=== PATIENT | female | born 1955 | race Caucasian/White ===

== ENCOUNTER 2016-12-29 19:26 | Emergency (ER) | payer OTHER ==
--- NOTE | 2016-12-29 22:55 | ED ---
Zackary Vasquez Salem, scribed for Faye Chatman MD on 12/29/16 at 2143 . HPI Cardiac - HPI Summary HPI Summary: Patient is 61 y/o female who presents to the ED with a concerning INR draw since this afternoon. She reports her PCP instructed her to come in after the INR was drawn. She denies fever, chills, or CP. She reports no other symptoms. Pt has a FHx of CAD and HTN, and has a PMHx of PE, DM, HTN, HLD, but denies CT or CVA. Her PCP is Dr. Bryan. Pt lives alone and is a smoker. - History of Current Complaint Chief Complaint: EDGeneral Stated Complaint: ABNORMAL LABS Time Seen by Provider: 12/29/16 21:09 Hx Obtained From: Patient Onset/Duration: Started Hours Ago Initial Severity: Moderate Current Severity: Moderate Pain Intensity: 0 Pain Scale Used: 0-10 Numeric Aggravating Factor(s): Nothing Alleviating Factor(s): Nothing Associated Signs and Symptoms: Negative: Chest Pain, Fever, Chills - Additional Pertinent History Primary Care Physician: [id number] - Allergy/Home Medications Allergies/Adverse Reactions: Allergies Allergy/AdvReac Type Severity Reaction Status Date / Time Pineapple Allergy Severe Swelling Verified 05/17/16 17:16 Gabapentin Allergy Intermediate Hallucinati Verified 05/17/16 17:16 ons Penicillins Allergy Intermediate Hives Verified 05/17/16 17:16 Prednisone Allergy Intermediate Hallucinati Verified 05/17/16 17:16 ons Bupropion [From Wellbutrin] Allergy Unknown Unknown Verified 05/17/16 17:16 Reaction Details CI Pigment Blue 63 Allergy Unknown Verified 05/17/16 17:16 [From Cymbalta] Reaction Details Citalopram [From Celexa] Allergy Unknown Verified 05/17/16 17:16 Reaction Details Clonazepam [From Klonopin] Allergy Unknown Verified 05/17/16 17:16 Reaction Details Duloxetine [From Cymbalta] Allergy Unknown Verified 05/17/16 17:16 Reaction Details Eszopiclone [From Lunesta] Allergy Unknown Verified 05/17/16 17:16 Reaction Details Fluoxetine [From Prozac] Allergy Unknown Verified 05/17/16 17:16 Reaction Details Metaxalone [From Skelaxin] Allergy Unknown Verified 05/17/16 17:16 Reaction Details Naproxen Allergy Unknown Verified 05/17/16 17:16 Reaction Details Pregabalin [From Lyrica] Allergy Unknown Verified 05/17/16 17:16 Reaction Details Sertraline [From Zoloft] Allergy Unknown Verified 05/17/16 17:16 Reaction Details Valproic Acid [From Depakote] AdvReac Severe Headache Verified 05/17/16 17:16 dimatapp Allergy Severe Swelling Uncoded 05/17/16 17:16 adhesives Allergy Intermediate Hives Uncoded 01/24/16 16:31 PMH/Surg Hx/FS Hx/Imm Hx Endocrine/Hematology History: Reports: Hx Diabetes, Hx Thyroid Disease, Other Endocrine/Hematological Disorders - vit d resistent Denies: Hx Anticoagulant Therapy, Hx Blood Disorders, Hx Blood Transfusions, Hx Bone Marrow Disease, Hx Systemic Lupus Erythematosus, Hx Sickle Cell Disease , Hx Anemia, Hx Unexplained Bleeding Cardiovascular History: Reports: Hx Angina, Hx Embolism, Hx Hypercholesterolemia , Hx Hypertension, Hx Syncope, Other Cardiovascular Problems/Disorders Denies: Hx Aneurysm, Hx Angioplasty, Hx Auto Implanted Cardiovert Defib, Hx Cardiac Arrest, Hx Cardiomegaly, Hx Congenital Heart Disease, Hx Congestive Heart Failure, Hx Coronary Artery Disease, Hx Deep Vein Thrombosis, Hx Hypotension, Hx Myocardial Infarction, Hx Pacemaker/ICD, Hx Peripheral Vascular Disease, Hx Rheumatic Fever, Hx Valvular Heart Disease Respiratory History: Reports: Hx Asthma, Hx Chronic Bronchitis, Hx Chronic Obstructive Pulmonary Disease (COPD), Hx Pulmonary Embolism Denies: Hx Cystic Fibrosis, Hx Lung Cancer, Hx Pleural Effusion, Hx Pneumonia , Hx Pulmonary Edema, Hx Seasonal Allergies, Hx Sleep Apnea GI History: Reports: Hx Gall Bladder Disease, Hx Gastroesophageal Reflux Disease , Hx Irritable Bowel, Other GI Disorders History: Denies: Hx Acute Renal Failure, Hx Benign Prostatic Hyperplasia, Hx Chronic Renal Failure, Hx Dialysis, Hx Kidney Infection, Hx Kidney Stones, Hx Renal Disease, Other Problems/Disorders Musculoskeletal History: Reports: Hx Arthritis, Hx Back Problems, Hx Bursitis, Hx Fibromyalgia, Hx Scoliosis, Other Musculoskeletal History - 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 Denies: Hx Congenital Bone Abnormalities, Hx Gout, Hx Orthopedic Injury, Hx Osteoporosis, Hx Tendonitis Sensory History: Reports: Hx Contacts or Glasses Denies: Hx Eye Injury, Hx Eye Prosthesis, Hx Glaucoma, Hx Legally Blind, Hx Macular Degeneration, Hx Vision Problem, Hx Deafness, Hx Hearing Aid, Hx Hearing Problem, Other Sensory Impairments Opthamlomology History: Reports: Hx Contacts or Glasses Denies: Hx Eye Injury, Hx Eye Prosthesis, Hx Glaucoma, Hx Legally Blind, Hx Macular Degeneration, Hx Vision Problem, Other Sensory Impairments Neurological History: Reports: Hx Headaches, Hx Migraine, Hx Transient Ischemic Attacks (TIA), Other Neuro Impairments/Disorders Denies: Hx Dementia, Hx Developmental Delay, Hx Nerve Disease, Hx Seizures, Hx Spinal Cord Injury Psychiatric History: Reports: Hx Anxiety, Hx Depression, Hx Panic Disorder, Hx Bipolar Disorder, Hx Suicide Attempt - 1995, Other Psychiatric Issues/Disorders - claustrophobia Denies: Hx Substance Abuse - Surgical History Surgery Procedure, Year, and Place: Left knee replacement 04/2005, c section x2 81 & 89, HYSTERECTOMY, GALLBLADDER, TONSILS Hx Anesthesia Reactions: No - Immunization History Date of Tetanus Vaccine: Unknown Date of Influenza Vaccine: 09/2012 Infectious Disease History: No Infectious Disease History: Denies: Hx Hepatitis, Hx Human Immunodeficiency Virus (HIV), Hx of Known/ Suspected MRSA, Hx Shingles, Hx Tuberculosis, Traveled Outside the [place] in Last 30 Days Comment Only: History Other Infectious Disease - hx mrsa in knee postoperatively - Family History Known Family History: Positive: Cardiac Disease, Hypertension, Diabetes, Other - bipolar - Social History Lives: Alone Alcohol Use: None Hx Substance Use: No Substance Use Type: Reports: None Hx Tobacco Use: Yes Smoking Status (MU): Light Every Day Tobacco Smoker Type: Cigarettes Amount Used/How Often: reports smoking 1 pack/week Length of Time of Smoking/Using Tobacco: 30 years Have You Smoked in the Last Year: Yes Review of Systems Negative: Fever, Chills Negative: Chest Pain All Other Systems Reviewed And Are Negative: Yes Physical Exam Triage Information Reviewed: Yes Vital Signs On Initial Exam: Initial Vitals Temp Pulse Resp BP Pulse Ox 97.6 F 102 16 101/59 100 12/29/16 19:36 12/29/16 19:36 12/29/16 19:36 12/29/16 19:36 12/29/16 19:36 Vital Signs Reviewed: Yes Appearance: Positive: Well-Appearing, No Pain Distress Skin: Positive: Warm, Skin Color Reflects Adequate Perfusion, Dry Eyes: Positive: EOMI, TOÑO Neck: Positive: Supple, Nontender Respiratory/Lung Sounds: Positive: Clear to Auscultation, Breath Sounds Present. Negative: Rales, Rhonchi, Wheezes Cardiovascular: Positive: RRR. Negative: Murmur, Rub, Other - No gallop. Abdomen Description: Positive: Nontender, Soft, Other: - No rebound.. Negative : Distended, Guarding Bowel Sounds: Positive: Present Musculoskeletal: Positive: Strength/ROM Intact. Negative: Edema Left, Edema Right Neurological: Positive: Sensory/Motor Intact, Alert, Oriented to Person Place, Time, CN Intact II-III Psychiatric: Positive: Affect/Mood Appropriate Diagnostics - Vital Signs Vital Signs Temp Pulse Resp BP Pulse Ox 12/29/16 19:36 97.6 F 102 16 101/59 100 - Laboratory Lab Results: Lab Results 12/29/16 Range/Units 21:25 INR (Anticoag Therapy) 5.70 H* (0.89-1.11) Lab Statement: Any lab studies that have been ordered have been reviewed, and results considered in the medical decision making process. Disposition - Course Course Of Treatment: No signs of bleeding. well appearing female with inr less than 9 hold coumadin call pmd - Diagnoses Provider Diagnoses: Coagulopathy - Physician Notifications Discussed Care Of Patient With: Dr. Bryan (PCP). Agrees with plan. Discharge - Discharge Plan Condition: Stable Disposition: HOME Patient Education Materials: Bleeding Disorders (ED) Referrals: Germain Sears MD [Primary Care Provider] - Additional Instructions: Follow up with PCP. The documentation as recorded by the Zackary marr Salem accurately reflects the service I personally performed and the decisions made by , Faye Chatman MD.
[2016-12-29 22:58] VITALS: BP 128/69
== END 2016-12-29 22:56 | disposition home or self-care (01) ==
LOC: ED 19:26
DX: D68.9 Coagulation defect, unspecified (principal); F17.210 Nicotine dependence, cigarettes, uncomplicated
CPT/HCPCS: 36415; 85610; 99282

== ENCOUNTER → 2017-03-10 13:02 | Emergency (ER) | payer OTHER ==
[~2017-03-10 13:02] MED LIST: Albuterol/Ipratropium NEB.SOL* Albuterol 2.5 MG/Ipratropium 0.5 MG 3 ML INH ONE; diPHENhydraMINE PO* 25 MG ONE; diPHENhydraMINE PO* 25 MG PO ONE
[2017-03-10 15:57] LABS: Hematocrit 26 % (35-47); Hemoglobin 8.4 g/dl (12.0-16.0); Mean Corpuscular HGB Conc 32 g/dl (31-36); Mean Corpuscular Hemoglobin 30 pg (27-31); Mean Corpuscular Volume 94 fL (80-97); Mean Platelet Volume 8 um3 (7.4-10.4); Red Blood Count 2.79 10^6/ul (4.0-5.4); Red Cell Distribution Width 15 % (10.5-15); White Blood Count 9.1 10^3/ul (3.5-10.8)
[2017-03-10 16:10] LABS: Albumin 3.2 g/dL (3.2-5.2); BUN/Creatinine Ratio 20.5 (8-20); Calcium 8.6 mg/dL (8.6-10.3); EGFR Non-African American 29.6 (>60); Potassium 5.7 mmol/L (3.5-5.0); Total Bilirubin 0.3 mg/dL (0.2-1.0); Total Protein 6.2 g/dL (6.4-8.9); Troponin I 0.01 ng/mL (<0.04)
--- NOTE | 2017-03-10 16:25 | RAD ---
Indication: Shortness breath, cough, pneumonia. Cardiac disease and chronic obstructive pulmonary disease. Comparison: October 03, 2016 Technique: Sitting AP and lateral chest views. Report: Elevated lung volumes and both diffuse mild prominence of the interstitial markings and patchy rarefaction of the mid to upper lung zone interstitial markings. No alveolar consolidation, focal pulmonary lesion, pleural effusion, pneumothorax. The heart, pulmonary vasculature, and mediastinal contours are unremarkable. IMPRESSION: Stigmata of obstructive lung disease. No acute pulmonary or cardiac process evident.
--- NOTE | 2017-03-10 16:32 | RAD ---
Indication: Headache. On Coumadin. Assess for intracranial hemorrhage. Comparison: July 04, 2016 Technique: Noncontrast CT vertex of skull through foramen magnum. Report: The sulci, ventricles, and basal cisterns are normal for age. Boogie matter white matter differentiation is preserved without evidence for edema. No intra or extra axial hemorrhage, mass, or fluid collection detected. Unremarkable visualized orbital contents. Unremarkable calvarium and skull base. Unremarkable scalp. The visualized paranasal sinuses and mastoid air spaces are clear. IMPRESSION: No evidence for intracranial hemorrhage. Negative unenhanced head CT.
[2017-03-10] MEDS: NS 0.9% 1000 ML* 2,000 ML IV ONE (16:47)
[2017-03-10 20:20] VITALS: BP 84/64
--- NOTE | 2017-03-17 13:12 | ED ---
Forrest Vasquez Auryana, scribed for Mikhail Petty MD on 03/10/17 at 1542 . Complex/Multi-Sys Presentation - HPI Summary HPI Summary: 61 year old female presents with cough for 3 days and JOLLEY for 2 days. She reports that she fell 2 days ago and that the JOLLEY is diffuse. She also has wheezing, SOB, and vomiting, but denies CP, dizziness, and any rhinorrhea. She is on warfarin. PMHx is significant for HTN, COPD, HLD, and GERD. Shx is positive for tobacco. - History Of Current Complaint Chief Complaint: EDShortnessOfBreath Time Seen by Provider: 03/10/17 15:16 Hx Obtained From: Patient Onset/Duration: Gradual Onset, Lasting Days - 3 days cough; 2 days JOLLEY, Still Present Timing: Constant Severity Currently: Mild Severity Initially: Mild Location: Pain At: - head - diffuse Associated Signs And Symptoms: Positive: Headache, SOB, Cough, Wheezing, Vomiting. Negative: Dizziness, Chest Pain, Fever - Allergies/Home Medications Allergies/Adverse Reactions: Allergies Allergy/AdvReac Type Severity Reaction Status Date / Time Pineapple Allergy Severe Swelling Verified 05/17/16 17:16 Gabapentin Allergy Intermediate Hallucinati Verified 05/17/16 17:16 ons Penicillins Allergy Intermediate Hives Verified 05/17/16 17:16 Prednisone Allergy Intermediate Hallucinati Verified 05/17/16 17:16 ons Bupropion [From Wellbutrin] Allergy Unknown Unknown Verified 05/17/16 17:16 Reaction Details CI Pigment Blue 63 Allergy Unknown Verified 05/17/16 17:16 [From Cymbalta] Reaction Details Citalopram [From Celexa] Allergy Unknown Verified 05/17/16 17:16 Reaction Details Clonazepam [From Klonopin] Allergy Unknown Verified 05/17/16 17:16 Reaction Details Duloxetine [From Cymbalta] Allergy Unknown Verified 05/17/16 17:16 Reaction Details Eszopiclone [From Lunesta] Allergy Unknown Verified 05/17/16 17:16 Reaction Details Fluoxetine [From Prozac] Allergy Unknown Verified 05/17/16 17:16 Reaction Details Metaxalone [From Skelaxin] Allergy Unknown Verified 05/17/16 17:16 Reaction Details Naproxen Allergy Unknown Verified 05/17/16 17:16 Reaction Details Pregabalin [From Lyrica] Allergy Unknown Verified 05/17/16 17:16 Reaction Details Sertraline [From Zoloft] Allergy Unknown Verified 05/17/16 17:16 Reaction Details Valproic Acid [From Depakote] AdvReac Severe Headache Verified 05/17/16 17:16 dimatapp Allergy Severe Swelling Uncoded 05/17/16 17:16 adhesives Allergy Intermediate Hives Uncoded 01/24/16 16:31 Home Medications: Home Medications ARIPiprazole TAB* [Abilify TAB*] 10 mg PO BID 03/10/17 [History Confirmed 03/10] LORazepam TAB(*) [Ativan 1 MG TAB (*)] 2 mg PO TID PRN 03/10/17 [History Confirmed 03/10/17] Levothyroxine TAB* [Synthroid TAB*] 75 mcg PO DAILY 03/10/17 [History Confirmed 03/10/17] Magnesium Oxide TAB* [MagOx 400 TAB*] 400 mg PO BID 03/10/17 [History Confirmed 03/10/17] Montelukast Sodium TAB* [Singulair TAB*] 10 mg PO BEDTIME 03/10/17 [History Confirmed 03/10/17] Morphine TAB (NF) 15 mg PO QID PRN 03/10/17 [History Confirmed 03/10/17] SUMAtriptan TAB* [Imitrex TAB*] 50 mg PO DAILY PRN 03/10/17 [History Confirmed 03/10/17] Venlafaxine ER (NF) [Effexor ER (NF)] 150 mg PO DAILY 03/10/17 [History Confirmed 03/10/17] Venlafaxine EXT RELEASE CAP* [Effexor Xr CAP*] 75 mg PO DAILY 03/10/17 [History Confirmed 03/10/17] Warfarin TAB(*) [Coumadin TAB(*)] 5 mg PO EVERY OTHER DAY 03/10/17 [History Confirmed 03/10/17] Warfarin TAB(*) [Coumadin TAB(*)] 7.5 mg PO EVERY OTHER DAY 03/10/17 [History Confirmed 03/10/17] Wound Dressings [Sorbsan Topical Wound [place]] 1 pad TOPICAL [id number] 03/10/17 [ History Confirmed 03/10/17] hydrOXYzine HCL TAB* [Atarax 25 MG TAB*] 25 mg PO TID PRN 03/10/17 [History Confirmed 03/10/17] PMH/Surg Hx/FS Hx/Imm Hx Endocrine/Hematology History: Reports: Hx Diabetes, Hx Thyroid Disease, Other Endocrine/Hematological Disorders - vit d resistent Denies: Hx Anticoagulant Therapy, Hx Blood Disorders, Hx Blood Transfusions, Hx Bone Marrow Disease, Hx Systemic Lupus Erythematosus, Hx Sickle Cell Disease , Hx Anemia, Hx Unexplained Bleeding Cardiovascular History: Reports: Hx Angina, Hx Embolism, Hx Hypercholesterolemia , Hx Hypertension, Hx Syncope, Other Cardiovascular Problems/Disorders Denies: Hx Aneurysm, Hx Angioplasty, Hx Auto Implanted Cardiovert Defib, Hx Cardiac Arrest, Hx Cardiomegaly, Hx Congenital Heart Disease, Hx Congestive Heart Failure, Hx Coronary Artery Disease, Hx Deep Vein Thrombosis, Hx Hypotension, Hx Myocardial Infarction, Hx Pacemaker/ICD, Hx Peripheral Vascular Disease, Hx Rheumatic Fever, Hx Valvular Heart Disease Respiratory History: Reports: Hx Asthma, Hx Chronic Bronchitis, Hx Chronic Obstructive Pulmonary Disease (COPD), Hx Pulmonary Embolism Denies: Hx Cystic Fibrosis, Hx Lung Cancer, Hx Pleural Effusion, Hx Pneumonia , Hx Pulmonary Edema, Hx Seasonal Allergies, Hx Sleep Apnea GI History: Reports: Hx Gall Bladder Disease, Hx Gastroesophageal Reflux Disease , Hx Irritable Bowel, Other GI Disorders History: Denies: Hx Acute Renal Failure, Hx Benign Prostatic Hyperplasia, Hx Chronic Renal Failure, Hx Dialysis, Hx Kidney Infection, Hx Kidney Stones, Hx Renal Disease, Other Problems/Disorders Musculoskeletal History: Reports: Hx Arthritis, Hx Back Problems, Hx Bursitis, Hx Fibromyalgia, Hx Scoliosis, Other Musculoskeletal History - 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 Denies: Hx Congenital Bone Abnormalities, Hx Gout, Hx Orthopedic Injury, Hx Osteoporosis, Hx Tendonitis Sensory History: Reports: Hx Contacts or Glasses Denies: Hx Eye Injury, Hx Eye Prosthesis, Hx Glaucoma, Hx Legally Blind, Hx Macular Degeneration, Hx Vision Problem, Hx Deafness, Hx Hearing Aid, Hx Hearing Problem, Other Sensory Impairments Opthamlomology History: Reports: Hx Contacts or Glasses Denies: Hx Eye Injury, Hx Eye Prosthesis, Hx Glaucoma, Hx Legally Blind, Hx Macular Degeneration, Hx Vision Problem, Other Sensory Impairments Neurological History: Reports: Hx Headaches, Hx Migraine, Hx Transient Ischemic Attacks (TIA), Other Neuro Impairments/Disorders Denies: Hx Dementia, Hx Developmental Delay, Hx Nerve Disease, Hx Seizures, Hx Spinal Cord Injury Psychiatric History: Reports: Hx Anxiety, Hx Depression, Hx Panic Disorder, Hx Bipolar Disorder, Hx Suicide Attempt - 1995, Other Psychiatric Issues/Disorders - claustrophobia Denies: Hx Substance Abuse - Surgical History Surgery Procedure, Year, and Place: Left knee replacement 04/2005, c section x2 81 & 89, HYSTERECTOMY, GALLBLADDER, TONSILS Hx Anesthesia Reactions: No - Immunization History Date of Tetanus Vaccine: Unknown Date of Influenza Vaccine: 09/2012 Infectious Disease History: No Infectious Disease History: Denies: Hx Hepatitis, Hx Human Immunodeficiency Virus (HIV), Hx of Known/ Suspected MRSA, Hx Shingles, Hx Tuberculosis, Traveled Outside the [place] in Last 30 Days Comment Only: History Other Infectious Disease - hx mrsa in knee postoperatively - Family History Known Family History: Positive: Cardiac Disease, Hypertension, Diabetes, Other - bipolar - Social History Occupation: Disabled Lives: Alone Alcohol Use: None Hx Substance Use: No Substance Use Type: Reports: None Hx Tobacco Use: Yes Smoking Status (MU): Current Every Day Smoker Type: Cigarettes Amount Used/How Often: reports smoking 1 pack/week Length of Time of Smoking/Using Tobacco: 30 years Have You Smoked in the Last Year: Yes Review of Systems Constitutional: Negative Negative: Fever Eyes: Negative ENT: Negative Negative: Nasal Discharge Cardiovascular: Negative Negative: Chest Pain Positive: Shortness Of Breath, Cough, Other - wheezing Positive: Vomiting Genitourinary: Negative Musculoskeletal: Negative Skin: Negative Positive: Headache Psychological: Normal All Other Systems Reviewed And Are Negative: Yes Physical Exam - Summary Physical Exam Summary: The patient is well-nourished in no acute distress and in no acute pain. The skin is warm and dry and pale. Decreased skin turgor. HEENT: The head is normocephalic and atraumatic. The pupils are equal and reactive. The conjunctivae are clear and without drainage. Nares are patent and without drainage. Mouth reveals dry mucous membranes and the throat is without erythema and exudate. The external ears are intact. The ear canals are patent and without drainage. The tympanic membranes are intact. Neck is supple with full range of motion and non-tender. There are no carotid bruits. There is no neck vein distension. Respiratory: Chest is non-tender. Diminished breath sounds and wheezing. Cardiovascular: Heart is regular rate and rhythm. There is no murmur or rub auscultated. There is no peripheral edema and pulses are symmetrical and equal. Abdomen: The abdomen is soft and non-tender. There are normal bowel sounds heard in all four quadrants and there is no organomegaly palpated. Musculoskeletal: There is no back pain noted. Extremities are non-tender with full range of motion. There is good capillary refill. There is no peripheral edema or calf tenderness elicited. Neurological: Patient is alert and oriented to person, place and time. The patient has symmetrical motor strength in all four extremities. Cranial nerves are grossly intact. Deep tendon reflexes are symmetrical and equal in all four extremities. Psychiatric: The patient has an appropriate affect and does not exhibit any anxiety or depression. Triage Information Reviewed: Yes Vital Signs On Initial Exam: Initial Vitals Temp Pulse Resp BP Pulse Ox 98.5 F 84 18 98/43 100 03/10/17 13:10 03/10/17 13:10 03/10/17 13:10 03/10/17 13:10 03/10/17 13:10 Vital Signs Reviewed: Yes - Wing Coma Scale Coma Scale Total: 15 Diagnostics - Vital Signs Vital Signs Temp Pulse Resp BP Pulse Ox 03/10/17 13:10 98.5 F 84 18 98/43 100 - Laboratory Lab Results: Lab Results 03/10/17 03/10/17 03/10/17 Range/Units 14:55 14:55 14:55 WBC 9.1 (3.5-10.8) 10^3/ul RBC 2.79 L (4.0-5.4) 10^6/ul Hgb 8.4 L (12.0-16.0) g/dl Hct 26 L (35-47) % MCV 94 (80-97) fL MCH 30 (27-31) pg MCHC 32 (31-36) g/dl RDW 15 (10.5-15) % Plt Count 262 (150-450) 10^3/ul MPV 8 (7.4-10.4) um3 Neut % (Auto) 66.7 (38-83) % Lymph % (Auto) 20.1 L (25-47) % Kerr % (Auto) 10.5 H (1-9) % Eos % (Auto) 2.5 (0-6) % Baso % (Auto) 0.2 (0-2) % Absolute Neuts (auto) 6.1 (1.5-7.7) 10^3/ul Absolute Lymphs (auto) 1.8 (1.0-4.8) 10^3/ul Absolute Monos (auto) 1.0 H (0-0.8) 10^3/ul Absolute Eos (auto) 0.2 (0-0.6) 10^3/ul Absolute Basos (auto) 0 (0-0.2) 10^3/ul Absolute Nucleated RBC 0.01 10^3/ul Nucleated RBC % 0.1 INR (Anticoag Therapy) (0.89-1.11) Sodium 130 L (133-145) mmol/L Potassium 5.7 H (3.5-5.0) mmol/L Chloride 102 (101-111) mmol/L Carbon Dioxide 22 (22-32) mmol/L Anion Gap 6 (2-11) mmol/L BUN 36 H (6-24) mg/dL Creatinine 1.76 H (0.51-0.95) mg/dL Est GFR ( Amer) 38.0 (>60) Est GFR (Non-Af Amer) 29.6 (>60) BUN/Creatinine Ratio 20.5 H (8-20) Glucose 74 (70-100) mg/dL Lactic Acid 1.2 (0.5-2.0) mmol/L Calcium 8.6 (8.6-10.3) mg/dL Total Bilirubin 0.30 (0.2-1.0) mg/dL AST 18 (13-39) U/L ALT 11 (7-52) U/L Alkaline Phosphatase 85 (34-104) U/L Troponin I 0.01 (<0.04) ng/mL B-Natriuretic Peptide ( - 100) pg/mL Total Protein 6.2 L (6.4-8.9) g/dL Albumin 3.2 (3.2-5.2) g/dL Globulin 3.0 (2-4) g/dL Albumin/Globulin Ratio 1.1 (1-3) 03/10/17 03/10/17 Range/Units 14:55 14:55 WBC (3.5-10.8) 10^3/ul RBC (4.0-5.4) 10^6/ul Hgb (12.0-16.0) g/dl Hct (35-47) % MCV (80-97) fL MCH (27-31) pg MCHC (31-36) g/dl RDW (10.5-15) % Plt Count (150-450) 10^3/ul MPV (7.4-10.4) um3 Neut % (Auto) (38-83) % Lymph % (Auto) (25-47) % Kerr % (Auto) (1-9) % Eos % (Auto) (0-6) % Baso % (Auto) (0-2) % Absolute Neuts (auto) (1.5-7.7) 10^3/ul Absolute Lymphs (auto) (1.0-4.8) 10^3/ul Absolute Monos (auto) (0-0.8) 10^3/ul Absolute Eos (auto) (0-0.6) 10^3/ul Absolute Basos (auto) (0-0.2) 10^3/ul Absolute Nucleated RBC 10^3/ul Nucleated RBC % INR (Anticoag Therapy) 1.10 (0.89-1.11) Sodium (133-145) mmol/L Potassium (3.5-5.0) mmol/L Chloride (101-111) mmol/L Carbon Dioxide (22-32) mmol/L Anion Gap (2-11) mmol/L BUN (6-24) mg/dL Creatinine (0.51-0.95) mg/dL Est GFR ( Amer) (>60) Est GFR (Non-Af Amer) (>60) BUN/Creatinine Ratio (8-20) Glucose (70-100) mg/dL Lactic Acid (0.5-2.0) mmol/L Calcium (8.6-10.3) mg/dL Total Bilirubin (0.2-1.0) mg/dL AST (13-39) U/L ALT (7-52) U/L Alkaline Phosphatase (34-104) U/L Troponin I (<0.04) ng/mL B-Natriuretic Peptide 142 H ( - 100) pg/mL Total Protein (6.4-8.9) g/dL Albumin (3.2-5.2) g/dL Globulin (2-4) g/dL Albumin/Globulin Ratio (1-3) Result Diagrams: 03/10/17 14:55 03/10/17 14:55 Lab Statement: Any lab studies that have been ordered have been reviewed, and results considered in the medical decision making process. - Radiology CXR Xray Interpretation: No Acute Changes - IMPRESSION: Stigmata of obstructive lung disease. No acute pulmonary or cardiac process evident. Radiology Interpretation Completed By: Radiologist - CT BRAIN CT Interpretation: No Acute Changes CT Interpretation Completed By: Radiologist Re-Evaluation - Re-Evaluation First Eval Re-Evaluation Time: 18:34 - DISCUSSED LABS, IMAGING AND PLAN TO D/C Change: Improved Comment: JOLLEY still there but states breathing improved Complex Multi-Symp Course/Dx Assessment/Plan: 61 year old female presents with cough for 3 days and JOLLEY for 2 days. She reports that she fell 2 days ago and that the JOLLEY is diffuse. She also has wheezing, SOB, and vomiting, but denies CP, dizziness, and any rhinorrhea. She is on warfarin. PMHx is significant for HTN, COPD, HLD, and GERD. Shx is positive for tobacco. CT BRAIN: NEGATIVE. CXR: IMPRESSION: Stigmata of obstructive lung disease. No acute pulmonary or cardiac process evident. PATIENT'S COUGH IS IMPROVED, JOLLEY IS STILL PRESENT. WILL RECHECK AFTER FLUIDS AND WILL DISCHARGE HOME. signout to dr. awan at 19:00. DX: COPD, JOLLEY, AND DEHYDRATION. - Diagnoses Provider Diagnoses: COPD (chronic obstructive pulmonary disease), Dehydration, Headache Discharge - Discharge Plan Condition: Stable Disposition: HOME Discharge Disposition Comment: signout to dr. awan at 19:00 Patient Education Materials: COPD (Chronic Obstructive Pulmonary Disease) (ED) , Dehydration (ED), Acute Headache (ED) Referrals: Germain Sears MD [Primary Care Provider] - 3 Days The documentation as recorded by the Forrest marr Auryana accurately reflects the service I personally performed and the decisions made by me, Mikhail Petty MD.
== END | disposition home or self-care (01) ==
LOC: ED 13:02
DX: J44.9 Chronic obstructive pulmonary disease, unspecified (principal); E86.0 Dehydration; R51 Headache; R06.02 Shortness of breath; R11.10 Vomiting, unspecified; F17.210 Nicotine dependence, cigarettes, uncomplicated; R06.2 Wheezing
CPT/HCPCS: 36415; 70450; 71020; 80053; 83605; 83880; 84484; 85025; 85610; 87040; 94640; 94760; 99283; A9270-GY

== ENCOUNTER 2017-03-30 15:31 | Emergency (ER) | payer OTHER ==
[2017-03-30 17:19] LABS: Hematocrit 32 % (35-47); Mean Corpuscular HGB Conc 32 g/dl (31-36); Mean Corpuscular Hemoglobin 30 pg (27-31); Mean Corpuscular Volume 94 fL (80-97); Red Blood Count 3.36 10^6/ul (4.0-5.4); Red Cell Distribution Width 16 % (10.5-15); White Blood Count 9.3 10^3/ul (3.5-10.8)
[2017-03-30 17:23] LABS: Add Diff/Slide Review? Slide Review Added; Comments Flag Yes
--- NOTE | 2017-03-30 17:26 | RAD ---
INDICATION: Cough. Chest pain. COMPARISON: March 10, 2017 TECHNIQUE: An AP portable view obtained at 1706 hours is submitted. FINDINGS: Bones/Soft Tissues: There are no acute bony findings. Cardiomediastinal: The cardiomediastinal silhouette is normal. Lungs: There are no acute infiltrates. There is mild chronic left basilar abnormalities.. Pleura: No significant effusions. Mild chronic blunting left costophrenic angle. Other: None IMPRESSION: NO ACTIVE DISEASE.
[2017-03-30 17:56] LABS: Mean Platelet Volume 10 um3 (7.4-10.4)
[2017-03-30 18:14] LABS: Troponin I 0.01 ng/mL (<0.04)
[2017-03-30 18:49] VITALS: BP 129/78
[2017-03-30 18:56] LABS: Albumin 3.7 g/dL (3.2-5.2); BUN/Creatinine Ratio 17.4 (8-20); Calcium 8.9 mg/dL (8.6-10.3); EGFR African American 62.1 (>60); EGFR Non-African American 48.3 (>60); Globulin 2.8 g/dL (2-4); Potassium 4.3 mmol/L (3.5-5.0); Total Bilirubin 0.2 mg/dL (0.2-1.0); Total Protein 6.5 g/dL (6.4-8.9)
--- NOTE | 2017-03-30 18:58 | ED ---
Jacobo Vasquez Benjamin, scribed for Pedro Breaux MD on 03/30/17 at 1656 . HPI Chest Pain - HPI Summary HPI Summary: 61yo female c/o SOB, CP, and dizziness since this afternoon. Pt has also coughed up blood and experienced room spinning. Hx of PE, HTN, COPD, ASTHMA, DM , GERD, OBESITY, DEPRESSION, ANXIETY, HIGH CHOLESTEROL, MRSA , bipolar, PTSD, panic disorder - History of Current Complaint Chief Complaint: EDDizziness Time Seen by Provider: 03/30/17 16:04 Hx Obtained From: Patient Onset/Duration: Started Hours Ago, Still Present Timing: Constant Initial Severity: Moderate Current Severity: Moderate Pain Intensity: 6 Pain Scale Used: 0-10 Numeric Chest Pain Location: Diffuse Chest Pain Radiates: No Aggravating Factor(s): Nothing Alleviating Factor(s): Nothing Associated Signs and Symptoms: Positive: Dizziness, Shortness of Breath - v, Hemoptysis - Additional Pertinent History Primary Care Physician: [id number] - Allergy/Home Medications Allergies/Adverse Reactions: Allergies Allergy/AdvReac Type Severity Reaction Status Date / Time Pineapple Allergy Severe Swelling Verified 05/17/16 17:16 Gabapentin Allergy Intermediate Hallucinati Verified 05/17/16 17:16 ons Penicillins Allergy Intermediate Hives Verified 05/17/16 17:16 Prednisone Allergy Intermediate Hallucinati Verified 05/17/16 17:16 ons Bupropion [From Wellbutrin] Allergy Unknown Unknown Verified 05/17/16 17:16 Reaction Details CI Pigment Blue 63 Allergy Unknown Verified 05/17/16 17:16 [From Cymbalta] Reaction Details Citalopram [From Celexa] Allergy Unknown Verified 05/17/16 17:16 Reaction Details Clonazepam [From Klonopin] Allergy Unknown Verified 05/17/16 17:16 Reaction Details Duloxetine [From Cymbalta] Allergy Unknown Verified 05/17/16 17:16 Reaction Details Eszopiclone [From Lunesta] Allergy Unknown Verified 05/17/16 17:16 Reaction Details Fluoxetine [From Prozac] Allergy Unknown Verified 05/17/16 17:16 Reaction Details Metaxalone [From Skelaxin] Allergy Unknown Verified 05/17/16 17:16 Reaction Details Naproxen Allergy Unknown Verified 05/17/16 17:16 Reaction Details Pregabalin [From Lyrica] Allergy Unknown Verified 05/17/16 17:16 Reaction Details Sertraline [From Zoloft] Allergy Unknown Verified 05/17/16 17:16 Reaction Details Valproic Acid [From Depakote] AdvReac Severe Headache Verified 05/17/16 17:16 dimatapp Allergy Severe Swelling Uncoded 05/17/16 17:16 adhesives Allergy Intermediate Hives Uncoded 01/24/16 16:31 PMH/Surg Hx/FS Hx/Imm Hx Endocrine/Hematology History: Reports: Hx Diabetes, Hx Thyroid Disease, Other Endocrine/Hematological Disorders - vit d resistent Denies: Hx Anticoagulant Therapy, Hx Blood Disorders, Hx Blood Transfusions, Hx Bone Marrow Disease, Hx Systemic Lupus Erythematosus, Hx Sickle Cell Disease , Hx Anemia, Hx Unexplained Bleeding Cardiovascular History: Reports: Hx Angina, Hx Embolism, Hx Hypercholesterolemia , Hx Hypertension, Hx Syncope, Other Cardiovascular Problems/Disorders Denies: Hx Aneurysm, Hx Angioplasty, Hx Auto Implanted Cardiovert Defib, Hx Cardiac Arrest, Hx Cardiomegaly, Hx Congenital Heart Disease, Hx Congestive Heart Failure, Hx Coronary Artery Disease, Hx Deep Vein Thrombosis, Hx Hypotension, Hx Myocardial Infarction, Hx Pacemaker/ICD, Hx Peripheral Vascular Disease, Hx Rheumatic Fever, Hx Valvular Heart Disease Respiratory History: Reports: Hx Asthma, Hx Chronic Bronchitis, Hx Chronic Obstructive Pulmonary Disease (COPD), Hx Pulmonary Embolism Denies: Hx Cystic Fibrosis, Hx Lung Cancer, Hx Pleural Effusion, Hx Pneumonia , Hx Pulmonary Edema, Hx Seasonal Allergies, Hx Sleep Apnea GI History: Reports: Hx Gall Bladder Disease, Hx Gastroesophageal Reflux Disease , Hx Irritable Bowel, Other GI Disorders History: Denies: Hx Acute Renal Failure, Hx Benign Prostatic Hyperplasia, Hx Chronic Renal Failure, Hx Dialysis, Hx Kidney Infection, Hx Kidney Stones, Hx Renal Disease, Other Problems/Disorders Musculoskeletal History: Reports: Hx Arthritis, Hx Back Problems, Hx Bursitis, Hx Fibromyalgia, Hx Scoliosis, Other Musculoskeletal History - 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 Denies: Hx Congenital Bone Abnormalities, Hx Gout, Hx Orthopedic Injury, Hx Osteoporosis, Hx Tendonitis Sensory History: Reports: Hx Contacts or Glasses Denies: Hx Eye Injury, Hx Eye Prosthesis, Hx Glaucoma, Hx Legally Blind, Hx Macular Degeneration, Hx Vision Problem, Hx Deafness, Hx Hearing Aid, Hx Hearing Problem, Other Sensory Impairments Opthamlomology History: Reports: Hx Contacts or Glasses Denies: Hx Eye Injury, Hx Eye Prosthesis, Hx Glaucoma, Hx Legally Blind, Hx Macular Degeneration, Hx Vision Problem, Other Sensory Impairments Neurological History: Reports: Hx Headaches, Hx Migraine, Hx Transient Ischemic Attacks (TIA), Other Neuro Impairments/Disorders Denies: Hx Dementia, Hx Developmental Delay, Hx Nerve Disease, Hx Seizures, Hx Spinal Cord Injury Psychiatric History: Reports: Hx Anxiety, Hx Depression, Hx Panic Disorder, Hx Bipolar Disorder, Hx Suicide Attempt - 1995, Other Psychiatric Issues/Disorders - claustrophobia Denies: Hx Substance Abuse - Surgical History Surgery Procedure, Year, and Place: Left knee replacement 04/2005, c section x2 81 & 89, HYSTERECTOMY, GALLBLADDER, TONSILS Hx Anesthesia Reactions: No - Immunization History Date of Tetanus Vaccine: Unknown Date of Influenza Vaccine: 09/2012 Infectious Disease History: Yes Infectious Disease History: Denies: Hx Hepatitis, Hx Human Immunodeficiency Virus (HIV), Hx of Known/ Suspected MRSA, Hx Shingles, Hx Tuberculosis, Traveled Outside the [place] in Last 30 Days Comment Only: History Other Infectious Disease - hx mrsa in knee postoperatively - Family History Known Family History: Positive: Cardiac Disease, Hypertension, Diabetes, Other - bipolar - Social History Alcohol Use: None Hx Substance Use: No Substance Use Type: Reports: None Hx Tobacco Use: Yes Smoking Status (MU): Current Every Day Smoker Type: Cigarettes Amount Used/How Often: reports smoking 1 pack/week Length of Time of Smoking/Using Tobacco: 30 years Have You Smoked in the Last Year: Yes Review of Systems Constitutional: Negative Eyes: Negative ENT: Negative Positive: Chest Pain Positive: Shortness Of Breath, Cough Gastrointestinal: Negative Genitourinary: Negative Musculoskeletal: Negative Skin: Negative Neurological: Other - room spinning and dizziness Psychological: Normal All Other Systems Reviewed And Are Negative: Yes Physical Exam Triage Information Reviewed: Yes Vital Signs On Initial Exam: Initial Vitals Temp Pulse Resp BP Pulse Ox 97.4 F 89 13 147/91 100 03/30/17 15:45 03/30/17 15:45 03/30/17 15:45 03/30/17 15:45 03/30/17 15:45 Vital Signs Reviewed: Yes Appearance: Positive: Well-Appearing, No Pain Distress, Well-Nourished Skin: Positive: Warm, Skin Color Reflects Adequate Perfusion, Dry Head/Face: Positive: Normal Head/Face Inspection Eyes: Positive: Normal ENT: Positive: Hearing grossly normal, Pharynx normal, Other - bug in pt's right ear canal, otherwise normal TM Neck: Positive: Supple, Nontender Respiratory/Lung Sounds: Positive: Clear to Auscultation, Breath Sounds Present Cardiovascular: Positive: RRR Abdomen Description: Positive: Nontender, Soft Bowel Sounds: Positive: Present Musculoskeletal: Positive: Normal Neurological: Positive: Normal Psychiatric: Positive: Affect/Mood Appropriate - [place] Coma Scale Coma Scale Total: 15 Diagnostics - Vital Signs Vital Signs Temp Pulse Resp BP Pulse Ox 03/30/17 15:45 97.4 F 89 13 147/91 100 - Laboratory Lab Results: Lab Results 03/30/17 03/30/17 Range/Units 16:20 16:20 WBC 9.3 (3.5-10.8) 10^3/ul RBC 3.36 L (4.0-5.4) 10^6/ul Hgb 10.0 L (12.0-16.0) g/dl Hct 32 L (35-47) % MCV 94 (80-97) fL MCH 30 (27-31) pg MCHC 32 (31-36) g/dl RDW 16 H (10.5-15) % Plt Count 216 (150-450) 10^3/ul MPV 10 (7.4-10.4) um3 Neut % (Auto) 65.0 (38-83) % Lymph % (Auto) 25.3 (25-47) % [place] % (Auto) 5.6 (1-9) % Eos % (Auto) 3.4 (0-6) % Baso % (Auto) 0.7 (0-2) % Absolute Neuts (auto) 6.1 (1.5-7.7) 10^3/ul Absolute Lymphs (auto) 2.4 (1.0-4.8) 10^3/ul Absolute Monos (auto) 0.5 (0-0.8) 10^3/ul Absolute Eos (auto) 0.3 (0-0.6) 10^3/ul Absolute Basos (auto) 0.1 (0-0.2) 10^3/ul Absolute Nucleated RBC 0 10^3/ul Nucleated RBC % 0 Sodium Pending Potassium Pending Chloride Pending Carbon Dioxide Pending Anion Gap Pending BUN Pending Creatinine Pending Est GFR ( Amer) Pending Est GFR (Non-Af Amer) Pending BUN/Creatinine Ratio Pending Glucose Pending Calcium Pending Total Bilirubin Pending AST Pending ALT Pending Alkaline Phosphatase Pending Troponin I 0.01 (<0.04) ng/mL Total Protein Pending Albumin Pending Globulin Pending Albumin/Globulin Ratio Pending Result Diagrams: 03/30/17 16:20 03/30/17 16:20 Lab Statement: Any lab studies that have been ordered have been reviewed, and results considered in the medical decision making process. - Radiology CXR Xray Interpretation: No Acute Changes Radiology Interpretation Completed By: Radiologist - EKG 2842. Cardiac Rate: NL - 91bpm EKG Rhythm: Sinus Rhythm Ectopy: None Chest Pain Course/Dx - Course Course Of Treatment: Ms. Godoy came in C/O coughing up bloody sputum for a day or so and having intermittent episodes of dizziness (room spinning) and a fluttery feeling in her right ear. I irrigated a bedbug out of her right ear and am awaiting labs. Her CXR is unremarkable. I will D/C her with Biaxin if everything is OK. - Diagnoses Provider Diagnoses: Bronchitis, Foreign body of right ear - Provider Notifications Discussed Care Of Patient With: Dr. Hernandez at change of shift Discharge - Discharge Plan Condition: Stable Disposition: OTHER Discharge Disposition Comment: change of shift Prescriptions: Clarithromycin TAB* [Biaxin TAB*] 500 mg PO BID #20 tab Clarithromycin TAB* [Biaxin TAB*] 500 mg PO BID #20 tab Patient Education Materials: Acute Bronchitis (ED) Referrals: Germain Sears MD [Primary Care Provider] - The documentation as recorded by the Jacobo marr Benjamin accurately reflects the service I personally performed and the decisions made by me, Pedro Breaux MD.
--- NOTE | 2017-03-30 19:42 | PN ---
Progress Note - Progress Note Note: Pharmacy called with interaction between Clarithromycin and a statin. Suggested a change. Switched to Doxycycline to cover bronchitis in COPD patients.
== END 2017-03-30 20:27 ==
LOC: ED 15:31
DX: J40 Bronchitis, not specified as acute or chronic (principal); S00.451A Superficial foreign body of right ear, initial encounter; R06.02 Shortness of breath; R42 Dizziness and giddiness; R07.9 Chest pain, unspecified; R05 Cough; F17.210 Nicotine dependence, cigarettes, uncomplicated; X58.XXXA Exposure to other specified factors, initial encounter; Y93.9 Activity, unspecified; Y92.9 Unspecified place or not applicable
CPT/HCPCS: 36415; 71010; 80053; 84484; 85025; 93005; 99283

== ENCOUNTER 2018-01-24 15:29 | Observation (INO) | payer OTHER ==
[2018-01-24] MEDS ORDERED: Albuterol/Ipratropium NEB.SOL* Albuterol 2.5 MG/Ipratropium 0.5 MG 3 ML INH ONE (15:58)
[2018-01-24] MEDS ORDERED: methylPREDNISolone 125 MG* 2 ML VIAL IV ONE (15:58)
[2018-01-24 16:48] LABS: ABS Basophils 0 10^3/ul (0-0.2); ABS Eosinophils 0.2 10^3/ul (0-0.6); ABS Lymphocytes 1.6 10^3/ul (1.0-4.8); ABS Monocytes 0.5 10^3/ul (0-0.8); ABS Neutrophils 6.5 10^3/ul (1.5-7.7); ABS Nucleated RBC 0 10^3/ul; Eosinophil % 2.2 % (0-6); Hematocrit 36 % (35-47); Hemoglobin 11.7 g/dl (12.0-16.0); Lymphocyte % 17.5 % (25-47); Mean Corpuscular HGB Conc 33 g/dl (31-36); Mean Corpuscular Hemoglobin 29 pg (27-31); Mean Corpuscular Volume 88 fL (80-97); Mean Platelet Volume 8.5 um3 (7.4-10.4); Nucleated Red Blood Cells % 0; Platelet Count 220 10^3/ul (150-450); Red Blood Count 4.09 10^6/ul (4.0-5.4); Red Cell Distribution Width 21 % (10.5-15); White Blood Count 8.9 10^3/ul (3.5-10.8)
--- NOTE | 2018-01-24 16:54 | RAD ---
INDICATION: Difficulty breathing COMPARISON: Chest x-ray dated March 30, 2017 TECHNIQUE: Single AP portable view of the chest was obtained. FINDINGS: Image quality is compromised due to the relative inferiority of a portable chest x-ray. The heart and mediastinum exhibit normal size and contour. The lungs are grossly clear. There is no evidence of a large pleural effusion. Visualized bones are normal for the patient's age. IMPRESSION: No radiographic evidence for acute cardiopulmonary abnormality on this portable chest x-ray.
[2018-01-24 16:56] LABS: INR 3.34 (0.77-1.02)
[2018-01-24 17:38] LABS: EGFR Non-African American 35.7 (>60)
--- NOTE | 2018-01-24 17:51 | RAD ---
INDICATION: Right face numbness COMPARISON: Most recent CT of the brain is dated March 10, 2017 TECHNIQUE: Contiguous axial sections of the brain were obtained from the skull base to the vertex without contrast. FINDINGS: The ventricles, cisterns and sulci are within normal limits. The tejeda-white matter differentiation is adequately maintained and there is no sulcal effacement. No significant focal abnormality or mass effect is present. There is no evidence for intracranial hemorrhage. No significant focal osseous abnormality is present. There is a focus of inspissated secretion at the left sphenoid sinus. The visualized paranasal sinuses are otherwise well aerated. The mastoid air cells are well aerated bilaterally. IMPRESSION: Normal CT of the brain.
[2018-01-24 18:30] LABS: Urine Appearance Cloudy; Urine Blood Negative (Negative); Urine Color Yellow; Urine Ketones Negative (Negative); Urine Protein 1+(30 mg/dL) (Negative); Urine Specific Gravity 1.027 (1.010-1.030); Urine Urobilinogen Negative (Negative)
[2018-01-24] MEDS ORDERED: HYDROmorphone TAB* 2 MG PO PRN (18:35)
[2018-01-24] MEDS ORDERED: Methocarbamol TAB* 500 MG PO PRN (18:35)
[2018-01-24] MEDS ORDERED: Albuterol/Ipratropium NEB.SOL* Albuterol 2.5 MG/Ipratropium 0.5 MG 3 ML INH PRN (18:41)
--- NOTE | 2018-01-24 18:48 | ADMNOTE ---
Subjective Date of Service: 01/24/18 Interval History: ADMISSION HISTORY AND PHYSICAL EXAM: Allergies Allergy/AdvReac Type Severity Reaction Status Date / Time adhesive Allergy Hives Verified 01/24/18 15:44 bupropion [From Wellbutrin] Allergy Unknown Verified 01/24/18 15:46 Reaction Details citalopram [From Celexa] Allergy Unknown Verified 01/24/18 15:47 Reaction Details clonazepam [From Klonopin] Allergy Unknown Verified 01/24/18 15:47 Reaction Details dextromethorphan Allergy Swelling Verified 01/24/18 15:44 [From Dimetapp Of Cold-Congestion] Face,Lips,& Throat diphenhydramine Allergy Swelling Verified 01/24/18 15:44 [From Dimetapp Of Cold-Congestion] Face,Lips,& Throat divalproex sodium Allergy Headache Verified 01/24/18 15:46 [From Depakote] duloxetine [From Cymbalta] Allergy Unknown Verified 01/24/18 15:48 Reaction Details eszopiclone [From Lunesta] Allergy Unknown Verified 01/24/18 15:48 Reaction Details fluoxetine [From Prozac] Allergy Unknown Verified 01/24/18 15:48 Reaction Details gabapentin Allergy Hallucinati Verified 01/24/18 15:45 ons guaifenesin Allergy Swelling Verified 01/24/18 15:44 [From Dimetapp Of Cold-Congestion] Face,Lips,& Throat metaxalone [From Skelaxin] Allergy Unknown Verified 01/24/18 15:49 Reaction Details naproxen Allergy Unknown Verified 01/24/18 15:49 Reaction Details Penicillins Allergy Hives Verified 01/24/18 15:46 phenylephrine Allergy Swelling Verified 01/24/18 15:44 [From Dimetapp Of Cold-Congestion] Face,Lips,& Throat pineapple Allergy Swelling Verified 01/24/18 15:44 prednisone Allergy Hallucinati Verified 01/24/18 15:45 ons pseudoephedrine Allergy Swelling Verified 01/24/18 15:44 [From Dimetapp Of Cold-Congestion] Face,Lips,& Throat sertraline [From Zoloft] Allergy Unknown Verified 01/24/18 15:49 Reaction Details Home Medications Medication Instructions Recorded Confirmed Type Omeprazole CAP* [Prilosec CAP* 20 40 mg PO QAM 01/15/13 01/24/18 History MG] Ferrous Sulfate TAB* 650 mg PO QAM 02/10/15 01/24/18 History Losartan TAB* [Cozaar TAB*] 50 mg PO QAM 02/10/15 01/24/18 History Lovastatin (NF) [Mevacor (NF)] 40 mg PO QAM 02/10/15 01/24/18 History ValACYclovir (*) [Valtrex 500 mg 500 mg PO QAM 02/10/15 01/24/18 History (*)] metFORMIN* [Glucophage 500 MG TAB 1,000 mg PO BID 02/10/15 01/24/18 History *] LoraTADine TAB(NF) [Claritin 10 MG 10 mg PO DAILY PRN 06/22/15 01/24/18 History TAB(NF)] ARIPiprazole TAB* [Abilify TAB*] 10 mg PO BID 03/10/17 01/24/18 History Levothyroxine TAB* [Synthroid TAB*] 75 mcg PO DAILY 03/10/17 01/24/18 History Magnesium Oxide TAB* [MagOx 400 400 mg PO BID 03/10/17 01/24/18 History TAB*] Venlafaxine ER (NF) [Effexor ER 150 mg PO DAILY 03/10/17 01/24/18 History (NF)] Venlafaxine EXT RELEASE CAP* 75 mg PO DAILY 03/10/17 01/24/18 History [Effexor Xr CAP*] Warfarin TAB(*) [Coumadin TAB(*)] 5 mg PO EVERY OTHER DAY 03/10/17 01/24/18 History Warfarin TAB(*) [Coumadin TAB(*)] 7.5 mg PO EVERY OTHER DAY 03/10/17 01/24/18 History Baclofen TAB* [Lioresal TAB*] 10 - 20 mg PO BEDTIME PRN 01/24/18 01/24/18 History HYDROmorphone TAB* [Dilaudid TAB*] 2 mg PO QID PRN MDD 8 mg 01/24/18 01/24/18 History HYDROmorphone TAB* [Dilaudid TAB*] 4 mg PO QID PRN MDD 16 mg 01/24/18 01/24/18 History Methocarbamol TAB* [Robaxin 500 MG 750 mg PO Q6HR PRN 01/24/18 01/24/18 History TAB*] HPI: The patient states she has had urinary frequency for several days, also increased SOB. Little cough. No fever, chills or sweats. Family History: Findings - unremarkable Social History: Findings - Quit smoking 10/2017. Lives with her daughter who is her SDM. No alcohol abuse. Past Medical History: Findings - copd, DM, HL, HTN, hypothyroid, bipolar, hx PE. Review of Systems - Measurements Intake and Output: Intake and Output Last 24 Hours 01/22/18 01/23/18 01/24/18 01/25/18 06:59 06:59 06:59 06:59 Weight 260 lb - Review of Systems Constitutional Symptoms: Negative: Weight Gain, Weight Loss, Weakness, Fatigue, Fever, Night Sweats, Unexplained Falls, Other Dermatology: Positive: Normal HEENT: Positive: Normal Eyes: Positive: Normal Thyroid: Positive: Primary Hypothyroidism Pulmonary: Positive: Shortness of Breath, COPD Cardiology: Positive: Normal Gastroenterology: Negative: Normal Genital - Urinary: Positive: Polyuria, Other - urinary frequency Musculoskeletal: Negative: Joint Pain, Joint Stiffness, Arthritis, Osteoporosis, Low Back Pain , Sciatica, Joint Deformities, Kyphoscoliosis, Other Endocrinology: Positive: Thyroid Problems, Obesity, Diabetes Mellitus Hematologic/Lymphatic: Negative: Anemia, Easy Brusing, Hx Leukemia, Hx Lymphoma, Use of Anticoagulant, Use of Antiplatelet Drugs, Other Neurology: Positive: Normal Psychiatry: Positive: Normal Allergic/Immunologic: Negative: Hx Anaphylaxis, Hx Angioedema, Hx Environmental, Hx Seasonal, Athsma, Hx HIV, Immunocompromise, Swollen Glands LymphNodes, Other Objective Active Medications: Albuterol/Ipratropium (Duoneb (Albuterol 2.5 Mg/Ipratropium 0.5 Mg)) 1 neb INH Q4H PRN PRN Reason: SOB/WHEEZING Aripiprazole (Abilify Tab*) 10 mg PO BID [facility] Enoxaparin Sodium (Lovenox(*)) 40 mg SUBCUT Q24H [facility] Hydromorphone HCl (Dilaudid Tab*) 2 mg PO QID PRN PRN Reason: PAIN Ceftriaxone Sodium 1 gm/ (Sodium Chloride) 50 mls @ 200 mls/hr IVPB Q24H [facility] Levothyroxine Sodium (Synthroid Tab*) 75 mcg PO DAILY [facility] Losartan Potassium (Cozaar Tab*) 50 mg PO QAM [facility] Lovastatin (Mevacor (Nf)) 40 mg PO QAM [facility] PRN Reason: Protocol Magnesium Oxide (Magox 400 Tab*) 400 mg PO BID [facility] Methocarbamol (Robaxin Tab*) 750 mg PO Q6HR PRN PRN Reason: SPASMS Omeprazole (Prilosec Cap*) 40 mg PO QAM [facility] Valacyclovir HCl (Valtrex 500 Mg (*)) 500 mg PO QAM [facility] PRN Reason: Protocol Venlafaxine HCl (Effexor Er (Nf)) 150 mg PO DAILY [facility] Vital Signs - 8 hr 01/24/18 01/24/18 01/24/18 15:35 15:39 16:00 Temperature 98.7 F Pulse Rate 88 88 85 Respiratory 14 9 12 Rate Blood Pressure 112/74 (mmHg) O2 Sat by Pulse 96 97 97 Oximetry 01/24/18 01/24/18 01/24/18 16:19 16:50 17:00 Temperature Pulse Rate 82 Respiratory 15 13 Rate Blood Pressure 111/73 105/60 (mmHg) O2 Sat by Pulse 100 Oximetry 01/24/18 01/24/18 01/24/18 17:16 17:27 17:35 Temperature Pulse Rate 71 Respiratory 12 Rate Blood Pressure 106/65 (mmHg) O2 Sat by Pulse 96 98 Oximetry 01/24/18 01/24/18 18:00 18:30 Temperature Pulse Rate 87 72 Respiratory 18 14 Rate Blood Pressure 123/81 109/58 (mmHg) O2 Sat by Pulse 98 98 Oximetry Oxygen Devices in Use Now: None Appearance: Alert, supine on ED stretcher. In fair spirits. Looks comfortabl.e Eyes: No Scleral Icterus Respiratory: Symmetrical Chest Expansion and Respiratory Effort, Clear to Auscultation, - - diminished BS BL Abdominal: NL Sounds; No Tenderness; No Distention, No Hepatosplenomegaly - very obese, - Extremities: No Edema, No Clubbing, Cyanosis, - - poor capillary refill. R foot sl cooler than L. Skin: No Rash or Ulcers, No Nodules or Sclerosis, - Neurological: Alert and Oriented x 3, NL Sensation Result Diagrams: 01/24/18 16:32 01/24/18 16:32 Assess/Plan/Problems-Billing Assessment: - Patient Problems (1) UTI (urinary tract infection) Current Visit: Yes Status: Acute Comment: Clinical dx. U/A pending. Start ceftriaxone. (2) COPD (chronic obstructive pulmonary disease) Current Visit: No Status: Acute Code(s): J44.9 - CHRONIC OBSTRUCTIVE PULMONARY DISEASE, UNSPECIFIED SNOMED Code(s): 15085456 Comment: Pt states she needs O2 at night but doesn't have i t. Overnight oximetry on RA ordered. PRN Duoneb. Received Solumedrol in ED. (3) Diabetes Current Visit: No Status: Acute Code(s): E11.9 - TYPE 2 DIABETES MELLITUS WITHOUT COMPLICATIONS SNOMED Code(s): 67434235 Comment: Diet only. (4) HTN (hypertension) Current Visit: No Status: Acute Code(s): I10 - ESSENTIAL (PRIMARY) HYPERTENSION SNOMED Code(s): 35181711 Comment: Continue losartan. (5) Hypothyroid Current Visit: No Status: Acute Code(s): E03.9 - HYPOTHYROIDISM, UNSPECIFIED SNOMED Code(s): 74642237 Comment: TSH add on ordered. (6) Morbid obesity Current Visit: Yes Status: Acute Code(s): E66.01 - MORBID (SEVERE) OBESITY DUE TO EXCESS CALORIES SNOMED Code(s): 825377748 Comment: BMI 52.5. (7) Acidosis Current Visit: Yes Status: Acute Code(s): E87.2 - ACIDOSIS SNOMED Code(s) : 04434278 Comment: Nl anion gap. Chronic, sl worse today. Repeat BMP 01/25.
[2018-01-24] MEDS ORDERED: cefTRIAXone(*) 1 GM in NS 0.9% 50 ML* 50 ML IVPB SCH (19:00)
[2018-01-24] MEDS ORDERED: Enoxaparin(*) 40 MG/0.4 ML SYR SUBCUT SCH (19:00)
--- NOTE | 2018-01-24 20:20 | ED ---
Gerald Vasquez Julia, scribed for Hakan Hernandez on 01/24/18 at 1600 . Shortness of Breath - HPI Summary HPI Summary: This patient is a 62 year old F BIBA to [facility] with a chief complaint of SOB and CP for the past 3-4 days. Patient reports facial pain and trouble finding words. Patient denies fever cough, and abdominal pain. The patient rates the pain 7/10 in severity. She states her facial weakness is abnormal for her. She states she should be using at home oxygen at night but does not use it. - History of Current Complaint Chief Complaint: EDShortnessOfBreath Time Seen by Provider: 01/24/18 15:49 Hx Obtained From: Patient Onset/Duration: Gradual Onset, Lasting Days Timing: Constant Dyspnea At: Rest Associated Signs & Symptoms: Chest Pain Unrelated to Cough - Allergy/Home Medications Allergies/Adverse Reactions: Allergies Allergy/AdvReac Type Severity Reaction Status Date / Time adhesive Allergy Hives Verified 01/24/18 15:44 bupropion [From Wellbutrin] Allergy Unknown Verified 01/24/18 15:46 Reaction Details citalopram [From Celexa] Allergy Unknown Verified 01/24/18 15:47 Reaction Details clonazepam [From Klonopin] Allergy Unknown Verified 01/24/18 15:47 Reaction Details dextromethorphan Allergy Swelling Verified 01/24/18 15:44 [From Dimetapp Of Cold-Congestion] Face,Lips,& Throat diphenhydramine Allergy Swelling Verified 01/24/18 15:44 [From Dimetapp Of Cold-Congestion] Face,Lips,& Throat divalproex sodium Allergy Headache Verified 01/24/18 15:46 [From Depakote] duloxetine [From Cymbalta] Allergy Unknown Verified 01/24/18 15:48 Reaction Details eszopiclone [From Lunesta] Allergy Unknown Verified 01/24/18 15:48 Reaction Details fluoxetine [From Prozac] Allergy Unknown Verified 01/24/18 15:48 Reaction Details gabapentin Allergy Hallucinati Verified 01/24/18 15:45 ons guaifenesin Allergy Swelling Verified 01/24/18 15:44 [From Dimetapp Of Cold-Congestion] Face,Lips,& Throat metaxalone [From Skelaxin] Allergy Unknown Verified 01/24/18 15:49 Reaction Details naproxen Allergy Unknown Verified 01/24/18 15:49 Reaction Details Penicillins Allergy Hives Verified 01/24/18 15:46 phenylephrine Allergy Swelling Verified 01/24/18 15:44 [From Dimetapp Of Cold-Congestion] Face,Lips,& Throat pineapple Allergy Swelling Verified 01/24/18 15:44 prednisone Allergy Hallucinati Verified 01/24/18 15:45 ons pseudoephedrine Allergy Swelling Verified 01/24/18 15:44 [From Dimetapp Of Cold-Congestion] Face,Lips,& Throat sertraline [From Zoloft] Allergy Unknown Verified 01/24/18 15:49 Reaction Details Home Medications: Home Medications Baclofen TAB* [Lioresal TAB*] 10 - 20 mg PO BEDTIME PRN 01/24/18 [History Confirmed 01/24/18] HYDROmorphone TAB* [Dilaudid TAB*] 2 mg PO QID PRN MDD 8 mg 01/24/18 [History Confirmed 01/24/18] HYDROmorphone TAB* [Dilaudid TAB*] 4 mg PO QID PRN MDD 16 mg 01/24/18 [History Confirmed 01/24/18] Methocarbamol TAB* [Robaxin 500 MG TAB*] 750 mg PO Q6HR PRN 01/24/18 [History Confirmed 01/24/18] PMH/Surg Hx/FS Hx/Imm Hx Endocrine/Hematology History: Reports: Hx Diabetes, Hx Thyroid Disease, Other Endocrine/Hematological Disorders - vit d resistent Denies: Hx Anticoagulant Therapy, Hx Blood Disorders, Hx Blood Transfusions, Hx Bone Marrow Disease, Hx Systemic Lupus Erythematosus, Hx Sickle Cell Disease , Hx Anemia, Hx Unexplained Bleeding Cardiovascular History: Reports: Hx Angina, Hx Embolism, Hx Hypercholesterolemia , Hx Hypertension, Hx Syncope, Other Cardiovascular Problems/Disorders Denies: Hx Aneurysm, Hx Angioplasty, Hx Auto Implanted Cardiovert Defib, Hx Cardiac Arrest, Hx Cardiomegaly, Hx Congenital Heart Disease, Hx Congestive Heart Failure, Hx Coronary Artery Disease, Hx Deep Vein Thrombosis, Hx Hypotension, Hx Myocardial Infarction, Hx Pacemaker/ICD, Hx Peripheral Vascular Disease, Hx Rheumatic Fever, Hx Valvular Heart Disease Respiratory History: Reports: Hx Asthma, Hx Chronic Bronchitis, Hx Chronic Obstructive Pulmonary Disease (COPD), Hx Pulmonary Embolism Denies: Hx Cystic Fibrosis, Hx Lung Cancer, Hx Pleural Effusion, Hx Pneumonia , Hx Pulmonary Edema, Hx Seasonal Allergies, Hx Sleep Apnea GI History: Reports: Hx Gall Bladder Disease, Hx Gastroesophageal Reflux Disease , Hx Irritable Bowel, Other GI Disorders History: Denies: Hx Acute Renal Failure, Hx Benign Prostatic Hyperplasia, Hx Chronic Renal Failure, Hx Dialysis, Hx Kidney Infection, Hx Kidney Stones, Hx Renal Disease, Other Problems/Disorders Musculoskeletal History: Reports: Hx Arthritis, Hx Back Problems, Hx Bursitis, Hx Fibromyalgia, Hx Scoliosis, Other Musculoskeletal History - 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 Denies: Hx Congenital Bone Abnormalities, Hx Gout, Hx Orthopedic Injury, Hx Osteoporosis, Hx Tendonitis Sensory History: Reports: Hx Contacts or Glasses Denies: Hx Eye Injury, Hx Eye Prosthesis, Hx Glaucoma, Hx Legally Blind, Hx Macular Degeneration, Hx Vision Problem, Hx Deafness, Hx Hearing Aid, Hx Hearing Problem, Other Sensory Impairments Opthamlomology History: Reports: Hx Contacts or Glasses Denies: Hx Eye Injury, Hx Eye Prosthesis, Hx Glaucoma, Hx Legally Blind, Hx Macular Degeneration, Hx Vision Problem, Other Sensory Impairments Neurological History: Reports: Hx Headaches, Hx Migraine, Hx Transient Ischemic Attacks (TIA), Other Neuro Impairments/Disorders Denies: Hx Dementia, Hx Developmental Delay, Hx Nerve Disease, Hx Seizures, Hx Spinal Cord Injury Psychiatric History: Reports: Hx Anxiety, Hx Depression, Hx Panic Disorder, Hx Bipolar Disorder, Hx Suicide Attempt - 1995, Other Psychiatric Issues/Disorders - claustrophobia Denies: Hx Substance Abuse - Surgical History Surgery Procedure, Year, and Place: Left knee replacement 04/2005, c section x2 81 & 89, HYSTERECTOMY, GALLBLADDER, TONSILS Hx Anesthesia Reactions: No - Immunization History Date of Tetanus Vaccine: Unknown Date of Influenza Vaccine: 09/2012 Infectious Disease History: No Infectious Disease History: Denies: Hx Hepatitis, Hx Human Immunodeficiency Virus (HIV), Hx of Known/ Suspected MRSA, Hx Shingles, Hx Tuberculosis, Traveled Outside the [place] in Last 30 Days Comment Only: History Other Infectious Disease - hx mrsa in knee postoperatively - Family History Known Family History: Positive: Cardiac Disease, Hypertension, Diabetes, Other - bipolar - Social History Alcohol Use: None Hx Substance Use: No Substance Use Type: Reports: None Hx Tobacco Use: Yes Smoking Status (MU): Former Smoker Type: Cigarettes Amount Used/How Often: reports smoking 1 pack/week Length of Time of Smoking/Using Tobacco: 30 years Have You Smoked in the Last Year: Yes Review of Systems Negative: Fever Positive: Chest Pain Positive: Shortness Of Breath. Negative: Cough Negative: Abdominal Pain Neurological: Other - facial pain and weakness/ difficulty finding words All Other Systems Reviewed And Are Negative: Yes Physical Exam - Summary Physical Exam Summary: Appearance: Well appearing, no pain distress Skin: warm, dry, reflects adequate perfusion Head/face: normal Eyes: EOMI, TOÑO ENT: normal Neck: supple, non-tender Respiratory: bilateral wheezes, poor air entry Cardiovascular: RRR, pulses symmetrical Abdomen: non-tender, soft Bowel: present Musculoskeletal: normal, strength/ROM intact Neuro: normal, sensory motor intact, A&Ox3 Triage Information Reviewed: Yes Vital Signs On Initial Exam: Initial Vitals Temp Pulse Resp BP Pulse Ox 98.7 F 88 14 112/74 96 01/24/18 15:35 01/24/18 15:35 01/24/18 15:35 01/24/18 15:35 01/24/18 15:35 Vital Signs Reviewed: Yes Diagnostics - Vital Signs Vital Signs Temp Pulse Resp BP Pulse Ox 01/24/18 15:39 88 9 97 01/24/18 15:35 98.7 F 88 14 112/74 96 - Laboratory Lab Results: Lab Results 01/24/18 01/24/18 01/24/18 Range/Units 16:32 16:32 16:32 WBC 8.9 (3.5-10.8) 10^3/ul RBC 4.09 (4.0-5.4) 10^6/ul Hgb 11.7 L (12.0-16.0) g/dl Hct 36 (35-47) % MCV 88 (80-97) fL MCH 29 (27-31) pg MCHC 33 (31-36) g/dl RDW 21 H (10.5-15) % Plt Count 220 (150-450) 10^3/ul MPV 8.5 (7.4-10.4) um3 Neut % (Auto) 73.7 (38-83) % Lymph % (Auto) 17.5 L (25-47) % [place] % (Auto) 6.2 (0-7) % Eos % (Auto) 2.2 (0-6) % Baso % (Auto) 0.4 (0-2) % Absolute Neuts (auto) 6.5 (1.5-7.7) 10^3/ul Absolute Lymphs (auto) 1.6 (1.0-4.8) 10^3/ul Absolute Monos (auto) 0.5 (0-0.8) 10^3/ul Absolute Eos (auto) 0.2 (0-0.6) 10^3/ul Absolute Basos (auto) 0 (0-0.2) 10^3/ul Absolute Nucleated RBC 0 10^3/ul Nucleated RBC % 0 INR (Anticoag Therapy) 3.34 H (0.77-1.02) APTT 66.2 H (26.0-36.3) seconds ABG pH (7.35-7.45) ABG pCO2 (35-45) mmHg ABG pO2 (80-100) mmHg ABG HCO3 (19-31) mmol/L ABG O2 Saturation (95-98) % ABG Base Excess (-2.0-2.0) Sodium (139-145) mmol/L Potassium (3.5-5.0) mmol/L Chloride (101-111) mmol/L Carbon Dioxide (22-32) mmol/L Anion Gap (2-11) mmol/L BUN (6-24) mg/dL Creatinine (0.51-0.95) mg/dL Est GFR ( Amer) (>60) Est GFR (Non-Af Amer) (>60) BUN/Creatinine Ratio (8-20) Glucose (70-100) mg/dL Lactic Acid (0.5-2.0) mmol/L Calcium (8.6-10.3) mg/dL Total Bilirubin (0.2-1.0) mg/dL AST (13-39) U/L ALT (7-52) U/L Alkaline Phosphatase (34-104) U/L Troponin I (<0.04) ng/mL B-Natriuretic Peptide 116 H ( - 100) pg/mL Total Protein (6.4-8.9) g/dL Albumin (3.2-5.2) g/dL Globulin (2-4) g/dL Albumin/Globulin Ratio (1-3) TSH (0.34-5.60) mcIU/mL Urine Color Urine Appearance Urine pH (5-9) Ur Specific [place] (1.010-1.030) Urine Protein (Negative) Urine Ketones (Negative) Urine Blood (Negative) Urine Nitrate (Negative) Urine Bilirubin (Negative) Urine Urobilinogen (Negative) Ur Leukocyte Esterase (Negative) Urine WBC (Auto) (Absent) Urine RBC (Auto) (Absent) Ur Squamous Epith Cells (Absent) Urine Bacteria (Absent) Urine Glucose (Negative) 01/24/18 01/24/18 01/24/18 Range/Units 16:32 16:32 17:05 WBC (3.5-10.8) 10^3/ul RBC (4.0-5.4) 10^6/ul Hgb (12.0-16.0) g/dl Hct (35-47) % MCV (80-97) fL MCH (27-31) pg MCHC (31-36) g/dl RDW (10.5-15) % Plt Count (150-450) 10^3/ul MPV (7.4-10.4) um3 Neut % (Auto) (38-83) % Lymph % (Auto) (25-47) % [place] % (Auto) (0-7) % Eos % (Auto) (0-6) % Baso % (Auto) (0-2) % Absolute Neuts (auto) (1.5-7.7) 10^3/ul Absolute Lymphs (auto) (1.0-4.8) 10^3/ul Absolute Monos (auto) (0-0.8) 10^3/ul Absolute Eos (auto) (0-0.6) 10^3/ul Absolute Basos (auto) (0-0.2) 10^3/ul Absolute Nucleated RBC 10^3/ul Nucleated RBC % INR (Anticoag Therapy) (0.77-1.02) APTT (26.0-36.3) seconds ABG pH 7.20 L (7.35-7.45) ABG pCO2 45 (35-45) mmHg ABG pO2 77 L (80-100) mmHg ABG HCO3 17.0 L (19-31) mmol/L ABG O2 Saturation 96.5 (95-98) % ABG Base Excess -10.1 L (-2.0-2.0) Sodium 136 L (139-145) mmol/L Potassium 5.0 (3.5-5.0) mmol/L Chloride 110 (101-111) mmol/L Carbon Dioxide 17 L (22-32) mmol/L Anion Gap 9 (2-11) mmol/L BUN 33 H (6-24) mg/dL Creatinine 1.49 H (0.51-0.95) mg/dL Est GFR ( Amer) 45.9 (>60) Est GFR (Non-Af Amer) 35.7 (>60) BUN/Creatinine Ratio 22.1 H (8-20) Glucose 143 H (70-100) mg/dL Lactic Acid 1.9 (0.5-2.0) mmol/L Calcium 9.1 (8.6-10.3) mg/dL Total Bilirubin 0.30 (0.2-1.0) mg/dL AST 12 L (13-39) U/L ALT 11 (7-52) U/L Alkaline Phosphatase 137 H (34-104) U/L Troponin I 0.00 (<0.04) ng/mL B-Natriuretic Peptide ( - 100) pg/mL Total Protein 7.3 (6.4-8.9) g/dL Albumin 4.0 (3.2-5.2) g/dL Globulin 3.3 (2-4) g/dL Albumin/Globulin Ratio 1.2 (1-3) TSH 5.84 H (0.34-5.60) mcIU/mL Urine Color Urine Appearance Urine pH (5-9) Ur Specific [place] (1.010-1.030) Urine Protein (Negative) Urine Ketones (Negative) Urine Blood (Negative) Urine Nitrate (Negative) Urine Bilirubin (Negative) Urine Urobilinogen (Negative) Ur Leukocyte Esterase (Negative) Urine WBC (Auto) (Absent) Urine RBC (Auto) (Absent) Ur Squamous Epith Cells (Absent) Urine Bacteria (Absent) Urine Glucose (Negative) 01/24/18 01/24/18 Range/Units 17:58 18:50 WBC (3.5-10.8) 10^3/ul RBC (4.0-5.4) 10^6/ul Hgb (12.0-16.0) g/dl Hct (35-47) % MCV (80-97) fL MCH (27-31) pg MCHC (31-36) g/dl RDW (10.5-15) % Plt Count (150-450) 10^3/ul MPV (7.4-10.4) um3 Neut % (Auto) (38-83) % Lymph % (Auto) (25-47) % [place] % (Auto) (0-7) % Eos % (Auto) (0-6) % Baso % (Auto) (0-2) % Absolute Neuts (auto) (1.5-7.7) 10^3/ul Absolute Lymphs (auto) (1.0-4.8) 10^3/ul Absolute Monos (auto) (0-0.8) 10^3/ul Absolute Eos (auto) (0-0.6) 10^3/ul Absolute Basos (auto) (0-0.2) 10^3/ul Absolute Nucleated RBC 10^3/ul Nucleated RBC % INR (Anticoag Therapy) (0.77-1.02) APTT (26.0-36.3) seconds ABG pH (7.35-7.45) ABG pCO2 (35-45) mmHg ABG pO2 (80-100) mmHg ABG HCO3 (19-31) mmol/L ABG O2 Saturation (95-98) % ABG Base Excess (-2.0-2.0) Sodium (139-145) mmol/L Potassium (3.5-5.0) mmol/L Chloride (101-111) mmol/L Carbon Dioxide (22-32) mmol/L Anion Gap (2-11) mmol/L BUN (6-24) mg/dL Creatinine (0.51-0.95) mg/dL Est GFR ( Amer) (>60) Est GFR (Non-Af Amer) (>60) BUN/Creatinine Ratio (8-20) Glucose (70-100) mg/dL Lactic Acid (0.5-2.0) mmol/L Calcium (8.6-10.3) mg/dL Total Bilirubin (0.2-1.0) mg/dL AST (13-39) U/L ALT (7-52) U/L Alkaline Phosphatase (34-104) U/L Troponin I 0.00 (<0.04) ng/mL B-Natriuretic Peptide ( - 100) pg/mL Total Protein (6.4-8.9) g/dL Albumin (3.2-5.2) g/dL Globulin (2-4) g/dL Albumin/Globulin Ratio (1-3) TSH (0.34-5.60) mcIU/mL Urine Color Yellow Urine Appearance Cloudy Urine pH 5.0 (5-9) Ur Specific [place] 1.027 (1.010-1.030) Urine Protein 1+(30 mg/dl) A (Negative) Urine Ketones Negative (Negative) Urine Blood Negative (Negative) Urine Nitrate Negative (Negative) Urine Bilirubin 2+ A (Negative) Urine Urobilinogen Negative (Negative) Ur Leukocyte Esterase 3+ A (Negative) Urine WBC (Auto) 3+(>20/hpf) A (Absent) Urine RBC (Auto) 1+(3-5/hpf) A (Absent) Ur Squamous Epith Cells Present A (Absent) Urine Bacteria 1+ A (Absent) Urine Glucose Negative (Negative) Result Diagrams: 01/24/18 16:32 01/24/18 16:32 Lab Statement: Any lab studies that have been ordered have been reviewed, and results considered in the medical decision making process. - Radiology CXR Radiology Interpretation Completed By: Radiologist - No radiographic evidence for acute cardiopulmonary abnormality on this portable chest x-ray. ED Physician has reviewed this report. - CT Brain CT Interpretation Completed By: Radiologist - Normal CT of the brain. ED Physician has reviewed this report. - EKG 1608 Cardiac Rate: NL - at 81 BPM EKG Rhythm: Sinus Rhythm EKG Interpretation: no acute changes Course/Dx - Course Course Of Treatment: Pt presents with SOB and CP for the past 3-4 days. Patient reports facial pain and trouble finding words. Patient denies fever cough, and abdominal pain. The patient rates the pain 7/10 in severity. She states her facial weakness is abnormal for her. UA indicative of infection. Bloodwork and ABG are obtained. Brain CT, CXR, and EKG are unremarkable. Patient is given three nebulizer treatments. Pt given Solu-Medrol, Robaxin, Lovenox, and Ability. Dr. Olmedo agrees to admit this patient. - Diagnoses Differential Diagnosis/HQI/PQRI: Positive: Pneumonia, Other - CVA/UTI/RENAL FAILURE/ Provider Diagnoses: Altered mental status, Renal failure, CVA (cerebral vascular accident), COPD exacerbation, UTI (urinary tract infection) - Physician Notifications Discussed Care of Patient With: Anna Olmedo - hospitalist Time Discussed With Above Provider: 17:45 Instructed by Provider To: Admit As Inpatient - Critical Care Time Critical Care Time: 30-74 min Discharge - Sign-Out/Discharge Documenting (check all that apply): Discharge - admit - Discharge Plan Condition: Critical Disposition: ADMITTED TO [facility] Referrals: Germain Sears MD [Primary Care Provider] - - Billing Disposition and Condition Condition: CRITICAL Disposition: [facility] [place] The documentation as recorded by the Gerlad marr Julia accurately reflects the service I personally performed and the decisions made by Mary briscoe Emmanuel.
[2018-01-24] MEDS: Magnesium Oxide TAB* 400 MG PO SCH (22:59)
[2018-01-24] MEDS: ARIPiprazole TAB* 5 MG PO SCH (23:00)
[2018-01-24] MEDS ORDERED: cefTRIAXone 1000 MG SYRINGE IVPB Q24H (in NaCl) IVPB SCH ×2 (23:00)
[2018-01-25] MEDS ORDERED: Levothyroxine TAB* 75 MCG TAB PO SCH (06:00)
[2018-01-25 06:17] LABS: EGFR Non-African American 43.3 (>60)
[2018-01-25] MEDS ORDERED: Omeprazole CAP* 20 MG PO SCH (07:30)
[2018-01-25] MEDS: ARIPiprazole TAB* 5 MG PO SCH (08:26)
[2018-01-25] MEDS: Magnesium Oxide TAB* 400 MG PO SCH (08:26)
[2018-01-25] MEDS ORDERED: Losartan TAB* 25 MG PO SCH (09:00)
[2018-01-25] MEDS ORDERED: ValACYclovir (*) 500 MG TAB PO SCH (09:00)
[2018-01-25] MEDS ORDERED: Atorvastatin* 10 MG TAB PO SCH (09:00)
[2018-01-25] MEDS ORDERED: Venlafaxine EXT RELEASE CAP* 75 MG PO SCH (09:00)
--- NOTE | 2018-01-25 11:32 | RAD ---
HISTORY: Left facial weakness COMPARISONS: January 24, 2018 PET/CT TECHNIQUE: The following sequences were obtained of the head: Sagittal T1-weighted images, axial T2-weighted images, axial FLAIR images, axial susceptibility weighted images, axial T1-weighted images. Additionally, axial diffusion-weighted images were obtained with calculated apparent diffusion coefficients. FINDINGS: The study is limited by patient motion artifact. HEMORRHAGE/INFARCT: There is no hemorrhage or acute infarct. MASSES/SHIFT: There is no mass or shift. EXTRA-AXIAL SPACES/MENINGES: There are no extra-axial fluid collections. SULCI AND VENTRICLES: The sulci and ventricles are normal in size and position for the patient's stated age. CEREBRUM: There are no focal parenchymal abnormalities. BRAINSTEM: There are no focal parenchymal abnormalities. CEREBELLUM: There are no focal parenchymal abnormalities. The cerebellar tonsils are normal in size and position. SELLA: The sella is normal. PINEAL: The pineal region is clear. CP ANGLE/TEMPORAL BONES: The labyrinthine structures are grossly normal. VESSELS: Normal flow-voids are noted within the visualized vertebral vasculature. DIFFUSION ABNORMALITIES: There are no diffusion abnormalities. PARANASAL SINUSES/MASTOIDS: The paranasal sinuses are clear. ORBITS: The orbits are unremarkable. BONES AND SOFT TISSUE: No bone or soft tissue abnormalities are noted. OTHER: None IMPRESSION: UNREMARKABLE MRI OF THE BRAIN. NO RESTRICTED DIFFUSION TO SUGGEST ACUTE INFARCT.
[2018-01-25 15:26] VITALS: BP 107/47
[2018-01-26] MEDS ORDERED: Levothyroxine TAB* 88 MCG TAB PO SCH (06:00)
--- NOTE | 2018-01-26 08:41 | DS ---
CC: Dr. Sears * DISCHARGE SUMMARY: DATE OF ADMISSION: 01/24/18 DATE OF DISCHARGE: 01/25/18 HISTORY OF PRESENT ILLNESS: This 62-year-old woman came to the hospital mainly due to urinary frequency present for seven days. She also said she was somewhat more short of breath. She had no cough, chills, fevers, or sweats. I note that she states she quit smoking in October of this year. The patient's urinalysis showed 3+ white blood cells. Culture results are pending at the time of this dictation. She was started on ceftriaxone; she received 1 g in the emergency room. She will continue on cefuroxime 500 mg b.i.d. for a total of 10 days' doses at home. She had overnight oximetry, although reports that she was under 90% for 13% of the time. Examining the actual graph, I believe she was under 89% less than 1% of the time. It is a matter of clinical judgment whether or not she would benefit from nocturnal oxygen at home; I have not prescribed any at this time. Her TSH was noted to be slightly increased at 5.84. I have increased the levothyroxine to 88 mcg daily. FINAL DIAGNOSES: 1. Urinary tract infection. 2. Chronic obstructive pulmonary disease. 3. Diabetes, on diet only. 4. Hypertension. 5. Hypothyroidism. 6. Morbid obesity. 7. Non-anion gap acidosis. DISCHARGE MEDICATIONS: 1. Cefuroxime 500 mg b.i.d. for 10 doses. 2. Levothyroxine 88 mcg daily. 3. Omeprazole 40 mg daily. 4. Losartan 50 mg daily. 5. Valacyclovir 500 mg daily. 6. Lovastatin 50 mg daily. 7. Metformin 1000 mg b.i.d. 8. Ferrous sulfate 650 mg daily. 9. Loratadine 10 mg daily p.r.n. 10. Aripiprazole 10 mg b.i.d. 11. Magnesium oxide 400 mg b.i.d. 12. Venlafaxine ER 150 mg daily plus 75 mg. 13. Hydromorphone 4 mg q.i.d. p.r.n., and 2 mg q.i.d. p.r.n. 14. Baclofen 10 to 20 mg h.s. p.r.n. 15. Methocarbamol 750 mg p.r.n. 16. Warfarin 5 mg daily. I note her INR was 3.34. Warfarin was withheld the one day she was here. She was instructed to get an INR on 01/28/18. [id number]/[facility] #: [id number] MTDD
== END 2018-01-25 17:09 | disposition home or self-care (01) ==
LOC: ED 15:29 → MEDTELE 21:04
PROVIDERS: ADMIT Internal Medicine; ATTEND Internal Medicine
DX: N39.0 Urinary tract infection, site not specified (principal); J44.9 Chronic obstructive pulmonary disease, unspecified; E11.9 Type 2 diabetes mellitus without complications; I10 Essential (primary) hypertension; E03.9 Hypothyroidism, unspecified; E66.01 Morbid (severe) obesity due to excess calories; E87.2 Acidosis; Z79.899 Other long term (current) drug therapy; Z79.01 Long term (current) use of anticoagulants; Z88.8 Allergy status to other drugs, medicaments and biological substances; Z88.0 Allergy status to penicillin
CPT/HCPCS: 36415; 36600; 70450; 70551; 71045; 80048; 80053; 81003; 81015; 82803; 83605; 83880; 84443; 84484; 85025; 85610; 85730; 87077; 87086; 87186; 93005; 94640; 94762; 96365; 96372; 96375; 99291; 99292; A9270-GY; G0378; J0696; J1650; J2930

== ENCOUNTER 2018-05-27 07:56 | Emergency (ER) | payer OTHER ==
[2018-05-27] MEDS ORDERED: HYDROmorphone TAB* 2 MG PO ONE (08:13)
--- NOTE | 2018-05-27 08:31 | ED ---
Lower Extremity - HPI Summary HPI Summary: This is tejinder Ramirez documenting for attending Dr. Juan Manuel Hillman MD. This patient is a 63 year old F BIBA with a chief complaint of LE pain and edema since 7am this morning. Pt was walking around her house when her foot was caught and she fell. No LOC, did not hit her head. The patient rates the pain 2/ 10 in severity. Symptoms aggravated by ambulation. Patient reports L edema, chills, foot pain, ankle pain, and difficulty moving and walking. Pt continued to ambulate following the initial fall. Pt is currently taking an unspecified narcotic, but did not take them yet today. - History of Current Complaint Chief Complaint: EDExtremityLower Stated Complaint: FALL Time Seen by Provider: 05/27/18 07:58 Hx Obtained From: Patient Mechanism Of Injury: Fall From A Standing Position Onset of Pain: Immediate Onset/Duration: Hours - 2 Severity Initially: Moderate Severity Currently: Mild Pain Intensity: 2 Pain Scale Used: 0-10 Numeric Timing: Constant Location: Is Discrete @ - feet and ankles Character Of Pain: Sharp, Stiffness Associated Signs And Symptoms: Positive: Swelling. Negative: Fever, Abdominal Pain Aggravating Factor(s): Ambulation Alleviating Factor(s): Rest - Allergies/Home Medications Allergies/Adverse Reactions: Allergies Allergy/AdvReac Type Severity Reaction Status Date / Time adhesive Allergy Hives Verified 01/24/18 15:44 bupropion [From Wellbutrin] Allergy Unknown Verified 01/24/18 15:46 Reaction Details citalopram [From Celexa] Allergy Unknown Verified 01/24/18 15:47 Reaction Details clonazepam [From Klonopin] Allergy Unknown Verified 01/24/18 15:47 Reaction Details dextromethorphan Allergy Swelling Verified 01/24/18 15:44 [From Dimetapp Of Cold-Congestion] Face,Lips,& Throat diphenhydramine Allergy Swelling Verified 01/24/18 15:44 [From Dimetapp Of Cold-Congestion] Face,Lips,& Throat divalproex sodium Allergy Headache Verified 01/24/18 15:46 [From Depakote] duloxetine [From Cymbalta] Allergy Unknown Verified 01/24/18 15:48 Reaction Details eszopiclone [From Lunesta] Allergy Unknown Verified 01/24/18 15:48 Reaction Details fluoxetine [From Prozac] Allergy Unknown Verified 01/24/18 15:48 Reaction Details gabapentin Allergy Hallucinati Verified 01/24/18 15:45 ons guaifenesin Allergy Swelling Verified 01/24/18 15:44 [From Dimetapp Of Cold-Congestion] Face,Lips,& Throat metaxalone [From Skelaxin] Allergy Unknown Verified 01/24/18 15:49 Reaction Details naproxen Allergy Unknown Verified 01/24/18 15:49 Reaction Details Penicillins Allergy Hives Verified 01/24/18 15:46 phenylephrine Allergy Swelling Verified 01/24/18 15:44 [From Dimetapp Of Cold-Congestion] Face,Lips,& Throat pineapple Allergy Swelling Verified 01/24/18 15:44 prednisone Allergy Hallucinati Verified 01/24/18 15:45 ons pseudoephedrine Allergy Swelling Verified 01/24/18 15:44 [From Dimetapp Of Cold-Congestion] Face,Lips,& Throat sertraline [From Zoloft] Allergy Unknown Verified 01/24/18 15:49 Reaction Details PMH/Surg Hx/FS Hx/Imm Hx Endocrine/Hematology History: Reports: Hx Diabetes, Hx Thyroid Disease, Other Endocrine/Hematological Disorders - vit d resistent Denies: Hx Anticoagulant Therapy, Hx Blood Disorders, Hx Blood Transfusions, Hx Bone Marrow Disease, Hx Systemic Lupus Erythematosus, Hx Sickle Cell Disease , Hx Anemia, Hx Unexplained Bleeding Cardiovascular History: Reports: Hx Angina, Hx Embolism, Hx Hypercholesterolemia , Hx Hypertension, Hx Syncope, Other Cardiovascular Problems/Disorders Denies: Hx Aneurysm, Hx Angioplasty, Hx Auto Implanted Cardiovert Defib, Hx Cardiac Arrest, Hx Cardiomegaly, Hx Congenital Heart Disease, Hx Congestive Heart Failure, Hx Coronary Artery Disease, Hx Deep Vein Thrombosis, Hx Hypotension, Hx Myocardial Infarction, Hx Pacemaker/ICD, Hx Peripheral Vascular Disease, Hx Rheumatic Fever, Hx Valvular Heart Disease Respiratory History: Reports: Hx Asthma, Hx Chronic Bronchitis, Hx Chronic Obstructive Pulmonary Disease (COPD), Hx Pulmonary Embolism Denies: Hx Cystic Fibrosis, Hx Lung Cancer, Hx Pleural Effusion, Hx Pneumonia , Hx Pulmonary Edema, Hx Seasonal Allergies, Hx Sleep Apnea GI History: Reports: Hx Gall Bladder Disease, Hx Gastroesophageal Reflux Disease , Hx Irritable Bowel, Other GI Disorders History: Denies: Hx Acute Renal Failure, Hx Benign Prostatic Hyperplasia, Hx Chronic Renal Failure, Hx Dialysis, Hx Kidney Infection, Hx Kidney Stones, Hx Renal Disease, Other Problems/Disorders Musculoskeletal History: Reports: Hx Arthritis, Hx Back Problems, Hx Bursitis, Hx Fibromyalgia, Hx Scoliosis, Other Musculoskeletal History - 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 Denies: Hx Congenital Bone Abnormalities, Hx Gout, Hx Orthopedic Injury, Hx Osteoporosis, Hx Tendonitis Sensory History: Reports: Hx Contacts or Glasses Denies: Hx Eye Injury, Hx Eye Prosthesis, Hx Glaucoma, Hx Legally Blind, Hx Macular Degeneration, Hx Vision Problem, Hx Deafness, Hx Hearing Aid, Hx Hearing Problem, Other Sensory Impairments Opthamlomology History: Reports: Hx Contacts or Glasses Denies: Hx Eye Injury, Hx Eye Prosthesis, Hx Glaucoma, Hx Legally Blind, Hx Macular Degeneration, Hx Vision Problem, Other Sensory Impairments Neurological History: Reports: Hx Headaches, Hx Migraine, Hx Transient Ischemic Attacks (TIA), Other Neuro Impairments/Disorders Denies: Hx Dementia, Hx Developmental Delay, Hx Nerve Disease, Hx Seizures, Hx Spinal Cord Injury Psychiatric History: Reports: Hx Anxiety, Hx Depression, Hx Panic Disorder, Hx Bipolar Disorder, Hx Suicide Attempt - 1995, Other Psychiatric Issues/Disorders - claustrophobia Denies: Hx Substance Abuse - Surgical History Surgery Procedure, Year, and Place: Left knee replacement 04/2005, c section x2 81 & 89, HYSTERECTOMY, GALLBLADDER, TONSILS Hx Anesthesia Reactions: No - Immunization History Date of Tetanus Vaccine: Unknown Date of Influenza Vaccine: 09/2012 Infectious Disease History: No Infectious Disease History: Denies: Hx Hepatitis, Hx Human Immunodeficiency Virus (HIV), Hx of Known/ Suspected MRSA, Hx Shingles, Hx Tuberculosis, Traveled Outside the [place] in Last 30 Days Comment Only: History Other Infectious Disease - hx mrsa in knee postoperatively - Family History Known Family History: Positive: Cardiac Disease, Hypertension, Diabetes, Other - bipolar - Social History Alcohol Use: Occasionally Hx Substance Use: No Substance Use Type: Reports: None Hx Tobacco Use: Yes Smoking Status (MU): Former Smoker Type: Cigarettes Amount Used/How Often: reports smoking 1 pack/week Length of Time of Smoking/Using Tobacco: 30 years Have You Smoked in the Last Year: Yes Review of Systems Negative: Fever Positive: Edema - Feet and ankles, Other - difficulty walking Positive: Rash - right leg All Other Systems Reviewed And Are Negative: Yes Physical Exam - Summary Physical Exam Summary: Constitutional: Well-developed, Well-nourished, Alert. Skin: Warm, Dry. Raw area medial aspect of the right calf. HENT: Normocephalic; Atraumatic Eyes: Conjunctiva normal Neck: Musculoskeletal ROM normal neck. Cardio: Rhythm regular, rate normal, Heart sounds normal; Intact distal pulses; The pedal pulses are 2+ and symmetric. Radial pulses are 2+ and symmetric. Pulmonary/Chest wall: Effort normal. Abd: Soft. Musculoskeletal: Left ankle edema. Neuro: Alert, Oriented x3 Psych: Mood and affect Normal Triage Information Reviewed: Yes Vital Signs On Initial Exam: Initial Vitals Temp Pulse Resp BP Pulse Ox 97.7 F 81 16 145/79 99 05/27/18 07:57 05/27/18 07:57 05/27/18 07:57 05/27/18 07:57 05/27/18 07:57 Vital Signs Reviewed: Yes Diagnostics - Vital Signs Vital Signs Temp Pulse Resp BP Pulse Ox 05/27/18 08:26 16 05/27/18 07:57 97.7 F 81 16 145/79 99 - Laboratory Lab Statement: Any lab studies that have been ordered have been reviewed, and results considered in the medical decision making process. - Radiology Lumbar Spine X Ray Radiology Interpretation Completed By: Radiologist - IMPRESSION: LIMITED EXAMINATION WITHOUT SPECIFIC ACUTE FINDING.. SUGGEST REPEATING THE LATERAL RADIOGRAPH ER Physician reviewed this report Hip/Pelvis X Ray Radiology Interpretation Completed By: Radiologist - IMPRESSION: NO ACUTE BONY FINDINGS. ER Physician has reviewed this report Foot X Ray Radiology Interpretation Completed By: Radiologist - IMPRESSION: OSTEOARTHRITIC CHANGES. NO ACUTE FINDINGS. ER Physician has reviewed this report Ankle X Ray Radiology Interpretation Completed By: Radiologist - IMPRESSION: NO ACUTE BONY FINDINGS. SMALL OSTEOCHONDRAL DEFECT MEDIAL TALAR DOME. LATERAL SOFT TISSUE SWELLING ER Physician reviewed this report Ankle X Ray 2 Radiology Interpretation Completed By: Radiologist - IMPRESSION: OSTEOARTHRITIS OF THE TIBIOTALAR JOINT WITH OSTEOCHONDRAL DEFECT. SOFT TISSUE SWELLING. ER Physician reviewed this report Lower Extremity Course/Dx - Course Course Of Treatment: This is tejinder Ramirez documenting for attending Dr. Juan Manuel Hillman MD. This patient is a 63 year old F BIBA with a chief complaint of LE pain and edema since 7am this morning. Pt was walking around her house when her foot was caught and she fell. No LOC, did not hit her head. The patient rates the pain 2/10 in severity. Symptoms aggravated by ambulation. Patient reports L edema, chills, foot pain, ankle pain, and difficulty moving and walking. Pt continued to ambulate following the initial fall. Pt is currently taking an unspecified narcotic, but did not take them yet today. X Rays revealed the following: Lumbar Spine. IMPRESSION: LIMITED EXAMINATION WITHOUT SPECIFIC ACUTE FINDING.. SUGGEST REPEATING THE LATERAL RADIOGRAPH. Hip/ Pelvis. IMPRESSION: NO ACUTE BONY FINDINGS. Foot X Ray. IMPRESSION: OSTEOARTHRITIC CHANGES. NO ACUTE FINDINGS. Ankle X Ray. IMPRESSION: NO ACUTE BONY FINDINGS. SMALL OSTEOCHONDRAL DEFECT MEDIAL TALAR DOME. LATERAL SOFT TISSUE SWELLING. Ankle X Ray 2. IMPRESSION: OSTEOARTHRITIS OF THE TIBIOTALAR JOINT WITH OSTEOCHONDRAL DEFECT. SOFT TISSUE SWELLING. In the ED course the patient was given Hydromorphone HCl. No definite fractures. Given the swelling over the left ankle, we will apply a splint. She will use a walker. She should attempt to be non-weight bearing. We supplied her with a walker today. Repeat imaging in one week. - Diagnoses Provider Diagnoses: Left ankle pain, Left hip pain, Fall Discharge - Sign-Out/Discharge Documenting (check all that apply): Patient Departure - Discharge - Discharge Plan Condition: Stable Disposition: HOME Patient Education Materials: Hip Pain (ED) Referrals: Germain Sears MD [Primary Care Provider] - 2 Days Additional Instructions: RETURN TO THE EMERGENCY DEPARTMENT FOR CHANGING OR WORSENING SYMPTOMS Repeat imaging in one week
--- NOTE | 2018-05-27 09:36 | RAD ---
INDICATION: Right foot pain. Fall. COMPARISON: None TECHNIQUE: AP, lateral, and oblique views were obtained. FINDINGS: There is osteopenia. There is osteoarthritic change about the dorsal aspect of the talonavicular joint. There is osteoarthritis about the first second and third metatarsophalangeal joints. There are heel spurs. The soft tissues are intact. IMPRESSION: OSTEOARTHRITIC CHANGES. NO ACUTE FINDINGS.
--- NOTE | 2018-05-27 09:36 | RAD ---
INDICATION: Right ankle injury COMPARISON: None TECHNIQUE: AP, lateral, and oblique views were obtained. FINDINGS: There is osteopenia. There is a small osteochondral defect involving the medial talar dome. There are irregularities but the medial malleolus consistent with a remote injury. There is mild diffuse soft tissue swelling. IMPRESSION: NO ACUTE BONY FINDINGS. SMALL OSTEOCHONDRAL DEFECT MEDIAL TALAR DOME. LATERAL SOFT TISSUE SWELLING
--- NOTE | 2018-05-27 09:38 | RAD ---
INDICATION: Fall. Left hip pain COMPARISON: None TECHNIQUE: An AP view of the pelvis and AP views of the hip in neutral and abducted position were obtained the examination is mildly limited due to positioning FINDINGS: Bones: There are no acute plain radiographic findings. Joint spaces: There is mild osteoarthritic change about both hips left greater than right with mild axial migration of the left.. SI joints/symphysis: The SI joints and symphysis are intact. Other: None IMPRESSION: NO ACUTE BONY FINDINGS.
--- NOTE | 2018-05-27 09:41 | RAD ---
INDICATION: Fall. Back pain COMPARISON: Lumbar spine July 04, 2016 TECHNIQUE: Multiple views were obtained. This is a limited study. FINDINGS: This is a limited study due to body habitus and technique. The lateral views are nondiagnostic. The AP and oblique views show no acute bony findings. There is a minor scoliotic deformity. There is minor multilevel spurring. IMPRESSION: LIMITED EXAMINATION WITHOUT SPECIFIC ACUTE FINDING.. SUGGEST REPEATING THE LATERAL RADIOGRAPH
--- NOTE | 2018-05-27 10:18 | RAD ---
INDICATION: Left ankle pain COMPARISON: None TECHNIQUE: AP, lateral, and oblique views were obtained. FINDINGS: There is no acute bony change. There is osteoarthritic change but the tibiotalar joint with subchondral cyst rotation and a small osteochondral defect involving the medial talar dome. There are heel spurs. There is mild diffuse soft tissue swelling most prominent about the lateral aspect.. IMPRESSION: OSTEOARTHRITIS OF THE TIBIOTALAR JOINT WITH OSTEOCHONDRAL DEFECT. SOFT TISSUE SWELLING.
[2018-05-27 15:13] VITALS: BP 132/65
--- NOTE | 2018-05-28 07:09 | RAD ---
INDICATION: Trauma back pain. COMPARISON: Comparison is made with prior study of the same date from approximately 2 hours earlier TECHNIQUE: A single lateral view of the lumbar spine was obtained. The images limited due to positioning although improved from the prior study. FINDINGS: The vertebra are in normal alignment. No fracture is seen. There is mild diffuse degenerative disc disease. IMPRESSION: LIMITED STUDY, NO FRACTURE IS SEEN. IF THE PATIENT'S SYMPTOMS PERSIST RECOMMEND FOLLOW-UP IMAGING. R1
== END 2018-05-27 15:12 | disposition home or self-care (01) ==
LOC: ED 07:56
DX: M25.572 Pain in left ankle and joints of left foot (principal); M25.552 Pain in left hip; R60.9 Edema, unspecified; R21 Rash and other nonspecific skin eruption; Z87.891 Personal history of nicotine dependence; Z91.81 History of falling
CPT/HCPCS: 72100; 72110; 99283; A9270-GY

== ENCOUNTER 2018-06-12 15:09 | Inpatient (IN) | payer OTHER ==
[2018-06-12 16:24] LABS: EGFR Non-African American 31.6 (>60); Hematocrit 15 % (35-47); Mean Corpuscular HGB Conc 32 g/dl (31-36); Mean Corpuscular Hemoglobin 29 pg (27-31); Mean Corpuscular Volume 91 fL (80-97); Mean Platelet Volume 7.9 um3 (7.4-10.4); Platelet Count 267 10^3/ul (150-450); Red Blood Count 1.63 10^6/ul (4.00-5.40); Red Cell Distribution Width 16 % (10.5-15); White Blood Count 13.2 10^3/ul (3.5-10.8)
[2018-06-12 17:04] LABS: ABS Basophils 0.1 10^3/ul (0-0.2); ABS Eosinophils 0.1 10^3/ul (0-0.6); ABS Lymphocytes 0.6 10^3/ul (1.0-4.8); ABS Monocytes 0.8 10^3/ul (0-0.8); ABS Neutrophils 11.7 10^3/ul (1.5-7.7); ABS Nucleated RBC 0 10^3/ul; Eosinophil % 0.6 % (0-6); Lymphocyte % 4.7 % (25-47); Nucleated Red Blood Cells % 0.1
--- NOTE | 2018-06-12 17:45 | ED ---
Shortness of Breath - HPI Summary HPI Summary: This is scribe Ovidio Perez documenting for Pedro Breaux M.D. Patient is a 63 y/o F w/ c/o SOB and right lower leg pain at 1330 today. She also notes swollen BLE and ecchymosis at BUE. Patient reports noticing bruising yesterday morning. However, pain is denied on triage. It is noted that rest alleviates Sx. Patient has PMHx of COPD, HLD, HTN, DM 2, depression, bipolar. Home medications and allergies are reviewed. Patient regularly has INR checked. Last check was a couple of weeks ago, she states she was told it was "perfect". I, Dr. Breaux, personally performed the services described in this documentation as scribed in my presence and it is both accurate and complete. - History of Current Complaint Chief Complaint: EDShortnessOfBreath Time Seen by Provider: 06/12/18 15:41 Hx Obtained From: Patient Onset/Duration: Lasting Hours - SOB and right lower leg pain onset 1330 today, Lasting Days - ecchymosis at BUE was noticed yesterday morning, Still Present Current Severity: None - on triage, pain is denied Aggrevating Factors: Nothing Alleviating Factors: Other - rest Associated Signs & Symptoms: Edema - BLE - Allergy/Home Medications Allergies/Adverse Reactions: Allergies Allergy/AdvReac Type Severity Reaction Status Date / Time adhesive Allergy Hives Verified 01/24/18 15:44 bupropion [From Wellbutrin] Allergy Unknown Verified 01/24/18 15:46 Reaction Details citalopram [From Celexa] Allergy Unknown Verified 01/24/18 15:47 Reaction Details clonazepam [From Klonopin] Allergy Unknown Verified 01/24/18 15:47 Reaction Details dextromethorphan Allergy Swelling Verified 01/24/18 15:44 [From Dimetapp Of Cold-Congestion] Face,Lips,& Throat diphenhydramine Allergy Swelling Verified 01/24/18 15:44 [From Dimetapp Of Cold-Congestion] Face,Lips,& Throat divalproex sodium Allergy Headache Verified 01/24/18 15:46 [From Depakote] duloxetine [From Cymbalta] Allergy Unknown Verified 01/24/18 15:48 Reaction Details eszopiclone [From Lunesta] Allergy Unknown Verified 01/24/18 15:48 Reaction Details fluoxetine [From Prozac] Allergy Unknown Verified 01/24/18 15:48 Reaction Details gabapentin Allergy Hallucinati Verified 01/24/18 15:45 ons guaifenesin Allergy Swelling Verified 01/24/18 15:44 [From Dimetapp Of Cold-Congestion] Face,Lips,& Throat metaxalone [From Skelaxin] Allergy Unknown Verified 01/24/18 15:49 Reaction Details naproxen Allergy Unknown Verified 01/24/18 15:49 Reaction Details Penicillins Allergy Hives Verified 01/24/18 15:46 phenylephrine Allergy Swelling Verified 01/24/18 15:44 [From Dimetapp Of Cold-Congestion] Face,Lips,& Throat pineapple Allergy Swelling Verified 01/24/18 15:44 prednisone Allergy Hallucinati Verified 01/24/18 15:45 ons pseudoephedrine Allergy Swelling Verified 01/24/18 15:44 [From Dimetapp Of Cold-Congestion] Face,Lips,& Throat sertraline [From Zoloft] Allergy Unknown Verified 01/24/18 15:49 Reaction Details Home Medications: Home Medications Magnesium Oxide TAB* [MagOx 400 TAB*] 400 mg PO BID 06/12/18 [History Confirmed 06/12/18] Montelukast Sodium TAB* [Singulair TAB*] 10 mg PO BEDTIME PRN 06/12/18 [History Confirmed 06/12/18] Morphine Sulfate [Morphine Sulfate ER] 30 mg PO TID PRN MDD 90 mg 06/12/18 [ History Confirmed 06/12/18] Warfarin TAB(*) [Coumadin TAB(*)] 5 mg PO EVERY OTHER DAY 06/12/18 [History Confirmed 06/12/18] Warfarin TAB(*) [Coumadin TAB(*)] 7.5 mg PO EVERY OTHER DAY 06/12/18 [History Confirmed 06/12/18] PMH/Surg Hx/FS Hx/Imm Hx Endocrine/Hematology History: Reports: Hx Diabetes, Hx Thyroid Disease, Other Endocrine/Hematological Disorders - vit d resistent Denies: Hx Anticoagulant Therapy, Hx Blood Disorders, Hx Blood Transfusions, Hx Bone Marrow Disease, Hx Systemic Lupus Erythematosus, Hx Sickle Cell Disease , Hx Anemia, Hx Unexplained Bleeding Cardiovascular History: Reports: Hx Angina, Hx Embolism, Hx Hypercholesterolemia , Hx Hypertension, Hx Syncope, Other Cardiovascular Problems/Disorders Denies: Hx Aneurysm, Hx Angioplasty, Hx Auto Implanted Cardiovert Defib, Hx Cardiac Arrest, Hx Cardiomegaly, Hx Congenital Heart Disease, Hx Congestive Heart Failure, Hx Coronary Artery Disease, Hx Deep Vein Thrombosis, Hx Hypotension, Hx Myocardial Infarction, Hx Pacemaker/ICD, Hx Peripheral Vascular Disease, Hx Rheumatic Fever, Hx Valvular Heart Disease Respiratory History: Reports: Hx Asthma, Hx Chronic Bronchitis, Hx Chronic Obstructive Pulmonary Disease (COPD), Hx Pulmonary Embolism Denies: Hx Cystic Fibrosis, Hx Lung Cancer, Hx Pleural Effusion, Hx Pneumonia , Hx Pulmonary Edema, Hx Seasonal Allergies, Hx Sleep Apnea GI History: Reports: Hx Gall Bladder Disease, Hx Gastroesophageal Reflux Disease , Hx Irritable Bowel, Other GI Disorders History: Denies: Hx Acute Renal Failure, Hx Benign Prostatic Hyperplasia, Hx Chronic Renal Failure, Hx Dialysis, Hx Kidney Infection, Hx Kidney Stones, Hx Renal Disease, Other Problems/Disorders Musculoskeletal History: Reports: Hx Arthritis, Hx Back Problems, Hx Bursitis, Hx Fibromyalgia, Hx Scoliosis, Other Musculoskeletal History - 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 Denies: Hx Congenital Bone Abnormalities, Hx Gout, Hx Orthopedic Injury, Hx Osteoporosis, Hx Tendonitis Sensory History: Reports: Hx Contacts or Glasses Denies: Hx Eye Injury, Hx Eye Prosthesis, Hx Glaucoma, Hx Legally Blind, Hx Macular Degeneration, Hx Vision Problem, Hx Deafness, Hx Hearing Aid, Hx Hearing Problem, Other Sensory Impairments Opthamlomology History: Reports: Hx Contacts or Glasses Denies: Hx Eye Injury, Hx Eye Prosthesis, Hx Glaucoma, Hx Legally Blind, Hx Macular Degeneration, Hx Vision Problem, Other Sensory Impairments Neurological History: Reports: Hx Headaches, Hx Migraine, Hx Transient Ischemic Attacks (TIA), Other Neuro Impairments/Disorders Denies: Hx Dementia, Hx Developmental Delay, Hx Nerve Disease, Hx Seizures, Hx Spinal Cord Injury Psychiatric History: Reports: Hx Anxiety, Hx Depression, Hx Panic Disorder, Hx Bipolar Disorder, Hx Suicide Attempt - 1995, Other Psychiatric Issues/Disorders - claustrophobia Denies: Hx Substance Abuse - Surgical History Surgery Procedure, Year, and Place: Left knee replacement 04/2005, c section x2 81 & 89, HYSTERECTOMY, GALLBLADDER, TONSILS Hx Anesthesia Reactions: No - Immunization History Date of Tetanus Vaccine: Unknown Date of Influenza Vaccine: 09/2012 Infectious Disease History: No Infectious Disease History: Denies: Hx Hepatitis, Hx Human Immunodeficiency Virus (HIV), Hx of Known/ Suspected MRSA, Hx Shingles, Hx Tuberculosis, Traveled Outside the [place] in Last 30 Days Comment Only: History Other Infectious Disease - hx mrsa in knee postoperatively - Family History Known Family History: Positive: Cardiac Disease, Hypertension, Diabetes, Other - bipolar - Social History Alcohol Use: Occasionally Hx Substance Use: No Substance Use Type: Reports: None Hx Tobacco Use: Yes Smoking Status (MU): Former Smoker Type: Cigarettes Amount Used/How Often: reports smoking 1 pack/week Length of Time of Smoking/Using Tobacco: 30 years Have You Smoked in the Last Year: Yes Review of Systems Positive: Shortness Of Breath Positive: Edema - BLE, Other - right lower leg pain Positive: Bruising - BUE All Other Systems Reviewed And Are Negative: Yes Physical Exam - Summary Physical Exam Summary: Appearance: The patient is well-nourished in no acute distress and in no acute pain. Skin: The skin is warm and dry and skin color reflects adequate perfusion. Ecchymosis on forearms bilaterally, right forearm is worse than left. HEENT: The head is normocephalic and atraumatic. The pupils are equal and reactive. The conjunctivae are clear and without drainage. Nares are patent and without drainage. Mouth reveals moist mucous membranes and the throat is without erythema and exudate. The external ears are intact. The ear canals are patent and without drainage. The tympanic membranes are intact. Neck: The neck is supple with full range of motion and non-tender. There are no carotid bruits. There is no neck vein distension. Respiratory: Chest is non-tender. Lungs are clear to auscultation and breath sounds are symmetrical and equal. Cardiovascular: Heart is regular rate and rhythm. There is no murmur or rub auscultated. Bilateral pedal edema, left worse than right. Pulses are symmetrical and equal. Abdomen: The abdomen is soft and non-tender. There are normal bowel sounds heard in all four quadrants and there is no organomegaly palpated. Musculoskeletal: There is no back tenderness noted. Extremities are non-tender with full range of motion. There is good capillary refill. There is no calf tenderness elicited. Bilateral pedal edema, left worse than right Neurological: Patient is alert and oriented to person, place and time. The patient has symmetrical motor strength in all four extremities. Cranial nerves are grossly intact. Deep tendon reflexes are symmetrical and equal in all four extremities. Psychiatric: The patient has an appropriate affect and does not exhibit any anxiety or depression. Triage Information Reviewed: Yes Vital Signs On Initial Exam: Initial Vitals Temp Pulse Resp BP Pulse Ox 97.1 F 98 16 96/54 99 06/12/18 16:13 06/12/18 16:13 06/12/18 16:13 06/12/18 16:13 06/12/18 16:13 Vital Signs Reviewed: Yes Diagnostics - Vital Signs Vital Signs Temp Pulse Resp BP Pulse Ox 06/12/18 16:13 97.1 F 98 16 96/54 99 - Laboratory Lab Results: Lab Results 06/12/18 06/12/18 06/12/18 Range/Units 15:57 15:57 17:14 WBC 13.2 H (3.5-10.8) 10^3/ul RBC 1.63 L (4.00-5.40) 10^6/ul Hgb 4.8 L* (12.0-16.0) g/dl Hct 15 L (35-47) % MCV 91 (80-97) fL MCH 29 (27-31) pg MCHC 32 (31-36) g/dl RDW 16 H (10.5-15) % Plt Count 267 (150-450) 10^3/ul MPV 7.9 (7.4-10.4) um3 Neut % (Auto) 88.1 H (38-83) % Lymph % (Auto) 4.7 L (25-47) % Granite % (Auto) 6.1 (0-7) % Eos % (Auto) 0.6 (0-6) % Baso % (Auto) 0.5 (0-2) % Absolute Neuts (auto) 11.7 H (1.5-7.7) 10^3/ul Absolute Lymphs (auto) 0.6 L (1.0-4.8) 10^3/ul Absolute Monos (auto) 0.8 (0-0.8) 10^3/ul Absolute Eos (auto) 0.1 (0-0.6) 10^3/ul Absolute Basos (auto) 0.1 (0-0.2) 10^3/ul Absolute Nucleated RBC 0 10^3/ul Nucleated RBC % 0.1 Polychromasia 1+ Hypochromasia 1+ Elliptocytes 1+ Sodium 130 L (135-145) mmol/L Potassium 5.3 H (3.5-5.0) mmol/L Chloride 102 (101-111) mmol/L Carbon Dioxide 16 L (22-32) mmol/L Anion Gap 12 H (2-11) mmol/L BUN 33 H (6-24) mg/dL Creatinine 1.65 H (0.51-0.95) mg/dL Est GFR ( Amer) 38.3 (>60) Est GFR (Non-Af Amer) 31.6 (>60) BUN/Creatinine Ratio 20.0 (8-20) Glucose 138 H (70-100) mg/dL Calcium 8.1 L (8.6-10.3) mg/dL Total Bilirubin 0.90 (0.2-1.0) mg/dL AST 21 (13-39) U/L ALT 10 (7-52) U/L Alkaline Phosphatase 90 (34-104) U/L Total Protein 5.7 L (6.4-8.9) g/dL Albumin 3.0 L (3.2-5.2) g/dL Globulin 2.7 (2-4) g/dL Albumin/Globulin Ratio 1.1 (1-3) Blood Type O Negative Antibody Screen Pending Crossmatch See Detail Result Diagrams: 06/12/18 15:57 06/12/18 15:57 Lab Statement: Any lab studies that have been ordered have been reviewed, and results considered in the medical decision making process. Re-Evaluation - Re-Evaluation First Eval Re-Evaluation Time: 17:03 Comment: Discussed consult and results of labs and tests. Patient will be admitted to [facility]. Patient is agreeable with plan. Course/Dx - Course Course Of Treatment: Ms. Godoy presented complaining of easy bruising. At times she did complain of a little dizziness. She was found to be severely anemic and we have yet to record her INR. It is likely that is very elevated. Blood was ordered for her when she was found to be anemic and the hospitalists were contacted for admission. We're now ordering FFP for her. - Diagnoses Provider Diagnoses: Severe anemia - Physician Notifications Discussed Care of Patient With: Devin Beck Time Discussed With Above Provider: 16:58 Instructed by Provider To: Other - Dr. Beck was consulted on patient's case at 16:58. Dr. Beck agrees to admit patient to [facility]. - Critical Care Time Critical Care Time: 30-74 min Discharge - Sign-Out/Discharge Documenting (check all that apply): Patient Departure - admit - Discharge Plan Condition: Fair Disposition: ADMITTED TO [facility] - Billing Disposition and Condition Condition: FAIR Disposition: Admitted to [facility]
[2018-06-12] MEDS ORDERED: Montelukast Sodium TAB* 10 MG PO PRN (17:53)
[2018-06-12] MEDS ORDERED: Cetirizine* 10 MG TAB PO PRN (17:53)
[2018-06-12] MEDS ORDERED: Phytonadione Oral Solution* 5 MG/25 ML UDC PO ONE (18:34)
--- NOTE | 2018-06-12 18:44 | RAD ---
INDICATION: Left femoral pain. Evaluate for hematoma COMPARISON: Left hip May 27, 2018; left knee July 04, 2016 TECHNIQUE: Axial scans left femur were obtained with coronal and sagittal reconstructions FINDINGS: There are no acute bony findings. There is a chronic bowing deformity of the left femur There is a longstem left knee prosthesis. The prosthesis appears well seated. There is significant artifact produced by the orthopedic hardware, however. The muscular elements of the thigh are normal. There is very limited evaluation at the level of the joint line. At the level of the upper tibia/fibula there is moderate subcutaneous edema but no localized fluid collection IMPRESSION: LONGSTEM LEFT KNEE ARTHROPLASTY. NO GROSS ABNORMALITIES SEEN. SUBCUTANEOUS EDEMA. NO LOCALIZED FLUID COLLECTION TO SUGGEST HEMATOMA/SEROMA
--- NOTE | 2018-06-12 20:12 | RAD ---
EXAM: CT Head Without Intravenous Contrast CLINICAL HISTORY: 63 years old, female; Signs and symptoms; Dizziness; Additional info: Dizzy TECHNIQUE: Axial computed tomography images of the head/brain without intravenous contrast. COMPARISON: BRAIN WO CT BRAIN WO 2018-01-24 17:35 FINDINGS: Brain: Unremarkable. No hemorrhage. No significant white matter disease. No edema. Ventricles: Unremarkable. No ventriculomegaly. Bones/joints: Unremarkable. No acute fracture. Soft tissues: Unremarkable. Sinuses: Unremarkable as visualized. No acute sinusitis. Mastoid air cells: Unremarkable as visualized. No mastoid effusion. IMPRESSION: 1. No acute intracranial abnormality. 2. No change from the comparison study.
--- NOTE | 2018-06-12 20:28 | PN ---
Hospitalist Progress Note Date of Service: 06/12/18 Patient persistently hypotensive and lab unable to quantify INR. Will reverse coumadin with 5mg Vitamin K, 2 units FFP in addition to the 2 units PRBCs ordered. Upgrade to ICU for hemodynamic monitoring. CT leg negative for hematoma and brain negative for bleed.
--- NOTE | 2018-06-12 20:51 | HP ---
CC: Chuckie Beck MD; Germain Sears MD* ADMISSION HISTORY AND PHYSICAL: DATE OF ADMISSION: 06/12/18 PRIMARY CARE PROVIDER: Germain Sears MD ATTENDING FOR TODAY/ATTENDING FOR THIS ADMISSION: Chuckie Beck MD* ( dictated by Preet Judd NP). CHIEF COMPLAINT: Shortness of breath. HISTORY OF PRESENT ILLNESS: This is a 63-year-old female patient with a history of COPD, oxygen dependent; hyperlipidemia; hypertension; diabetes mellitus type 2; bipolar disorder; and remote history of either a PE or a DVT approximately greater than 5 years ago. The patient states when she was at home she was having some falls about 6 weeks ago and noticed she was having some increased bruising. She said she had her PT/INR checked last week and it was approximately 2.5; however, she wakes up this morning notably short of breath and then noticed her right upper extremity dependently on the posterior aspect of the lower half of her arm was severely ecchymotic. The patient reports that she has had no recent trauma. She did not have any injuries prior to going to bed. States that she woke up like this. She also has multiple places of bruising and ecchymosis to the lower extremities and to her back as well. Again, the patient reports no trauma, no physical abuse, and no falls in greater than 6 weeks. The patient states the shortness of breath started this morning. She is oxygen dependent at night for her COPD, which she has not been compliant with because she is having trouble with the company that supplies her oxygen; however, she said she is normally not short of breath during the day and that this is new for her. We were asked to evaluate the patient for admission when her laboratories were returned showing a very profound anemia with a hemoglobin of 4.8. The patient reports no bleeding from the rectum. She does state that her urine is pink tinged. She reports no epistaxis or no bleeding from other sources that she is aware of. She has had no emesis and no tarry stools as far as she has noted. She does complain of fatigue. She is cold. There are no fevers. She has acute shortness of breath. She has no chest pain. No abdominal pain. No nausea. No vomiting. No urinary complaints. No bowel complaints. She does have bilateral pain in the lower extremities. She is complaining of some edema in the left lower extremity greater than the right and some difficulty ambulating. Otherwise, no further constitutional complaints. PAST MEDICAL HISTORY: Significant for diabetes, hypertension, unknown blood clot or PE in the past, COPD with oxygen dependence, bipolar, hyperlipidemia, chronic kidney disease. PAST SURGICAL HISTORY: Significant for left total knee arthroplasty, cholecystectomy, x2, and tonsillectomy as a child. MEDICATIONS: At home include: 1. Coumadin 5 mg every other day alternating with 7.5 mg. 2. Morphine sulfate 30 mg 3 times a day. 3. Metformin 1000 mg 2 times a day. 4. Levothyroxine 88 mcg daily. 5. Abilify 10 mg 2 times a day. 6. Omeprazole 40 mg daily. 7. Lovastatin 40 mg daily. 8. Loratadine 10 mg daily as needed. 9. Ferrous sulfate 650 mg in the morning. 10. Magnesium oxide 400 mg 2 times a day. 11. Losartan 50 mg daily. 12. Valacyclovir 500 mg daily. 13. Singulair 10 mg at night. 14. Venlafaxine 225 mg total daily. ALLERGIES: She has allergy to ADHESIVE TAPE, WELLBUTRIN, CELEXA, KLONOPIN, DEXTROMETHORPHAN, DIPHENHYDRAMINE, DIVALPROEX SODIUM, DULOXETINE, LUNESTA, PROZAC, GABAPENTIN, GUAIFENESIN, METAXALONE, NAPROXEN, PENICILLINS, PHENYLEPHRINE, PINEAPPLES, PREDNISONE, PSEUDOEPHEDRINE, SERTRALINE. FAMILY HISTORY: Noncontributory. SOCIAL HISTORY: She is a former smoker, quit earlier this year, smoked for approximately 30 years. She denies any alcohol use. She denies any illicit drug use. REVIEW OF SYSTEMS: A 10-point review of systems is as above. PHYSICAL EXAMINATION GENERAL: The patient is alert, pale, and tired appearing. VITAL SIGNS: Currently, heart rate 98 to 110; respiratory rate 16; O2 saturation 99% on 3 L per minute; blood pressure is hypotensive, 78/64 to 96/54 ; temperature is 97.1. HEENT: The patient is atraumatic, normocephalic. PERRLA with nonicteric sclerae. NECK: Supple. Nontender. No JVD noted. No carotid bruit auscultated. LUNGS: Clear at the apices bilaterally. Diminished at the bases with no appreciable rhonchi or rales. CARDIOVASCULAR: S1, S2 present. No murmurs, gallops, or rubs noted. ABDOMEN: Soft, nontender, and nondistended. Moderately obese. Positive bowel sounds in all 4 quadrants. : Deferred. MUSCULOSKELETAL: She has full range of motion. She has +2distal pulses palpable. Her left calf circumference is much larger than the right. She has various areas of ecchymosis and tenderness on both the upper extremities bilaterally with the right upper extremity being worse than the left and also bilaterally at the lower extremities with the left being worse than the right. Also, posteriorly on her upper back, she does have some other areas of ecchymosis that are localized. NEUROLOGIC: She is dizzy, but otherwise grossly intact. PSYCHIATRIC: She is cooperative and appropriate. LABORATORY DATA: WBC is 13.2, RBC is 1.63, hemoglobin 4.8, hematocrit 15, MCV 91, MCH 29, MCHC 32, RDW 16, and platelets 267,000. Sodium 130, potassium 5.3, chloride 102, CO2 of 16, BUN 33, creatinine 1.65, glucose 138, calcium 8.1, bilirubin 0.90, AST 21, ALT 10, alk phos 90, protein 5.7, albumin 3.0. INR has been checked twice, both times the test failed. Labs dates, unable to calculate. INR to PT greater than 212. IMAGING: The patient had chest x-ray several weeks ago, which showed no acute cardiopulmonary disease. I did do a CT of her lower extremity. She has some subcutaneous edema with no localized fluid collections to suggest a hematoma or seroma. IMPRESSION: This is a 63-year-old female patient who was on anticoagulation for many years for a deep venous thrombosis and/or pulmonary embolism in the past, who is presenting with what is likely a supratherapeutic INR, active bleeding, and symptomatic anemia. PLAN: The patient will be admitted to medical service. DIAGNOSES: 1. Profound symptomatic anemia likely secondary to supratherapeutic INR and Coumadin. I suspect that some of her Coumadin retention and her high numbers may have to do with high doses of venlafaxine which can be affecting her Coumadin she may be retaining and not metabolizing out properly. We will hold her Coumadin for now. She will be given 2 units of FFP, 2 units of packed red blood cells, also 1 dose of vitamin K 5 mg now. She is on oxygen for support that will be continued. We will recheck her H and H 2 hours after her last transfusion and recheck INRs daily. 2. For her history of hypertension, we will hold her blood pressure medications as she is severely hypotensive now likely secondary to volume depletion and anemia. Continue to monitor her blood pressure closely. 3. For her bipolar disorder, we will continue her on her aripiprazole and venlafaxine. 4. For her chronic kidney disease, it appears that her kidney function is at its baseline right now. I do not believe that her bump up in her creatinine is due to GI bleeding; however, with such a high INR, she may have some component of GI bleed as well. I have put in for a urinalysis to look for blood as well as an occult stool. She will stay on a PPI in the meantime. 5. For her electrolyte abnormalities, I think again a lot of this is being confounded by her profound anemia. We will give her transfusions, platelets etc., and continue to monitor her labs on a daily basis. 6. The patient also of note, was complaining of dizziness with her symptomatic anemia. Given the high elevated INR, I suspect that she may have some component in her brain as well concerned for bleeding in the brain. She states that she was dizzy and forgetful at home. She did have a CAT scan in December of this year, which showed no acute findings; however, the forgetfulness and dizziness she reports is only in the last week, so we will CAT scan her head to rule out any bleeding or infarct. 7. For DVT prophylaxis, obviously the patient is very high risk for bleeding. We can do an SCD on her right lower extremity as the left lower extremity is quite swollen. We will withhold any anticoagulation given her current bleeding. 8. She is a full code. Her healthcare proxy is her daughter, who is not currently at the bedside. 9. For diet, she can have a consistent carbohydrate diet. 10. Her diabetes seems very controlled. We will do a daily fingerstick. I do not feel that she needs sliding scale at this point. The rest of the patient's course will be determined by further diagnostics, laboratories and any other input from other providers as warranted during this admission. His plan of care has been discussed with Dr. Beck, my attending for today, and he is in agreement with the plan. PREET JUDD, TRACK OILER [id number]/[facility] #: [id number] ELIDIA
[2018-06-12] MEDS: Magnesium Oxide TAB* 400 MG PO SCH (21:03)
[2018-06-12] MEDS: ARIPiprazole TAB* 5 MG PO SCH (21:03)
[2018-06-12] MEDS: Morphine ORAL.SOLN 10 mg* 2 MG/ML UDC 5 ml PO PRN (21:13)
[2018-06-12 21:22] LABS: Hemoglobin 4.8 g/dl (12.0-16.0)
[2018-06-13] MEDS: Nystatin TOP POWDER* 15 GM BTL TOPICAL SCH ×4 (02:45→21:34)
[2018-06-13 03:10] LABS: Hematocrit 18 % (35-47); Hemoglobin 5.9 g/dl (12.0-16.0)
[2018-06-13 03:18] LABS: Urine Appearance Cloudy; Urine Blood 1+ (Negative); Urine Color Yellow; Urine Ketones Negative (Negative); Urine Protein 1+(30 mg/dL) (Negative); Urine Red Blood Cell Trace(0-2/hpf) (Absent); Urine Specific Gravity 1.013 (1.010-1.030); Urine Urobilinogen Negative (Negative); Urine White Blood Cell 3+(>20/hpf) (Absent)
[2018-06-13] MEDS: Morphine ORAL.SOLN 10 mg* 2 MG/ML UDC 5 ml PO PRN ×3 (03:36→23:46)
[2018-06-13 03:47] LABS: Hematocrit for Retic CNT 15 % (35-47); RBC Retic Count 1.63 10^6/ul (4.6-6.2)
--- NOTE | 2018-06-13 03:49 | PN ---
Progress Note - Progress Note Date of Service: 06/13/18 Note: Repeat H/H returned - ordered 1 more unit of PRBCs, 2 bags of FFP. Also ordered abd/pelvis CT to R/O intraabdominal hematoma.
[2018-06-13 03:52] LABS: Corrected Retic Count 1.7 % (0.5-1.5); Immature Retic Fraction 0.67
--- NOTE | 2018-06-13 05:42 | RAD ---
EXAM: CT Abdomen and Pelvis Without Intravenous Contrast CLINICAL HISTORY: 63 years old, female; Signs and symptoms; Other: ? Hematoma 3 falls in 3 weeks; Prior surgery; Surgery date: 6+ months; Surgery type: Hysterectomy, mikey; Patient HX: Admitted for sympotomatic anemia /no recent surgery/bruising to rt arm/mid abd/buttock/and swollen legs; Additional info: R/O hematoma TECHNIQUE: Axial computed tomography images of the abdomen and pelvis without intravenous contrast. Coronal and sagittal reformatted images were created and reviewed. COMPARISON: OT - HIP LT HIP LEFT 2 VIEWS AND PELVIS 2018-05-27 08:53 FINDINGS: Lung bases: Small consolidation in the left lung base likely atelectasis. ABDOMEN: Liver: Unremarkable. Gallbladder and bile ducts: Status post cholecystectomy. No ductal dilation. Pancreas: Atrophy of the pancreas. No ductal dilation. Spleen: Unremarkable. No splenomegaly. Adrenals: Unremarkable. No mass. Kidneys and ureters: Unremarkable. No obstructing stones. No hydronephrosis. Stomach and bowel: Unremarkable. No obstruction. No mucosal thickening. PELVIS: Appendix: No findings to suggest acute appendicitis. Bladder: Unremarkable. No stones. Reproductive: Status post hysterectomy. ABDOMEN and PELVIS: Intraperitoneal space: Unremarkable. No free air. No significant fluid collection. Bones/joints: No acute fracture. No dislocation. Soft tissues: Mild soft tissue swelling in the left gluteal region without large hematoma formation. Vasculature: Mild atherosclerosis. No abdominal aortic aneurysm. Lymph nodes: Unremarkable. No enlarged lymph nodes. IMPRESSION: Mild soft tissue swelling in the left gluteal region without large hematoma formation.
[2018-06-13 05:45] LABS: ABS Basophils 0 10^3/ul (0-0.2); ABS Eosinophils 0.3 10^3/ul (0-0.6); ABS Lymphocytes 1.2 10^3/ul (1.0-4.8); ABS Monocytes 0.6 10^3/ul (0-0.8); ABS Neutrophils 5.2 10^3/ul (1.5-7.7); ABS Nucleated RBC 0 10^3/ul; Eosinophil % 3.9 % (0-6); Hematocrit 17 % (35-47); Hemoglobin 5.9 g/dl (12.0-16.0); Lymphocyte % 16.7 % (25-47); Mean Corpuscular HGB Conc 34 g/dl (31-36); Mean Corpuscular Hemoglobin 30 pg (27-31); Mean Corpuscular Volume 88 fL (80-97); Mean Platelet Volume 7.6 um3 (7.4-10.4); Nucleated Red Blood Cells % 0.1; Platelet Count 194 10^3/ul (150-450); Red Blood Count 1.97 10^6/ul (4.00-5.40); Red Cell Distribution Width 16 % (10.5-15); White Blood Count 7.4 10^3/ul (3.5-10.8)
[2018-06-13] MEDS: Omeprazole CAP* 20 MG PO SCH (05:49)
[2018-06-13 06:00] LABS: EGFR Non-African American 36.4 (>60)
[2018-06-13] MEDS: Levothyroxine TAB* 88 MCG TAB PO SCH (06:17)
[2018-06-13] MEDS ORDERED: NS 0.9% 1000 ML* 1,000 ML IV SCH (08:30)
[2018-06-13] MEDS: Magnesium Oxide TAB* 400 MG PO SCH ×2 (09:35→21:34)
[2018-06-13] MEDS: Ferrous Sulfate TAB* 325 MG PO SCH (09:35)
[2018-06-13] MEDS: ValACYclovir (*) 500 MG TAB PO SCH (09:36)
[2018-06-13] MEDS: ARIPiprazole TAB* 5 MG PO SCH ×2 (09:37→21:33)
[2018-06-13] MEDS: Venlafaxine EXT RELEASE CAP* 75 MG PO SCH ×2 (09:38)
[2018-06-13 09:57] LABS: Hematocrit 21 % (35-47); Hemoglobin 7.1 g/dl (12.0-16.0)
[2018-06-13 10:19] LABS: INR 2.13 (0.77-1.02)
[2018-06-13 15:23] LABS: Hematocrit 23 % (35-47); Hemoglobin 7.7 g/dl (12.0-16.0)
[2018-06-13 15:31] LABS: INR 1.87 (0.77-1.02)
--- NOTE | 2018-06-13 15:52 | PN ---
Subjective Date of Service: 06/13/18 Interval History: HOSPITALIST PROGRESS NOTE Patient seen and examined at bedside. Care reviewed and d/w Nisreen Becker RN. Initially seen earlier today - she was lethargic, unable to provide any information. Re-evaluated this afternoon - AAOx3, able to provide history. States she's been on Warfarin "for many years", just checked at Dr. Sears's office last week and "INR was 2.9". States she's taking all her meds, does not have a box, checks the bottle before taking them. No new meds. Denies ever having a drug overdose. Family History: Unchanged from Admission Social History: Unchanged from Admission Past Medical History: Unchanged from Admission Objective Active Medications: Aripiprazole (Abilify Tab*) 10 mg PO BID [facility] Last Admin: 06/13/18 09:37 Dose: 10 mg Cetirizine HCl (Zyrtec*) 10 mg PO DAILY PRN PRN Reason: Allergy Symptoms Ferrous Sulfate (Ferrous Sulfate Tab*) [facility] [place] Last Admin: 06/13/18 09:35 Dose: 650 mg Sodium Chloride (Ns 0.9% 1000 Ml*) 1,000 mls @ 100 mls/hr IV PER RATE [facility] Levothyroxine Sodium (Synthroid Tab*) 88 mcg PO DAILY@0600 [facility] Last Admin: 06/13/18 06:17 Dose: 88 mcg Magnesium Oxide (Magox 400 Tab*) 400 mg PO BID [facility] Last Admin: 06/13/18 09:35 Dose: 400 mg Montelukast Sodium (Singulair Tab*) 10 mg PO BEDTIME PRN PRN Reason: Allergy Symptoms Morphine Sulfate (Morphine Oral.Soln 10 Mg*) 30 mg PO TID PRN PRN Reason: PAIN Last Admin: 06/13/18 13:24 Dose: 30 mg Nystatin (Nystatin Top Powder*) 1 applic TOPICAL TID [facility] Last Admin: 06/13/18 14:55 Dose: Not Given Omeprazole (Prilosec Cap*) 40 mg PO DAILY@0730 [facility] Last Admin: 06/13/18 05:49 Dose: 40 mg Valacyclovir HCl (Valtrex 500 Mg (*)) 500 mg PO QAM [facility]; Protocol Last Admin: 06/13/18 09:36 Dose: 500 mg Venlafaxine HCl (Effexor Xr Cap*) 150 mg PO DAILY [facility] Last Admin: 06/13/18 09:38 Dose: 150 mg Venlafaxine HCl (Effexor Xr Cap*) 75 mg PO DAILY [facility] Last Admin: 06/13/18 09:38 Dose: 75 mg Vital Signs - 8 hr 06/13/18 06/13/18 06/13/18 07:55 07:57 08:00 Temperature 98.4 F Pulse Rate 62 62 Respiratory 13 15 Rate Blood Pressure 92/43 (mmHg) O2 Sat by Pulse 95 96 Oximetry 06/13/18 06/13/18 06/13/18 08:01 08:16 08:17 Temperature Pulse Rate 62 60 60 Respiratory 14 19 15 Rate Blood Pressure 78/48 78/43 78/49 (mmHg) O2 Sat by Pulse 95 96 94 Oximetry 06/13/18 06/13/18 06/13/18 08:31 08:44 08:45 Temperature Pulse Rate 67 69 70 Respiratory 15 16 20 Rate Blood Pressure 82/64 98/61 94/63 (mmHg) O2 Sat by Pulse 96 98 98 Oximetry 06/13/18 06/13/18 06/13/18 09:00 09:01 09:11 Temperature Pulse Rate 70 72 63 Respiratory 12 15 18 Rate Blood Pressure 100/70 91/55 (mmHg) O2 Sat by Pulse 96 98 97 Oximetry 06/13/18 06/13/18 06/13/18 09:16 09:31 09:46 Temperature Pulse Rate 66 67 68 Respiratory 14 17 17 Rate Blood Pressure 90/54 75/52 93/55 (mmHg) O2 Sat by Pulse 97 95 96 Oximetry 06/13/18 06/13/18 06/13/18 10:00 10:01 10:16 Temperature Pulse Rate 63 63 64 Respiratory 19 15 17 Rate Blood Pressure 91/53 88/48 (mmHg) O2 Sat by Pulse 97 97 96 Oximetry 06/13/18 06/13/18 06/13/18 10:31 10:46 11:00 Temperature Pulse Rate 62 70 72 Respiratory 17 14 13 Rate Blood Pressure 79/42 88/63 109/66 (mmHg) O2 Sat by Pulse 94 97 96 Oximetry 06/13/18 06/13/18 06/13/18 11:03 11:16 11:27 Temperature Pulse Rate 69 70 71 Respiratory 18 17 13 Rate Blood Pressure 100/59 94/62 95/52 (mmHg) O2 Sat by Pulse 97 96 97 Oximetry 06/13/18 06/13/18 06/13/18 11:31 11:45 11:51 Temperature Pulse Rate 70 77 82 Respiratory 20 15 19 Rate Blood Pressure 98/47 103/61 104/69 (mmHg) O2 Sat by Pulse 95 99 98 Oximetry 06/13/18 06/13/18 06/13/18 12:00 12:01 12:16 Temperature 98.4 F 98.4 F 98.6 F Pulse Rate 73 72 73 Respiratory 13 23 14 Rate Blood Pressure 90/46 93/54 (mmHg) O2 Sat by Pulse 95 96 94 Oximetry 06/13/18 06/13/18 06/13/18 12:31 12:46 13:00 Temperature 98.4 F 98.2 F 98.2 F Pulse Rate 72 72 75 Respiratory 15 16 14 Rate Blood Pressure 92/46 86/46 (mmHg) O2 Sat by Pulse 93 93 96 Oximetry 06/13/18 06/13/18 06/13/18 13:01 13:16 13:28 Temperature 98.2 F 98.2 F 98.2 F Pulse Rate 74 70 71 Respiratory 13 15 15 Rate Blood Pressure 96/46 96/54 93/58 (mmHg) O2 Sat by Pulse 92 94 96 Oximetry 06/13/18 06/13/18 06/13/18 13:31 13:41 13:46 Temperature 98.2 F 98.4 F Pulse Rate 70 75 Respiratory 20 18 16 Rate Blood Pressure 85/59 83/45 (mmHg) O2 Sat by Pulse 96 92 Oximetry 06/13/18 06/13/18 06/13/18 14:00 14:01 14:17 Temperature 98.6 F 98.4 F 98.4 F Pulse Rate 73 74 82 Respiratory 18 16 19 Rate Blood Pressure 90/57 95/51 (mmHg) O2 Sat by Pulse 92 94 93 Oximetry 06/13/18 06/13/18 06/13/18 14:41 14:46 15:00 Temperature 98.6 F 98.6 F 98.4 F Pulse Rate 69 71 70 Respiratory 17 18 21 Rate Blood Pressure 96/58 100/53 (mmHg) O2 Sat by Pulse 96 96 93 Oximetry 06/13/18 06/13/18 15:01 15:16 Temperature 98.4 F 98.4 F Pulse Rate 69 67 Respiratory 15 18 Rate Blood Pressure 94/57 104/54 (mmHg) O2 Sat by Pulse 93 94 Oximetry Oxygen Devices in Use Now: None Appearance: Pleasant lady lying in bed in NAD. Eyes: No Scleral Icterus Ears/Nose/Mouth/Throat: Mucous Membranes Moist, - - edentulous Neck: Trachea Midline Respiratory: Symmetrical Chest Expansion and Respiratory Effort, Clear to Auscultation Cardiovascular: RRR - Normal S1 and S2 Abdominal: NL Sounds; No Tenderness; No Distention Skin: - - Multiple ecchymosis and hematomas in different stages of healing, largest one on her right forearm Neurological: Alert and Oriented x 3, NL Muscle Strength and Tone Result Diagrams: 06/13/18 15:10 06/13/18 05:35 Assess/Plan/Problems-Billing Assessment: Mrs Godoy is a 63yo F with PMH of type 2 DM, hypothyroidism, chronic pain, COPD , HTN, PE 04/12, GERD, morbid obesity with BMI 46.8, who presented to ED with c/ o dyspnea, found to have severe anemia. - Patient Problems (1) Severe anemia Comment: - Initial Hb was 4.8 - suspect blood loss associated with supratherapeutic INR. - Received 3 PRBCs so far. - Blood pressure is on the lower side, but MAP is >65. - LE and abdome CT were negative for hematoma. (2) Supratherapeutic INR Comment: - Unmeasurable on admission, now down to 1.87 after 3 FFP. - Only documented history is PE in 2013 - will contact PCP to see if there's any other reason to continue anticoagulation. - Etiology is unclear. (3) Diabetes Comment: - Diet controlled. - Monitor FS. (4) DVT prophylaxis Comment: - SCDs. (5) Full code status Status and Disposition: Inpatient.
[2018-06-13] MEDS: NS 0.9% 1000 ML* 1,000 ML IV SCH ×2 (16:28→21:16)
[2018-06-14 05:50] LABS: ABS Basophils 0.1 10^3/ul (0-0.2); ABS Eosinophils 0.5 10^3/ul (0-0.6); ABS Lymphocytes 1.3 10^3/ul (1.0-4.8); ABS Monocytes 0.5 10^3/ul (0-0.8); ABS Neutrophils 4.4 10^3/ul (1.5-7.7); ABS Nucleated RBC 0 10^3/ul; Eosinophil % 7.1 % (0-6); Hematocrit 27 % (35-47); Hemoglobin 8.8 g/dl (12.0-16.0); Lymphocyte % 19.6 % (25-47); Mean Corpuscular HGB Conc 33 g/dl (31-36); Mean Corpuscular Hemoglobin 30 pg (27-31); Mean Corpuscular Volume 90 fL (80-97); Mean Platelet Volume 7.5 um3 (7.4-10.4); Nucleated Red Blood Cells % 0.3; Platelet Count 197 10^3/ul (150-450); Red Blood Count 2.94 10^6/ul (4.00-5.40); Red Cell Distribution Width 16 % (10.5-15); White Blood Count 6.7 10^3/ul (3.5-10.8)
[2018-06-14 06:02] LABS: INR 1.72 (0.77-1.02)
[2018-06-14 06:19] LABS: EGFR Non-African American 46.1 (>60)
[2018-06-14] MEDS: Levothyroxine TAB* 88 MCG TAB PO SCH (06:32)
[2018-06-14] MEDS: ValACYclovir (*) 500 MG TAB PO SCH (08:19)
[2018-06-14] MEDS: Venlafaxine EXT RELEASE CAP* 75 MG PO SCH ×2 (08:19→08:20)
[2018-06-14] MEDS: ARIPiprazole TAB* 5 MG PO SCH ×2 (08:19→22:09)
[2018-06-14] MEDS: Morphine ORAL.SOLN 10 mg* 2 MG/ML UDC 5 ml PO PRN ×3 (08:20→17:19)
[2018-06-14] MEDS: Ferrous Sulfate TAB* 325 MG PO SCH (08:20)
[2018-06-14] MEDS: Magnesium Oxide TAB* 400 MG PO SCH ×2 (08:20→22:10)
[2018-06-14] MEDS: Omeprazole CAP* 20 MG PO SCH (08:20)
[2018-06-14] MEDS: Nystatin TOP POWDER* 15 GM BTL TOPICAL SCH ×3 (08:25→21:59)
--- NOTE | 2018-06-14 12:53 | PN ---
Subjective Date of Service: 06/14/18 Interval History: HOSPITALIST PROGRESS NOTE Patient seen and examined at bedside. Care reviewed and d/w Kirit Winters RN. She feels weak today. Was able to rest last night, but still feels tired. No new pains, tolerating diet well. No signs of active bleeding. Family History: Unchanged from Admission Social History: Unchanged from Admission Past Medical History: Unchanged from Admission Objective Active Medications: Aripiprazole (Abilify Tab*) 10 mg PO BID [facility] Last Admin: 06/14/18 08:19 Dose: 10 mg Cetirizine HCl (Zyrtec*) 10 mg PO DAILY PRN PRN Reason: Allergy Symptoms Last Admin: 06/14/18 08:20 Dose: 10 mg Ferrous Sulfate (Ferrous Sulfate Tab*) 650 mg PO [facility] Last Admin: 06/14/18 08:20 Dose: 650 mg Levothyroxine Sodium (Synthroid Tab*) 88 mcg PO DAILY@0600 [facility] Last Admin: 06/14/18 06:32 Dose: 88 mcg Magnesium Oxide (Magox 400 Tab*) 400 mg PO BID [facility] Last Admin: 06/14/18 08:20 Dose: 400 mg Montelukast Sodium (Singulair Tab*) 10 mg PO BEDTIME PRN PRN Reason: Allergy Symptoms Morphine Sulfate (Morphine Oral.Soln 10 Mg*) 10 mg PO TID PRN PRN Reason: PAIN Last Admin: 06/14/18 08:20 Dose: 10 mg Nystatin (Nystatin Top Powder*) 1 applic TOPICAL TID [facility] Last Admin: 06/14/18 08:25 Dose: Not Given Omeprazole (Prilosec Cap*) 40 mg PO DAILY@0730 [facility] Last Admin: 06/14/18 08:20 Dose: 40 mg Valacyclovir HCl (Valtrex 500 Mg (*)) [facility] [place] [facility] Last Admin: 06/14/18 08:19 Dose: 500 mg Venlafaxine HCl (Effexor Xr Cap*) 150 mg PO DAILY [facility] Last Admin: 06/14/18 08:20 Dose: 150 mg Venlafaxine HCl (Effexor Xr Cap*) 75 mg PO DAILY [facility] Last Admin: 06/14/18 08:19 Dose: 75 mg Vital Signs - 8 hr 06/14/18 06/14/18 06/14/18 05:00 05:01 05:16 Temperature 97.9 F 97.7 F 97.9 F Pulse Rate 61 61 56 Respiratory 14 13 18 Rate Blood Pressure 124/59 120/62 (mmHg) O2 Sat by Pulse 99 100 98 Oximetry 06/14/18 06/14/18 06/14/18 05:31 05:46 06:00 Temperature 97.9 F 98.1 F 98.1 F Pulse Rate 57 61 61 Respiratory 18 17 16 Rate Blood Pressure 114/71 122/74 (mmHg) O2 Sat by Pulse 97 97 99 Oximetry 06/14/18 06/14/18 06/14/18 06:16 06:31 06:46 Temperature 98.2 F 98.2 F 98.2 F Pulse Rate 59 61 60 Respiratory 13 13 19 Rate Blood Pressure 121/64 109/80 93/70 (mmHg) O2 Sat by Pulse 100 99 98 Oximetry 06/14/18 06/14/18 06/14/18 07:00 07:01 07:16 Temperature 98.1 F 98.2 F 98.1 F Pulse Rate 59 59 59 Respiratory 15 16 17 Rate Blood Pressure 123/74 104/67 (mmHg) O2 Sat by Pulse 98 98 99 Oximetry 06/14/18 06/14/18 06/14/18 07:31 07:46 08:00 Temperature 98.1 F 98.1 F 98.2 F Pulse Rate 58 57 55 Respiratory 20 14 19 Rate Blood Pressure 115/63 107/64 (mmHg) O2 Sat by Pulse 96 98 97 Oximetry 06/14/18 06/14/18 08:01 11:06 Temperature 98.1 F 97.5 F Pulse Rate 55 67 Respiratory 22 Rate Blood Pressure 110/62 108/50 (mmHg) O2 Sat by Pulse 96 100 Oximetry Oxygen Devices in Use Now: Nasal Cannula - 2 liters Appearance: Pleasant lady lying in bed in NAD. Eyes: No Scleral Icterus Ears/Nose/Mouth/Throat: Mucous Membranes Moist Neck: Trachea Midline Respiratory: Symmetrical Chest Expansion and Respiratory Effort, Clear to Auscultation Cardiovascular: RRR - Normal S1 and S2 Abdominal: NL Sounds; No Tenderness; No Distention - obese Skin: - - Multiple hematomas and ecchymosis in different stages of healing. Largest one on right forearm - sensation is intact, has good pulses, full ROM Neurological: Alert and Oriented x 3, NL Muscle Strength and Tone Result Diagrams: 06/14/18 05:30 06/14/18 05:30 Assess/Plan/Problems-Billing Assessment: Mrs Godoy is a 63yo F with PMH of type 2 DM, hypothyroidism, chronic pain, COPD , HTN, PE 04/12, GERD, morbid obesity with BMI 46.8, who presented to ED with c/ o dyspnea, found to have severe anemia. - Patient Problems (1) Severe anemia Comment: - Initial Hb was 4.8 - suspect blood loss associated with supratherapeutic INR - bruises are likely one source, but she denies GI bleed, had only pink tinged urine. - Received 5 PRBCs with H/H up to . - Blood pressure back to normal levels. - LE and abdome CT were negative for hematoma, stool for occult blood was negative. (2) Supratherapeutic INR Comment: - Unmeasurable on admission, now down to 1.7 after 3 FFP. - Only documented history is PE in 2013 - awaiting PCP call back to see if there 's any other reason to continue anticoagulation. - Etiology is unclear at this time. Patient vehemently denies taking more Warfarin, no SI, no new medications. As per Dr. Sears's RN pt's last INR was 2.4. (3) Diabetes Comment: - Diet controlled. - Monitor FS. (4) DVT prophylaxis Comment: - SCDs. (5) Full code status (6) Physical deconditioning Comment: - Contributing to her falls at home. - PT/OT consults. Status and Disposition: Inpatient.
[2018-06-14] MEDS ORDERED: Acetaminophen TAB* 325 MG ONE (17:16)
[2018-06-14] MEDS: Acetaminophen TAB* 325 MG PO PRN (17:20)
[2018-06-14] MEDS: Morphine TAB Extended Release (*) 30 MG TAB.ER PO SCH (22:46)
[2018-06-15] MEDS: Acetaminophen TAB* 325 MG PO PRN (02:53)
[2018-06-15] MEDS: Levothyroxine TAB* 88 MCG TAB PO SCH (06:09)
[2018-06-15 06:25] LABS: ABS Basophils 0 10^3/ul (0-0.2); ABS Eosinophils 0.4 10^3/ul (0-0.6); ABS Lymphocytes 1.4 10^3/ul (1.0-4.8); ABS Monocytes 0.5 10^3/ul (0-0.8); ABS Neutrophils 4.5 10^3/ul (1.5-7.7); ABS Nucleated RBC 0 10^3/ul; Eosinophil % 6.5 % (0-6); Hematocrit 29 % (35-47); Hemoglobin 9.6 g/dl (12.0-16.0); Lymphocyte % 19.9 % (25-47); Mean Corpuscular HGB Conc 33 g/dl (31-36); Mean Corpuscular Hemoglobin 30 pg (27-31); Mean Corpuscular Volume 91 fL (80-97); Mean Platelet Volume 7.7 um3 (7.4-10.4); Nucleated Red Blood Cells % 0.2; Platelet Count 229 10^3/ul (150-450); Red Blood Count 3.17 10^6/ul (4.00-5.40); Red Cell Distribution Width 16 % (10.5-15); White Blood Count 6.9 10^3/ul (3.5-10.8)
[2018-06-15 06:40] LABS: EGFR Non-African American 44.8 (>60)
[2018-06-15] MEDS: Omeprazole CAP* 20 MG PO SCH (07:57)
[2018-06-15] MEDS: Morphine TAB Extended Release (*) 30 MG TAB.ER PO SCH ×3 (07:57→20:45)
[2018-06-15] MEDS: ARIPiprazole TAB* 5 MG PO SCH ×2 (07:57→20:45)
[2018-06-15] MEDS: Magnesium Oxide TAB* 400 MG PO SCH ×2 (07:57→20:45)
[2018-06-15] MEDS: Venlafaxine EXT RELEASE CAP* 75 MG PO SCH ×2 (07:57→07:58)
[2018-06-15] MEDS: Ferrous Sulfate TAB* 325 MG PO SCH (07:57)
[2018-06-15] MEDS: ValACYclovir (*) 500 MG TAB PO SCH (07:58)
[2018-06-15] MEDS: Nystatin TOP POWDER* 15 GM BTL TOPICAL SCH ×3 (07:58→22:18)
[2018-06-15] MEDS ORDERED: cefTRIAXone(*) 1 GM in NS 0.9% 50 ML* 50 ML IVPB ONE (08:54)
--- NOTE | 2018-06-15 15:46 | PN ---
Subjective Date of Service: 06/15/18 Family History: Unchanged from Admission Social History: Unchanged from Admission Past Medical History: Unchanged from Admission Objective Active Medications: Acetaminophen (Tylenol Tab*) 650 mg PO Q6H PRN PRN Reason: pain/fever Last Admin: 06/15/18 02:53 Dose: 650 mg Aripiprazole (Abilify Tab*) 10 mg PO BID [facility] Last Admin: 06/15/18 07:57 Dose: 10 mg Cetirizine HCl (Zyrtec*) 10 mg PO DAILY PRN PRN Reason: Allergy Symptoms Last Admin: 06/14/18 08:20 Dose: 10 mg Ferrous Sulfate (Ferrous Sulfate Tab*) [facility] [place] Last Admin: 06/15/18 07:57 Dose: 650 mg Ceftriaxone Sodium 1 gm/ (Sodium Chloride) 50 mls @ 200 mls/hr IVPB Q24H [facility] Levothyroxine Sodium (Synthroid Tab*) 88 mcg PO DAILY@0600 [facility] Last Admin: 06/15/18 06:09 Dose: 88 mcg Magnesium Oxide (Magox 400 Tab*) 400 mg PO BID [facility] Last Admin: 06/15/18 07:57 Dose: 400 mg Montelukast Sodium (Singulair Tab*) 10 mg PO BEDTIME PRN PRN Reason: Allergy Symptoms Morphine Sulfate (Ms Contin(*)) 30 mg PO TID [facility] Last Admin: 06/15/18 14:06 Dose: 30 mg Nystatin (Nystatin Top Powder*) 1 applic TOPICAL TID [facility] Last Admin: 06/15/18 14:08 Dose: Not Given Omeprazole (Prilosec Cap*) 40 mg PO DAILY@0730 [facility] Last Admin: 06/15/18 07:57 Dose: 40 mg Valacyclovir HCl (Valtrex 500 Mg (*)) [facility] [place]; Protocol Last Admin: 06/15/18 07:58 Dose: 500 mg Venlafaxine HCl (Effexor Xr Cap*) 150 mg PO DAILY [facility] Last Admin: 06/15/18 07:57 Dose: 150 mg Venlafaxine HCl (Effexor Xr Cap*) 75 mg PO DAILY [facility] Last Admin: 06/15/18 07:58 Dose: 75 mg Vital Signs - 8 hr 06/15/18 06/15/18 06/15/18 07:47 07:57 08:00 Temperature 97.3 F Pulse Rate 57 Respiratory 16 16 16 Rate Blood Pressure 101/58 (mmHg) O2 Sat by Pulse 100 Oximetry 06/15/18 06/15/18 10:43 14:06 Temperature Pulse Rate Respiratory 14 16 Rate Blood Pressure (mmHg) O2 Sat by Pulse Oximetry Oxygen Devices in Use Now: Nasal Cannula Result Diagrams: 06/15/18 06:08 06/15/18 06:08 Additional Lab and Data: Lab Results 06/12/18 06/12/18 06/12/18 Range/Units 15:57 15:57 17:14 WBC 13.2 H (3.5-10.8) 10^3/ul RBC 1.63 L (4.00-5.40) 10^6/ul Hgb 4.8 L* (12.0-16.0) g/dl Hct 15 L (35-47) % MCV 91 (80-97) fL MCH 29 (27-31) pg MCHC 32 (31-36) g/dl RDW 16 H (10.5-15) % Plt Count 267 (150-450) 10^3/ul MPV 7.9 (7.4-10.4) um3 Neut % (Auto) 88.1 H (38-83) % Lymph % (Auto) 4.7 L (25-47) % [place] % (Auto) 6.1 (0-7) % Eos % (Auto) 0.6 (0-6) % Baso % (Auto) 0.5 (0-2) % Absolute Neuts (auto) 11.7 H (1.5-7.7) 10^3/ul Absolute Lymphs (auto) 0.6 L (1.0-4.8) 10^3/ul Absolute Monos (auto) 0.8 (0-0.8) 10^3/ul Absolute Eos (auto) 0.1 (0-0.6) 10^3/ul Absolute Basos (auto) 0.1 (0-0.2) 10^3/ul Absolute Nucleated RBC 0 10^3/ul Nucleated RBC % 0.1 Polychromasia 1+ Hypochromasia 1+ Elliptocytes 1+ Sodium 130 L (135-145) mmol/L Potassium 5.3 H (3.5-5.0) mmol/L Chloride 102 (101-111) mmol/L Carbon Dioxide 16 L (22-32) mmol/L Anion Gap 12 H (2-11) mmol/L BUN 33 H (6-24) mg/dL Creatinine 1.65 H (0.51-0.95) mg/dL Est GFR ( Amer) 38.3 (>60) Est GFR (Non-Af Amer) 31.6 (>60) BUN/Creatinine Ratio 20.0 (8-20) Glucose 138 H (70-100) mg/dL Calcium 8.1 L (8.6-10.3) mg/dL Total Bilirubin 0.90 (0.2-1.0) mg/dL AST 21 (13-39) U/L ALT 10 (7-52) U/L Alkaline Phosphatase 90 (34-104) U/L Total Protein 5.7 L (6.4-8.9) g/dL Albumin 3.0 L (3.2-5.2) g/dL Globulin 2.7 (2-4) g/dL Albumin/Globulin Ratio 1.1 (1-3) Blood Type O Negative Antibody Screen Pending Crossmatch See Detail Microbiology and Other Data: Microbiology 06/12/18 20:50 Nasal Screen MRSA (PCR) - Final Nasal Mrsa Not Detected 06/12/18 19:00 Stool Occult Blood ([place]) - Final Stool Assess/Plan/Problems-Billing Assessment: Mrs Godoy is a 63yo F with PMH of type 2 DM, hypothyroidism, chronic pain, COPD , HTN, PE 04/12, GERD, morbid obesity with BMI 46.8, who presented to ED with c/ o dyspnea, found to have severe anemia, and UTI - Patient Problems (1) Severe anemia Current Visit: Yes Status: Acute Comment: - Initial Hb was 4.8 - suspect blood loss associated with supratherapeutic INR - bruises are likely one source , but she denies GI bleed, had only pink tinged urine. - Received 5 PRBCs with H/H up to 9.6. - Blood pressure back to normal levels. - LE and abdome CT were negative for hematoma, stool for occult blood was negative. - Continues to be hemodynamically stable (2) Supratherapeutic INR Current Visit: Yes Status: Acute Comment: - Unmeasurable on admission, now down to 1.7 after 3 FFP. - Only documented history is PE in 2014 - awaiting PCP call back to see if there 's any other reason to continue anticoagulation. - Etiology is unclear at this time. Patient denies taking more Warfarin, no SI, no new medications. As per Dr. Sears's RN pt's last INR was 2.4. (3) UTI (urinary tract infection) Current Visit: No Status: Acute Comment: - Urine cultures with Klebsiela noted, sensitive to cephalosporines, started on Ceftrixone today (4) Morbid obesity Current Visit: No Status: Acute Comment: - Supportive care - Antifungal powder to affected moist areas - PT (5) Physical deconditioning Current Visit: Yes Status: Acute Comment: - Contributing to her falls at home. - PT/OT consults - nutritional services director consult for STR placement, discussed with patient, understands risks of fall at home, would like to consider [facility] (6) Diabetes Current Visit: Yes Status: Acute Comment: - Diet controlled. - Monitor FS. (7) DVT prophylaxis Current Visit: Yes Status: Acute Comment: - SCDs. (8) Full code status Current Visit: Yes Status: Chronic Status and Disposition: Inpatient. Anticipate discharge to [facility] once medically stable.
[2018-06-15] MEDS ORDERED: Cyclobenzaprine TAB* 10 MG PO ONE (18:42)
[2018-06-16 06:10] LABS: ABS Basophils 0.1 10^3/ul (0-0.2); ABS Eosinophils 0.5 10^3/ul (0-0.6); ABS Lymphocytes 1.3 10^3/ul (1.0-4.8); ABS Monocytes 0.5 10^3/ul (0-0.8); ABS Neutrophils 4.4 10^3/ul (1.5-7.7); ABS Nucleated RBC 0 10^3/ul; Eosinophil % 7.5 % (0-6); Hematocrit 32 % (35-47); Hemoglobin 10.4 g/dl (12.0-16.0); Lymphocyte % 19.5 % (25-47); Mean Corpuscular HGB Conc 33 g/dl (31-36); Mean Corpuscular Hemoglobin 30 pg (27-31); Mean Corpuscular Volume 91 fL (80-97); Mean Platelet Volume 7.4 um3 (7.4-10.4); Nucleated Red Blood Cells % 0.3; Platelet Count 279 10^3/ul (150-450); Red Blood Count 3.46 10^6/ul (4.00-5.40); Red Cell Distribution Width 16 % (10.5-15); White Blood Count 6.8 10^3/ul (3.5-10.8)
[2018-06-16 06:27] LABS: EGFR Non-African American 49.5 (>60)
[2018-06-16 06:28] LABS: INR 1.4 (0.77-1.02)
[2018-06-16] MEDS: Levothyroxine TAB* 88 MCG TAB PO SCH (06:35)
[2018-06-16] MEDS: Magnesium Oxide TAB* 400 MG PO SCH ×2 (07:28→20:33)
[2018-06-16] MEDS: Ferrous Sulfate TAB* 325 MG PO SCH (07:28)
[2018-06-16] MEDS: ARIPiprazole TAB* 5 MG PO SCH ×2 (07:28→20:33)
[2018-06-16] MEDS: cefTRIAXone(*) 1 GM in NS 0.9% 50 ML* 50 ML IVPB SCH (07:28)
[2018-06-16] MEDS: Omeprazole CAP* 20 MG PO SCH (07:28)
[2018-06-16] MEDS: Morphine TAB Extended Release (*) 30 MG TAB.ER PO SCH ×3 (07:29→20:33)
[2018-06-16] MEDS: ValACYclovir (*) 500 MG TAB PO SCH (07:30)
[2018-06-16] MEDS: Nystatin TOP POWDER* 15 GM BTL TOPICAL SCH ×3 (07:30→23:46)
[2018-06-16] MEDS: Venlafaxine EXT RELEASE CAP* 75 MG PO SCH ×2 (07:31→07:32)
--- NOTE | 2018-06-16 10:19 | PN ---
Subjective Date of Service: 06/16/18 Interval History: Patient was seen and examined at bedside. Reports feeling about the same. C/o occasional numbness to right 5th finger, no pain or weakness. Denies chest pain or SOB. Has been OOB to chair this AM, still difficult to ambulate due to morbid obesity and deconditioning. Appetite is better, moving her bowels. Denies dysuria, fever or chills. Family History: Unchanged from Admission Social History: Unchanged from Admission Past Medical History: Unchanged from Admission Objective Active Medications: Acetaminophen (Tylenol Tab*) 650 mg PO Q6H PRN PRN Reason: pain/fever Last Admin: 06/15/18 02:53 Dose: 650 mg Aripiprazole (Abilify Tab*) 10 mg PO BID [facility] Last Admin: 06/16/18 07:28 Dose: 10 mg Cetirizine HCl (Zyrtec*) 10 mg PO DAILY PRN PRN Reason: Allergy Symptoms Last Admin: 06/14/18 08:20 Dose: 10 mg Ferrous Sulfate (Ferrous Sulfate Tab*) 650 mg PO QAM [facility] Last Admin: 06/16/18 07:28 Dose: 650 mg Heparin Sodium (Porcine) (Heparin Vial(*)) 5,000 units SUBCUT Q8HR [facility] Ceftriaxone Sodium 1 gm/ (Sodium Chloride) 50 mls @ 200 mls/hr IVPB Q24H [facility] Last Admin: 06/16/18 07:28 Dose: 200 mls/hr Levothyroxine Sodium (Synthroid Tab*) 88 mcg PO DAILY@0600 [facility] Last Admin: 06/16/18 06:35 Dose: 88 mcg Magnesium Oxide (Magox 400 Tab*) 400 mg PO BID [facility] Last Admin: 06/16/18 07:28 Dose: 400 mg Montelukast Sodium (Singulair Tab*) 10 mg PO BEDTIME PRN PRN Reason: Allergy Symptoms Morphine Sulfate (Ms Contin(*)) 30 mg PO TID [facility] Last Admin: 06/16/18 07:29 Dose: 30 mg Nystatin (Nystatin Top Powder*) 1 applic TOPICAL TID [facility] Last Admin: 06/16/18 07:30 Dose: 1 applic Omeprazole (Prilosec Cap*) 40 mg PO DAILY@0730 [facility] Last Admin: 06/16/18 07:28 Dose: 40 mg Valacyclovir HCl (Valtrex 500 Mg (*)) 500 mg PO QAM [facility]; Protocol Last Admin: 06/16/18 07:30 Dose: 500 mg Venlafaxine HCl (Effexor Xr Cap*) 150 mg PO DAILY [facility] Last Admin: 06/16/18 07:31 Dose: 150 mg Venlafaxine HCl (Effexor Xr Cap*) 75 mg PO DAILY [facility] Last Admin: 06/16/18 07:32 Dose: 75 mg Vital Signs - 8 hr 06/16/18 06/16/18 06/16/18 03:38 07:14 07:29 Temperature 97.3 F 97.7 F Pulse Rate 74 75 Respiratory 16 17 12 Rate Blood Pressure 135/76 137/82 (mmHg) O2 Sat by Pulse 99 98 Oximetry 06/16/18 06/16/18 08:00 10:00 Temperature Pulse Rate Respiratory 12 14 Rate Blood Pressure (mmHg) O2 Sat by Pulse Oximetry Oxygen Devices in Use Now: Nasal Cannula Appearance: Appears comfortable in bed, breathing unlabored, in NAD Eyes: No Scleral Icterus, PERRLA Ears/Nose/Mouth/Throat: Clear Oropharnyx, Mucous Membranes Moist Neck: NL Appearance and Movements; NL JVP, Trachea Midline Respiratory: Symmetrical Chest Expansion and Respiratory Effort, Clear to Auscultation Cardiovascular: NL Sounds; No Murmurs; No JVD, RRR Extremities: - - RUE with improved ecchymotic patches to dorsal forearm and arm. No arm swelling or tenderness. N/V intact distally. Skin: No Rash or Ulcers Neurological: Alert and Oriented x 3 Nutrition: Taking PO's Result Diagrams: 06/16/18 05:50 06/16/18 05:50 Additional Lab and Data: Microbiology and Other Data: Microbiology 06/12/18 20:50 Nasal Screen MRSA (PCR) - Final Nasal Mrsa Not Detected 06/12/18 19:00 Stool Occult Blood ([place]) - Final Stool Diagnostic Imaging: ' EKG Data: . Assess/Plan/Problems-Billing Assessment: Mrs Godoy is a 63yo F with PMH of type 2 DM, hypothyroidism, chronic pain, COPD , HTN, PE 04/12, GERD, morbid obesity with BMI 46.8, who presented to ED with c/ o dyspnea, found to have severe anemia, and UTI - Patient Problems (1) Severe anemia Current Visit: Yes Status: Acute Comment: - Initial Hb was 4.8 - suspect blood loss associated with supratherapeutic INR - bruises are likely one source , but she denies GI bleed, had only pink tinged urine. - H/H continues to improve - Blood pressure back to normal levels. - LE and abdome CT were negative for hematoma, stool for occult blood was negative. - Continues to be hemodynamically stable - No evidence of bleeding source, will intiate subQ heparin due to lashon risk for DVT (2) Supratherapeutic INR Current Visit: Yes Status: Acute Comment: - Unmeasurable on admission, now down to 1.4 - Only documented history is PE in 2014 - awaiting PCP call back to see if there 's any other reason to continue anticoagulation. - Etiology is unclear at this time. Patient denies taking more Warfarin, no SI, no new medications. As per Dr. Sears's RN pt's last INR was 2.4. - Will continue to hold Warfarin at this time (3) UTI (urinary tract infection) Current Visit: No Status: Acute Comment: - Urine cultures with Klebsiela noted, sensitive to cephalosporines, started on Ceftrixone today (4) Morbid obesity Current Visit: No Status: Acute Comment: - Supportive care - Antifungal powder to affected moist areas - PT (5) Physical deconditioning Current Visit: Yes Status: Acute Comment: - Contributing to her falls at home. - PT/OT consults - insurance and financial services agent consult for STR placement, discussed with patient, understands risks of fall at home, would like to consider [facility] (6) Diabetes Current Visit: Yes Status: Acute Comment: - Diet controlled. - Monitor FS. (7) DVT prophylaxis Current Visit: Yes Status: Acute Comment: - SCDs and Heparin subQ added today giving stable H/H and no bleeding source identified. (8) Full code status Current Visit: Yes Status: Chronic Status and Disposition: Inpatient. Anticipate discharge to [facility] once medically stable.
[2018-06-16] MEDS: Heparin VIAL(*) 5000 UNITS/ML VIAL (FIVE THOUSAND) SUBCUT SCH ×2 (14:16→21:14)
[2018-06-16] MEDS: Acetaminophen TAB* 325 MG PO PRN (17:48)
[2018-06-16] MEDS ORDERED: Cyclobenzaprine TAB* 10 MG PO ONE (22:59)
[2018-06-16] MEDS: Magnesium Hydroxide LIQ* 30 ML UDC PO SCH (23:46)
[2018-06-17] MEDS: Magnesium Hydroxide LIQ* 30 ML UDC PO SCH (06:26)
[2018-06-17] MEDS: Levothyroxine TAB* 88 MCG TAB PO SCH (06:29)
[2018-06-17] MEDS: Heparin VIAL(*) 5000 UNITS/ML VIAL (FIVE THOUSAND) SUBCUT SCH ×3 (06:29→20:57)
[2018-06-17] MEDS: Omeprazole CAP* 20 MG PO SCH (07:53)
[2018-06-17] MEDS: ValACYclovir (*) 500 MG TAB PO SCH (07:54)
[2018-06-17] MEDS: Morphine TAB Extended Release (*) 30 MG TAB.ER PO SCH ×3 (07:54→20:56)
[2018-06-17] MEDS: Ferrous Sulfate TAB* 325 MG PO SCH (07:55)
[2018-06-17] MEDS: Magnesium Oxide TAB* 400 MG PO SCH ×2 (07:55→20:57)
[2018-06-17] MEDS: Venlafaxine EXT RELEASE CAP* 75 MG PO SCH ×2 (07:56)
[2018-06-17] MEDS: cefTRIAXone(*) 1 GM in NS 0.9% 50 ML* 50 ML IVPB SCH (07:57)
[2018-06-17] MEDS: Nystatin TOP POWDER* 15 GM BTL TOPICAL SCH ×3 (07:57→21:05)
[2018-06-17] MEDS: ARIPiprazole TAB* 5 MG PO SCH ×2 (09:03→20:57)
--- NOTE | 2018-06-17 11:36 | PN ---
Subjective Date of Service: 06/17/18 Interval History: Patient was seen and examined at bedside. Reports right foot pain upon standing up, but no calf pain or recent injury. Generally feels weak upon standing, but not any worse that it has been. Not sure if she had PT today yet. Denies chest pain, palpitations or SOB. Tolerating diet, no nausea or vomiting. Family History: Unchanged from Admission Social History: Unchanged from Admission Past Medical History: Unchanged from Admission Objective Active Medications: Acetaminophen (Tylenol Tab*) 650 mg PO Q6H PRN PRN Reason: pain/fever Last Admin: 06/16/18 17:48 Dose: 650 mg Aripiprazole (Abilify Tab*) 10 mg PO BID [facility] Last Admin: 06/17/18 09:03 Dose: 10 mg Cetirizine HCl (Zyrtec*) 10 mg PO DAILY PRN PRN Reason: Allergy Symptoms Last Admin: 06/14/18 08:20 Dose: 10 mg Ferrous Sulfate (Ferrous Sulfate Tab*) 650 mg PO QAM [facility] Last Admin: 06/17/18 07:55 Dose: 650 mg Heparin Sodium (Porcine) (Heparin Vial(*)) 5,000 units SUBCUT Q8HR [facility] Last Admin: 06/17/18 06:29 Dose: 5,000 units Ceftriaxone Sodium 1 gm/ (Sodium Chloride) 50 mls @ 200 mls/hr IVPB Q24H [facility] Last Admin: 06/17/18 07:57 Dose: 200 mls/hr Levothyroxine Sodium (Synthroid Tab*) 88 mcg PO DAILY@0600 [facility] Last Admin: 06/17/18 06:29 Dose: 88 mcg Magnesium Oxide (Magox 400 Tab*) 400 mg PO BID [facility] Last Admin: 06/17/18 07:55 Dose: 400 mg Montelukast Sodium (Singulair Tab*) 10 mg PO BEDTIME PRN PRN Reason: Allergy Symptoms Morphine Sulfate (Ms Contin(*)) 30 mg PO TID [facility] Last Admin: 06/17/18 07:54 Dose: 30 mg Nystatin (Nystatin Top Powder*) 1 applic TOPICAL TID [facility] Last Admin: 06/17/18 07:57 Dose: 1 applic Omeprazole (Prilosec Cap*) 40 mg PO DAILY@0730 [facility] Last Admin: 06/17/18 07:53 Dose: 40 mg Valacyclovir HCl (Valtrex 500 Mg (*)) 500 mg PO QAM [facility]; Protocol Last Admin: 06/17/18 07:54 Dose: 500 mg Venlafaxine HCl (Effexor Xr Cap*) 150 mg PO DAILY [facility] Last Admin: 06/17/18 07:56 Dose: 150 mg Venlafaxine HCl (Effexor Xr Cap*) 75 mg PO DAILY [facility] Last Admin: 06/17/18 07:56 Dose: 75 mg Vital Signs - 8 hr 06/17/18 06/17/18 06/17/18 03:54 07:42 07:54 Temperature 97.5 F 97.5 F Pulse Rate 58 67 Respiratory 17 16 18 Rate Blood Pressure 121/57 140/74 (mmHg) O2 Sat by Pulse 98 98 Oximetry 06/17/18 06/17/18 09:45 10:00 Temperature Pulse Rate Respiratory 16 16 Rate Blood Pressure (mmHg) O2 Sat by Pulse Oximetry Oxygen Devices in Use Now: None Appearance: Morbidly obese femal, sitting up on her bed, appears comfortable and in NAD Eyes: No Scleral Icterus, PERRLA Ears/Nose/Mouth/Throat: Clear Oropharnyx, Mucous Membranes Moist Neck: NL Appearance and Movements; NL JVP, Trachea Midline Respiratory: Symmetrical Chest Expansion and Respiratory Effort, Clear to Auscultation Cardiovascular: NL Sounds; No Murmurs; No JVD, RRR Abdominal: NL Sounds; No Tenderness; No Distention Extremities: - - Right foot with no bony tenderness on exam. No edema noted. No ecchymosis, erythema or swelling. N/V intact. Neurological: Alert and Oriented x 3 Nutrition: Taking PO's Result Diagrams: 06/16/18 05:50 06/16/18 05:50 Additional Lab and Data: Microbiology and Other Data: Microbiology 06/12/18 20:50 Nasal Screen MRSA (PCR) - Final Nasal Mrsa Not Detected 06/12/18 19:00 Stool Occult Blood ([place]) - Final Stool Diagnostic Imaging: ' EKG Data: . Assess/Plan/Problems-Billing Assessment: Mrs Godoy is a 63yo F with PMH of type 2 DM, hypothyroidism, chronic pain, COPD , HTN, PE 04/12, GERD, morbid obesity with BMI 46.8, who presented to ED with c/ o dyspnea, found to have severe anemia, and UTI - Patient Problems (1) Severe anemia Current Visit: Yes Status: Acute Comment: - Initial Hb was 4.8 - suspect blood loss associated with supratherapeutic INR - bruises are likely one source , but she denies GI bleed, had only pink tinged urine. - H/H continues to improve - Blood pressure back to normal levels. - LE and abdome CT were negative for hematoma, stool for occult blood was negative. - Continues to be hemodynamically stable - No evidence of bleeding source, will intiate subQ heparin due to lashon risk for DVT (2) Supratherapeutic INR Current Visit: Yes Status: Acute Comment: - Unmeasurable on admission, now down to 1.4 - Only documented history is PE in 2014 - awaiting PCP call back to see if there 's any other reason to continue anticoagulation. - Etiology is unclear at this time. Patient denies taking more Warfarin, no SI, no new medications. As per Dr. Sears's RN pt's last INR was 2.4. - Will continue to hold Warfarin at this time - Will attempt to contact Dr. Sears again to verify if resuming Coumadin would be benificial. (3) UTI (urinary tract infection) Current Visit: No Status: Acute Comment: - Urine cultures with Klebsiela noted, sensitive to cephalosporines, started on Ceftrixone (4) Morbid obesity Current Visit: No Status: Acute Comment: - Supportive care - Antifungal powder to affected moist areas - PT (5) Physical deconditioning Current Visit: Yes Status: Acute Comment: - Contributing to her falls at home. - PT/OT consults - conference services coordinator consult for STR placement, discussed with patient, understands risks of fall at home, would like to consider [facility] (6) Diabetes Current Visit: Yes Status: Acute Comment: - Diet controlled. - Monitor FS. (7) DVT prophylaxis Current Visit: Yes Status: Acute Comment: - SCDs and Heparin subQ added, giving stable H/H and no bleeding source identified. (8) Full code status Current Visit: Yes Status: Chronic Status and Disposition: Inpatient. Anticipate discharge to [facility] once bed available.
[2018-06-17] MEDS: Docusate CAP* 100 MG PO SCH (23:05)
[2018-06-18] MEDS: Heparin VIAL(*) 5000 UNITS/ML VIAL (FIVE THOUSAND) SUBCUT SCH ×2 (06:36→13:05)
[2018-06-18] MEDS: Levothyroxine TAB* 88 MCG TAB PO SCH (06:36)
[2018-06-18] MEDS: Omeprazole CAP* 20 MG PO SCH (07:59)
[2018-06-18] MEDS: ARIPiprazole TAB* 5 MG PO SCH (09:26)
[2018-06-18] MEDS: Docusate CAP* 100 MG PO SCH (09:26)
[2018-06-18] MEDS: Ferrous Sulfate TAB* 325 MG PO SCH (09:27)
[2018-06-18] MEDS: Morphine TAB Extended Release (*) 30 MG TAB.ER PO SCH ×2 (09:28→13:05)
[2018-06-18] MEDS: Magnesium Oxide TAB* 400 MG PO SCH (09:33)
[2018-06-18] MEDS: Venlafaxine EXT RELEASE CAP* 75 MG PO SCH ×2 (09:34→09:35)
[2018-06-18] MEDS: ValACYclovir (*) 500 MG TAB PO SCH (09:36)
[2018-06-18] MEDS: Nystatin TOP POWDER* 15 GM BTL TOPICAL SCH ×2 (09:39→13:05)
[2018-06-18] MEDS: cefTRIAXone(*) 1 GM in NS 0.9% 50 ML* 50 ML IVPB SCH (09:46)
[2018-06-18 11:18] VITALS: BP 120/56
--- NOTE | 2018-06-18 12:22 | PN ---
Subjective Date of Service: 06/18/18 Interval History: Patient seen and examined at bedside. Denies fever, shortness of breath, chest discomfort, N/V/D. Pt states that she has chills, but this is normal for her. She denies urinary frequency or burning, She reports urinary urgency, but states this usually occurs after she has had a catheter. Meka is insistent that she has never had more than 1 PE and no history of DVTs. She states that Dr. Sears never told her how long she would need to be on warfarin after her PE. Family History: Unchanged from Admission Social History: Unchanged from Admission Past Medical History: Unchanged from Admission Objective Active Medications: Acetaminophen (Tylenol Tab*) 650 mg PO Q6H PRN Reason: pain/fever Aripiprazole (Abilify Tab*) 10 mg PO BID [facility] Cetirizine HCl (Zyrtec*) 10 mg PO DAILY PRN Reason: Allergy Symptoms Docusate Sodium (Colace Cap*) 200 mg PO BID [facility] Ferrous Sulfate (Ferrous Sulfate Tab*) 650 mg PO QAM [facility] Heparin Sodium (Porcine) (Heparin Vial(*)) 5,000 units SUBCUT Q8HR [facility] Ceftriaxone Sodium 1 gm/ (Sodium Chloride) 50 mls @ 200 mls/hr IVPB Q24H [facility] Levothyroxine Sodium (Synthroid Tab*) 88 mcg PO DAILY@0600 [facility] Magnesium Oxide (Magox 400 Tab*) 400 mg PO BID [facility] Montelukast Sodium (Singulair Tab*) 10 mg PO BEDTIME PRN Reason: Allergy Symptoms Morphine Sulfate (Ms Contin(*)) 30 mg PO TID [facility] Nystatin (Nystatin Top Powder*) 1 applic TOPICAL TID [facility] Omeprazole (Prilosec Cap*) 40 mg PO DAILY@0730 [facility] Valacyclovir HCl (Valtrex 500 Mg (*)) 500 mg PO QAM [facility]; Protocol Venlafaxine HCl (Effexor Xr Cap*) 150 mg PO DAILY [facility] Venlafaxine HCl (Effexor Xr Cap*) 75 mg PO DAILY [facility] Vital Signs - 8 hr 06/18/18 06/18/18 06/18/18 07:11 08:00 09:28 Temperature 97.4 F Pulse Rate 66 Respiratory 16 16 12 Rate Blood Pressure 126/59 (mmHg) O2 Sat by Pulse 99 Oximetry 06/18/18 10:58 Temperature 98.1 F Pulse Rate 69 Respiratory 18 Rate Blood Pressure 120/56 (mmHg) O2 Sat by Pulse 98 Oximetry Oxygen Devices in Use Now: None Appearance: NAD, laying in bed Ears/Nose/Mouth/Throat: Mucous Membranes Moist Respiratory: Symmetrical Chest Expansion and Respiratory Effort, Clear to Auscultation Cardiovascular: NL Sounds; No Murmurs; No JVD, RRR Abdominal: NL Sounds; No Tenderness; No Distention Skin: - - Ecchymosis Neurological: Alert and Oriented x 3, NL Muscle Strength and Tone Lines/Tubes/Other Access: Clean, Dry and Intact Peripheral IV - site benign Nutrition: Taking PO's Result Diagrams: 06/16/18 05:50 06/16/18 05:50 Additional Lab and Data: Microbiology and Other Data: Microbiology 06/12/18 20:50 Nasal Screen MRSA (PCR) - Final Nasal Mrsa Not Detected 06/12/18 19:00 Stool Occult Blood ([place]) - Final Stool Diagnostic Imaging: ' EKG Data: . Assess/Plan/Problems-Billing Assessment: Mrs Godoy is a 63yo F with PMH of type 2 DM, hypothyroidism, chronic pain, COPD , HTN, PE 04/12, GERD, morbid obesity with BMI 46.8, who presented to ED with c/ o dyspnea, found to have severe anemia, and a UTI - Patient Problems (1) Supratherapeutic INR Code(s): R79.1 - ABNORMAL COAGULATION PROFILE SNOMED Code(s): 925292656 Comment: - Unmeasurable on admission, now down to 1.4 - Only documented history is PE in 2013 - Etiology is unclear at this time. Patient denies taking more Warfarin, no SI, no new medications. As per Dr. Sears's RN pt's last INR was 2.4 - Will continue to hold Warfarin at this time - Called Dr. Sears's office again today, awaiting PCP call back to see if there 's any other reason to continue anticoagulation to verify if resuming Coumadin would be benificial (2) UTI (urinary tract infection) Comment: - Afebrile and no leukocytosis - Urine cultures with Klebsiela > 100K, sensitive to cephalosporines - Continue Ceftrixone, day 3/3 (3) Severe anemia Code(s): D64.9 - ANEMIA, UNSPECIFIED SNOMED Code(s): 181076196 Comment: - H/H continues to improve, stable - Initial Hb was 4.8 - suspect blood loss associated with supratherapeutic INR - bruises are likely one source, she denies GI bleed, had pink tinged urine - LE and abdome CT were negative for hematoma, stool for occult blood was negative - Received 5 units PRBCs and 4 units FFP - Continue iron supplement (4) Physical deconditioning Code(s): R53.81 - OTHER MALAISE SNOMED Code(s): 62324640297513 Comment: - Contributing to her falls at home - PT/OT, plan for [facility] at discharge (5) Diabetes Code(s): E11.9 - TYPE 2 DIABETES MELLITUS WITHOUT COMPLICATIONS SNOMED Code(s) : 77453384 Comment: - Glucose 80-90's - Resume metformin at discharge (6) COPD (chronic obstructive pulmonary disease) Code(s): J44.9 - CHRONIC OBSTRUCTIVE PULMONARY DISEASE, UNSPECIFIED SNOMED Code(s): 24712769 Comment: - No signs of COPD exacerbation at this time - Doesn't appear to be on maintanace medications at home (7) HTN (hypertension) Code(s): I10 - ESSENTIAL (PRIMARY) HYPERTENSION SNOMED Code(s): 54276725 Comment: - Normotensive, SBP 110-120's - Continue to hold losartan (8) Hypothyroid Code(s): E03.9 - HYPOTHYROIDISM, UNSPECIFIED SNOMED Code(s): 41589280 Comment: - Continue levothyroxine (9) Morbid obesity Code(s): E66.01 - MORBID (SEVERE) OBESITY DUE TO EXCESS CALORIES SNOMED Code(s ): 097362855 Comment: - BMI ~ 48 (10) TIA (transient ischemic attack) Comment: - Personal history - Continue statin (11) Bipolar depression Code(s): F31.30 - BIPOLAR DISORD, CRNT EPSD DEPRESS, MILD OR MOD SEVERT, UNSP SNOMED Code(s): 47207240 Comment: - Continue abilify and Effexor (12) Chronic pain Code(s): G89.29 - OTHER CHRONIC PAIN SNOMED Code(s): 42454885 (13) Hx of gastroesophageal reflux (GERD) Code(s): Z87.19 - PERSONAL HISTORY OF OTHER DISEASES OF THE DIGESTIVE SYSTEM SNOMED Code(s): 75059222983732 Comment: - Continue omeprazole (14) Hx of hyperlipidemia Code(s): Z86.39 - PERSONAL HISTORY OF ENDO, NUTRITIONAL AND METABOLIC DISEASE SNOMED Code(s): 569315825 Comment: - Resume Lovastatin at discharge (15) Hx pulmonary embolism Code(s): Z86.711 - PERSONAL HISTORY OF PULMONARY EMBOLISM SNOMED Code(s): 057255978 Comment: - PE/DVT in 2013 - INR supratherapeutic on admissoin - Continue to hold Coumadin, see above (16) DVT prophylaxis Code(s): ILD7343 - SNOMED Code(s): 000869481 Comment: - SCDs and Heparin subQ (17) Full code status Code(s): Z78.9 - OTHER SPECIFIED HEALTH STATUS SNOMED Code(s): 729726449 Status and Disposition: Inpatient. Stable for discharge to [facility].
--- NOTE | 2018-06-18 14:32 | DS ---
CC: Dr. Germain Sears; [facility] * DATE OF ADMISSION: 06/12/2018. DATE OF DISCHARGE: 06/18/2018. ATTENDING PHYSICIAN: Dr. Devin Beck * (dictated by Keturah Phillip NP). PRIMARY CARE PHYSICIAN: Dr. Germain Sears. PRIMARY DIAGNOSES: 1. Symptomatic anemia. 2. Supratherapeutic INR. 3. Klebsiella urinary tract infection. 4. Physical deconditioning. SECONDARY DIAGNOSES: 1. Diabetes mellitus. 2. COPD. 3. Hypertension. 4. Hypothyroidism. 5. Morbid obesity. 6. TIA. 7. Bipolar depression. 8. Chronic pain. 9. GERD. 10. Hyperlipidemia. 11. History of pulmonary embolus in 2013. STUDIES WHILE IN THE HOSPITAL: 1. Left lower extremity CT on 06/12/2018: Radiologist's impression: Long stem left knee arthroplasty. No gross abnormalities seen. Subcutaneous edema. No localized fluid collection to suggest hematoma/seroma. 2. Brain CT on 06/12/2018: Radiologist's impression: No acute intracranial abnormality. No change from the comparison study. 3. Abdomen/pelvis CT on 06/13/2018: Radiologist's impression: Mild soft tissue swelling in the left gluteal region without large hematoma formation. DISCHARGE MEDICATIONS: New medications: 1. Acetaminophen 650 mg oral every 6 hours as needed for fever or pain. 2. Nystatin topical powder apply 3 times daily to rash. 3. Colace 200 mg oral daily as needed for constipation. 4. Warfarin 1 mg oral daily. 5. Lovenox 100 mg subcu q.12 hours until INR is therapeutic for 24 hours. Continued home medications: 1. Omeprazole 40 mg oral daily. 2. Valacyclovir 500 mg oral every morning. 3. Lovastatin 40 mg oral every morning. 4. Metformin 1,000 mg oral twice daily. 5. Ferrous Sulfate 650 mg oral every morning. 6. Claritin 10 mg oral daily as needed for allergy symptoms. 7. Abilify 10 mg oral twice daily. 8. Effexor ER 225 mg oral daily. 9. Levothyroxine 88 mcg oral daily. 10. Magnesium oxide 400 mg oral twice daily. 11. Singulair 10 mg oral daily. 12. Morphine Sulfate 30 mg oral three times daily. Discontinued home medications: 1. Losartan. 2. Warfarin. HISTORY OF PRESENT ILLNESS/HOSPITAL COURSE: Ms. Godoy is a 63-year-old female with a past medical history significant for COPD, oxygen dependent, hyperlipidemia, hypertension, diabetes mellitus type 2, bipolar disorder, and a remote history of PE who has been falling at home when she noticed increased bruising. She reported having her PT/INR checked approximately one week prior, was at approximately 2.5. She woke up on the morning of her presentation notably short of breath and noticed her right upper extremity was severely ecchymotic. She reported no recent trauma or injury. She just noted that she had woke up with that. She also noted multiple areas of bruising and ecchymosis to her lower extremities and back. Again with no trauma and falls no sooner than six weeks prior. She wears oxygen at night for her COPD. She has not been compliant with, as she has been having troubling with the company that supplies her oxygen. She is not generally short of breath during the day. Due to this, she presented to the emergency room for further evaluation. While in the emergency room, she was found to be profoundly anemic with a hemoglobin of 4.8. She denied any signs of GI bleeding. She denied any changes in the color of her urine. No epistaxis or other signs of bleeding, such as tarry stools or blood in vomit. She had a lower extremity CT showing subcutaneous edema with no loculated collections to suggest a hematoma or seroma and the Hospitalists were asked to evaluate her for admission. While in the hospital, she received a total of five units of packed red blood cells in addition to four units of fresh frozen plasma and a dose of vitamin K. Her hemoglobin and hematocrit have improved nicely with the last being 10.4 and 32 respectively. Her INR has come down to 1.4 two days ago. Her creatinine has improved during her stay to 1.12. She had a urinalysis showing a possible UTI, and the urine culture grew klebsiella pneumoniae with greater than 100,000 colony count. She received three days of Ceftriaxone. Other than urinary urgency which she typically has after a urinary catheter, she is asymptomatic. During her stay, she was felt to have physical deconditioning and would benefit from rehab. Her blood pressures initially upon presentation were hypotensive. Her Losartan was held. She has been normotensive off of that. I did discuss with Dr. Sears's nurse if the patient was supposed to be on lifetime Warfarin and per Dr. 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 According to the patient and her medical records at [facility], I only see where she was diagnosed with a PE in 2013 and no history of DVTs. She states that she would not have received care at another facility for blood clots. She has had no signs of a COPD exacerbation at this time. Her glucoses have been well-controlled. Ms. Godoy is stable for discharge to [facility] today. Vital signs are as follows: Temperature 98.1, heart rate 69, respiratory 18, O2 sat 98 percent on room air, blood pressure 120/56. DISCHARGE PLAN: Ms. Godoy will be discharged to [facility]. Activity is as tolerated. She should be on a heart healthy consistent carbohydrate diet. In regards to her symptomatic anemia and supratherapeutic INR, her hemoglobin and hematocrit have recovered. Continue to monitor for any signs of bleeding. The patient can be continued on supplemental iron. The patient's urinary tract infection, she has completed a three day course of Ceftriaxone in the hospital. The patient should have physical therapy and occupational therapy evaluations and continue treatment plan while at subacute rehab. In regards to her diabetes, she should be continued on Metformin and a consistent carbohydrate diet. For her COPD, she is not on any maintenance medication. She should be continued on her allergy medications and use her supplemental oxygen at night as previously prescribed. For her hypertension, she has been normotensive with systolic blood pressures in the 110 to 120s. I have continued to hold her Losartan, this could be resumed accordingly if needed. For her hypothyroidism, continue her Levothyroxine. For her morbid obesity, she should have diet and weight management education. For her history of TIA, she should be continued on a statin. She will be continued on her Abilify and Effexor for bipolar. For her chronic pain, she will be continued on Morphine Sulfate. For her gastroesophageal reflux, she will be continued on Omeprazole. For her hyperlipidemia, she will be continued on Lovastatin. Again , for her history of pulmonary embolus, I recommend cautiously reinitiating Warfarin starting out with 1 mg daily with frequent INR's. Additionally, will bridge her with Lovenox. When the patient is discharged from [facility], she should continue to follow with Dr. Sears as an outpatient. It may be beneficial to discuss with Dr. Sears her history of PE/DVTs and her need for life long anticoagulation. She should return to the emergency room for any return of shortness of breath or chest pain. This is a summarized report of a complex medical history and hospital stay. For further details, please see the entire medical record. Time for this discharge was approximately 50 minutes, greater than half of that was spent with the patient discussing discharge plans and instructions. CONDITION ON DISCHARGE: Stable. This discharge summary will also serve as the admitting History and Physical for [facility]. Reviewed by ABDULKADIR PARKER 06/20/18 1343 [id number]/[facility] #: [id number] ELIDIA
== END 2018-06-18 15:00 | DRG 663 ==
LOC: ED 15:09 → MEDTELE 18:09 → ICU 19:47 → MED 06-14 11:05
PROVIDERS: ADMIT Internal Medicine; ATTEND Internal Medicine
PROC: 30233N1 Transfusion of Nonautologous Red Blood Cells into Peripheral Vein, Percutaneous Approach (ICD-10-PCS; principal; 2018-06-12)
PROC: 30233K1 Transfusion of Nonautologous Frozen Plasma into Peripheral Vein, Percutaneous Approach (ICD-10-PCS; 2018-06-12)
PROC: 30233K1 Transfusion of Nonautologous Frozen Plasma into Peripheral Vein, Percutaneous Approach (ICD-10-PCS; 2018-06-13)
PROC: 30233N1 Transfusion of Nonautologous Red Blood Cells into Peripheral Vein, Percutaneous Approach (ICD-10-PCS; 2018-06-13)
DX: D64.9 Anemia, unspecified (principal); N39.0 Urinary tract infection, site not specified; F31.30 Bipolar disorder, current episode depressed, mild or moderate severity, unspecified; Z68.42 Body mass index [BMI] 45.0-49.9, adult; E11.22 Type 2 diabetes mellitus with diabetic chronic kidney disease; I95.9 Hypotension, unspecified; E66.01 Morbid (severe) obesity due to excess calories; R79.1 Abnormal coagulation profile; I12.9 Hypertensive chronic kidney disease with stage 1 through stage 4 chronic kidney disease, or unspecified chronic kidney disease; N18.9 Chronic kidney disease, unspecified; B96.1 Klebsiella pneumoniae [K. pneumoniae] as the cause of diseases classified elsewhere; J44.9 Chronic obstructive pulmonary disease, unspecified; I10 Essential (primary) hypertension; E03.9 Hypothyroidism, unspecified; G89.29 Other chronic pain; K21.9 Gastro-esophageal reflux disease without esophagitis; E78.5 Hyperlipidemia, unspecified; Z96.652 Presence of left artificial knee joint; Z86.711 Personal history of pulmonary embolism; Z86.73 Personal history of transient ischemic attack (TIA), and cerebral infarction without residual deficits; Z99.81 Dependence on supplemental oxygen; Z79.01 Long term (current) use of anticoagulants; Z79.84 Long term (current) use of oral hypoglycemic drugs; Z79.891 Long term (current) use of opiate analgesic; Z79.899 Other long term (current) drug therapy; Z88.0 Allergy status to penicillin; Z88.8 Allergy status to other drugs, medicaments and biological substances; Z91.018 Allergy to other foods; Z87.891 Personal history of nicotine dependence
CPT/HCPCS: 36415; 70450; 74176; 80048; 80053; 81003; 81015; 82270; 85014; 85018; 85025; 85045; 85610; 86850; 86900; 86901; 86922; 86927; 87077; 87086; 87186; 87641; 99284; A9270-GY; G8978-GP-CK; G8979-GP-CI; J0696; J1644; P9017; P9040

== ENCOUNTER 2019-01-15 18:39 | Emergency (ER) | payer OTHER ==
--- NOTE | 2019-01-15 19:38 | ED ---
Back Pain - HPI Summary HPI Summary: A 63 y/o F presents to ED with c/o back pain onset this AM. She says she woke up with the back pain and has been unable to ambulate since this AM. Associated sx: bilateral hip pain onset 3 days ago, fever, chills, tremulous, pedal edema. She denies fall. She has not had similar back pain before. Denies SOB, CP, abd pain, n/v, urinary sx. - History of Current Complaint Chief Complaint: EDExtremityLower Stated Complaint: BACK PAIN PER EMS Time Seen by Provider: 01/15/19 19:21 Hx Obtained From: Patient Onset/Duration: Sudden Onset, Lasting Hours, Still Present Onset/Duration: Atraumatic, Still Present Timing: Constant Back Pain Location: Is Discrete @ - back pain Severity Currently: Severe Pain Intensity: 10 Pain Scale Used: 0-10 Numeric Associated Signs And Symptoms: Positive: Fever, Pain with Weight Bearing, Other - pos: chills, tremulous, pedal edema. neg: Denies SOB, CP, abd pain, n/v, urinary sx.. Negative: Abdominal Pain - Allergies/Home Medications Allergies/Adverse Reactions: Allergies Allergy/AdvReac Type Severity Reaction Status Date / Time adhesive Allergy Hives Verified 07/06/18 18:12 bupropion [From Wellbutrin] Allergy Unknown Verified 07/06/18 18:12 Reaction Details citalopram [From Celexa] Allergy Unknown Verified 07/06/18 18:12 Reaction Details clonazepam [From Klonopin] Allergy Unknown Verified 07/06/18 18:12 Reaction Details dextromethorphan Allergy Swelling Verified 07/06/18 18:12 [From Dimetapp Of Cold-Congestion] Face,Lips,& Throat diphenhydramine Allergy Swelling Verified 07/06/18 18:12 [From Dimetapp Of Cold-Congestion] Face,Lips,& Throat divalproex sodium Allergy Headache Verified 07/06/18 18:12 [From Depakote] duloxetine [From Cymbalta] Allergy Unknown Verified 07/06/18 18:12 Reaction Details eszopiclone [From Lunesta] Allergy Unknown Verified 07/06/18 18:12 Reaction Details fluoxetine [From Prozac] Allergy Unknown Verified 07/06/18 18:12 Reaction Details gabapentin Allergy Hallucinati Verified 07/06/18 18:12 ons guaifenesin Allergy Swelling Verified 07/06/18 18:12 [From Dimetapp Of Cold-Congestion] Face,Lips,& Throat metaxalone [From Skelaxin] Allergy Unknown Verified 07/06/18 18:12 Reaction Details naproxen Allergy Unknown Verified 07/06/18 18:12 Reaction Details Penicillins Allergy Hives Verified 07/06/18 18:12 phenylephrine Allergy Swelling Verified 07/06/18 18:12 [From Dimetapp Of Cold-Congestion] Face,Lips,& Throat pineapple Allergy Swelling Verified 07/06/18 18:12 prednisone Allergy Hallucinati Verified 07/06/18 18:12 ons pseudoephedrine Allergy Swelling Verified 07/06/18 18:12 [From Dimetapp Of Cold-Congestion] Face,Lips,& Throat sertraline [From Zoloft] Allergy Unknown Verified 07/06/18 18:12 Reaction Details PMH/Surg Hx/FS Hx/Imm Hx Previously Healthy: No Endocrine/Hematology History: Reports: Hx Diabetes, Hx Thyroid Disease, Other Endocrine/Hematological Disorders - vit d resistent Denies: Hx Anticoagulant Therapy, Hx Blood Disorders, Hx Blood Transfusions, Hx Bone Marrow Disease, Hx Systemic Lupus Erythematosus, Hx Sickle Cell Disease , Hx Anemia, Hx Unexplained Bleeding Cardiovascular History: Reports: Hx Angina, Hx Embolism, Hx Hypercholesterolemia , Hx Hypertension, Hx Syncope, Other Cardiovascular Problems/Disorders Denies: Hx Aneurysm, Hx Angioplasty, Hx Auto Implanted Cardiovert Defib, Hx Cardiac Arrest, Hx Cardiomegaly, Hx Congenital Heart Disease, Hx Congestive Heart Failure, Hx Coronary Artery Disease, Hx Deep Vein Thrombosis, Hx Hypotension, Hx Myocardial Infarction, Hx Pacemaker/ICD, Hx Peripheral Vascular Disease, Hx Rheumatic Fever, Hx Valvular Heart Disease Respiratory History: Reports: Hx Asthma, Hx Chronic Bronchitis, Hx Chronic Obstructive Pulmonary Disease (COPD), Hx Pulmonary Embolism Denies: Hx Cystic Fibrosis, Hx Lung Cancer, Hx Pleural Effusion, Hx Pneumonia , Hx Pulmonary Edema, Hx Seasonal Allergies, Hx Sleep Apnea GI History: Reports: Hx Gall Bladder Disease, Hx Gastroesophageal Reflux Disease , Hx Irritable Bowel, Other GI Disorders Denies: Hx Cirrhosis, Hx Crohn's Disease, Hx Diverticulosis, Hx Gastrointestinal Bleed, Hx Hiatal Hernia, Hx Jaundice, Hx Obstructive Bowel, Hx Ileostomy, Hx Ulcer History: Denies: Hx Acute Renal Failure, Hx Benign Prostatic Hyperplasia, Hx Chronic Renal Failure, Hx Dialysis, Hx Kidney Infection, Hx Kidney Stones, Hx Renal Disease, Other Problems/Disorders Musculoskeletal History: Reports: Hx Arthritis, Hx Back Problems, Hx Bursitis, Hx Fibromyalgia, Hx Scoliosis, Other Musculoskeletal History - 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 Denies: Hx Congenital Bone Abnormalities, Hx Gout, Hx Orthopedic Injury, Hx Osteoporosis, Hx Tendonitis Sensory History: Reports: Hx Contacts or Glasses - glasses left at home, Hx Glaucoma, Hx Vision Problem Denies: Hx Cataracts, Hx Eye Injury, Hx Eye Prosthesis, Hx Legally Blind, Hx Macular Degeneration, Hx Deafness, Hx Hearing Aid, Hx Hearing Problem, Other Sensory Impairments Opthamlomology History: Reports: Hx Contacts or Glasses - glasses left at home, Hx Glaucoma, Hx Vision Problem Denies: Hx Cataracts, Hx Eye Injury, Hx Eye Prosthesis, Hx Legally Blind, Hx Macular Degeneration, Other Sensory Impairments Neurological History: Reports: Hx Headaches, Hx Migraine, Hx Transient Ischemic Attacks (TIA), Other Neuro Impairments/Disorders Denies: Hx Dementia, Hx Developmental Delay, Hx Nerve Disease, Hx Seizures, Hx Spinal Cord Injury Psychiatric History: Reports: Hx Anxiety, Hx Attention Deficit Hyperactivity Disorder, Hx Depression, Hx Panic Disorder, Hx Post Traumatic Stress Disorder, Hx Schizophrenia, Hx Bipolar Disorder, Hx Suicide Attempt - 1996, Other Psychiatric Issues/Disorders - claustrophobia Denies: Hx Eating Disorder, Hx of Violent Episodes Against Others, Hx Substance Abuse - Surgical History Surgery Procedure, Year, and Place: Left knee replacement 04/2005, c section x2 81 & 89, HYSTERECTOMY, OOPHERECTOMY, GALLBLADDER, TONSILS Hx Anesthesia Reactions: No - Immunization History Date of Tetanus Vaccine: Unknown Date of Influenza Vaccine: 09/2012 Infectious Disease History: Yes Infectious Disease History: Denies: Hx Hepatitis, Hx Human Immunodeficiency Virus (HIV), Hx of Known/ Suspected MRSA, Hx Shingles, Hx Tuberculosis, Traveled Outside the [place] in Last 30 Days Comment Only: History Other Infectious Disease - hx mrsa in knee postoperatively - Family History Known Family History: Positive: Cardiac Disease, Hypertension, Diabetes, Other - bipolar - Social History Occupation: Disabled Lives: With Family Alcohol Use: None Hx Substance Use: No Substance Use Type: Reports: None Hx Tobacco Use: Yes Smoking Status (MU): Former Smoker Type: Cigarettes Amount Used/How Often: reports smoking 1 pack/week Length of Time of Smoking/Using Tobacco: 30 years Have You Smoked in the Last Year: Yes Review of Systems Positive: Fever, Chills, Other - pos: tremulous Negative: Chest Pain Negative: Shortness Of Breath Negative: Abdominal Pain, Vomiting, Nausea Negative: dysuria, hematuria Musculoskeletal: Other - pos: back pain, hip pain Positive: Edema All Other Systems Reviewed And Are Negative: Yes Physical Exam - Summary Physical Exam Summary: Constitutional: Well-developed, Well-nourished, Alert. (-) Distressed Skin: Warm, Dry HENT: Normocephalic; Atraumatic Eyes: Conjunctiva normal Neck: Musculoskeletal ROM normal neck. (-) JVD, (-) Stridor, (-) Tracheal deviation Cardio: Rhythm regular, rate normal, Heart sounds normal; Intact distal pulses; The pedal pulses are 2+ and symmetric. Radial pulses are 2+ and symmetric. (-) Murmur Pulmonary/Chest wall: Effort normal. (-) Respiratory distress, (-) Wheezes, (-) Rales Abd: Soft, (-) tenderness, (-) Distension, (-) Guarding, (-) Rebound Musculoskeletal: (-) Edema Lymph: (-) Cervical adenopathy Neuro: Alert, Oriented x3 Psych: Mood and affect Normal Triage Information Reviewed: Yes Vital Signs On Initial Exam: Initial Vitals Temp Pulse Resp BP Pulse Ox 98.0 F 93 18 85/61 100 01/15/19 19:12 01/15/19 19:12 01/15/19 19:12 01/15/19 19:12 01/15/19 19:12 Vital Signs Reviewed: Yes Diagnostics - Vital Signs Vital Signs Temp Pulse Resp BP Pulse Ox 01/15/19 19:12 98.0 F 93 18 85/61 100 - Laboratory Lab Statement: Any lab studies that have been ordered have been reviewed, and results considered in the medical decision making process. - Radiology PELVIS Radiology Interpretation Completed By: ED Physician Summary of Radiographic Findings: Worsening hip degeneration, no acute process. L SPINE Radiology Interpretation Completed By: ED Physician Summary of Radiographic Findings: Scoliosis and DDD. Back Pain Course/Dx - Course Course Of Treatment: Pt is a 63 y/o F presenting with c/o back pain onset this AM when she woke up. Associated sx: bilateral hip pain onset 3 days ago, fever, chills, tremulous, pedal edema. She denies fall. Pelvis XR shows "worsening hip degeneration, no acute process." L-spine XR shows scoliosis and DDD. PT WILL BE SIGNED OUT TO DR. CARRENO AT SHIFT CHANGE PENDING C/A/P CTA. Discharge - Sign-Out/Discharge Documenting (check all that apply): Sign-Out Patient Signing out patient TO: Camila Carreno - PENDING C/A/P CTA Patient Received Moderate/Deep Sedation with Procedure: No - Discharge Plan Referrals: Germain Sears MD [Primary Care Provider] - - Attestation Statements Document Initiated by Scribe: Yes Documenting Scribe: Yolanda Vazquez Provider For Whom Scribe is Documenting (Include Credential): Dr. Saira Sorensen MD Scribe Attestation: I, Yolanda Vazquez, scribed for Dr. Saira Sorensen MD on at 2151.
[2019-01-15] MEDS ORDERED: traMADol TAB* 50 MG PO ONE (20:03)
--- NOTE | 2019-01-15 22:36 | ED ---
Progress - Progress Note Progress Note: Patient was signed out from Dr. Sorensen to Dr. Carreno during a shift change, pending a C/P/A CTA. Physical Exam - Summary Physical Exam Summary: VITAL SIGNS: Reviewed. GENERAL: Patient is a morbidly obese FEMALE who is lying comfortable in the stretcher. Patient is not in any acute respiratory distress. HEAD AND FACE: No signs of trauma. No ecchymosis, hematomas or skull depressions. No sinus tenderness. EYES: PERRLA, EOMI x 2, No injected conjunctiva, no nystagmus. EARS: Hearing grossly intact. Ear canals and tympanic membranes are within normal limits. MOUTH: Oropharynx within normal limits. NECK: Supple, trachea is midline, no adenopathy, no JVD, no carotid bruit, no c- spine tenderness, neck with full ROM. CHEST: Symmetric, no tenderness at palpation LUNGS: Clear to auscultation bilaterally. No wheezing or crackles. CVS: Regular rate and rhythm, S1 and S2 present, no murmurs or gallops appreciated. ABDOMEN: Soft, non-tender. No signs of distention. No rebound no guarding, and no masses palpated. Bowel sounds are normal. EXTREMITIES: FROM in all major joints. Redness over left thigh. Pt does not have RLE pain. She said shew as able to walk using her walker. RLE is paler and colder than the LLE. No palpable femoral pulses. By using Doppler, there was no femoral pulse detected. NEURO: Alert and oriented x 3. No acute neurological deficits. Speech is normal and follows commands. SKIN: Dry and warm Triage Information Reviewed: Yes Vital Signs On Initial Exam: Initial Vitals Temp Pulse Resp BP Pulse Ox 98.0 F 93 18 85/61 100 01/15/19 19:12 01/15/19 19:12 01/15/19 19:12 01/15/19 19:12 01/15/19 19:12 Vital Signs Reviewed: Yes Re-Evaluation - Re-Evaluation 1 Re-Evaluation Time: 00:30 Comment: This patient is a 63 year old F presenting to [facility] with a chief complaint of back pain since this morning. She says that her back hurts when she goes to stand up. Patient reports hip pain and dysuria. Patient denies abdominal pain and difficulty breathing. Patient lives with her daughter and ambulates with a walker. Course/Dx - Course Course Of Treatment: Pt is a 63 y/o F presenting with c/o back pain onset this AM when she woke up. Associated sx: bilateral hip pain onset 3 days ago, fever, chills, tremulous, pedal edema. She denies fall. Pelvis XR shows "worsening hip degeneration, no acute process." L-spine XR shows scoliosis and DDD. PT WILL BE SIGNED OUT TO DR. CARRENO AT SHIFT CHANGE PENDING C/A/P CTA. 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 Patient will be transferred to [facility]. - Diagnoses Provider Diagnoses: Vascular disease Discharge - Sign-Out/Discharge Documenting (check all that apply): Patient Departure - Transfer, Receiving Sign -Out Receiving patient FROM: Saira Sorensen - Pending CTA Patient Received Moderate/Deep Sedation with Procedure: No - Discharge Plan Condition: Stable Disposition: TRANS HIGHER LVL OF CARE FAC Referrals: Germain Sears MD [Primary Care Provider] - - Billing Disposition and Condition Condition: STABLE Disposition: Trans Higher Lvl of Care Fac - Attestation Statements Document Initiated by Scribe: Yes Documenting Scribe: Pillo Strange Provider For Whom Scribe is Documenting (Include Credential): Camila Carreno MD Scribe Attestation: Pillo Vasquez, scribed for Camila Carreno MD on 01/16/19 at 0416. Scribe Documentation Reviewed: Yes Provider Attestation: The documentation as recorded by the Pillo marr accurately reflects the service I personally performed and the decisions made by Mercedez briscoe MD Status of Scribe Document: Viewed Diagnostics - Vital Signs Vital Signs Temp Pulse Resp BP Pulse Ox 01/15/19 22:45 93 18 160/97 100 01/15/19 20:44 84 18 149/90 98 01/15/19 19:12 98.0 F 93 18 85/61 100 - Laboratory Lab Results: Lab Results 01/15/19 01/15/19 01/15/19 Range/Units 22:40 22:40 22:40 WBC 7.3 (3.5-10.8) 10^3/uL RBC 3.63 L (3.70-4.87) 10^6 /uL Hgb 10.0 L (12.0-16.0) g/dL Hct 32 L (33-41) % MCV 88 (80-97) fL MCH 28 (27-31) pg MCHC 32 (31-36) g/dL RDW 16 H (10.5-15) % Plt Count 290 (150-450) 10^3/uL MPV 8.1 (7.4-10.4) fL Neut % (Auto) 64.2 % Lymph % (Auto) 18.7 % Bosque % (Auto) 13.2 % Eos % (Auto) 3.3 % Baso % (Auto) 0.6 % Absolute Neuts (auto) 4.7 (1.5-7.7) 10^3/ul Absolute Lymphs (auto) 1.4 (1.0-4.8) 10^3/ul Absolute Monos (auto) 1.0 H (0-0.8) 10^3/ul Absolute Eos (auto) 0.2 (0-0.6) 10^3/ul Absolute Basos (auto) 0 (0-0.2) 10^3/ul Absolute Nucleated RBC 0 10^3/ul Nucleated RBC % 0 INR (Anticoag Therapy) 4.01 H (0.77-1.02) Sodium 137 (135-145) mmol/L Potassium 4.9 (3.5-5.0) mmol/L Chloride 109 (101-111) mmol/L Carbon Dioxide 22 (22-32) mmol/L Anion Gap 6 (2-11) mmol/L BUN 40 H (6-24) mg/dL Creatinine 1.16 H (0.51-0.95) mg/dL Est GFR ( Amer) 57.5 (>60) Est GFR (Non-Af Amer) 47.5 (>60) BUN/Creatinine Ratio 34.5 H (8-20) Glucose 86 (70-100) mg/dL Calcium 9.3 (8.6-10.3) mg/dL Total Bilirubin 0.30 (0.2-1.0) mg/dL AST 15 (13-39) U/L ALT 12 (7-52) U/L Alkaline Phosphatase 103 (34-104) U/L Total Protein 6.7 (6.4-8.9) g/dL Albumin 3.8 (3.2-5.2) g/dL Globulin 2.9 (2-4) g/dL Albumin/Globulin Ratio 1.3 (1-3) Result Diagrams: 01/15/19 22:40 01/15/19 22:40 Lab Statement: Any lab studies that have been ordered have been reviewed, and results considered in the medical decision making process. - Radiology PELVIS Radiology Interpretation Completed By: ED Physician Summary of Radiographic Findings: Worsening hip degeneration, no acute process. L SPINE Radiology Interpretation Completed By: ED Physician Summary of Radiographic Findings: Scoliosis and DDD. - CT Chest/Abdomen/Pelvis CTA CT Interpretation Completed By: Radiologist Summary of CT Findings: 00:41. 1. No aortic dissection, aneurysm, or rupture. 2. No pulmonary emboli. 3. Mild emphysema multiple pulmonary nodules all of which are unchanged from. prior study showing 2 year stability therefore per current Sharan criteria. no followup is indicated. 4. Mild increased left lower lobe round atelectasis. ED Physician has reviewed this imaging report. - EKG 00:08 Cardiac Rate: NL - 86 BPM EKG Rhythm: Sinus Rhythm ST Segment: Normal Ectopy: None Consult Consult: 03:45 - Discussed patient with Dr. Yamile Mcneill, vascular surgeon, who will evaluate the patient at [facility]. 03:50 - Discussed patient with Dr. Emma King, ED physician at [facility], who will accept the patient.
[2019-01-15 22:56] LABS: ABS Basophils 0 10^3/ul (0-0.2); ABS Eosinophils 0.2 10^3/ul (0-0.6); ABS Lymphocytes 1.4 10^3/ul (1.0-4.8); ABS Neutrophils 4.7 10^3/ul (1.5-7.7); ABS Nucleated RBC 0 10^3/ul; Eosinophil % 3.3 %; Hematocrit 32 % (33-41); Lymphocyte % 18.7 %; Mean Corpuscular HGB Conc 32 g/dL (31-36); Mean Corpuscular Hemoglobin 28 pg (27-31); Mean Corpuscular Volume 88 fL (80-97); Mean Platelet Volume 8.1 fL (7.4-10.4); Nucleated Red Blood Cells % 0; Platelet Count 290 10^3/uL (150-450); Red Blood Count 3.63 10^6 /uL (3.70-4.87); Red Cell Distribution Width 16 % (10.5-15); White Blood Count 7.3 10^3/uL (3.5-10.8)
[2019-01-15 23:01] LABS: INR 4.01 (0.77-1.02)
[2019-01-15 23:12] LABS: Albumin 3.8 g/dL (3.2-5.2); Albumin/Globulin Ratio 1.3 (1-3); BUN/Creatinine Ratio 34.5 (8-20); Calcium 9.3 mg/dL (8.6-10.3); EGFR African American 57.5 (>60); EGFR Non-African American 47.5 (>60); Globulin 2.9 g/dL (2-4); Potassium 4.9 mmol/L (3.5-5.0); Total Bilirubin 0.3 mg/dL (0.2-1.0); Total Protein 6.7 g/dL (6.4-8.9)
[2019-01-16] MEDS: NS 0.9% 1000 ML** 2,000 ML IV ONE (00:11)
[2019-01-16 00:35] LABS: Urine Appearance Cloudy; Urine Bacteria 1+ (Absent); Urine Bilirubin Negative (Negative); Urine Blood 1+ (Negative); Urine Color Yellow; Urine Glucose Negative (Negative); Urine Ketones Trace (Negative); Urine Nitrite Positive (Negative); Urine Protein Negative (Negative); Urine Red Blood Cell Trace(0-2/hpf) (Absent); Urine Specific Gravity 1.014 (1.010-1.030); Urine Squamous Epithelial Cell Present (Absent); Urine Urobilinogen Negative (Negative); Urine White Blood Cell 1+(6-10/hpf) (Absent)
[2019-01-16] MEDS ORDERED: Iodixanol* (CONTRAST) 320 MG/ML 100 ML SDV IV ONE (00:58)
[2019-01-16 05:15] VITALS: BP 115/68
== END 2019-01-16 04:45 | disposition short-term general hospital (02) ==
LOC: ED 18:39
DX: I73.9 Peripheral vascular disease, unspecified (principal); M54.9 Dorsalgia, unspecified; E66.01 Morbid (severe) obesity due to excess calories; R50.9 Fever, unspecified; Z88.0 Allergy status to penicillin; E11.9 Type 2 diabetes mellitus without complications; I10 Essential (primary) hypertension; J44.9 Chronic obstructive pulmonary disease, unspecified; Z87.891 Personal history of nicotine dependence
CPT/HCPCS: 36415; 71275; 72100; 72170; 74174; 80053; 81003; 81015; 82803; 85025; 85610; 87077; 87086; 87186; 93005; 96360; 99285; A9270-GY; Q9967

== ENCOUNTER 2019-08-05 12:26 | Inpatient (IN) | payer OTHER ==
--- NOTE | 2019-08-05 13:07 | ED ---
Complex/Multi-Sys Presentation - HPI Summary HPI Summary: The patient is a 64 y/o F arriving by ambulance with a chief complaint of confusion and weakness today. EMS reports that they found her in her home which was full of bed bugs, flies, larvae, urine smell, mold on the morrow, and a large number of animals. She states she lives with her daughter but doesnt get out of bed much. She notes buzzing in her ears. EMS will call [facility] and [facility]. PMHx : DM, thyroid disease, angina, embolism, HLD, HTN, syncope, asthma, COPD, PE, GERD, IBS, fibromyalgia, scoliosis, glaucoma, TIA, anxiety, depression, ADHD, depression, panic disorder, PTSD, schizophrenia, bipolar disorder, suicide attempt, left knee replacement, cholecystectomy. Former smoker, no EtOH, no substance use. Medications reviewed. Allergies noted. - History Of Current Complaint Time Seen by Provider: 08/05/19 12:37 Hx Obtained From: Patient, EMS Onset/Duration: Lasting Days, Still Present, Other Severity Currently: Moderate Severity Initially: Moderate Aggravating Factor(s): nothing Alleviating Factor(s): nothing Associated Signs And Symptoms: Positive: Weakness, Headache, SOB, Diarrhea, Other - chills, neck pain. Negative: sore throat. Negative: Chest Pain, Abdominal Pain, Fever - Allergies/Home Medications Allergies/Adverse Reactions: Allergies Allergy/AdvReac Type Severity Reaction Status Date / Time adhesive Allergy Hives Verified 04/15/19 10:33 bupropion [From Wellbutrin] Allergy Unknown Verified 04/15/19 10:33 Reaction Details citalopram [From Celexa] Allergy Unknown Verified 04/15/19 10:33 Reaction Details clonazepam [From Klonopin] Allergy Unknown Verified 04/15/19 10:33 Reaction Details dextromethorphan Allergy Swelling Verified 04/15/19 10:33 [From Dimetapp Of Cold-Congestion] Face,Lips,& Throat diphenhydramine Allergy Swelling Verified 04/15/19 10:33 [From Dimetapp Of Cold-Congestion] Face,Lips,& Throat divalproex sodium Allergy Headache Verified 04/15/19 10:33 [From Depakote] duloxetine [From Cymbalta] Allergy Unknown Verified 04/15/19 10:33 Reaction Details eszopiclone [From Lunesta] Allergy Unknown Verified 04/15/19 10:33 Reaction Details fluoxetine [From Prozac] Allergy Unknown Verified 04/15/19 10:33 Reaction Details gabapentin Allergy Hallucinati Verified 04/15/19 10:33 ons guaifenesin Allergy Swelling Verified 04/15/19 10:33 [From Dimetapp Of Cold-Congestion] Face,Lips,& Throat metaxalone [From Skelaxin] Allergy Unknown Verified 04/15/19 10:33 Reaction Details naproxen Allergy Unknown Verified 04/15/19 10:33 Reaction Details Penicillins Allergy Hives Verified 04/15/19 10:33 phenylephrine Allergy Swelling Verified 04/15/19 10:33 [From Dimetapp Of Cold-Congestion] Face,Lips,& Throat pineapple Allergy Swelling Verified 04/15/19 10:33 prednisone Allergy Hallucinati Verified 04/15/19 10:33 ons pseudoephedrine Allergy Swelling Verified 04/15/19 10:33 [From Dimetapp Of Cold-Congestion] Face,Lips,& Throat sertraline [From Zoloft] Allergy Unknown Verified 04/15/19 10:33 Reaction Details Home Medications: Home Medications Apixaban* [Eliquis*] 5 mg PO BID 08/05/19 [History Confirmed 08/05/19] Cilostazol TAB* [Pletal TAB*] 100 mg PO DAILY 08/05/19 [History Confirmed ] Clindamycin Cap(NF) [Clindamycin Cap 300 mg Cap(NF)] 300 mg PO TID 08/05/19 [ History Confirmed 08/05/19] Levofloxacin TAB* [Levaquin TAB*] 500 mg PO DAILY 08/05/19 [History Confirmed ] Morphine Sulfate [Morphine Sulfate ER] 30 mg PO TID PRN MDD 90 mg 08/05/19 [ History Confirmed 08/05/19] tiZANidine TAB* [Zanaflex TAB*] 4 mg PO TID PRN 08/05/19 [History Confirmed 05/17] traZODone TAB* [Desyrel TAB*] 300 mg PO BEDTIME 08/05/19 [History Confirmed 05/17] PMH/Surg Hx/FS Hx/Imm Hx Endocrine/Hematology History: Reports: Hx Diabetes, Hx Thyroid Disease, Other Endocrine/Hematological Disorders - vit d resistent Denies: Hx Anticoagulant Therapy, Hx Blood Disorders, Hx Blood Transfusions, Hx Bone Marrow Disease, Hx Systemic Lupus Erythematosus, Hx Sickle Cell Disease , Hx Anemia, Hx Unexplained Bleeding Cardiovascular History: Reports: Hx Angina, Hx Embolism, Hx Hypercholesterolemia , Hx Hypertension, Hx Syncope, Other Cardiovascular Problems/Disorders Denies: Hx Aneurysm, Hx Angioplasty, Hx Auto Implanted Cardiovert Defib, Hx Cardiac Arrest, Hx Cardiomegaly, Hx Congenital Heart Disease, Hx Congestive Heart Failure, Hx Coronary Artery Disease, Hx Deep Vein Thrombosis, Hx Hypotension, Hx Myocardial Infarction, Hx Pacemaker/ICD, Hx Peripheral Vascular Disease, Hx Rheumatic Fever, Hx Valvular Heart Disease Respiratory History: Reports: Hx Asthma, Hx Chronic Bronchitis, Hx Chronic Obstructive Pulmonary Disease (COPD), Hx Pulmonary Embolism Denies: Hx Cystic Fibrosis, Hx Lung Cancer, Hx Pleural Effusion, Hx Pneumonia , Hx Pulmonary Edema, Hx Seasonal Allergies, Hx Sleep Apnea GI History: Reports: Hx Gall Bladder Disease, Hx Gastroesophageal Reflux Disease , Hx Irritable Bowel, Other GI Disorders Denies: Hx Cirrhosis, Hx Crohn's Disease, Hx Diverticulosis, Hx Gastrointestinal Bleed, Hx Hiatal Hernia, Hx Jaundice, Hx Obstructive Bowel, Hx Ileostomy, Hx Ulcer History: Denies: Hx Acute Renal Failure, Hx Benign Prostatic Hyperplasia, Hx Chronic Renal Failure, Hx Dialysis, Hx Kidney Infection, Hx Kidney Stones, Hx Renal Disease, Other Problems/Disorders Musculoskeletal History: Reports: Hx Arthritis, Hx Back Problems, Hx Bursitis, Hx Fibromyalgia, Hx Scoliosis, Other Musculoskeletal History - 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 Denies: Hx Congenital Bone Abnormalities, Hx Gout, Hx Orthopedic Injury, Hx Osteoporosis, Hx Tendonitis Sensory History: Reports: Hx Contacts or Glasses - glasses left at home, Hx Glaucoma, Hx Vision Problem Denies: Hx Cataracts, Hx Eye Injury, Hx Eye Prosthesis, Hx Legally Blind, Hx Macular Degeneration, Hx Deafness, Hx Hearing Aid, Hx Hearing Problem, Other Sensory Impairments Opthamlomology History: Reports: Hx Contacts or Glasses - glasses left at home, Hx Glaucoma, Hx Vision Problem Denies: Hx Cataracts, Hx Eye Injury, Hx Eye Prosthesis, Hx Legally Blind, Hx Macular Degeneration, Other Sensory Impairments Neurological History: Reports: Hx Headaches, Hx Migraine, Hx Transient Ischemic Attacks (TIA), Other Neuro Impairments/Disorders Denies: Hx Dementia, Hx Developmental Delay, Hx Nerve Disease, Hx Seizures, Hx Spinal Cord Injury Psychiatric History: Reports: Hx Anxiety, Hx Attention Deficit Hyperactivity Disorder, Hx Depression, Hx Panic Disorder, Hx Post Traumatic Stress Disorder, Hx Schizophrenia, Hx Bipolar Disorder, Hx Suicide Attempt - 1995, Other Psychiatric Issues/Disorders - claustrophobia Denies: Hx Eating Disorder, Hx of Violent Episodes Against Others, Hx Substance Abuse - Surgical History Surgical History: Yes Surgery Procedure, Year, and Place: Left knee replacement 04/2005, c section x2 81 & 89, HYSTERECTOMY, OOPHERECTOMY, GALLBLADDER, TONSILS Hx Anesthesia Reactions: No - Immunization History Date of Tetanus Vaccine: Unknown Date of Influenza Vaccine: 09/2012 Infectious Disease History: Denies: Hx Hepatitis, Hx Human Immunodeficiency Virus (HIV), Hx of Known/ Suspected MRSA, Hx Shingles, Hx Tuberculosis, Traveled Outside the [place] in Last 30 Days Comment Only: History Other Infectious Disease - hx mrsa in knee postoperatively - Family History Known Family History: Positive: Cardiac Disease, Hypertension, Diabetes, Other - bipolar - Social History Alcohol Use: None Hx Substance Use: No Substance Use Type: Reports: None Hx Tobacco Use: Yes Smoking Status (MU): Former Smoker Type: Cigarettes Amount Used/How Often: reports smoking 1 pack/week Length of Time of Smoking/Using Tobacco: 30 years Have You Smoked in the Last Year: Yes Review of Systems Positive: Chills. Negative: Fever Positive: Other - buzzing in ears. Negative: Sore Throat Negative: Chest Pain Positive: Shortness Of Breath Positive: Diarrhea. Negative: Abdominal Pain Positive: Other - neck pain Neurological: Other - confusion Positive: Headache, Weakness All Other Systems Reviewed And Are Negative: Yes Physical Exam - Summary Physical Exam Summary: VITAL SIGNS: Reviewed. GENERAL: Patient is an obese female who is lying comfortable in the stretcher. Patient is not in any acute respiratory distress. There are multiple bed bugs. HEAD AND FACE: Head lice. No signs of trauma. No ecchymosis, hematomas or skull depressions. No sinus tenderness. EYES: PERRLA, EOMI x 2, No injected conjunctiva, no nystagmus. EARS: Hearing grossly intact. Ear canals and tympanic membranes are within normal limits. MOUTH: Oropharynx within normal limits. NECK: Supple, trachea is midline, no adenopathy, no JVD, no carotid bruit, no c- spine tenderness, neck with full ROM. CHEST: Symmetric, no tenderness at palpation. LUNGS: Clear to auscultation bilaterally. No wheezing or crackles. CVS: Regular rate and rhythm, S1 and S2 present, no murmurs or gallops appreciated. ABDOMEN: Fungal infection in the inguinal area. Soft, non-tender. No signs of distention. No rebound, no guarding, and no masses palpated. Bowel sounds are normal. EXTREMITIES: FROM in all major joints, no edema, no cyanosis or clubbing. NEURO: Alert and oriented x 3. No acute neurological deficits. Speech is normal and follows commands. SKIN: Dry and warm. RECTAL: Normal sphincter tone. Some hemorrhoids. No gross blood or melena. Triage Information Reviewed: Yes Vital Signs Reviewed: Yes Procedures - Sedation Patient Received Moderate/Deep Sedation with Procedure: No Diagnostics - Laboratory Result Diagrams: 08/06/19 14:24 08/06/19 05:26 Lab Statement: Any lab studies that have been ordered have been reviewed, and results considered in the medical decision making process. - Radiology Chest X-Ray Radiology Interpretation Completed By: Radiologist Summary of Radiographic Findings: Impression: Left lower lobe airspace opacification could be account executive sales representative of atelectasis or infiltrate. ED physician has reviewed this report. - EKG 1352 Cardiac Rate: Tachycardia - 106 bpm EKG Rhythm: Sinus Tachycardia Summary of EKG Findings: EKG at 1352 reveals sinus tachycardia at [address] elevations. Normal axis. ED physician has reviewed and interpreted this EKG. Re-Evaluation - Re-Evaluation First Eval Re-Evaluation Time: 14:00 Change: Unchanged Comment: Patient agreeable with blood transfusion. Complex Multi-Symp Course/Dx Assessment/Plan: Patient is a 64 y/o F with chief complaint of confusion and weakness today, although she was found in her home by EMS who reported a living situation with insect infestation and an unkempt environment. Blood work without any significant abnormality except for WBCs of 12, RBCs of 2.63, hemoglobin of 6.7, hematocrit of 22, platelets of 361, sodium of 134, carbon dioxide of 21, BUN of 59, creatinine of 2.26, glucose of 133, CPK of 6493, troponin of 0.04, CRP of 105, and BNP of 472. Urinalysis negative for UTI. Initially the patient was placed on IV fluids in order to treat the rhabdomyolysis. Two units of packed red blood cells were ordered for treatment for symptomatic anemia. The patient was given Rocephin since the chest x-ray may show pneumonia. At this point, I discussed my physical exam findings with Dr. Kramer who accepted the patient for admission. The patient is hemodynamically stable alert oriented 3. slurry worker was consulted for this patient. - Diagnoses Provider Diagnoses: Rhabdomyolysis, GI bleed, Symptomatic anemia, Renal failure, Pneumonia, Elevated troponin - Physician Notifications Discussed Care Of Patient With: Christy Kramer - hospitalist Time Discussed With Above Provider: 15:50 Instructed by Provider To: Admit As Observation - I discussed the patients case with Dr. Kramer, and she accepts the patient for admission. Discharge ED - Sign-Out/Discharge Documenting (check all that apply): Patient Departure - Patient accepted for admission by Dr. Kramer. - Discharge Plan Condition: Stable Disposition: ADMITTED TO [facility] - Billing Disposition and Condition Condition: STABLE Disposition: Admitted to [facility] - Attestation Statements Document Initiated by Yasmany: Yes Documenting Scribe: Vida Ocampo Provider For Whom Yasmany is Documenting (Include Credential): Dr. Aakash Hickey MD Scribe Attestation: I, Vida Ocampo, scribed for Dr. Aakash Hickey MD on 08/06/19 at 1845. Scribe Documentation Reviewed: Yes Provider Attestation: The documentation as recorded by the Vida marr accurately reflects the service I personally performed and the decisions made by me, Dr. Aakash Hickey MD Status of Scribe Document: Viewed
[2019-08-05 13:55] LABS: Urine Appearance Clear; Urine Bacteria Absent (Absent); Urine Bilirubin Negative (Negative); Urine Blood 2+ (Negative); Urine Color Yellow; Urine Glucose Negative (Negative); Urine Ketones Trace (Negative); Urine Nitrite Negative (Negative); Urine Protein Negative (Negative); Urine Red Blood Cell Trace(0-2/hpf) (Absent); Urine Specific Gravity 1.016 (1.010-1.030); Urine Squamous Epithelial Cell Present (Absent); Urine Urobilinogen Negative (Negative); Urine White Blood Cell Trace(0-5/hpf) (Absent)
[2019-08-05 14:15] LABS: ABS Lymphocytes 0.5 10^3/ul (1.0-4.8); ABS Monocytes 1.1 10^3/ul (0-0.8); ABS Neutrophils 10.3 10^3/ul (1.5-7.7); Eosinophil % 0.2 %; Hematocrit 22 % (35-47); Hemoglobin 6.7 g/dL (12.0-16.0); Lymphocyte % 4.3 %; Mean Corpuscular HGB Conc 31 g/dL (31-36); Mean Corpuscular Hemoglobin 25 pg (27-31); Mean Corpuscular Volume 82 fL (80-97); Mean Platelet Volume 7.5 fL (7.4-10.4); Nucleated Red Blood Cells % 0.2; Platelet Count 361 10^3/uL (150-450); Red Blood Count 2.63 10^6 /uL (3.70-4.87); Red Cell Distribution Width 20 % (10-15)
[2019-08-05 14:32] LABS: ALT 47 U/L (7-52); AST 130 U/L (13-39); Albumin 3.5 g/dL (3.2-5.2); Albumin/Globulin Ratio 1.3 (1-3); Alkaline Phosphatase 99 U/L (34-104); Anion Gap 10 mmol/L (2-11); BUN/Creatinine Ratio 26.1 (8-20); Blood Urea Nitrogen 59 mg/dL (6-24); C Reactive Protein 105.02 mg/L (<8.01); CO2 Carbon Dioxide 21 mmol/L (22-32); Calcium 8.6 mg/dL (8.6-10.3); Chloride 103 mmol/L (101-111); EGFR African American 26.5 (>60); EGFR Non-African American 21.9 (>60); Globulin 2.7 g/dL (2-4); Glucose 133 mg/dL (70-100); Sodium 134 mmol/L (135-145); Total Protein 6.2 g/dL (6.4-8.9)
[2019-08-05 14:38] LABS: INR 1.25 (0.82-1.09)
[2019-08-05 14:53] LABS: Troponin I 0.04 ng/mL (<0.04)
[2019-08-05 15:20] LABS: Creatine Kinase 6493 U/L (10-223)
[2019-08-05] MEDS ORDERED: NS 0.9% 1000 ML** 1,000 ML IV ONE ×2 (15:22→17:43)
[2019-08-05 18:10] LABS: Total Iron Binding Capacity 399 mcg/dL (250-450); Transferrin 285 mg/dL (203-362)
[2019-08-05 18:12] LABS: % Iron Saturation 5 % (15-55); Iron < 20 ug/dL (50-212)
[2019-08-05 18:33] LABS: Folate 6.07 ng/mL (>3.99)
[2019-08-05 18:58] LABS: Ferritin 36.7 ng/mL (11-307)
[2019-08-05 19:00] LABS: Troponin I 0.04 ng/mL (<0.04)
[2019-08-05] MEDS ORDERED: Montelukast Sodium TAB* 10 MG PO PRN (19:17)
[2019-08-05] MEDS ORDERED: Permethrin 1% LOTION* 59 ML BTL TOPICAL ONE (19:21)
[2019-08-05] MEDS ORDERED: Ondansetron INJ* 2 MG/ML VIAL IV PRN (19:22)
[2019-08-05] MEDS ORDERED: Docusate CAP* 100 MG PO PRN (19:38)
[2019-08-05] MEDS ORDERED: Dextrose 50% VIAL 50 ml IV PUSH PRN (19:43)
--- NOTE | 2019-08-05 20:21 | HP ---
DICTATION ENDS ABRUPTLY - FULLY REDICTATED ADMISSION HISTORY AND PHYSICAL: DATE OF ADMISSION: 08/05/19 PROVIDER: Pamela Barnett NP ATTENDING: Dr. Christopher. DICTATION ENDS HERE [id number]/[facility] #: [id number] MTDD
[2019-08-05] MEDS ORDERED: Heparin VIAL(*) 5000 UNITS/ML VIAL (FIVE THOUSAND) SUBCUT SCH (22:00)
--- NOTE | 2019-08-05 22:51 | HP ---
ADMISSION HISTORY AND PHYSICAL: DATE OF ADMISSION: 08/05/19 PCP: Dr. Germain Sears. PROVIDER: Pamela Barnett NP. ATTENDING PHYSICIAN: Dr. Parra.* (DICTATED BY PAMELA BARNETT NP) CHIEF COMPLAINT: Poor home living condition. HISTORY OF PRESENT ILLNESS: This is a 64-year-old female with past medical history significant for COPD, diabetes type 2, bipolar, and chronic kidney disease, who arrived in the emergency room today via EMS who was called by the daughter. The living conditions were very poor with urine and feces all over the house, mold growing in the morrow. The patient was found to have been covered in bed bugs with a live nest found in her shirt, also with pediculosis capitis. The patient herself was disoriented, unable to speak about her home situation. Her review of systems was limited due to her cognition. The patient stated that she had been mostly in bed for the past several weeks only getting out of bed to feed her grandchildren whom she lives with and to go to the bathroom occasionally, though reported to be incontinent of bowel and bladder. The patient lives with her daughter and her daughter's boyfriend who reportedly is not supposed to be in the house due to a restraining order from the patient's daughter and speaking about this makes the patient upset. Social Work involved and APS notified. Hospitalists were asked to evaluate the patient for admission. PAST MEDICAL HISTORY: 1. COPD. 2. Hyperlipidemia. 3. Hypertension. 4. Diabetes type 2. 5. Bipolar. 6. Remote history of PE/DVT, unsure as to which. 7. Chronic kidney disease. 8. Hypothyroidism. 9. TIA. 10. Morbid obesity. 11. Depression. PAST SURGICAL HISTORY: 1. Left total knee replacement. 2. Cholecystectomy. 3. x2. 4. Tonsillectomy. MEDICATIONS: 1. Venlafaxine extended release 75 mg p.o. daily. 2. Cilostazol 100 mg p.o. daily. 3. Trazodone 300 mg p.o. at bedtime. 4. Venlafaxine ER 150 mg p.o. daily. 5. Valacyclovir 500 mg p.o. q.a.m. 6. Tizanidine 4 mg p.o. t.i.d. p.r.n. 7. Omeprazole 40 mg p.o. q.a.m. 8. Morphine sulfate 30 mg p.o. t.i.d. p.r.n. 9. Montelukast sodium 10 mg p.o. at bedtime p.r.n. 10. Metformin 1000 mg p.o. b.i.d. 11. Magnesium oxide 400 mg p.o. b.i.d. 12. Lovastatin 40 mg p.o. q.a.m. 13. Loratadine 10 mg p.o. daily p.r.n. 14. Levothyroxine 88 mcg p.o. daily. 15. Ferrous sulfate 650 mg p.o. q.a.m. 16. Apixaban 5 mg p.o. b.i.d. 17. Aripiprazole 10 mg p.o. b.i.d. ALLERGIES: ADHESIVE TAPE, BUPROPION, CITALOPRAM, CLONAZEPAM, DEXTROMETHORPHAN, DIPHENHYDRAMINE, DIVALPROEX SODIUM, DULOXETINE, ESZOPICLONE, FLUOXETINE, GABAPENTIN, GUAIFENESIN, METAXALONE, NAPROXEN, PENICILLIN, PHENYLEPHRINE, PINEAPPLE, PREDNISONE, PSEUDOEPHEDRINE, and SERTRALINE. FAMILY HISTORY: Noncontributory. SOCIAL HISTORY: Former smoker of 30 years. Denies EtOH or substance abuse. Again lives with daughter and her kids and her daughter's boyfriend. REVIEW OF SYSTEMS: Limited due to cognition, though the patient was able to deny chest pain, shortness of breath. Positive for headaches, dizziness, lightheadedness, generalized weakness, incontinence of both bowel and bladder. No visual complaints. PHYSICAL EXAMINATION CONSTITUTIONAL: This is a poorly groomed, pale lady seen lying in bed. No acute distress noted. VITAL SIGNS: 97.5 Fahrenheit, 110 pulse, 18 respirations, 96% oxygen on room air, 101/49 blood pressure. HEENT: Eyes: Conjunctivae are pink and moist. Pupils are equal, round, and reactive. EOMs intact. ENT: Oropharynx clear. Mucous membranes dry. LYMPHATICS: No cervical lymphadenopathy noted. RESPIRATORY: Lung sounds diminished throughout particularly in bases bilaterally on room air. No accessory muscle use noted. CARDIAC: S1, S2. Heart rate regular. No murmurs, gallops, or rubs appreciated. ABDOMEN: Soft, nontender, nondistended, positive bowel sounds x4. MUSCULOSKELETAL: No clubbing or cyanosis, able to move all extremities. Notes about 4/5 strength to bilateral lower extremities. NEURO: No focal deficits appreciated. Smile is symmetrical. Tongue midline. PSYCH: Disoriented to time, though knows who she is and where she is. No anxiety or depression noted. The patient was having visual hallucination of another person in the room. SKIN: Excoriation noted to kasey area and abdominal fold. Multiple areas of scabbing to posterior upper back, to bilateral arms, and bilateral lower extremities. Noted multiple egg sacs particularly to the right hair line with live and nits found. DIAGNOSTIC STUDIES/LAB DATA: Pertinent lab data: White blood cell count 12.0 , RBC 2.63, hemoglobin 6.7, hematocrit 22, MCH 25, RDW 20, absolute neutrophils 10.3, absolute lymphocytes 0.5, absolute monocytes 1.1. INR is 1.25. Sodium 134, carbon dioxide 21, BUN 59, creatinine 2.26. GFR 26.5, BUN creatinine ratio 26.1, glucose 33, lactic acid 1.1. Iron less than 20, percent saturation 5. AST 130, total creatine kinase 6493, troponin 0.04 for 2 consecutive blood draws. C-reactive protein 105.02. B-natriuretic peptide 472, total protein 6.2. Urine showed trace ketones and +2 blood, negative for RBCs. For diagnostic studies, chest x-ray showed left lower lobe air space opacification, though when compared against previous chest x-ray, appear to be improved. Echocardiogram showed sinus tachycardia ASSESSMENT AND PLAN: My impression is that this is a 64-year-old female with past medical history significant for diabetes, chronic kidney disease, and chronic obstructive pulmonary disease, who was [place] [facility] [place] for inability to care for self at home. The patient arrived in poor condition. At this time, does not deem to be safe to return to her home. 1. Gastrointestinal bleed as evidenced by positive stool occult. Hold Pletal and apixaban. Continue home omeprazole. GI consulted. Spoke with Dr. Kendell Lyons. Make the patient n.p.o. after midnight for possible scoping in the a.m. Dr. Sheikh will see her in the a.m. 2. Tfrhl-ma-okiaomz iron deficiency anemia. H and H is 7 and 22. Transfused 2 units of packed red blood cells. Continue ferrous sulfate 325 mg p.o. b.i.d. , along with Colace and Senna. Recheck CBC in the a.m. The folate and B12 are normal. 3. Rhabdomyolysis with acute kidney injury as evidenced by myoglobinuria and CK over 6000. The patient will be transfused 2 units of packed red blood cells , 2 L normal saline boluses and normal saline at 125 mL an hour to follow. Recheck BMP in the a.m. 4. Pediculosis capitis. Permethrin treatment x1. Comb hair with fine tooth comb afterwards to remove nits and eggs. 5. Diabetes. Hold metformin, a.c. and h.s. fingersticks with sliding scale lispro. Check hemoglobin A1c. 6. Hypothyroidism. Continue levothyroxine. 7. Hyperlipidemia. Continue lovastatin. 8. Chronic obstructive pulmonary disease. Not O2 dependent as previously documented, 96% to 97% on room air. DuoNeb p.r.n. 9. Gastroesophageal reflux disease. Continue Prilosec and mag oxide. 10. Depression. Continue trazodone and venlafaxine. 11. Code status: Full code. 12. DVT prophylaxis: SCDs. We will hold all blood thinners and antiplatelets due to current gastrointestinal bleed. TIME SPENT: Time spent on the patient is about 90 minutes with more than half of that spent face to face. Plan has been reviewed with my attending and they agree. PAMELA BARNETT, [employer]ACQU[employer]ER [id number]/[facility] #: [id number] [place]
[2019-08-05] MEDS: Insulin LISPRO* 1 UNITS UNIT SUBCUT SCH (23:05)
[2019-08-06] MEDS: traZODone TAB* 100 MG PO SCH ×2 (00:12→22:18)
[2019-08-06] MEDS: ARIPiprazole TAB* 5 MG PO SCH ×3 (00:13→21:16)
[2019-08-06] MEDS: Ferrous Sulfate TAB* 325 MG PO SCH ×3 (00:14→22:18)
[2019-08-06] MEDS: Magnesium Oxide TAB* 400 MG PO SCH ×3 (00:14→22:18)
[2019-08-06] MEDS: Senna TAB 8.6 mg* TAB PO SCH ×2 (00:14→22:18)
[2019-08-06] MEDS: Acetaminophen TAB* 325 MG PO PRN ×2 (00:21→21:13)
[2019-08-06] MEDS: NS 0.9% 1000 ML** 1,000 ML IV SCH ×2 (02:57→13:02)
[2019-08-06 06:12] LABS: ABS Eosinophils 0.2 10^3/ul (0-0.6); ABS Lymphocytes 1.1 10^3/ul (1.0-4.8); ABS Monocytes 0.8 10^3/ul (0-0.8); ABS Neutrophils 5.2 10^3/ul (1.5-7.7); Corrected Retic Count 1.1 % (0.5-1.5); Eosinophil % 2.2 %; Hematocrit 24 % (35-47); Hematocrit for Retic CNT 24 % (35-47); Hemoglobin 7.7 g/dL (12.0-16.0); Immature Retic Fraction 0.53; Lymphocyte % 14.9 %; Mean Corpuscular HGB Conc 32 g/dL (31-36); Mean Corpuscular Hemoglobin 27 pg (27-31); Mean Corpuscular Volume 83 fL (80-97); Mean Platelet Volume 7.4 fL (7.4-10.4); Nucleated Red Blood Cells % 0.4; Platelet Count 290 10^3/uL (150-450); RBC Retic Count 2.86 10^6/uL (3.70-4.87); Red Blood Count 2.86 10^6 /uL (3.70-4.87); Red Cell Distribution Width 18 % (10-15); White Blood Count 7.3 10^3/uL (3.5-10.8)
[2019-08-06] MEDS: Levothyroxine TAB* 88 MCG TAB PO SCH (06:13)
[2019-08-06 06:27] LABS: Calcium 8.1 mg/dL (8.6-10.3); Potassium 4.1 mmol/L (3.5-5.0)
[2019-08-06 06:33] LABS: EGFR African American 42.6 (>60); EGFR Non-African American 35.2 (>60)
--- NOTE | 2019-08-06 07:51 | PN ---
Subjective Date of Service: 08/06/19 Interval History: Patient is tearful at times during exam. Tells me she misses her grandkids. Admits that her mood has been more depressed lately which is contributing to her not wanting to get out of bed, in addition to chronic pain and "not having anywhere good to sit." She additionally endorses poor appetite. Denies suicidal ideation. Denies fever/chills, chest pain, difficulty breathing. Endorses black stools but is unsure if she had BRBPR. Objective Active Medications: Acetaminophen (Tylenol Tab*) 650 mg PO Q4H PRN PRN Reason: MILD PAIN or TEMP > 100.4 Last Admin: 08/06/19 00:21 Dose: 650 mg Albuterol/Ipratropium (Duoneb (Albuterol 2.5 Mg/Ipratropium 0.5 Mg)) 1 neb INH Q6H PRN PRN Reason: SOB/WHEEZING Aripiprazole (Abilify Tab*) 10 mg PO BID [facility] Last Admin: 08/06/19 00:13 Dose: 10 mg Atorvastatin Calcium (Lipitor*) 10 mg PO QAM [facility]; Protocol Dextrose (Dextrose 50% Vial 50 Ml*) 25 ml IV PUSH .FOR FS < 60 - SS PRN PRN Reason: FS < 60 Docusate Sodium (Colace Cap*) 100 mg PO BID PRN PRN Reason: CONSTIPATION Ferrous Sulfate (Ferrous Sulfate Tab*) 325 mg PO BID [facility] Last Admin: 08/06/19 00:14 Dose: 325 mg Sodium Chloride (Ns 0.9% 1000 Ml) 1,000 mls @ 125 mls/hr IV PER RATE [facility] Last Admin: 08/06/19 02:57 Dose: 125 mls/hr Insulin Human Lispro (Humalog*) 0 units SUBCUT ACHS [facility]; Protocol Last Admin: 08/05/19 23:05 Dose: Not Given Levothyroxine Sodium (Synthroid Tab*) 88 mcg PO DAILY@0600 [facility] Last Admin: 08/06/19 06:13 Dose: 88 mcg Magnesium Oxide (Magox 400 Tab*) 400 mg PO BID [facility] Last Admin: 08/06/19 00:14 Dose: 400 mg Montelukast Sodium (Singulair Tab*) 10 mg PO BEDTIME PRN PRN Reason: Allergy Symptoms Ondansetron HCl (Zofran Inj*) 4 mg IV Q4H PRN PRN Reason: NAUSEA/VOMITING Pantoprazole Sodium (Protonix Tab*) 40 mg PO QAM [facility] Senna (Senokot 8.6 Mg Tab*) 1 tab PO BEDTIME [facility] Last Admin: 08/06/19 00:14 Dose: 1 tab Trazodone HCl (Desyrel Tab*) 300 mg PO BEDTIME [facility] Last Admin: 08/06/19 00:12 Dose: 300 mg Venlafaxine HCl (Effexor Xr Cap*) 150 mg PO DAILY [facility] Venlafaxine HCl (Effexor Xr Cap*) 75 mg PO DAILY [facility] Vital Signs - 8 hr 08/06/19 08/06/19 02:54 06:35 Temperature 97.4 F 97.7 F Pulse Rate 88 51 Respiratory 19 14 Rate Blood Pressure 102/57 93/57 (mmHg) O2 Sat by Pulse 97 94 Oximetry Oxygen Devices in Use Now: None Appearance: Obese, elderly white female who appears older than stated age, laying in hospital bed, appearing in NAD Eyes: No Scleral Icterus, PERRLA Ears/Nose/Mouth/Throat: Mucous Membranes Moist, - - Head: no nits or lice present in hair Neck: NL Appearance and Movements; NL JVP Respiratory: Symmetrical Chest Expansion and Respiratory Effort, - - faint crackles in lung bases Cardiovascular: NL Sounds; No Murmurs; No JVD, RRR Abdominal: - - abd soft, nontender, nondistended Lymphatic: No Axillary Adenopathy Extremities: No Clubbing, Cyanosis Skin: - - diffuse, small excoriations especially throughout chest; skin otherwise warm and dry Neurological: Alert and Oriented x 3, NL Muscle Strength and Tone, - - Psych: tearful at times, restricted affect Result Diagrams: 08/06/19 14:24 08/06/19 05:26 Microbiology and Other Data: Microbiology 08/05/19 14:58 Stool Occult Blood ([place]) - Final Stool Assess/Plan/Problems-Billing Assessment: 64 yo white female with PMHx COPD, DMT2, bipolar disorder, CKD, HTN, hypothyroidism, hx TIA presents with altered mental status, infrequently leaving her bed in unfortunate living conditions, found to have rhabdo and severe anemia. - Patient Problems (1) Anemia Current Visit: Yes Status: Acute Code(s): D64.9 - ANEMIA, UNSPECIFIED SNOMED Code(s): 851406633 Comment: -severe anemia with initial Hgb 6.7 -> today 8.1 and monitoring H&H q8h -received 2 PRBCs -positive hemoccult, EGD vs colonoscopy pending, appreciate GI consult. NPO after midnight -if scoping is not revealing, it is quite possible that the patient's severe anemia was caused by the bed bug infestation which was evident in her home and could possibly have had a false positive hemoccult (2) Elevated troponin Current Visit: Yes Status: Acute Code(s): R79.89 - OTHER SPECIFIED ABNORMAL FINDINGS OF BLOOD CHEMISTRY SNOMED Code(s): 440678237 Comment: -minimally elevated to 0.04 -likely demand ischemia in the setting of severe anemia -initial EKG without ST changes or T wave inversions but will repeat today (3) Rhabdomyolysis Current Visit: Yes Status: Acute Code(s): M62.82 - RHABDOMYOLYSIS SNOMED Code(s): 416094027 Comment: -patient reports she has mostly been sedentary for several weeks -CPK 6493 on admission, now downtrended -improving with IVF, will d/c given great improvement (4) Acute renal failure Current Visit: No Status: Acute Comment: -TAMEKA on CKD -2/2 rhabdomyolysis -improving -d/c IVF because patient has faint crackles in lungs. Ordering incentive spirometry (5) Altered mental status Current Visit: Yes Status: Acute Code(s): R41.82 - ALTERED MENTAL STATUS, UNSPECIFIED SNOMED Code(s): 463580922 Comment: -resolved -patient initially with altered mental status in the emergency room -patient is oriented today and appears at baseline -unclear etiology, possibly related to acute renal failure which is now improving (6) Bipolar disorder Current Visit: Yes Status: Acute Code(s): F31.9 - BIPOLAR DISORDER, UNSPECIFIED SNOMED Code(s): 94295624 Comment: -the patient has had a decreased mood, poor appetite, decreased interest, and has been overall sedentary for several weeks. It is quite possible she is in a state of depression -she takes effexor and abilify -consulting psychiatry to determine if the patient should have an adjustment of her abilify or perhaps a different mood stabilizer, appreciate consult (7) Lice Current Visit: Yes Status: Acute Code(s): B85.2 - PEDICULOSIS, UNSPECIFIED SNOMED Code(s): 168782050 Comment: -permetherin applied to scalp 08/05. Will only need additional applicatioin in one week if nits are persistent, none at this time -patient also had bed bug nest in her shirt reportedly -social work is involved in patient's poor living conditions (8) COPD (chronic obstructive pulmonary disease) Current Visit: No Status: Acute Code(s): J44.9 - CHRONIC OBSTRUCTIVE PULMONARY DISEASE, UNSPECIFIED SNOMED Code(s): 27853039 Comment: - No signs of COPD exacerbation at this time - Doesn't appear to be on maintanace medications at home (9) Diabetes Current Visit: No Status: Chronic Code(s): E11.9 - TYPE 2 DIABETES MELLITUS WITHOUT COMPLICATIONS SNOMED Code(s): 62630734 Comment: -holding home metformin -A1c is 5.9 indicating very good control -lispro SS (10) HTN (hypertension) Current Visit: No Status: Chronic Code(s): I10 - ESSENTIAL (PRIMARY) HYPERTENSION SNOMED Code(s): 99480870 Comment: -normotensive today (11) History of venous thromboembolism Current Visit: Yes Status: Acute Code(s): Z86.718 - PERSONAL HISTORY OF OTHER VENOUS THROMBOSIS AND EMBOLISM SNOMED Code(s): 839858196 Comment: -holding home eliquis in setting of anemia (12) Full code status Current Visit: No Status: Chronic Priority: Medium Code(s): Z78.9 - OTHER SPECIFIED HEALTH STATUS SNOMED Code(s): 797775501 (13) DVT prophylaxis Current Visit: No Status: Acute Priority: Medium Onset Date: 03/04/15 Code(s): VTN7060 - SNOMED Code(s): 581423373 Comment: - SCDs and holding chemoprophylaxis in setting of severe anemia
[2019-08-06] MEDS ORDERED: Cilostazol TAB* 100 MG PO SCH (09:00)
[2019-08-06] MEDS: Insulin LISPRO* 1 UNITS UNIT SUBCUT SCH ×4 (10:10→22:17)
[2019-08-06] MEDS: Pantoprazole TAB * 40 MG TAB PO SCH (10:28)
[2019-08-06] MEDS: Venlafaxine EXT RELEASE CAP* 75 MG PO SCH ×2 (10:29)
[2019-08-06] MEDS: Atorvastatin* 10 MG TAB PO SCH (10:30)
[2019-08-06 14:32] LABS: Hematocrit 25 % (35-47); Hemoglobin 8.1 g/dL (12.0-16.0)
--- NOTE | 2019-08-06 20:15 | CONS ---
CC: Germain Sears MD * CONSULTATION REPORT: DATE OF CONSULTATION: 08/06/19 PRIMARY CARE PHYSICIAN: Germain Sears MD REQUESTING PHYSICIAN: Pamela Barnett NP REASON FOR CONSULTATION: Anemia. HISTORY OF PRESENT ILLNESS: This is a 64-year-old female with a past medical history significant for COPD, diabetes, bipolar, and CKD, who was found in poor living conditions in the home by the daughter, who reported urine and feces over the house, mold growing on the morrow, and covered in bedbugs. She had been in bed most of the last few weeks only getting out to feed her grandchildren and occasionally goes to the bathroom but has been incontinent of bowel and bladder. She denies any black or blood in the stool. Denies any abdominal pain. Denies any dysphagia, odynophagia. No nausea or vomiting. Denies any diarrhea or constipation and no melena or hematochezia. She is unsure if her weight has been up and down. Remainder of the 14-point review of systems is grossly negative. PAST MEDICAL HISTORY: 1. COPD. 2. Hyperlipidemia. 3. Hypertension. 4. Diabetes. 5. Bipolar. 6. CKD. 7. Hypothyroidism. 8. TIA. 9. Morbid obesity. 10. Depression. 11. DVT. PAST SURGICAL HISTORY: 1. Left knee replacement. 2. Cholecystectomy. 3. . 4. Tonsillectomy. 5. EGD done on 06/17/14, which revealed [id number] hiatal hernia, possible Soliz's esophagus, possible small Opal-Starkey. HOME MEDICATIONS: Include: 1. Venlafaxine. 2. Cilostazol. 3. Trazodone. 4. Valacyclovir. 5. Tizanidine. 6. Omeprazole. 7. Morphine. 8. Montelukast. 9. Metformin. 10. Magnesium oxide. 11. Lovastatin. 12. Loratadine. 13. Levothyroxine. 14. Ferrous sulfate. 15. Apixaban. 16. Aripiprazole. ALLERGIES: Include ADHESIVE TAPE, BUPROPION, CITALOPRAM, CLONAZEPAM, DEXTROMETHORPHAN, DIPHENHYDRAMINE, DIVALPROEX SODIUM, DULOXETINE, FLUOXETINE, GABAPENTIN, METAXALONE, NAPROXEN, PENICILLIN, PHENYLEPHRINE, PINEAPPLE, PREDNISONE, PSEUDOEPHEDRINE, SERTRALINE. FAMILY HISTORY: Denies any family history of GI cancer or IBD. SOCIAL HISTORY: Former smoker, 30-pack year. Denies alcohol abuse. REVIEW OF SYSTEMS: Remainder of the 14-point review of systems grossly negative. PHYSICAL EXAM: Vital Signs: Blood pressure is 110/64, pulse is 86, respiratory rate is 16, 96% on room air, temperature is 98.8. In general, alert , slightly lethargic. HEENT: Atraumatic, normocephalic. Pupils equal, round, reactive to light. Extraocular movements are intact. Conjunctivae are pink. Sclerae anicteric. Neck is supple. Trachea midline. Cardiac: Regular rate and rhythm. S1, S2. Respiratory: Diminished at the bases. Abdomen: Soft, nontender, nondistended. Bowel sounds positive. No guarding or rebound tenderness appreciated. LABORATORY DATA: Hemoglobin on admission 6.7, back in December had been 10 to 9.7 , this appears to be close to the baseline, today is 8.1. Platelet count 290. INR 1.25. Sodium 138, potassium 4.1, chloride 110. BUN 45, creatinine 1.5, calcium 8.1, iron less than 20, TIBC 399, percent sat 5. CK initially was 6493 , now 2903. Troponin-I 0.04. ASSESSMENT AND PLAN: 1. Iron-deficiency anemia. No overt signs of GI loss at this time. She was occult positive on stool samples. We would monitor H and H. Protonix daily. If signs of overt bleeding develop, we would recommend a drip. The patient has unfortunately ate today and had solid food. We will plan an upper endoscopy on 08/07/19. A component of her anemia may be secondary to rhabdomyolysis and living conditions at home. She did have a previous endoscopy in 2013 with potentially Soliz's esophagus. Sample will again be taken. 2. Rhabdomyolysis per primary team. 3. History of Soliz's esophagus. We will evaluate. 4. History of anticoagulation and Pletal use, currently being held. [id number]/[facility] #: [id number] [facility]
[2019-08-06 21:21] LABS: Hematocrit 26 % (35-47); Hemoglobin 8.3 g/dL (12.0-16.0)
[2019-08-07] MEDS: Levothyroxine TAB* 88 MCG TAB PO SCH (04:30)
[2019-08-07 07:08] LABS: BUN/Creatinine Ratio 25.2 (8-20); Calcium 8.5 mg/dL (8.6-10.3); EGFR African American 62.9 (>60); Potassium 4.5 mmol/L (3.5-5.0)
[2019-08-07 07:13] LABS: ABS Eosinophils 0.1 10^3/ul (0-0.6); ABS Lymphocytes 0.9 10^3/ul (1.0-4.8); ABS Monocytes 0.9 10^3/ul (0-0.8); ABS Neutrophils 8.5 10^3/ul (1.5-7.7); Hematocrit 29 % (35-47); Hemoglobin 9.2 g/dL (12.0-16.0); Lymphocyte % 8.2 %; Mean Corpuscular HGB Conc 32 g/dL (31-36); Mean Corpuscular Hemoglobin 27 pg (27-31); Mean Corpuscular Volume 85 fL (80-97); Nucleated Red Blood Cells % 0.2; Red Blood Count 3.38 10^6 /uL (3.70-4.87); Red Cell Distribution Width 19 % (10-15); White Blood Count 10.4 10^3/uL (3.5-10.8)
[2019-08-07 07:36] LABS: Mean Platelet Volume 8.5 fL (7.4-10.4); Platelet Count 271 10^3/uL (150-450)
[2019-08-07] MEDS ORDERED: Lactated Ringers 1000 ML Bag* 1,000 ML IV ONE (07:48)
[2019-08-07] MEDS ORDERED: PROCHLORPERAZINE INJ 5 MG/ML 2 ML VIAL IV PRN (08:41)
[2019-08-07] MEDS: Morphine INJ* 2 MG/ML 1 ML SYRINGE (TWO MG - NEW SYRINGE VERSION) IV PRN ×3 (08:58→20:39)
[2019-08-07] MEDS: Insulin LISPRO* 1 UNITS UNIT SUBCUT SCH ×4 (09:33→23:24)
[2019-08-07] MEDS: Atorvastatin* 10 MG TAB PO SCH (09:38)
[2019-08-07] MEDS: Ferrous Sulfate TAB* 325 MG PO SCH ×2 (09:38→20:38)
[2019-08-07] MEDS: ARIPiprazole TAB* 5 MG PO SCH ×2 (09:38→20:37)
[2019-08-07] MEDS: Venlafaxine EXT RELEASE CAP* 75 MG PO SCH ×2 (09:39)
[2019-08-07] MEDS: Magnesium Oxide TAB* 400 MG PO SCH ×2 (09:39→20:39)
[2019-08-07] MEDS: Pantoprazole TAB * 40 MG TAB PO SCH (09:39)
--- NOTE | 2019-08-07 13:25 | CONS ---
PSYCHIATRIC CONSULTATION REPORT: DATE OF ADMISSION: 08/05/19 DATE OF CONSULT: 08/07/19 ATTENDING PHYSICIAN: KAROLINE Hill CONSULTING PHYSICIAN: Dr. Jozef Overton. REASON FOR CONSULT: Possible depressed mood. SUBJECTIVE HISTORY: The patient is a 64-year-old single white female with a significant past medical history of COPD, diabetes type 2, chronic kidney disease, and bipolar disorder, who was brought to [facility] emergency room via EMS due to concerns from her daughter that she was failing to thrive in home se tting. I understand that their living conditions are poor with urine and feces all over the house, m old growing on the morrow. The patient allegedly was covered with bedbugs with a live nest found in h er shirt, also with pediculosis capitis. At that time, the patient was disoriented, unable to speak about her home situation and her examination revealed deficits in cognition. The primary team is con cerned about the possibility of bipolar depression perhaps leading to her failure of self-care and ey are seeking evaluation to further explore this possibility. On examination, Ms. Godoy is a quite pleasant, aging, overweight female who is lying in bed. She immediately strikes me as somewhat leth argic, although she makes reasonable eye contact and is fairly easy to gather a history from. The karoline shipman is somewhat surprised to hear that her providers believe that she is depressed. She denies thi s and states that her mood has been well controlled with a combination of venlafaxine and aripiprazol e for several years. She indicates that her primary care provider Dr. Sears helps her with this pro blem and she is not interested in any changes with her current medications. I asked about neuroveget ative symptoms of depression and although she certainly endorses fatigue, lethargy, and poor concentr ation, she denies guilt, anhedonia, dysthymic mood, or suicidal thoughts. The patient lives with her daughter and occasionally with her daughter's boyfriend with whom she does not get along. She does c omplain a bit about feeling like she has been given too many responsibilities for her 2 grandchildren who also reside in the home. I spoke with nursing staff on the fourth floor who indicates that the patient is accepting care and has been fairly easy to work with. I further understand that she is go ing to the GI suite for endoscopy later today to evaluate possible causes of anemia. PAST PSYCHIATRIC HISTORY: The patient states that she was diagnosed with bipolar disorder after henrry ral manic episodes in her late teens and twenties. She notes that she has been admitted several time s to the behavioral science unit at [facility]; however, all of her admissions predate the year 1999 which i s when our medical electronic record begins. She used to work with psychiatrist, joan Gary ut transitioned her care several years ago to her primary care provider. Most recently, she has been on a combination of venlafaxine 225 mg daily and aripoprazole 10 mg b.i.d. She does endorse a histo ry of overdose suicide attempts but none within the last 15 years. She denies being a victim of abus e or trauma. Substance abuse history is significant for a history of remote alcohol dependence; [facility], she has not abused alcohol in several decades. She quit smoking tobacco 2 years ago. She was ne tyler interested in illicit drugs. PAST MEDICAL HISTORY: Significant for COPD, hyperlipidemia, hypertension, diabetes type 2, history o f DVT and pulmonary embolus, chronic kidney disease, hypothyroidism, TIA, morbid obesity, history of left total knee replacement, cholecystectomy, x2, and tonsillectomy. CURRENT OUTPATIENT MEDICATIONS: Include: 1. Venlafaxine. 2. Trazodone. 3. Abilify. 4. Pletal. 5. Valtrex. 6. Zanaflex. 7. Prilosec. 8. Morphine. 9. Singulair. 10. Metformin. 11. Magnesium oxide. 12. Lovastatin. 13. Claritin. 14. Synthroid. 15. Levaquin. 16. Eliquis. 17. Iron sulfate. 18. Clindamycin. ALLERGIES: She is allergic to ADHESIVE TAPE, WELLBUTRIN, CITALOPRAM, CLONAZEPAM, DEXTROMETHORPHAN, D IPHENHYDRAMINE, DEPAKOTE, DULOXETINE, LUNESTA, PROZAC, GABAPENTIN, GUAIFENESIN, METAXALONE, NAPROXEN, PENICILLINS, PHENYLEPHRINE, PINEAPPLE, PREDNISONE, PSEUDOEPHEDRINE, and SERTRALINE. FAMILY HISTORY: The patient states that her father was a manic depressive who was frequently hospita lized in the [place] system. He also suffered from alcoholism. She is unaware of any suicides within the family. SOCIAL HISTORY: The patient was born and raised in [place]. Since her father was often absent, she was raised primarily by her mother. She has 1 sister. The patient has a 39-year-old son and a 37-ye ar-old daughter. Currently, she lives in [place] with her daughter and 2 granddaughters as w ell as her daughter's boyfriend. She is currently on disability. She denies any history of legal pr oblems. MENTAL STATUS EXAM: The patient is an aging, morbidly obese white female who is dressed in a patient gown, lying propped up in bed, watching TV. She has reasonable eye contact and is easy to establish a rapport with. Her speech is slow with low tones and she appears to be somewhat lethargic. Mood i s euthymic according to the patient, although she does appear to have a somewhat constricted affect. Thought process is linear, goal directed. Thought content is significant for being hungry because s he is n.p.o. in anticipation of her GI tests. She is denying suicidal or homicidal ideations. She d enies auditory or visual hallucinations. Insight and judgement are fair given her willingness to con tinue taking her medications and following up with Dr. Sears. Cognitively, she is awake and well or iented, although somewhat somnolent. DIAGNOSES: Pierson I: Bipolar disorder, currently in remission, remote history of alcohol use disorder, also in remission. Pierson II: Deferred. IMPRESSION: The patient is a 64-year-old single white female with several medical problems who was b rought to the hospital by EMS after her daughter noted that she was not caring for herself adequately . The patient was covered in feces, urine, and bedbugs and the primary team was concerned that perha ps she was depressed. The patient adamantly denies this and states that her mood has been significan tly well maintained on her current psychotropic regimen which is prescribed by her primary care shawni natasha. At this time, she is not interested in changes in bipolar management. RECOMMENDATIONS TO PRIMARY TEAM: Psychiatry sees no rationale to change the patient's medications ag ainst her will, although she is certainly lethargic with poor self-care. It seems to me that there a re reasonable medical explanations for these. Psychiatry signing off at this time; however, we can b e reconsulted in the event with any significant changes in the patient's presentation. Thank you for the consult. [id number]/[facility] #: [id number]
--- NOTE | 2019-08-07 14:02 | PN ---
Subjective Date of Service: 08/07/19 Interval History: Ms. Godoy is feeling fine today. She is very tired. Having back pain, but this is chronic and at baseline. She offers no further complaints. Denies CP, SOB, N/ V, dizziness. No concerns from nursing. Family History: Unchanged from Admission Social History: Unchanged from Admission Past Medical History: Unchanged from Admission Objective Active Medications: Acetaminophen (Tylenol Tab*) 650 mg PO Q4H PRN MILD PAIN or TEMP > 100.4 Albuterol/Ipratropium (Duoneb (Albuterol 2.5 Mg/Ipratropium 0.5 Mg)) 1 neb INH Q6H PRN SOB/WHEEZING Aripiprazole (Abilify Tab*) 10 mg PO BID [facility] Atorvastatin Calcium (Lipitor*) 10 mg PO QAM [facility]; Protocol Dextrose (Dextrose 50% Vial 50 Ml*) 25 ml IV PUSH .FOR FS < 60 - SS PRN FS < 60 Docusate Sodium (Colace Cap*) 100 mg PO BID PRN CONSTIPATION Ferrous Sulfate (Ferrous Sulfate Tab*) 325 mg PO BID [facility] Lactated Ringer's (Lactated Ringers 1000 Ml Bag*) 1,000 mls @ 75 mls/hr IV ONCE ONE Insulin Human Lispro (Humalog*) 0 units SUBCUT ACHS [facility]; Protocol Levothyroxine Sodium (Synthroid Tab*) 88 mcg PO DAILY@0600 [facility] Magnesium Oxide (Magox 400 Tab*) 400 mg PO BID [facility] Montelukast Sodium (Singulair Tab*) 10 mg PO BEDTIME PRN Allergy Symptoms Morphine Sulfate (Morphine Inj (Syringe))*) 2 mg IV Q4H PRN PAIN - SEVERE Ondansetron HCl (Zofran Inj*) 4 mg IV Q4H PRN NAUSEA/VOMITING Pantoprazole Sodium (Protonix Tab*) 40 mg PO QAM [facility] Prochlorperazine Edisylate (Compazine Inj*) 5 mg IV Q6H PRN NAUSEA/VOMITING Senna (Senokot 8.6 Mg Tab*) 1 tab PO BEDTIME [facility] Trazodone HCl (Desyrel Tab*) 300 mg PO BEDTIME [facility] Venlafaxine HCl (Effexor Xr Cap*) 150 mg PO DAILY [facility] Venlafaxine HCl (Effexor Xr Cap*) 75 mg PO DAILY [facility] Vital Signs - 8 hr 08/07/19 08/07/19 08/07/19 07:40 08:16 08:42 Temperature 97.8 F Pulse Rate 97 Respiratory 16 16 Rate Blood Pressure 135/79 (mmHg) O2 Sat by Pulse 96 96 Oximetry 08/07/19 08/07/19 08/07/19 08:58 10:18 11:15 Temperature 98.1 F Pulse Rate 96 Respiratory 16 16 20 Rate Blood Pressure 142/88 (mmHg) O2 Sat by Pulse 96 Oximetry Oxygen Devices in Use Now: None Appearance: Middle-aged female laying in bed in NAD Neck: NL Appearance and Movements; NL JVP, Trachea Midline Respiratory: Symmetrical Chest Expansion and Respiratory Effort, Clear to Auscultation Cardiovascular: NL Sounds; No Murmurs; No JVD Abdominal: NL Sounds; No Tenderness; No Distention Extremities: No Edema Neurological: - - Drowsy, awakens to voice Lines/Tubes/Other Access: Clean, Dry and Intact Peripheral IV Result Diagrams: 08/07/19 06:28 08/07/19 06:28 Assess/Plan/Problems-Billing Assessment: Ms. Godoy is a 64 yo F with PMH of COPD, DM2, bipolar disorder, CKD, HTN, hypothyroidism, and history of TIA; who presented with altered mental status, infrequently leaving her bed in unfortunate living conditions, found to have rhabdo and severe anemia. - Patient Problems (1) Anemia Code(s): D64.9 - ANEMIA, UNSPECIFIED Comment: - Severe anemia with initial Hgb 6.7, up to 9.2 today - Received 2 PRBCs 08/05/19 - Positive hemoccult - Appreciate GI consult; EGD today - If scoping is not revealing, it is quite possible that the patient's severe anemia was caused by the bed bug infestation which was evident in her home and could possibly have caused a false positive hemoccult (2) Rhabdomyolysis Code(s): M62.82 - RHABDOMYOLYSIS Comment: - Patient reports she has mostly been sedentary for several weeks - CPK 6493 on admission, now downtrending after IVF (3) Elevated troponin Code(s): R79.89 - OTHER SPECIFIED ABNORMAL FINDINGS OF BLOOD CHEMISTRY Comment : - Minimally elevated at 0.04 - Likely demand ischemia in the setting of severe anemia - No ST changes on initial or repeat EKG (4) Acute renal failure Comment: - Resolved with IVF - Baseline CKD stage 3 - Secondary to rhabdomyolysis (5) Lice Code(s): B85.2 - PEDICULOSIS, UNSPECIFIED Comment: - Permetherin applied to scalp 08/05; will only need additional applicatioin in one week if nits are persistent, none at this time - Also had bed bug nest in her shirt reportedly - Social work is involved d/t poor living conditions (6) Altered mental status Code(s): R41.82 - ALTERED MENTAL STATUS, UNSPECIFIED Comment: - Present on admission, now resolved - Unclear etiology, possibly related to acute renal failure (7) Diabetes Code(s): E11.9 - TYPE 2 DIABETES MELLITUS WITHOUT COMPLICATIONS Comment: - A1c is 5.9% indicating very good control - Hold metformin - Continue Lispro SS (8) Bipolar disorder Code(s): F31.9 - BIPOLAR DISORDER, UNSPECIFIED Comment: - Decreased mood, poor appetite, decreased interest, and has been overall sedentary for several weeks - Appreciate Psych consult; does not recommend any med changes at this time - Continue Abilify, venlafaxine (9) History of venous thromboembolism Code(s): Z86.718 - PERSONAL HISTORY OF OTHER VENOUS THROMBOSIS AND EMBOLISM Comment: - Holding Eliquis in setting of anemia (10) COPD (chronic obstructive pulmonary disease) Code(s): J44.9 - CHRONIC OBSTRUCTIVE PULMONARY DISEASE, UNSPECIFIED Comment: - Not in exacerbation - Not on home medication (11) Hypothyroid Code(s): E03.9 - HYPOTHYROIDISM, UNSPECIFIED Comment: - Continue levothyroxine (12) DVT prophylaxis Comment: - SCDs; no chemoprophylaxis in the setting of severe anemia (13) Full code status Code(s): Z78.9 - OTHER SPECIFIED HEALTH STATUS Comment: Status and Disposition: Inpatient. Anticipate need for ZAHIRA. Attending: Ne Chamberlain
[2019-08-07] MEDS ORDERED: fentaNYL* 50 MCG/ML 2 ML VIAL (100 MCG VIAL) ONE (14:37)
[2019-08-07] MEDS ORDERED: Midazolam* 1 MG/ML 10 ML VIAL (10 MG) ONE (14:38)
[2019-08-07] MEDS: Albuterol/Ipratropium NEB.SOL* Albuterol 2.5 MG/Ipratropium 0.5 MG 3 ML INH PRN (20:37)
[2019-08-07] MEDS: traZODone TAB* 100 MG PO SCH (20:38)
[2019-08-07] MEDS: Senna TAB 8.6 mg* TAB PO SCH (20:38)
--- NOTE | 2019-08-07 23:31 | PRO ---
CC: Priscila Padgett NP; Dr. Germain Sears * DATE OF PROCEDURE: 08/07/19 - ROOM #421 PROCEDURE: EGD. INPATIENT PROVIDER: Priscila Padgett NP PRIMARY CARE PHYSICIAN: Dr. Germain Sears. INDICATIONS: The patient was admitted on 08/05/19. She was brought in from poor home living condition. She was found to have rhabdomyolysis with acute kidney injury as well as acute on chronic iron deficiency anemia. Stool occult was positive. No overt GI bleeding noted. The patient's hemoglobin was 6.7. She has received 2 units of blood. Current hemoglobin is 9.2. Scheduled for an EGD. MEDICATIONS GIVEN: Midazolam 8 mg IV, Fentanyl 100 mcg IV. DESCRIPTION OF PROCEDURE: Full disclosure of risks was reviewed with the patient as detailed on the consent form. The patient was placed in the left lateral decubitus position and monitored with continuous pulse oximetry, capnography, interval blood pressure monitoring, and direct observation. A bite -block was placed between the patient's teeth. An adult gastroscope was then inserted into the patient's mouth and advanced down the esophagus, into the stomach, and into the distal duodenum. Findings and interventions are described below. FINDINGS: Esophagus was a tubular structure without rings or strictures. Distal esophagus was notable for an irregular Z-line with an extension 2 cm proximal to the GE junction. No nodules within the Z-line segment. Scope was advanced into the stomach. Stomach was examined in the forward and retroflexed views. There was no fresh or old blood. No obvious erosions or ulcers noted. The scope was advanced into the duodenum to at least the third portion. There was baltazar bilious fluid seen in the duodenum. No erosions or ulcers. No AVMs. The patient was difficult to sedate during the procedure with wheezing noted throughout the case. As a result of the sub-optimal sedation and pulmonary status, the decision was made to discontinue the procedure without obtaining biopsies. Scope was withdrawn from the patient. The patient was recovered in the GI recovery area. IMPRESSION: 1. Complete upper endoscopy to the distal duodenum. 2. Irregular Z-line. Endoscopically concerning for Soliz's esophagus. Not biopsied due to issues with sedation and respiratory status. 3. No evidence of fresh or old blood. No source of iron deficiency anemia identified. FOLLOWUP: 1. Continue to monitor CBC. 2. The patient would benefit from colonoscopy as well as a repeat EGD with biopsies of the irregular Z-line and the duodenum at some point. She is currently stable without any evidence of active GI bleeding. Favor optimization from a cardiopulmonary standpoint with plan for outpatient endoscopic evaluation. 3. Check celiac serology to rule-out celiac disease. GI will continue to follow along peripherally. We will arrange outpatient follow-up. Thank you very much for this referral. [id number]/[facility] #: [id number] ELIDIA
[2019-08-08] MEDS: Morphine INJ* 2 MG/ML 1 ML SYRINGE (TWO MG - NEW SYRINGE VERSION) IV PRN ×3 (02:41→18:11)
[2019-08-08] MEDS: Levothyroxine TAB* 88 MCG TAB PO SCH (06:38)
[2019-08-08] MEDS: Acetaminophen TAB* 325 MG PO PRN (08:26)
[2019-08-08] MEDS: Albuterol/Ipratropium NEB.SOL* Albuterol 2.5 MG/Ipratropium 0.5 MG 3 ML INH PRN (08:55)
[2019-08-08] MEDS ORDERED: Influenza VAC *QUAD* 2019-20* 0.5 ML SYRINGE IM ONE (09:00)
[2019-08-08 09:21] LABS: ABS Basophils 0.1 10^3/ul (0-0.2); ABS Eosinophils 0.2 10^3/ul (0-0.6); ABS Lymphocytes 0.6 10^3/ul (1.0-4.8); ABS Monocytes 1.1 10^3/ul (0-0.8); Eosinophil % 1.5 %; Hematocrit 29 % (35-47); Hemoglobin 9.2 g/dL (12.0-16.0); Mean Corpuscular HGB Conc 32 g/dL (31-36); Mean Corpuscular Hemoglobin 26 pg (27-31); Mean Corpuscular Volume 83 fL (80-97); Mean Platelet Volume 7.5 fL (7.4-10.4); Platelet Count 308 10^3/uL (150-450); Red Cell Distribution Width 19 % (10-15)
[2019-08-08] MEDS: Atorvastatin* 10 MG TAB PO SCH (09:22)
[2019-08-08] MEDS: Pantoprazole TAB * 40 MG TAB PO SCH (09:22)
[2019-08-08] MEDS: Venlafaxine EXT RELEASE CAP* 75 MG PO SCH ×2 (09:22)
[2019-08-08] MEDS: ARIPiprazole TAB* 5 MG PO SCH ×2 (09:22→22:00)
[2019-08-08] MEDS: Ferrous Sulfate TAB* 325 MG PO SCH ×2 (09:23→22:01)
[2019-08-08] MEDS: Magnesium Oxide TAB* 400 MG PO SCH ×2 (09:23→22:01)
[2019-08-08] MEDS: Insulin LISPRO* 1 UNITS UNIT SUBCUT SCH ×4 (09:23→21:59)
[2019-08-08 09:52] LABS: Anion Gap 8 mmol/L (2-11); BUN/Creatinine Ratio 18.3 (8-20); Blood Urea Nitrogen 17 mg/dL (6-24); CO2 Carbon Dioxide 23 mmol/L (22-32); Calcium 8.5 mg/dL (8.6-10.3); Chloride 101 mmol/L (101-111); EGFR African American 73.9 (>60); EGFR Non-African American 61.1 (>60); Glucose 143 mg/dL (70-100); Potassium 4.3 mmol/L (3.5-5.0); Sodium 132 mmol/L (135-145)
[2019-08-08 12:08] LABS: Creatine Kinase 348 U/L (10-223)
--- NOTE | 2019-08-08 15:36 | PN ---
Subjective Date of Service: 08/08/19 Interval History: Ms. Godoy is not feeling well today. She reports back pain, but states this is chronic and at her baseline. She ate breakfast this morning without difficulty. Denies CP, SOB, N/V. No concerns from nursing. Family History: Unchanged from Admission Social History: Unchanged from Admission Past Medical History: Unchanged from Admission Objective Active Medications: Acetaminophen (Tylenol Tab*) 650 mg PO Q4H PRN MILD PAIN or TEMP > 100.4 Albuterol/Ipratropium (Duoneb (Albuterol 2.5 Mg/Ipratropium 0.5 Mg)) 1 neb INH Q6H PRN SOB/WHEEZING Aripiprazole (Abilify Tab*) 10 mg PO BID [facility] Atorvastatin Calcium (Lipitor*) 10 mg PO QAM [facility]; Protocol Dextrose (Dextrose 50% Vial 50 Ml*) 25 ml IV PUSH .FOR FS < 60 - SS PRN FS < 60 Docusate Sodium (Colace Cap*) 100 mg PO BID PRN CONSTIPATION Ferrous Sulfate (Ferrous Sulfate Tab*) 325 mg PO BID [facility] Insulin Human Lispro (Humalog*) 0 units SUBCUT ACHS [facility]; Protocol Levothyroxine Sodium (Synthroid Tab*) 88 mcg PO DAILY@0600 [facility] Magnesium Oxide (Magox 400 Tab*) 400 mg PO BID [facility] Montelukast Sodium (Singulair Tab*) 10 mg PO BEDTIME PRN Allergy Symptoms Morphine Sulfate (Morphine Inj (Syringe))*) 2 mg IV Q4H PRN PAIN - SEVERE Ondansetron HCl (Zofran Inj*) 4 mg IV Q4H PRN NAUSEA/VOMITING Pantoprazole Sodium (Protonix Tab*) 40 mg PO QAM [facility] Prochlorperazine Edisylate (Compazine Inj*) 5 mg IV Q6H PRN NAUSEA/VOMITING Senna (Senokot 8.6 Mg Tab*) 1 tab PO BEDTIME [facility] Trazodone HCl (Desyrel Tab*) 300 mg PO BEDTIME [facility] Venlafaxine HCl (Effexor Xr Cap*) 150 mg PO DAILY [facility] Venlafaxine HCl (Effexor Xr Cap*) 75 mg PO DAILY [facility] Vital Signs - 8 hr 08/08/19 08/08/19 08/08/19 08:22 08:57 11:15 Temperature 98.7 F Pulse Rate 104 96 Respiratory 32 24 18 Rate Blood Pressure 116/70 (mmHg) O2 Sat by Pulse 94 100 Oximetry 08/08/19 15:15 Temperature 97.8 F Pulse Rate 92 Respiratory 18 Rate Blood Pressure 112/52 (mmHg) O2 Sat by Pulse 98 Oximetry Oxygen Devices in Use Now: None Appearance: Elderly female lying in bed in NAD Ears/Nose/Mouth/Throat: Mucous Membranes Moist Neck: NL Appearance and Movements; NL JVP, Trachea Midline Respiratory: Symmetrical Chest Expansion and Respiratory Effort, Clear to Auscultation Cardiovascular: NL Sounds; No Murmurs; No JVD Abdominal: NL Sounds; No Tenderness; No Distention Neurological: Alert and Oriented x 3 - Disoriented to situation Lines/Tubes/Other Access: Clean, Dry and Intact Peripheral IV Nutrition: Taking PO's Result Diagrams: 08/08/19 08:42 08/08/19 08:42 Assess/Plan/Problems-Billing Assessment: Ms. Godoy is a 64 yo F with PMH of COPD, DM2, bipolar disorder, CKD, HTN, hypothyroidism, and history of TIA; who presented with altered mental status, infrequently leaving her bed in unfortunate living conditions, found to have rhabdo and severe anemia. - Patient Problems (1) Anemia Code(s): D64.9 - ANEMIA, UNSPECIFIED Comment: - Severe anemia with initial Hgb 6.7, now stable at 9.2 - Received 2 PRBCs 08/05/19 - Positive hemoccult - Appreciate GI consult; EGD yesterday was unremarkable for any obvious source of bleeding, though study was limited as the patient was not able to be fully sedated d/t respiratory status - Differentials include bed bug infestation and iron deficiency; possible false positive hemoccult (2) Rhabdomyolysis Code(s): M62.82 - RHABDOMYOLYSIS Comment: - Patient reports she has mostly been sedentary for several weeks - CPK 6493 on admission, now downtrending after IVF (3) Elevated troponin Code(s): R79.89 - OTHER SPECIFIED ABNORMAL FINDINGS OF BLOOD CHEMISTRY Comment : - Minimally elevated at 0.04 - Likely demand ischemia in the setting of severe anemia - No ST changes on initial or repeat EKG (4) Acute renal failure Comment: - Resolved with IVF - Baseline CKD stage 3 - Secondary to rhabdomyolysis (5) Lice Code(s): B85.2 - PEDICULOSIS, UNSPECIFIED Comment: - Permetherin applied to scalp 08/05; will only need additional applicatioin in one week if nits are persistent, none at this time - Also had bed bug nest in her shirt reportedly - Social work is involved d/t poor living conditions (6) Altered mental status Code(s): R41.82 - ALTERED MENTAL STATUS, UNSPECIFIED Comment: - Present on admission, now resolved - Unclear etiology, possibly related to acute renal failure (7) Diabetes Code(s): E11.9 - TYPE 2 DIABETES MELLITUS WITHOUT COMPLICATIONS Comment: - A1c is 5.9% indicating very good control - Hold metformin - Continue Lispro SS (8) Bipolar disorder Code(s): F31.9 - BIPOLAR DISORDER, UNSPECIFIED Comment: - Decreased mood, poor appetite, decreased interest, and has been overall sedentary for several weeks - Appreciate Psych consult; does not recommend any med changes at this time - Continue Abilify, venlafaxine (9) History of venous thromboembolism Code(s): Z86.718 - PERSONAL HISTORY OF OTHER VENOUS THROMBOSIS AND EMBOLISM Comment: - Holding Eliquis in setting of anemia (10) COPD (chronic obstructive pulmonary disease) Code(s): J44.9 - CHRONIC OBSTRUCTIVE PULMONARY DISEASE, UNSPECIFIED Comment: - Not in exacerbation - Not on home medication (11) Hypothyroid Code(s): E03.9 - HYPOTHYROIDISM, UNSPECIFIED Comment: - Continue levothyroxine (12) DVT prophylaxis Comment: - SCDs; no chemoprophylaxis in the setting of severe anemia (13) Full code status Code(s): Z78.9 - OTHER SPECIFIED HEALTH STATUS Comment: Status and Disposition: Inpatient. Anticipate need for ZAHIRA. Attending: Ne Chamberlain
[2019-08-08 16:04] LABS: Troponin I 0.05 ng/mL (<0.04)
[2019-08-08] MEDS: traZODone TAB* 100 MG PO SCH (22:00)
[2019-08-08] MEDS: Senna TAB 8.6 mg* TAB PO SCH (22:01)
[2019-08-09] MEDS: Morphine INJ* 2 MG/ML 1 ML SYRINGE (TWO MG - NEW SYRINGE VERSION) IV PRN ×3 (00:37→10:35)
[2019-08-09] MEDS: Levothyroxine TAB* 88 MCG TAB PO SCH (06:06)
[2019-08-09 08:13] LABS: Troponin I 0.04 ng/mL (<0.04)
[2019-08-09] MEDS ORDERED: Venlafaxine EXT RELEASE CAP* 75 MG PO SCH (09:00)
[2019-08-09] MEDS: Insulin LISPRO* 1 UNITS UNIT SUBCUT SCH ×2 (09:20→12:38)
[2019-08-09] MEDS: Pantoprazole TAB * 40 MG TAB PO SCH (10:31)
[2019-08-09] MEDS: Ferrous Sulfate TAB* 325 MG PO SCH (10:31)
[2019-08-09] MEDS: Magnesium Oxide TAB* 400 MG PO SCH (10:31)
[2019-08-09] MEDS: ARIPiprazole TAB* 5 MG PO SCH (10:31)
[2019-08-09] MEDS: Atorvastatin* 10 MG TAB PO SCH (10:31)
--- NOTE | 2019-08-09 10:51 | PN ---
Subjective Date of Service: 08/09/19 Interval History: Ms. Godoy is feeling poor this morning. She did not sleep well overnight because the hospital is "not home." She otherwise offers no complaints. Denies CP, SOB, N/V. Good appetite. No concerns from nursing. Family History: Unchanged from Admission Social History: Unchanged from Admission Past Medical History: Unchanged from Admission Objective Active Medications: Acetaminophen (Tylenol Tab*) 650 mg PO Q4H PRN MILD PAIN or TEMP > 100.4 Albuterol/Ipratropium (Duoneb (Albuterol 2.5 Mg/Ipratropium 0.5 Mg)) 1 neb INH Q6H PRN SOB/WHEEZING Aripiprazole (Abilify Tab*) 10 mg PO BID [facility] Atorvastatin Calcium (Lipitor*) 10 mg PO QAM [facility]; Protocol Dextrose (Dextrose 50% Vial 50 Ml*) 25 ml IV PUSH .FOR FS < 60 - SS PRN FS < 60 Docusate Sodium (Colace Cap*) 100 mg PO BID PRN CONSTIPATION Ferrous Sulfate (Ferrous Sulfate Tab*) 325 mg PO BID [facility] Insulin Human Lispro (Humalog*) 0 units SUBCUT ACHS [facility]; Protocol Levothyroxine Sodium (Synthroid Tab*) 88 mcg PO DAILY@0600 [facility] Magnesium Oxide (Magox 400 Tab*) 400 mg PO BID [facility] Montelukast Sodium (Singulair Tab*) 10 mg PO BEDTIME PRN Allergy Symptoms Morphine Sulfate (Morphine Inj (Syringe))*) 2 mg IV Q4H PRN PAIN - SEVERE Ondansetron HCl (Zofran Inj*) 4 mg IV Q4H PRN NAUSEA/VOMITING Pantoprazole Sodium (Protonix Tab*) 40 mg PO QAM [facility] Prochlorperazine Edisylate (Compazine Inj*) 5 mg IV Q6H PRN NAUSEA/VOMITING Senna (Senokot 8.6 Mg Tab*) 1 tab PO BEDTIME [facility] Trazodone HCl (Desyrel Tab*) 300 mg PO BEDTIME [facility] Venlafaxine HCl (Effexor Xr Cap*) 225 mg PO DAILY [facility] Vital Signs - 8 hr 08/09/19 08/09/19 08/09/19 03:42 06:06 10:35 Temperature 97.6 F Pulse Rate 85 Respiratory 16 20 17 Rate Blood Pressure 120/67 (mmHg) O2 Sat by Pulse 97 Oximetry Oxygen Devices in Use Now: None Appearance: Middle-aged female lying in bed in NAD Ears/Nose/Mouth/Throat: Mucous Membranes Moist Neck: NL Appearance and Movements; NL JVP, Trachea Midline Respiratory: Symmetrical Chest Expansion and Respiratory Effort, Clear to Auscultation Cardiovascular: NL Sounds; No Murmurs; No JVD, RRR Abdominal: NL Sounds; No Tenderness; No Distention Neurological: Alert and Oriented x 3 Lines/Tubes/Other Access: Clean, Dry and Intact Peripheral IV Nutrition: Taking PO's Result Diagrams: 08/08/19 08:42 08/08/19 08:42 Assess/Plan/Problems-Billing Assessment: Ms. Godoy is a 64 yo F with PMH of COPD, DM2, bipolar disorder, CKD, HTN, hypothyroidism, and history of TIA; who presented with altered mental status, infrequently leaving her bed in unfortunate living conditions, found to have rhabdo and severe anemia. - Patient Problems (1) Anemia Code(s): D64.9 - ANEMIA, UNSPECIFIED Comment: - Severe anemia with initial Hgb 6.7, now stable at 9.2 - Received 2 PRBCs 08/05/19 - Positive hemoccult - Appreciate GI consult; EGD yesterday was unremarkable for any obvious source of bleeding, though study was limited as the patient was not able to be fully sedated d/t respiratory status - Differentials include bed bug infestation and iron deficiency; possible false positive hemoccult (2) Rhabdomyolysis Code(s): M62.82 - RHABDOMYOLYSIS Comment: - Patient reports she has mostly been sedentary for several weeks - CPK 6493 on admission, resolved with IVF (3) Elevated troponin Code(s): R79.89 - OTHER SPECIFIED ABNORMAL FINDINGS OF BLOOD CHEMISTRY Comment : - Minimally elevated at 0.05, downtrended to 0.04 - Likely demand ischemia in the setting of severe anemia - No ST changes on initial or repeat EKG (4) Acute renal failure Comment: - Resolved with IVF - Baseline CKD stage 3 - Secondary to rhabdomyolysis (5) Lice Code(s): B85.2 - PEDICULOSIS, UNSPECIFIED Comment: - Permetherin applied to scalp 08/05; will only need additional applicatioin in one week if nits are persistent, none at this time - Also had bed bug nest in her shirt reportedly - Social work is involved d/t poor living conditions (6) Altered mental status Code(s): R41.82 - ALTERED MENTAL STATUS, UNSPECIFIED Comment: - Present on admission, now resolved - Unclear etiology, possibly related to acute renal failure (7) Diabetes Code(s): E11.9 - TYPE 2 DIABETES MELLITUS WITHOUT COMPLICATIONS Comment: - A1c is 5.9% indicating very good control - Hold metformin - Continue Lispro SS (8) Bipolar disorder Code(s): F31.9 - BIPOLAR DISORDER, UNSPECIFIED Comment: - Decreased mood, poor appetite, decreased interest, and has been overall sedentary for several weeks - Appreciate Psych consult; does not recommend any med changes at this time - Continue Abilify, venlafaxine (9) History of venous thromboembolism Code(s): Z86.718 - PERSONAL HISTORY OF OTHER VENOUS THROMBOSIS AND EMBOLISM Comment: - Holding Eliquis in setting of anemia (10) COPD (chronic obstructive pulmonary disease) Code(s): J44.9 - CHRONIC OBSTRUCTIVE PULMONARY DISEASE, UNSPECIFIED Comment: - Not in exacerbation - Not on home medication (11) Hypothyroid Code(s): E03.9 - HYPOTHYROIDISM, UNSPECIFIED Comment: - Continue levothyroxine (12) DVT prophylaxis Comment: - SCDs; no chemoprophylaxis in the setting of severe anemia (13) Full code status Code(s): Z78.9 - OTHER SPECIFIED HEALTH STATUS Comment: Status and Disposition: Inpatient. Awaiting rehab bed. Attending: Ne Chamberlain
[2019-08-09] MEDS: Venlafaxine EXT RELEASE CAP* 75 MG PO SCH ×2 (11:53)
--- NOTE | 2019-08-09 16:06 | DS ---
CC: Dr. Germain Sears* DATE OF ADMISSION: 08/05/2019. DATE OF DISCHARGE: 08/09/2019. PRIMARY CARE PHYSICIAN: Dr. Germain Sears. ATTENDING PHYSICIAN: Dr. Ne Chamberlain * (dictated by Priscila Padgett NP). PRIMARY DIAGNOSES: 1. Anemia, iron deficiency and suspected slow GI bleed. 2. Rhabdomyolysis. 3. Acute kidney injury. 4. Pediculosis. 5. Toxic metabolic encephalopathy. SECONDARY DIAGNOSES: 1. Diabetes mellitus type 2. 2. Bipolar disorder. 3. History of PE. 4. Chronic obstructive pulmonary disease. 5. Hypothyroidism. STUDIES WHILE IN THE HOSPITAL: 1. Chest x-ray on 08/05/2019 reads as: Left lower lobe airspace opacification could be banking representative of atelectasis or infiltrate. 2. EKG on 08/05/2019 shows sinus tachycardia with a rate of 106. QTC 507, no ST changes. 3. EKG on 08/06/2019 shows normal sinus rhythm with a rate of 83, QTC 462, small Q- waves on lateral leads. PROCEDURE WHILE IN THE HOSPITAL: 1. Esophagogastroduodenoscopy on 08/07/[address] Dunn. HISTORY OF PRESENT ILLNESS/HOSPITAL COURSE: Ms. Godoy is a 64-year-old female with a past medical history of COPD, hypertension, diabetes, bipolar, pulmonary embolism, hypothyroidism, TIA, and hyperlipidemia who presented to the emergency room on 08/05/2019 after she was found in poor living conditions. Please see the history and physical by Pamela Barnett NP for a complete summary of the events leading up to this hospitalization. In short, the patient was brought into the emergency room by EMS. It is not clear who called EMS, though reportedly the patient was found to be living in very poor conditions with urine , feces, and mold throughout the house. There was also noted to be bed bugs. In the emergency room, the patient was noted to have an elevated CK consistent with mild rhabdomyolysis, acute kidney injury with a creatinine of 2.26, and leukocytosis with a white blood cell count of 12.0, as well a severe anemia with an H and H of 6.7 and 22. Because of these findings, she was admitted by the Hospitalist Service. The patient was given two units of packed red blood cells on 08/05/2019. An H and H trended upwards after that. As of today, H and H is 9.2 and 29. Gastroenterology was consulted due to the concern for a GI bleed. They felt as though this warranted an EGD. The patient did undergo an EGD on 08/07/2019. The study was somewhat limited as they were not able to sedate the patient fully due to respiratory status, but there was no evidence of a source of bleeding. She was noted to have a positive stool occult. Colonoscopy was not performed during this hospitalization. At this point, I think it is likely that her anemia is secondary to iron deficiency as she was noted to have a low serum iron and a low ferritin, though I do also think that there is likely a slow lower GI bleed. The patient has been off Eliquis and Pletal while here in the hospital. CK trended down with IV fluids as did creatinine. As of yesterday, creatinine was noted to be 0.93. She did have mildly elevated troponins which peaked at 0.05, though this is likely secondary to the rhabdomyolysis and not an acute coronary process. A1c was noted to be 5.8 percent. The patient was noted to have pediculosis and was treated with one application of Permethrin to the scalp on 08/05/2019. She was slightly altered on arrival and this resolved quite quickly. It is not entirely clear what was causing her altered mental status, though her acute renal failure may have been a contributing factor. The patient was evaluated by Physical Therapy who felt as though the patient would benefit from rehab. The patient was hesitant to go to rehab, though after a long discussion with her, she is agreeable at this point as long as she has a bed in which she can raise the head due to her back pain. PHYSICAL EXAMINATION: On exam, she is alert and oriented times four. She has no focal neurological deficits. Her heart is irregular rate and rhythm without murmurs, rubs, or gallops. Lungs are clear to auscultation without rhonchi, wheezes, or rubs. There is no edema. The abdomen is soft, nontender. Physical exam is otherwise benign. Ms. Godoy is stable for discharge today. Most recent vital signs are as follows: Temperature 98.0, heart rate 83, respiratory rate 17, oxygen saturation 99 percent on room air, blood pressure 100/63. DISCHARGE MEDICATIONS: New medications: 1. Albuterol MDI two puffs q.4 hours prn shortness of breath or wheezing. 2. Acetaminophen 650 mg p.o. q.4 hours prn fever or pain. 3. Docusate 100 mg p.o. b.i.d. Changed medications: 1. Ferrous Sulfate 325 mg p.o. b.i.d. (previously was 325 mg daily). Continued medications: 1. Abilify 10 mg p.o. b.i.d. 2. Levothyroxine 88 mcg p.o. daily. 3. Lovastatin 40 mg p.o. daily. 4. Magnesium Oxide 400 mg p.o. b.i.d. 5. Montelukast 10 mg p.o. at bedtime prn allergy symptoms. 6. Omeprazole 40 mg p.o. daily. 7. Trazodone 300 mg p.o. at bedtime. 8. Pletal 100 mg p.o. daily. 9. Loratadine 10 mg p.o. daily prn allergy symptoms. 10. Metformin 1,000 mg p.o. b.i.d. 11. Tizanidine 4 mg p.o. t.i.d. prn muscle spasms. 12. Valacyclovir 500 mg p.o. daily. 13. Venlafaxine XR 225 mg p.o. daily. Discontinued medications: 1. Morphine. 2. Eliquis. DISCHARGE PLAN: Ms. Godoy will be discharged to [facility] for rehab. Medications are noted above. The patient does have a history of COPD, though as far as I can tell did not have an Albuterol inhaler at home, so I have prescribed that going forward. Ferrous Sulfate has been increased to b.i.d. due to the severe iron deficiency. At this point, I think it is safe for the patient to resume her Pletal, though I recommend holding Eliquis at this point. Looking back at old records, the patient did have one hospitalization for pulmonary emboli in 2013. It is not clear if this was provoked or unprovoked, though the patient has not had any VTE since then. At this point, I think that the risk of bleeding is greater than the risk of DVT or PE. The patient will need to undergo an outpatient colonoscopy in order to find a source of bleeding. If a source of bleeding is not identified, then she certainly could be safe to restart the Eliquis, though I do highly suspect that there is a source of lower GI bleeding. This can be reassessed by her primary care provider. She may also need to undergo another EGD as an outpatient when her respiratory status is stable and she is able to be fully sedated. She will need to follow-up with a provider at [facility] and thereafter should follow-up with her primary care provider. ACTIVITY: As tolerated. DIET: Regular as tolerated. She should return to the emergency room or nearest hospital for any worsening of symptoms, shortness of breath, lightheadedness, dizziness, chest discomfort, high fevers, chills, night sweats, loss of consciousness or any other worrisome signs or symptoms. CONDITION ON DISCHARGE: Stable. DISPOSITION: custodial facility, [facility]. This is a summarized report of a complex medical history and hospital stay. For further details, please see the entire medical record. TIME SPENT: Approximately 60 minutes were spent on this discharge. PRISCILA PADGETT NP [id number]/[facility] #: [id number] [place]
[2019-08-09] MEDS: Acetaminophen TAB* 325 MG PO PRN (16:34)
[2019-08-09 16:44] VITALS: BP 134/64
== END 2019-08-09 16:30 | DRG 469 ==
LOC: ED 12:26 → MED 19:22 → OBSVTOIN 08-06 11:00
PROVIDERS: ADMIT Internal Medicine; ATTEND Internal Medicine
PROC: 30233N1 Transfusion of Nonautologous Red Blood Cells into Peripheral Vein, Percutaneous Approach (ICD-10-PCS; principal; 2019-08-06)
PROC: 0DJ08ZZ Inspection of Upper Intestinal Tract, Via Natural or Artificial Opening Endoscopic (ICD-10-PCS; 2019-08-07)
DX: N17.9 Acute kidney failure, unspecified (principal); G92 Toxic encephalopathy; M62.82 Rhabdomyolysis; K92.2 Gastrointestinal hemorrhage, unspecified; Z68.41 Body mass index [BMI] 40.0-44.9, adult; D50.9 Iron deficiency anemia, unspecified; Z96.652 Presence of left artificial knee joint; F31.9 Bipolar disorder, unspecified; F20.9 Schizophrenia, unspecified; F41.0 Panic disorder [episodic paroxysmal anxiety]; F43.10 Post-traumatic stress disorder, unspecified; F90.9 Attention-deficit hyperactivity disorder, unspecified type; E11.39 Type 2 diabetes mellitus with other diabetic ophthalmic complication; H42 Glaucoma in diseases classified elsewhere; M41.9 Scoliosis, unspecified; M79.7 Fibromyalgia; K58.9 Irritable bowel syndrome, unspecified; K21.9 Gastro-esophageal reflux disease without esophagitis; J44.9 Chronic obstructive pulmonary disease, unspecified; I10 Essential (primary) hypertension; E78.5 Hyperlipidemia, unspecified; E78.00 Pure hypercholesterolemia, unspecified; M19.90 Unspecified osteoarthritis, unspecified site; G43.909 Migraine, unspecified, not intractable, without status migrainosus; E11.22 Type 2 diabetes mellitus with diabetic chronic kidney disease; E03.9 Hypothyroidism, unspecified; E66.01 Morbid (severe) obesity due to excess calories; B85.0 Pediculosis due to Pediculus humanus capitis; R79.89 Other specified abnormal findings of blood chemistry; R41.82 Altered mental status, unspecified; G89.29 Other chronic pain; M54.9 Dorsalgia, unspecified; N18.3 Chronic kidney disease, stage 3 (moderate); K22.70 Barrett's esophagus without dysplasia; Z87.891 Personal history of nicotine dependence; Z90.49 Acquired absence of other specified parts of digestive tract; Z91.5 Personal history of self-harm; Z88.8 Allergy status to other drugs, medicaments and biological substances; Z88.0 Allergy status to penicillin; Z91.018 Allergy to other foods; Z91.048 Other nonmedicinal substance allergy status; Z90.722 Acquired absence of ovaries, bilateral; Z86.718 Personal history of other venous thrombosis and embolism; Z86.73 Personal history of transient ischemic attack (TIA), and cerebral infarction without residual deficits; Z23 Encounter for immunization; Z86.711 Personal history of pulmonary embolism
CPT/HCPCS: 36415; 36430; 71045; 80048; 80053; 81003; 81015; 82270; 82550; 82607; 82728; 82746; 83036; 83540; 83550; 83605; 83880; 84484; 85014; 85018; 85025; 85045; 85610; 85730; 86140; 86850; 86900; 86901; 86922; 87040; 87086; 90686; 93005; 94640; 99156; 99157; 99285; A9270-GY; G0378; G8978-GP-CK; G8979-GP-CJ; J2250; J2270; J2405; J3010; P9040

== ENCOUNTER 2019-11-03 00:43 | Inpatient (IN) | payer OTHER ==
[2019-11-03] MEDS ORDERED: NS 0.9% 1000 ML** 1,000 ML IV ONE ×2 (02:43→05:00)
--- NOTE | 2019-11-03 03:01 | ED ---
Altered Mental Status - HPI Summary HPI Summary: Patient is a 64 y/o F presenting to [facility] via EMS for altered mental status and urinary incontinence. She is a level 5 caveat secondary to altered mental status. EMS reported that the family had stated that the patient was of altered mental status for the past 1.5 days. Family decided to call EMS tonight when it was noted that the patient was incontinent of urine. No fevers, vomiting or diarrhea reported by EMS. No recent changes in medications are reported. Home medications and allergies are reviewed. - History Of Current Complaint Chief Complaint: EDAltMentalStatus Stated Complaint: AMS PER EMS Time Seen by Provider: 11/03/19 02:48 Hx Obtained From: EMS Hx From Patient Unobtainable Due To: Altered Mental Status Onset/Duration: Still Present Timing: Constant Character: Confusion Aggravating Factor(s): Unknown Alleviating Factor(s): Unknown Associated Signs And Symptoms: Positive: Negative - Allergies/Home Medications Allergies/Adverse Reactions: Allergies Allergy/AdvReac Type Severity Reaction Status Date / Time adhesive Allergy Hives Verified 04/15/19 10:33 bupropion [From Wellbutrin] Allergy Unknown Verified 04/15/19 10:33 Reaction Details citalopram [From Celexa] Allergy Unknown Verified 04/15/19 10:33 Reaction Details clonazepam [From Klonopin] Allergy Unknown Verified 04/15/19 10:33 Reaction Details dextromethorphan Allergy Swelling Verified 04/15/19 10:33 [From Dimetapp Of Cold-Congestion] Face,Lips,& Throat diphenhydramine Allergy Swelling Verified 04/15/19 10:33 [From Dimetapp Of Cold-Congestion] Face,Lips,& Throat divalproex sodium Allergy Headache Verified 04/15/19 10:33 [From Depakote] duloxetine [From Cymbalta] Allergy Unknown Verified 04/15/19 10:33 Reaction Details eszopiclone [From Lunesta] Allergy Unknown Verified 04/15/19 10:33 Reaction Details fluoxetine [From Prozac] Allergy Unknown Verified 04/15/19 10:33 Reaction Details gabapentin Allergy Hallucinati Verified 04/15/19 10:33 ons guaifenesin Allergy Swelling Verified 04/15/19 10:33 [From Dimetapp Of Cold-Congestion] Face,Lips,& Throat metaxalone [From Skelaxin] Allergy Unknown Verified 04/15/19 10:33 Reaction Details naproxen Allergy Unknown Verified 04/15/19 10:33 Reaction Details Penicillins Allergy Hives Verified 04/15/19 10:33 phenylephrine Allergy Swelling Verified 04/15/19 10:33 [From Dimetapp Of Cold-Congestion] Face,Lips,& Throat pineapple Allergy Swelling Verified 04/15/19 10:33 prednisone Allergy Hallucinati Verified 04/15/19 10:33 ons pseudoephedrine Allergy Swelling Verified 04/15/19 10:33 [From Dimetapp Of Cold-Congestion] Face,Lips,& Throat sertraline [From Zoloft] Allergy Unknown Verified 04/15/19 10:33 Reaction Details PMH/Surg Hx/FS Hx/Imm Hx Endocrine/Hematology History: Reports: Hx Diabetes, Hx Thyroid Disease, Other Endocrine/Hematological Disorders - vit d resistent Denies: Hx Anticoagulant Therapy, Hx Blood Disorders, Hx Blood Transfusions, Hx Bone Marrow Disease, Hx Systemic Lupus Erythematosus, Hx Sickle Cell Disease , Hx Anemia, Hx Unexplained Bleeding Cardiovascular History: Reports: Hx Angina, Hx Embolism, Hx Hypercholesterolemia , Hx Hypertension, Hx Syncope, Other Cardiovascular Problems/Disorders Denies: Hx Aneurysm, Hx Angioplasty, Hx Auto Implanted Cardiovert Defib, Hx Cardiac Arrest, Hx Cardiomegaly, Hx Congenital Heart Disease, Hx Congestive Heart Failure, Hx Coronary Artery Disease, Hx Deep Vein Thrombosis, Hx Hypotension, Hx Myocardial Infarction, Hx Pacemaker/ICD, Hx Peripheral Vascular Disease, Hx Rheumatic Fever, Hx Valvular Heart Disease Respiratory History: Reports: Hx Asthma, Hx Chronic Bronchitis, Hx Chronic Obstructive Pulmonary Disease (COPD), Hx Pulmonary Embolism Denies: Hx Cystic Fibrosis, Hx Lung Cancer, Hx Pleural Effusion, Hx Pneumonia , Hx Pulmonary Edema, Hx Seasonal Allergies, Hx Sleep Apnea GI History: Reports: Hx Gall Bladder Disease, Hx Gastroesophageal Reflux Disease , Hx Irritable Bowel, Other GI Disorders Denies: Hx Cirrhosis, Hx Crohn's Disease, Hx Diverticulosis, Hx Gastrointestinal Bleed, Hx Hiatal Hernia, Hx Jaundice, Hx Obstructive Bowel, Hx Ileostomy, Hx Ulcer History: Denies: Hx Acute Renal Failure, Hx Benign Prostatic Hyperplasia, Hx Chronic Renal Failure, Hx Dialysis, Hx Kidney Infection, Hx Kidney Stones, Hx Renal Disease, Other Problems/Disorders Musculoskeletal History: Reports: Hx Arthritis, Hx Back Problems, Hx Bursitis, Hx Fibromyalgia, Hx Scoliosis, Other Musculoskeletal History - 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 Denies: Hx Congenital Bone Abnormalities, Hx Gout, Hx Orthopedic Injury, Hx Osteoporosis, Hx Tendonitis Sensory History: Reports: Hx Contacts or Glasses - glasses left at home, Hx Glaucoma, Hx Vision Problem Denies: Hx Cataracts, Hx Eye Injury, Hx Eye Prosthesis, Hx Legally Blind, Hx Macular Degeneration, Hx Deafness, Hx Hearing Aid, Hx Hearing Problem, Other Sensory Impairments Opthamlomology History: Reports: Hx Contacts or Glasses - glasses left at home, Hx Glaucoma, Hx Vision Problem Denies: Hx Cataracts, Hx Eye Injury, Hx Eye Prosthesis, Hx Legally Blind, Hx Macular Degeneration, Other Sensory Impairments Neurological History: Reports: Hx Headaches, Hx Migraine, Hx Transient Ischemic Attacks (TIA), Other Neuro Impairments/Disorders Denies: Hx Dementia, Hx Developmental Delay, Hx Nerve Disease, Hx Seizures, Hx Spinal Cord Injury Psychiatric History: Reports: Hx Anxiety, Hx Attention Deficit Hyperactivity Disorder, Hx Depression, Hx Panic Disorder, Hx Post Traumatic Stress Disorder, Hx Schizophrenia, Hx Bipolar Disorder, Hx Suicide Attempt - 1995, Other Psychiatric Issues/Disorders - claustrophobia Denies: Hx Eating Disorder, Hx of Violent Episodes Against Others, Hx Substance Abuse - Surgical History Surgery Procedure, Year, and Place: Left knee replacement 04/2005, c section x2 81 & 89, HYSTERECTOMY, OOPHERECTOMY, GALLBLADDER, TONSILS Hx Anesthesia Reactions: No - Immunization History Date of Tetanus Vaccine: Unknown Date of Influenza Vaccine: 09/2012 Infectious Disease History: Unable to Obtain/Confirm Infectious Disease History: Denies: Hx Hepatitis, Hx Human Immunodeficiency Virus (HIV), Hx of Known/ Suspected MRSA, Hx Shingles, Hx Tuberculosis, Traveled Outside the [place] in Last 30 Days Comment Only: History Other Infectious Disease - hx mrsa in knee postoperatively - Family History Known Family History: Positive: Cardiac Disease, Hypertension, Diabetes, Other - bipolar - Social History Alcohol Use: None Hx Substance Use: No Substance Use Type: Reports: None Hx Tobacco Use: Yes Smoking Status (MU): Former Smoker Type: Cigarettes Amount Used/How Often: reports smoking 1 pack/week Length of Time of Smoking/Using Tobacco: 30 years Have You Smoked in the Last Year: Yes Review of Systems - ROS Summary Review of Systems Summary: Home Medications Medication Instructions Recorded Confirmed Type Omeprazole CAP (NF) [Prilosec CAP* 40 mg PO QAM 01/15/13 08/05/19 History 20 MG] Lovastatin (NF) [Mevacor (NF)] 40 mg PO QAM 02/10/15 08/05/19 History ValACYclovir (*) [Valtrex 500 mg 500 mg PO QAM 02/10/15 08/05/19 History (*)] metFORMIN* [Glucophage 500 MG TAB 1,000 mg PO BID 02/10/15 08/05/19 History *] LoraTADine TAB(NF) [Claritin 10 MG 10 mg PO DAILY PRN 06/22/15 08/05/19 History TAB(NF)] ARIPiprazole TAB* [Abilify TAB*] 10 mg PO BID 03/10/17 08/05/19 History Levothyroxine TAB* [Synthroid 88 88 mcg PO DAILY@0600 #30 tab 01/25/18 08/05/19 Rx MCG TAB*] Magnesium Oxide TAB* [MagOx 400 400 mg PO BID 06/12/18 08/05/19 History TAB*] Montelukast Sodium TAB* [Singulair 10 mg PO BEDTIME PRN 06/12/18 08/05/19 History 10 MG TAB*] Cilostazol TAB* [Pletal TAB*] 100 mg PO DAILY 08/05/19 08/05/19 History tiZANidine TAB* [Zanaflex TAB*] 4 mg PO TID PRN 08/05/19 08/05/19 History traZODone TAB* [Desyrel TAB*] 300 mg PO BEDTIME 08/05/19 08/05/19 History Acetaminophen TAB* [Tylenol TAB*] 650 mg PO Q4H PRN tab 08/09/19 Rx Albuterol HFA INHALER* [Ventolin 2 puff INH Q4H PRN #1 mdi 08/09/19 Rx HFA Inhaler*] Docusate CAP* [Colace Cap*] 100 mg PO BID cap 08/09/19 Rx Ferrous Sulfate TAB* 325 mg PO BID #0 08/09/19 08/05/19 Rx Morphine Sulfate 15 mg PO TID PRN #1 tablet MDD 45mg 08/09/19 Rx Venlafaxine EXT RELEASE CAP(NF 225 mg PO DAILY 08/09/19 08/09/19 History [Effexor Xr CAP 225 MG (NF)] level 5 caveat secondary to altered mental status Negative: Fever Negative: Vomiting, Diarrhea Positive: incontinence - urinary Neurological: Other - positive - AMS All Other Systems Reviewed And Are Negative: No - Comments Additional Review of Systems Comments: level 5 caveat secondary to altered mental status Physical Exam - Summary Physical Exam Summary: General: Well-developed, Obese female who appears older than stated age. No acute distress. HEENT: Normocephalic, Atraumatic. Eyes: Conjuctiva normal, PERRL. Oropharynx: Clear, mucous membranes moist, (-) exudates. Neck: Soft, FROM, (-) lymphadenopathy, (-) thyromegaly, (-) JVD. Cardiovascular: Normal sinus rhythm, (-) murmur. Lungs: Clear to auscultation bilaterally (-) wheezes, (-) rales, (-) rhonchi. Abdomen: Soft, non-tender, non-distended, (-) organomegaly, normal bowel sounds. Back: (-) CVA tenderness Extremities: No edema. Skin: Warm, dry, (-) rash. Neuro: Alert and oriented x1. Follows some commands. Level 5 caveat secondary to AMS. Psychiatric: Flat affect. Triage Information Reviewed: Yes Vital Signs On Initial Exam: Initial Vitals Temp Pulse Resp BP Pulse Ox 97.1 F 111 16 113/64 96 11/03/19 00:54 11/03/19 00:54 11/03/19 00:54 11/03/19 00:54 11/03/19 00:54 Vital Signs Reviewed: Yes - [place] Coma Scale Best Eye Response: 4 - Spontaneous Best Motor Response: 6 - Obeys Commands Best Verbal Response: 4 - Confused Coma Scale Total: 14 Procedures - Sedation Patient Received Moderate/Deep Sedation with Procedure: No Diagnostics - Vital Signs Vital Signs Temp Pulse Resp BP Pulse Ox 11/03/19 02:26 103 18 121/91 96 11/03/19 02:00 105 17 96 11/03/19 01:56 107 26 121/76 95 11/03/19 01:26 112 15 135/78 94 11/03/19 01:09 112 21 95 11/03/19 00:57 114 13 113/64 95 11/03/19 00:54 97.1 F 111 16 113/64 96 - Laboratory Result Diagrams: 11/03/19 03:11 11/03/19 03:11 Lab Statement: Any lab studies that have been ordered have been reviewed, and results considered in the medical decision making process. - CT BRAIN CT CT Interpretation Completed By: Radiologist Summary of CT Findings: IMPRESSION: No acute intracranial abnormality. THIS REPORT WAS REVIEWED BY ED PHYSICIAN. - EKG 0316 Cardiac Rate: Tachycardia - rate of 102 BPM EKG Rhythm: Sinus Tachycardia Summary of EKG Findings: EKG showed sinus tachycardia with rate of 102 BPM, no STEMI. ED physician has reviewed and interpreted this EKG. Altered Mental Statu Course/Dx - Course Course Of Treatment: 64 year old female sent from home by family for mental status change. over last 1-2 days. family not present. patient has seemed confused. tonight had incontinence of urine. patient unable to give history. no significant findings on physical exam. workup shows electrolyte abnormalities. elevated troponin. uti. patient given iv fluids, rocephin. referred to hospitalist for admission. During ED course, patient received fluids and ceftriaxone sodium 2 gm, 100 mls @ 200 mls/hr IVPB. - Diagnoses Provider Diagnoses: UTI (urinary tract infection), Altered mental status, Elevated troponin - Provider Notifications Discussed Care Of Patient With: Tim Carpenter Time Discussed With Above Provider: 05:17 Instructed by Provider To: Other - Patient's case was discussed with Dr. Carpenter , Dr. Carpenter accepts for admission. Discharge ED - Sign-Out/Discharge Documenting (check all that apply): Patient Departure - admit - Discharge Plan Condition: Fair Disposition: ADMITTED TO [facility] Referrals: Germain Sears MD [Primary Care Provider] - - Billing Disposition and Condition Condition: FAIR Disposition: Admitted to [facility] - Attestation Statements Document Initiated by Scribe: Yes Documenting Scribe: NICOLETTE ATKINS Provider For Whom Juanibtim is Documenting (Include Credential): EMBER BERNABE MD Scribe Attestation: NICOLETTE Vasquez, scribed for EMBER BERNABE MD on 11/03/19 at 0626. Scribe Documentation Reviewed: Yes Provider Attestation: The documentation as recorded by the NICOLETTE marr accurately reflects the service I personally performed and the decisions made by me, EMBER BERNABE MD Status of Scribe Document: Viewed
[2019-11-03 03:16] LABS: ABS Lymphocytes 0.9 10^3/ul (1.0-4.8); ABS Monocytes 0.5 10^3/ul (0-0.8); ABS Neutrophils 8.2 10^3/ul (1.5-7.7); Eosinophil % 0.2 %; Hematocrit 35 % (35-47); Hemoglobin 11.6 g/dL (12.0-16.0); Lymphocyte % 9.2 %; Mean Corpuscular HGB Conc 33 g/dL (31-36); Mean Corpuscular Hemoglobin 28 pg (27-31); Mean Corpuscular Volume 85 fL (80-97); Mean Platelet Volume 9.2 fL (7.4-10.4); Platelet Count 173 10^3/uL (150-450); Red Blood Count 4.16 10^6 /uL (3.70-4.87); Red Cell Distribution Width 18 % (10-15); White Blood Count 9.7 10^3/uL (3.5-10.8)
[2019-11-03 03:22] LABS: INR 1.5 (0.82-1.09)
[2019-11-03 03:33] LABS: ALT 8 U/L (7-52); AST 11 U/L (13-39); Albumin 3.7 g/dL (3.2-5.2); Albumin/Globulin Ratio 1.2 (1-3); Alkaline Phosphatase 125 U/L (34-104); BUN/Creatinine Ratio 35.5 (8-20); Blood Urea Nitrogen 100 mg/dL (6-24); CO2 Carbon Dioxide 23 mmol/L (22-32); Calcium 9.5 mg/dL (8.6-10.3); Chloride 104 mmol/L (101-111); EGFR African American 20.5 (>60); Glucose 180 mg/dL (70-100); Sodium 135 mmol/L (135-145); Total Protein 6.7 g/dL (6.4-8.9)
[2019-11-03 03:40] LABS: Urine Appearance Cloudy; Urine Bilirubin Negative (Negative); Urine Blood 1+ (Negative); Urine Color Yellow; Urine Glucose Negative (Negative); Urine Ketones Negative (Negative); Urine Nitrite Negative (Negative); Urine Protein Negative (Negative); Urine Specific Gravity 1.017 (1.010-1.030); Urine Urobilinogen Negative (Negative)
[2019-11-03 03:43] LABS: Urine Bacteria 1+ (Absent); Urine Red Blood Cell 1+(3-5/hpf) (Absent); Urine Squamous Epithelial Cell Present (Absent); Urine White Blood Cell 3+(>20/hpf) (Absent)
[2019-11-03 03:44] LABS: Troponin I 0.07 ng/mL (<0.03)
[2019-11-03 03:54] LABS: Anion Gap 8 mmol/L (2-11); Potassium 5.6 mmol/L (3.5-5.0)
[2019-11-03 03:55] LABS: Alcohol < 10 mg/dL (<10)
[2019-11-03 04:01] LABS: Urine Benzodiazepine Screen None Detected (None Detect); Urine Opiates Screen Presumptive Positive (None Detect)
[2019-11-03] MEDS ORDERED: cefTRIAXone(*) 2 GM in NS 0.9% 100 ML* 100 ML IVPB ONE (05:00)
[2019-11-03] MEDS ORDERED: NS 0.9% 1000 ML** 1,000 ML IV SCH (05:45)
[2019-11-03] MEDS ORDERED: Patiromer POWDER* 8.4 GM PAK PO ONE (05:46)
[2019-11-03] MEDS ORDERED: CMC:LoraTADine TAB(NF) 10 MG TAB (AUTOSUB to CETIRIZINE) PO PRN (05:47)
[2019-11-03] MEDS ORDERED: tiZANidine TAB* 2 MG PO PRN (05:47)
[2019-11-03] MEDS ORDERED: Albuterol/Ipratropium NEB.SOL* Albuterol 2.5 MG/Ipratropium 0.5 MG 3 ML INH PRN (05:52)
[2019-11-03] MEDS ORDERED: Ondansetron INJ* 2 MG/ML VIAL IV PRN (05:52)
[2019-11-03] MEDS ORDERED: Morphine TAB Extended Release (*) 30 MG TAB.ER PO PRN (06:00)
[2019-11-03] MEDS ORDERED: Morphine TAB Extended Release (*) 30 MG TAB.ER PO SCH (06:00)
[2019-11-03 06:25] LABS: TSH (Thyroid Stimulating Horm) 3.26 mcIU/mL (0.34-5.60)
[2019-11-03 06:25] LABS: Troponin I 0.06 ng/mL (<0.03)
[2019-11-03] MEDS ORDERED: Dextrose 50% VIAL 50 ml IV PUSH PRN (07:34)
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
[2019-11-03] MEDS ORDERED: Docusate CAP* 100 MG PO SCH (09:00)
[2019-11-03] MEDS ORDERED: metFORMIN* 500 MG TAB PO SCH (09:00)
[2019-11-03] MEDS ORDERED: Ferrous Sulfate TAB* 325 MG PO SCH (09:00)
[2019-11-03] MEDS: Venlafaxine EXT RELEASE CAP* 75 MG PO SCH (09:47)
[2019-11-03] MEDS: Pantoprazole TAB * 40 MG TAB PO SCH (09:48)
[2019-11-03] MEDS: Magnesium Oxide TAB* 400 MG PO SCH ×2 (09:48→20:53)
[2019-11-03] MEDS: Cilostazol TAB* 100 MG PO SCH (09:48)
[2019-11-03] MEDS: Ferrous Sulfate TAB* 325 MG PO SCH (09:48)
[2019-11-03] MEDS: Levothyroxine TAB* 88 MCG TAB PO SCH (09:49)
[2019-11-03] MEDS: ARIPiprazole TAB* 5 MG PO SCH ×2 (09:49→20:53)
[2019-11-03] MEDS: Apixaban* 5 MG TAB PO SCH ×2 (09:49→20:53)
[2019-11-03] MEDS: Acetaminophen TAB* 325 MG PO PRN (09:52)
--- NOTE | 2019-11-03 11:28 | HP ---
CC: Dr. Sears * ADMISSION HISTORY AND PHYSICAL: DATE OF ADMISSION: 11/03/2019 PRIMARY CARE PROVIDER: Dr. Sears HEALTHCARE PROXY: The patient does not identify healthcare proxy. CODE STATUS: Full. SOURCE OF INFORMATION: History obtained from discussion with the ER provider, review of EMS records, review of [facility] records, and discussion with the patient. RELIABILITY: Records is excellent, from the patient is poor. CHIEF COMPLAINT: Confusion. HISTORY OF PRESENT ILLNESS: This is a 64-year-old female, last hospital stay at [facility] in July of 2019 with anemia, acute kidney injury, found at her home and as well as bedbugs. Home was thought to be in disarray at that time, whose family reported she had been "out of it" for 1 to 2 days prior to presentation, found her today sitting in the chair, increasingly confused, not acting like herself. Ultimately today, she had an episode of incontinence, was not answering questions, and EMS was activated. EMS arrived, they found the patient sitting at the kitchen chair. Discussed with family that she was last seen while a nrg-cyp-p-half ago. Family notes that the patient normally is able to hold clear and fully oriented conversations, but now is not answering questions with her episodes of staring off like her eyes are "bugging out of her head." The patient was able to walk with the EMS stretcher and answered a few questions, but at times would not speak at all to EMS. The patient in emergency room was unable to relay within a similar capacity, partially oriented , but unable to relay significant portion of her history to this author. She had no complaints at this time. PAST MEDICAL HISTORY: Includes COPD; hypertension; hyperlipidemia; type 2 diabetes; bipolar disorder; history of venous thromboembolism, on Eliquis, unknown provoked or unprovoked; history of CKD; history of TIA; hypothyroidism; depression; history of chronic pain, on high-dose narcotics; bedbugs, last treated in July; anemia; history of left total knee replacement; cholecystectomy; x2, and tonsillectomy. MEDICATIONS: Not fully reviewed. The patient does have multiple bags of medications with many duplicates. She indicates there is a reason for this, but then never is able to tell this author. Medications include: 1. Trazodone 300 mg at bedtime. 2. Tizanidine 4 mg 3 times a day as needed. 3. Metformin in the computer is listed as 1000 mg twice daily, but I believe it is 500 twice daily on her medications. 4. Venlafaxine 225 mg daily. 5. Omeprazole 40 mg daily. 6. Morphine sulfate 15 mg 3 times a day as needed. This medication dose was confirmed from [facility] and has been recently prescribed from Dr. Sears. 7. Magnesium oxide 400 mg twice daily. 8. Loratadine 10 mg daily as needed. 9. Levothyroxine 88 mcg daily. 10. Ferrous sulfate 325 mg twice daily. 11. Pletal 100 mg daily. 12. Abilify 10 mg twice daily. Other medications: Either no longer on med list or not present. ALLERGIES: Include ADHESIVE TAPE, WELLBUTRIN, CELEXA, KLONOPIN, DEXTROMETHORPHAN, DIPHENHYDRAMINE, DEPAKOTE, DULOXETINE, LUNESTA, PROZAC, GABAPENTIN, GUAIFENESIN, METAXALONE, NAPROXEN, PENICILLIN, PHENYLEPHRINE, PINEAPPLE, PREDNISONE, PSEUDOEPHEDRINE, and ZOLOFT. FAMILY HISTORY: Unable to obtain from the patient. SOCIAL HISTORY: She is a 30-year smoker. She has quit. Cannot indicate whether she is drinking alcohol currently. REVIEW OF SYSTEMS: Largely unable to obtain. PHYSICAL EXAMINATION GENERAL: Older than stated age, sitting up in bed, staring. VITAL SIGNS: In the emergency room, 121/91, heart rate between 102 and 114, respiratory rate is 18, she is 96% on room air, T-max 97.1. HEENT: Her oropharynx is clear. She has dry mucous membranes. Her sclerae are anicteric. Her eyes do have a bulging quality. LUNGS: Her lungs have faint rales in bilateral bases. HEART: She is tachycardic with a regular rhythm. No murmurs. ABDOMEN: Her abdomen has slight tenderness throughout, mostly in the suprapubic region. EXTREMITIES: Warm and well perfused. She has no clubbing, cyanosis, or edema. SKIN: Her skin does indicate some area of skin breakdown, linear fashion, of her right shoulder and her lower back, which may be excoriation or represent bedbugs infestation. NEUROLOGIC: She is oriented x2 to herself, hospital, and [facility] , but does not respond when asked what year it is with multiple attempts. She is unable to tell me why she has multiple medications. She is able to follow simple commands. She tells me she lives with her family. She can move all of her extremities. Her cranial nerves II through XII are intact. Her pupils are equal, round, and reactive to light as indicated above. Frequent episodes of staring, but also interactive with other parts of a conversation. No anxiety, agitation, or depression. Her language is also fluent when she talks without hesitation or slurring. DIAGNOSTIC STUDIES/LABORATORY DATA: Labs reviewed notable for white blood cell count 9.7, hemoglobin 11.6, platelets 173. INR is 1.5. Potassium is 5.6, BUN is 100, creatinine is 2.8, glucose is 180, troponin I is 0.07. I have added on a TSH, which is still pending at this point. Urine is positive for opioids, negative for alcohol and all other substances. Her urine is positive for blood, leuk esterase, white blood cells, squamous epithelial cells, and bacteria. Specific gravity is 1.017. EKG: Sinus tachycardia, left axis, normal intervals, normal R wave progression , no ST or T-wave changes except for maybe T inversion in aVL. No Qs. Brain CT: No acute intracranial abnormalities. ASSESSMENT AND PLAN: This is a 64-year-old female with past medical history of recent hospital for anemia as well as bedbugs presenting with altered mental status. Metabolic encephalopathy suspected in the setting of urinary tract infection, especially in the setting of acute kidney injury also identified during this hospital stay. I think less likely acute coronary syndrome despite elevated troponin nor acute stroke in the setting of otherwise nonfocal exam and the presence of other findings such as suprapubic tenderness consistent with urinary tract infection as well urinalysis and kidney failure. We will treat suspected urinary tract infection, receiving ceftriaxone now, continue tomorrow , await cultures. Potential toxic encephalopathy concomitant with metabolic in the setting of large opioid doses, although unclear that is changed. May be difficult for her to manage her own medication. She has large doses of morphine. I have not changed her morphine dose at this time likely etiology and the patient is not lethargic at all. She is awake and interactive just otherwise intermittently oriented. Doubt seizures, again as the patient does not have staring spells just occasionally does not answer questions, although that should be maintained on the differential, low suspicion to check EEG. Hyperkalemia, patiromer , suspect in the setting of new kidney injury. Acute kidney injury with elevated BUN, unclear how long this has been going on. Suspect urinary tract infection, also likely prerenal component given how dry this patient is. She has received a liter of normal saline. We will start another liter at 100 cc/hour. She does have rales in her base, we will check chest x-ray now. Previous echocardiogram indicated diastolic heart dysfunction , but no decreased left ventricular ejection fraction. Bladder scan now had 12 cc. Renal, bladder ultrasound pending. Chronic pain, continue home medications as indicated above. History of thromboembolism, recommendation was to discontinue Eliquis after her last discharge, however, the patient does currently have this medication in her possession and reports that she is taking it at home. We will continue Eliquis 5 mg b.i.d. Type 2 diabetes, continue metformin. Elevated troponin. Elevated at her last hospital stay, although this is higher. Last hospital stay peaked at 0.50, suspect may have underlying coronary artery disease if she repeatedly bumps her troponin in the setting of stress. Acute kidney injury as noted in the setting of this elevated troponin. Repeat troponin pending now. No EKG changes nor chest pain to suggest non-ST- elevation myocardial infarction. Pending studies at the time of this dictation include a TSH and troponin. [id number][place] [place]: [id number] [facility] [facility]
[2019-11-03] MEDS: Insulin LISPRO* 1 UNITS UNIT SUBCUT SCH ×2 (13:02→16:50)
[2019-11-03] MEDS: Nystatin TOP POWDER* 15 GM BTL TOPICAL SCH ×2 (16:48→20:53)
[2019-11-03] MEDS ORDERED: traZODone TAB* 100 MG PO SCH (21:00)
[2019-11-04] MEDS: Levothyroxine TAB* 88 MCG TAB PO SCH (04:45)
[2019-11-04] MEDS: cefTRIAXone(*) 1 GM in NS 0.9% 50 ML* 50 ML IVPB SCH (04:45)
[2019-11-04 05:31] LABS: BUN/Creatinine Ratio 43.2 (8-20); Calcium 8.6 mg/dL (8.6-10.3); EGFR Non-African American 33.9 (>60); Magnesium 1.7 mg/dL (1.9-2.7)
[2019-11-04] MEDS: Insulin LISPRO* 1 UNITS UNIT SUBCUT SCH ×3 (07:54→18:53)
[2019-11-04] MEDS: Apixaban* 5 MG TAB PO SCH ×2 (08:42→21:27)
[2019-11-04] MEDS: Nystatin TOP POWDER* 15 GM BTL TOPICAL SCH ×3 (08:42→21:28)
[2019-11-04] MEDS: Pantoprazole TAB * 40 MG TAB PO SCH (08:43)
[2019-11-04] MEDS: Magnesium Oxide TAB* 400 MG PO SCH ×2 (08:43→21:28)
[2019-11-04] MEDS: Venlafaxine EXT RELEASE CAP* 75 MG PO SCH (08:43)
[2019-11-04] MEDS: Ferrous Sulfate TAB* 325 MG PO SCH (08:43)
[2019-11-04] MEDS: Cilostazol TAB* 100 MG PO SCH (08:43)
[2019-11-04] MEDS: ARIPiprazole TAB* 5 MG PO SCH ×2 (08:44→21:27)
--- NOTE | 2019-11-04 10:21 | PN ---
Subjective Date of Service: 11/04/19 Interval History: Pt is feeling ok this AM. She denies any pain or SOB. No issues with bowels. She states she was up walking in her room this AM. Objective Active Medications: Acetaminophen (Tylenol Tab*) 650 mg PO Q4H PRN PRN Reason: PAIN - MILD Last Admin: 11/03/19 09:52 Dose: 650 mg Albuterol/Ipratropium (Duoneb (Albuterol 2.5 Mg/Ipratropium 0.5 Mg)) 1 neb INH RT.[id number] AWAKE PRN PRN Reason: sob/wheexing Apixaban (Eliquis*) 5 mg PO BID [facility] Last Admin: 11/04/19 08:42 Dose: 5 mg Aripiprazole (Abilify Tab*) 10 mg PO BID [facility] Last Admin: 11/04/19 08:44 Dose: 10 mg Cilostazol (Pletal Tab*) 100 mg PO DAILY [facility] Last Admin: 11/04/19 08:43 Dose: 100 mg Dextrose (Dextrose 50% Vial 50 Ml*) 25 ml IV PUSH .FOR FS < 60 - SS PRN PRN Reason: FS < 60 Ferrous Sulfate (Ferrous Sulfate Tab*) 325 mg PO DAILY [facility] Last Admin: 11/04/19 08:43 Dose: 325 mg Ceftriaxone Sodium 1 gm/ (Sodium Chloride) 50 mls @ 100 mls/hr IVPB Q24H [facility] Last Admin: 11/04/19 04:45 Dose: 100 mls/hr Insulin Human Lispro (Humalog*) 0 units SUBCUT AC [facility]; Protocol Last Admin: 11/04/19 07:54 Dose: Not Given Levothyroxine Sodium (Synthroid Tab*) 88 mcg PO DAILY@0600 [facility] Last Admin: 11/04/19 04:45 Dose: 88 mcg Magnesium Oxide (Magox 400 Tab*) 400 mg PO BID [facility] Last Admin: 11/04/19 08:43 Dose: 400 mg Nystatin (Nystatin Top Powder*) 1 applic TOPICAL TID [facility] Last Admin: 11/03/19 20:53 Dose: 1 dose Pantoprazole Sodium (Protonix Tab*) 40 mg PO QAM [facility] Last Admin: 11/04/19 08:43 Dose: 40 mg Venlafaxine HCl (Effexor Xr Cap*) 225 mg PO DAILY [facility] Last Admin: 11/04/19 08:43 Dose: 225 mg Vital Signs - 8 hr 11/04/19 11/04/19 11/04/19 03:32 08:00 08:36 Temperature 97.3 F 98.2 F Pulse Rate 94 85 Respiratory 16 16 12 Rate Blood Pressure 122/64 112/49 (mmHg) O2 Sat by Pulse 98 100 Oximetry Oxygen Devices in Use Now: None Appearance: Middle aged female sitting up in a chair, NAD Eyes: No Scleral Icterus Ears/Nose/Mouth/Throat: Mucous Membranes Moist Respiratory: Symmetrical Chest Expansion and Respiratory Effort, Clear to Auscultation Cardiovascular: NL Sounds; No Murmurs; No JVD, RRR, No Edema Abdominal: NL Sounds; No Tenderness; No Distention Extremities: No Clubbing, Cyanosis Skin: No Nodules or Sclerosis Neurological: Alert and Oriented x 3, - - falt affect Result Diagrams: 11/03/19 03:11 11/04/19 04:43 Assess/Plan/Problems-Billing Ms Godoy is a 64 obese woman with HTN, CKD, COPD, DM2, DVT on Eliquis, hypothyroid, MDD, chronic pain, unsafe living conditions, presents with altered mental status. Seems her PCP started her on high-dose opioids after she was off opioids for 7 months (and discharged from here, to rehab, 3 months ago without opioids). Also with abnormal UA but without dysuria or other signs of infection. - Patient Problems (1) Altered mental status Current Visit: Yes Status: Acute Code(s): R41.82 - ALTERED MENTAL STATUS, UNSPECIFIED SNOMED Code(s): 510678618 Comment: Likely from morphine use, given recent restart of high morphine dose by outpatient provider after 7 month hiatus. Improved without intervention. Possibly also with UTI, given concerning UA. Will continue ceftriaxone for now and await the culture. Pt should not be restarted on morphine, tizanidine or trazodone. (2) Acute renal failure Current Visit: Yes Status: Acute Comment: Likley secondary to poor oral intake prior to admission. Renal function improved today but still not quite at baseline. Will get follow up labs tomorrow. (3) Chronic pain Current Visit: Yes Status: Chronic Code(s): G89.29 - OTHER CHRONIC PAIN SNOMED Code(s): 08824134 Comment: Pt now off long acting morphine. I do not feel that she needs this medication at this time. Monitor off the morphine for worsened pain and offer non-narcotic therapies to treat her pain. (4) Living accommodation issues Current Visit: Yes Status: Acute Code(s): Z59.8 - OTHER PROBLEMS RELATED TO HOUSING AND ECONOMIC CIRCUMSTANCES SNOMED Code(s): 209583362 Comment: Will ask social work to follow up about her home living situations. She reportedly had bed bugs when she arrived to the hospital. It is unclear if it is safe for her to return home. (5) Anemia Current Visit: Yes Status: Acute Code(s): D64.9 - ANEMIA, UNSPECIFIED SNOMED Code(s): 484953590 Comment: H/H stable. Continue to monitor. (6) Diabetes Current Visit: Yes Status: Chronic Code(s): E11.9 - TYPE 2 DIABETES MELLITUS WITHOUT COMPLICATIONS SNOMED Code(s): 56546722 Comment: Pt should remain off metformin given her stage III CKD. Sugars are under excellent control currently. Last A1c was 5.8% in July. (7) History of venous thromboembolism Current Visit: Yes Status: Acute Code(s): Z86.718 - PERSONAL HISTORY OF OTHER VENOUS THROMBOSIS AND EMBOLISM SNOMED Code(s): 171942350 Comment: Continue eliquis. (8) Bipolar depression Current Visit: Yes Status: Chronic Code(s): F31.30 - BIPOLAR DISORD, CRNT EPSD DEPRESS, MILD OR MOD SEVERT, UNSP SNOMED Code(s): 770085440 Comment: Continue abilify and effexor. (9) Hypothyroid Current Visit: Yes Status: Chronic Code(s): E03.9 - HYPOTHYROIDISM, UNSPECIFIED SNOMED Code(s): 58984197 Comment: Continue current dose of synthroid. (10) COPD (chronic obstructive pulmonary disease) Current Visit: Yes Status: Acute Code(s): J44.9 - CHRONIC OBSTRUCTIVE PULMONARY DISEASE, UNSPECIFIED SNOMED Code(s): 49650182 Comment: No signs of exacerbation. Not on any inhalers. (11) DVT prophylaxis Current Visit: Yes Status: Acute Onset Date: 03/04/15 Code(s): QFY1171 - SNOMED Code(s): 662736203 Comment: [place] (12) Full code status Current Visit: Yes Status: Chronic Code(s): Z78.9 - OTHER SPECIFIED HEALTH STATUS SNOMED Code(s): 894195289 Comment:
[2019-11-05] MEDS: Levothyroxine TAB* 88 MCG TAB PO SCH (05:53)
[2019-11-05] MEDS: cefTRIAXone(*) 1 GM in NS 0.9% 50 ML* 50 ML IVPB SCH (05:53)
[2019-11-05] MEDS: Insulin LISPRO* 1 UNITS UNIT SUBCUT SCH (09:01)
[2019-11-05 09:32] VITALS: BP 101/61
[2019-11-05] MEDS: Acetaminophen TAB* 325 MG PO PRN (09:41)
[2019-11-05] MEDS: Pantoprazole TAB * 40 MG TAB PO SCH (09:41)
[2019-11-05] MEDS: Ferrous Sulfate TAB* 325 MG PO SCH (09:41)
[2019-11-05] MEDS: Magnesium Oxide TAB* 400 MG PO SCH (09:41)
[2019-11-05] MEDS: Venlafaxine EXT RELEASE CAP* 75 MG PO SCH (09:41)
[2019-11-05] MEDS: ARIPiprazole TAB* 5 MG PO SCH (09:41)
[2019-11-05] MEDS: Cilostazol TAB* 100 MG PO SCH (09:41)
[2019-11-05] MEDS: Apixaban* 5 MG TAB PO SCH (09:41)
[2019-11-05] MEDS: Nystatin TOP POWDER* 15 GM BTL TOPICAL SCH (09:43)
--- NOTE | 2019-11-05 20:49 | DS ---
CC: Dr. Germain Seras * DISCHARGE SUMMARY: DATE OF ADMISSION: 11/03/19 DATE OF DISCHARGE: 11/05/19 PRIMARY CARE PROVIDER: Dr. Germain Sears. ATTENDING PHYSICIAN: Dr. Dylan Hedrick.* (DICTATED BY JENIFER BAEZA NP) PRIMARY DIAGNOSES: 1. Toxic encephalopathy secondary to narcotics. 2. Oxyil-uf-yqicekg kidney injury. 3. Urinary tract infection. SECONDARY DIAGNOSES: 1. Diabetes mellitus type 2. 2. History of venous thromboembolism. 3. Anemia. 4. Bipolar. 5. Hypothyroidism. 6. Chronic obstructive pulmonary disease. STUDIES WHILE IN THE HOSPITAL: 1. Brain CT on 11/03/19 reads as no acute intracranial abnormality. 2. EKG on 11/03/19 shows sinus tachycardia with a rate of 102, QTc 459. No significant change when compared with prior. 3. Chest x-ray on 11/03/19 reads as no active disease is noted. No significant changes noted since previous exam on 01/24/18. 4. Renal ultrasound on 11/03/19 reads as no hydronephrosis was noted. Limited evaluation, left kidney. HISTORY OF PRESENT ILLNESS AND HOSPITAL COURSE: Ms. Godoy is a 64-year-old female with past medical history of COPD, hypertension, hyperlipidemia, diabetes mellitus type 2, bipolar, VTE, on anticoagulation, CKD and chronic pain , who presents to the emergency room on 11/03/19 with confusion. Please see the history and physical by Dr. Carpenter for complete summary of the events leading up to this hospitalization. In short, the patient's family felt that she has been not acting quite like herself for 1 to 2 days prior to presentation and this was progressively getting worse, so they called EMS. In the emergency room, the patient had imaging as noted above. She had lab work which was remarkable for an elevated creatinine at 2.82 and a dirty urinalysis. She was admitted by the hospitalist service. The patient was started on ceftriaxone for treatment of urinary tract infection. It was felt as though her altered mental status was likely a combination of urinary tract infection and narcotic use. Of note, the patient had previously been on narcotics and had been off narcotics for 7 months until recently being restarted on morphine, tizanidine and trazodone. It is not entirely clear why these medications were restarted. When antibiotics were administered and narcotics were held, the patient's mental status quickly returned to baseline. The acute kidney injury resolved with some IV fluids. Glucose was noted to be under good control. Urine culture ultimately resulted today with greater than 100,000 colonies of Proteus mirabilis. Today, the patient reports feeling well and she would like to return home. She does report that she feels her home situation is safe and she has no concerns. Also of note, the patient is already involved with [facility]. PHYSICAL EXAM: On exam, she is alert and oriented x4 without focal neurological deficits. Heart has a regular rate and rhythm without murmurs, rubs, or gallops. Lungs are clear to auscultation without rhonchi, wheezes, or rubs. There is no edema. Physical exam is otherwise benign. Ms. Godoy is stable for discharge. Most recent vitals are as follows: Temp 98 , heart rate 75, respiratory rate 20, oxygen saturation 100% on room air, blood pressure 101/61. DISCHARGE MEDICATIONS: New medications: 1. Cefdinir 300 mg p.o. b.i.d. x4 days. 2. Nystatin powder 1 application topically t.i.d. Changed medications: 1. Metformin 500 mg p.o. b.i.d. (previously was 1000 mg b.i.d.). 2. Acetaminophen 1000 mg p.o. q.6 hours p.r.n. pain (previously was 650 mg q.4 hours). Continued medications: 1. Albuterol MDI 2 puffs q.4 hours p.r.n. shortness of breath, wheezing. 2. Eliquis 5 mg p.o. b.i.d. 3. Abilify 10 mg p.o. b.i.d. 4. Pletal 100 mg p.o. daily. 5. Docusate 100 mg p.o. b.i.d. 6. Ferrous sulfate 325 mg p.o. b.i.d. 7. Levothyroxine 88 mcg p.o. daily. 8. Loratadine 10 mg p.o. daily p.r.n. allergy symptoms. 9. Lovastatin 40 mg p.o. daily. 10. Magnesium oxide 400 mg p.o. b.i.d. 11. Montelukast 10 mg p.o. at bedtime p.r.n. allergy symptoms. 12. Omeprazole 40 mg p.o. daily. 13. Valacyclovir 500 mg p.o. daily. 14. Venlafaxine 225 mg p.o. daily. Discontinued medications: 1. Morphine. 2. Tizanidine. 3. Trazodone. DISCHARGE PLAN: Ms. Godoy will be discharged to home with her daughter. Activity will be as tolerated. Diet will be regular as tolerated. Medications are noted above. The patient will need to complete an additional 4 days of cefdinir to complete a total of 7 days of antibiotic therapy for her urinary tract infection. She can take extra strength Tylenol 4 times a day for pain, though should not take any narcotics or muscle relaxers. I did decrease her metformin dosing due to GFR. Recommendations based on her GFR of 30 indicate that she should not receive more than 1000 mg daily, so I have cut her dose in half. She can continue her other usual medications as noted above. She will need to follow up with her primary care provider in the next 4 to 7 days and we have made an appointment for her on 11/08/19 at 3:30 p.m. She should use her walker at all times as recommended by physical therapy. She should return to the emergency room or nearest hospital for any worsening symptoms, shortness of breath, lightheadedness, dizziness, chest discomfort, high fevers, chills, night sweats, loss of consciousness, or any other worrisome signs and symptoms. DISCHARGE CONDITION: Stable. DISCHARGE DISPOSITION: Home. This is a summarized report of a complex medical history and hospital stay. For further details, please see the entire medical record. TIME SPENT: Approximately 45 minutes was spent on this discharge. JENIFER BAEZA, NICOLE [id number]/[facility] #: [id number] [place]
== END 2019-11-05 12:50 | disposition home or self-care (01) | DRG 463 ==
LOC: ED 00:43 → MEDTELE 05:52
PROVIDERS: ADMIT Internal Medicine; ATTEND Internal Medicine
DX: N39.0 Urinary tract infection, site not specified (principal); G92 Toxic encephalopathy; N17.9 Acute kidney failure, unspecified; B96.4 Proteus (mirabilis) (morganii) as the cause of diseases classified elsewhere; E78.00 Pure hypercholesterolemia, unspecified; J44.9 Chronic obstructive pulmonary disease, unspecified; K21.9 Gastro-esophageal reflux disease without esophagitis; K58.9 Irritable bowel syndrome, unspecified; M19.90 Unspecified osteoarthritis, unspecified site; M79.7 Fibromyalgia; M41.9 Scoliosis, unspecified; E11.39 Type 2 diabetes mellitus with other diabetic ophthalmic complication; H42 Glaucoma in diseases classified elsewhere; G43.909 Migraine, unspecified, not intractable, without status migrainosus; F41.0 Panic disorder [episodic paroxysmal anxiety]; F43.10 Post-traumatic stress disorder, unspecified; F20.9 Schizophrenia, unspecified; F31.9 Bipolar disorder, unspecified; F90.9 Attention-deficit hyperactivity disorder, unspecified type; F40.240 Claustrophobia; Z96.652 Presence of left artificial knee joint; R79.89 Other specified abnormal findings of blood chemistry; E78.5 Hyperlipidemia, unspecified; E11.22 Type 2 diabetes mellitus with diabetic chronic kidney disease; I12.9 Hypertensive chronic kidney disease with stage 1 through stage 4 chronic kidney disease, or unspecified chronic kidney disease; G89.29 Other chronic pain; E03.9 Hypothyroidism, unspecified; N18.3 Chronic kidney disease, stage 3 (moderate); D63.1 Anemia in chronic kidney disease; T40.2X5A Adverse effect of other opioids, initial encounter; E87.5 Hyperkalemia; Z86.718 Personal history of other venous thrombosis and embolism; Y92.009 Unspecified place in unspecified non-institutional (private) residence as the place of occurrence of the external cause; Z91.018 Allergy to other foods; Z88.8 Allergy status to other drugs, medicaments and biological substances; Z88.0 Allergy status to penicillin; Z86.711 Personal history of pulmonary embolism; Z86.73 Personal history of transient ischemic attack (TIA), and cerebral infarction without residual deficits; Z91.5 Personal history of self-harm; Z87.891 Personal history of nicotine dependence; Z79.890 Hormone replacement therapy; Z79.84 Long term (current) use of oral hypoglycemic drugs; Z79.02 Long term (current) use of antithrombotics/antiplatelets
CPT/HCPCS: 36415; 70450; 71046; 76775; 80048; 80053; 80307; 80320; 81003; 81015; 82140; 83605; 83735; 84443; 84484; 85025; 85610; 87077; 87086; 87186; 93005; 99284; A9270-GY; G0480; J0696

== ENCOUNTER 2020-02-11 05:55 | Inpatient (IN) | payer OTHER ==
[2020-02-11] MEDS ORDERED: Dexamethasone IV 4 MG/ML VIAL 1 ml VIAL IV SLOW PU ONE (06:02)
[2020-02-11] MEDS ORDERED: Magnesium Sulfate 2 gm BAG 2 GM/50 ML BAG IVPB ONE (06:02)
[2020-02-11 06:39] LABS: ABS Eosinophils 0.7 10^3/ul (0-0.6); ABS Monocytes 0.7 10^3/ul (0-0.8); Eosinophil % 4.5 %; Hematocrit 32 % (35-47); Hemoglobin 10.1 g/dL (12.0-16.0); Lymphocyte % 6.4 %; Mean Corpuscular HGB Conc 31 g/dL (31-36); Mean Corpuscular Hemoglobin 25 pg (27-31); Mean Corpuscular Volume 80 fL (80-97); Mean Platelet Volume 9.1 fL (7.4-10.4); Platelet Count 214 10^3/uL (150-450); Red Blood Count 4.06 10^6 /uL (3.70-4.87); Red Cell Distribution Width 20 % (10-15); White Blood Count 15.2 10^3/uL (3.5-10.8)
[2020-02-11 06:54] LABS: Albumin 3.6 g/dL (3.2-5.2); Albumin/Globulin Ratio 1.2 (1-3); BUN/Creatinine Ratio 19.7 (8-20); Calcium 8.8 mg/dL (8.6-10.3); EGFR African American 43.6 (>60); Globulin 3.1 g/dL (2-4); Potassium 4.8 mmol/L (3.5-5.0); Total Bilirubin 0.2 mg/dL (0.2-1.0); Total Protein 6.7 g/dL (6.4-8.9)
[2020-02-11 06:55] LABS: Troponin I 0.01 ng/mL (<0.03)
[2020-02-11 06:55] LABS: INR 1.09 (0.82-1.09)
[2020-02-11 07:57] LABS: Urine Appearance Cloudy; Urine Bilirubin Negative (Negative); Urine Blood Negative (Negative); Urine Color Yellow; Urine Glucose 2+(150 mg/dL) (Negative); Urine Ketones Negative (Negative); Urine Nitrite Negative (Negative); Urine Protein 2+(100 mg/dL) (Negative); Urine Specific Gravity 1.015 (1.010-1.030); Urine Urobilinogen Negative (Negative)
[2020-02-11 08:06] LABS: Urine Bacteria Absent (Absent); Urine Red Blood Cell 2+(6-10/hpf) (Absent); Urine Squamous Epithelial Cell Present (Absent); Urine White Blood Cell 2+(11-20/hpf) (Absent)
[2020-02-11] MEDS ORDERED: MORPHINE SULFATE 30 MG PO PRN (10:52)
[2020-02-11] MEDS ORDERED: Dextrose 50% Syringe 50 ml 25 GM/50 ML SYRINGE IV PUSH PRN (10:58)
[2020-02-11] MEDS: cefTRIAXone ADVAN VIAL 1 GM in NS 0.9% 50 ML 50 ML IVPB SCH (11:55)
[2020-02-11] MEDS ORDERED: Furosemide 40 mg/4 ml IV VIAL IV ONE (17:00)
[2020-02-11 17:17] LABS: C Reactive Protein 3.92 mg/L (<8.01)
[2020-02-11] MEDS: Albuterol HFA INHALER 8 gm MDI INH PRN (17:58)
[2020-02-12 07:44] LABS: ABS Lymphocytes 0.9 10^3/ul (1.0-4.8); ABS Monocytes 0.9 10^3/ul (0-0.8); Eosinophil % 0.1 %; Hematocrit 33 % (35-47); Hemoglobin 10.1 g/dL (12.0-16.0); Lymphocyte % 6.6 %; Mean Corpuscular HGB Conc 31 g/dL (31-36); Mean Corpuscular Hemoglobin 25 pg (27-31); Mean Corpuscular Volume 79 fL (80-97); Platelet Count 215 10^3/uL (150-450); Red Blood Count 4.12 10^6 /uL (3.70-4.87); Red Cell Distribution Width 21 % (10-15); White Blood Count 13.7 10^3/uL (3.5-10.8)
[2020-02-12] MEDS: FLUTICASONE/UMECLIDIN/VILANTER 1 PUFF MDI INH SCH (07:56)
[2020-02-12 08:08] LABS: Calcium 9.5 mg/dL (8.6-10.3)
[2020-02-12 08:11] LABS: Potassium 5.2 mmol/L (3.5-5.0)
[2020-02-12 08:14] LABS: BUN/Creatinine Ratio 27.9 (8-20); EGFR African American 60.3 (>60); EGFR Non-African American 49.8 (>60)
[2020-02-12] MEDS: Venlafaxine XR 75 mg PO SCH (08:41)
[2020-02-12] MEDS ORDERED: Venlafaxine XR 75 mg PO SCH (09:00)
[2020-02-12] MEDS: cefTRIAXone ADVAN VIAL 1 GM in NS 0.9% 50 ML 50 ML IVPB SCH (10:32)
[2020-02-12] MEDS: Albuterol HFA INHALER 8 gm MDI INH PRN (18:15)
[2020-02-13 06:42] LABS: BUN/Creatinine Ratio 34.2 (8-20); EGFR African American 56.7 (>60); EGFR Non-African American 46.9 (>60); Potassium 4.6 mmol/L (3.5-5.0)
[2020-02-13 06:48] LABS: ABS Eosinophils 0.5 10^3/ul (0-0.6); ABS Lymphocytes 1.3 10^3/ul (1.0-4.8); ABS Monocytes 0.9 10^3/ul (0-0.8); Eosinophil % 4.2 %; Hematocrit 33 % (35-47); Hemoglobin 10.2 g/dL (12.0-16.0); Lymphocyte % 10.4 %; Mean Corpuscular HGB Conc 31 g/dL (31-36); Mean Corpuscular Hemoglobin 25 pg (27-31); Mean Corpuscular Volume 81 fL (80-97); Mean Platelet Volume 8.6 fL (7.4-10.4); Nucleated Red Blood Cells % 0.3; Platelet Count 210 10^3/uL (150-450); Red Blood Count 4.11 10^6 /uL (3.70-4.87); Red Cell Distribution Width 21 % (10-15); White Blood Count 12.5 10^3/uL (3.5-10.8)
[2020-02-13] MEDS: Albuterol HFA INHALER 8 gm MDI INH PRN (07:37)
[2020-02-13] MEDS: FLUTICASONE/UMECLIDIN/VILANTER 1 PUFF MDI INH SCH (07:37)
[2020-02-13] MEDS: Venlafaxine XR 75 mg PO SCH (08:26)
[2020-02-13] MEDS: cefTRIAXone ADVAN VIAL 1 GM in NS 0.9% 50 ML 50 ML IVPB SCH (11:54)
[2020-02-13 12:13] VITALS: BP 132/73
[2020-02-13 12:27] LABS: TSH (Thyroid Stimulating Horm) 3.93 mcIU/mL (0.34-5.60)
== END 2020-02-13 15:10 | disposition home or self-care (01) | DRG 139 ==
LOC: ED 05:55 → MED 08:48
PROVIDERS: ADMIT Internal Medicine; ATTEND Internal Medicine

== ENCOUNTER 2020-05-28 12:53 | Inpatient (IN) ==
[2020-05-28] MEDS ORDERED: NS 0.9% 1000 ml BAG 1,000 ML IV ONE (13:10)
[2020-05-28 15:12] LABS: Hemoglobin 4.4 g/dL (12.0-16.0)
[2020-05-28 15:16] LABS: ABS Eosinophils 0.3 10^3/ul (0-0.6); ABS Lymphocytes 0.9 10^3/ul (1.0-4.8); ABS Monocytes 0.7 10^3/ul (0-0.8); ABS Neutrophils 8.6 10^3/ul (1.5-7.7); ABS Nucleated RBC 0.2 10^3/ul; Eosinophil % 2.4 %; Hematocrit 14 % (35-47); Lymphocyte % 8.7 %; Mean Corpuscular HGB Conc 32 g/dL (31-36); Mean Corpuscular Hemoglobin 25 pg (27-31); Mean Corpuscular Volume 78 fL (80-97); Mean Platelet Volume 7.9 fL (7.4-10.4); Nucleated Red Blood Cells % 1.4; Platelet Count 227 10^3/uL (150-450); Red Blood Count 1.78 10^6 /uL (3.70-4.87); Red Cell Distribution Width 20 % (10-15); White Blood Count 10.5 10^3/uL (3.5-10.8)
[2020-05-28 15:26] LABS: ALT 3 U/L (7-52); AST 7 U/L (13-39); Albumin/Globulin Ratio 1.2 (1-3); Alkaline Phosphatase 95 U/L (34-104); BUN/Creatinine Ratio 15.4 (8-20); Blood Urea Nitrogen 19 mg/dL (6-24); C Reactive Protein 4.71 mg/L (<8.01); CO2 Carbon Dioxide 21 mmol/L (22-32); Chloride 107 mmol/L (101-111); Creatine Kinase 29 U/L (10-223); EGFR African American 53.4 (>60); EGFR Non-African American 44.1 (>60); Globulin 2.6 g/dL (2-4); Glucose 129 mg/dL (70-100); Sodium 133 mmol/L (135-145); Total Protein 5.6 g/dL (6.4-8.9)
[2020-05-28 15:28] LABS: Anion Gap 5 mmol/L (2-11); Potassium 6.2 mmol/L (3.5-5.0); Troponin I 0.03 ng/mL (<0.03)
[2020-05-28 15:33] LABS: Microcytosis 2+; Polychromasia 2+
[2020-05-28 15:34] LABS: Spherocytes 1+
[2020-05-28] MEDS ORDERED: Pantoprazole VIAL 40 MG VIAL IV ONE (17:39)
[2020-05-28 17:56] LABS: Hematocrit 14 % (35-47); Mean Corpuscular HGB Conc 31 g/dL (31-36); Mean Corpuscular Hemoglobin 24 pg (27-31); Mean Corpuscular Volume 78 fL (80-97); Mean Platelet Volume 7.7 fL (7.4-10.4); Platelet Count 234 10^3/uL (150-450); Red Blood Count 1.72 10^6 /uL (3.70-4.87); Red Cell Distribution Width 20 % (10-15); White Blood Count 11.1 10^3/uL (3.5-10.8)
[2020-05-28 18:03] LABS: ABS Basophils 0.1 10^3/ul (0-0.2); ABS Eosinophils 0.6 10^3/ul (0-0.6); ABS Lymphocytes 1.3 10^3/ul (1.0-4.8); ABS Monocytes 0.9 10^3/ul (0-0.8); ABS Neutrophils 8.2 10^3/ul (1.5-7.7); ABS Nucleated RBC 0.2 10^3/ul; Eosinophil % 5.5 %; Hemoglobin 4.1 g/dL (12.0-16.0); Lymphocyte % 11.7 %; Nucleated Red Blood Cells % 1.6
[2020-05-28 18:16] LABS: BUN/Creatinine Ratio 15.1 (8-20); Blood Urea Nitrogen 18 mg/dL (6-24); CO2 Carbon Dioxide 19 mmol/L (22-32); Calcium 7.6 mg/dL (8.6-10.3); Chloride 110 mmol/L (101-111); EGFR African American 55.4 (>60); EGFR Non-African American 45.8 (>60); Glucose 113 mg/dL (70-100); Sodium 135 mmol/L (135-145)
[2020-05-28 18:19] LABS: Anion Gap 6 mmol/L (2-11); Potassium 5.8 mmol/L (3.5-5.0)
[2020-05-28 18:21] LABS: Troponin I 0.03 ng/mL (<0.03)
[2020-05-28 18:26] LABS: % Iron Saturation 71 % (15-55); Iron 247 ug/dL (50-212); Total Iron Binding Capacity 347 mcg/dL (250-450); Transferrin 248 mg/dL (203-362); Unsaturated Iron Binding 100 ug/dL
[2020-05-28 18:46] LABS: Ferritin 13.2 ng/mL (11-307)
[2020-05-28] MEDS ORDERED: Patiromer POWDER 8.4 GM PAK PO ONE (19:15)
[2020-05-28] MEDS: Pantoprazole 80 mg in NS BAG 80 MG/250 ML BAG IV SCH (19:27)
[2020-05-28 20:11] LABS: LDH 285 U/L (140-271)
[2020-05-28] MEDS: Morphine 2 MG/ML SYRINGE IV PRN (21:44)
[2020-05-29 01:26] LABS: INR 1.63 (0.82-1.09)
[2020-05-29 01:28] LABS: Anion Gap 5 mmol/L (2-11); Blood Urea Nitrogen 16 mg/dL (6-24); CO2 Carbon Dioxide 19 mmol/L (22-32); Calcium 7.1 mg/dL (8.6-10.3); Chloride 110 mmol/L (101-111); EGFR African American 48.8 (>60); EGFR Non-African American 40.3 (>60); Glucose 76 mg/dL (70-100); Sodium 134 mmol/L (135-145)
[2020-05-29 01:37] LABS: Troponin I 0.03 ng/mL (<0.03)
[2020-05-29 01:44] LABS: Urine Color Yellow
[2020-05-29 01:45] LABS: Urine Appearance Cloudy
[2020-05-29 01:46] LABS: Urine Blood N (Negative); Urine Ketones Negative (Negative); Urine Nitrite Positive (Negative); Urine Protein N (Negative); Urine Urobilinogen N (Negative)
[2020-05-29 01:47] LABS: Urine Bilirubin Negative (Negative); Urine Glucose N (Negative)
[2020-05-29 01:53] LABS: Hematocrit 21 % (35-47); Hemoglobin 6.6 g/dL (12.0-16.0)
[2020-05-29 02:18] LABS: Urine Bacteria 2+ (Absent); Urine White Blood Cell 3+(>20/hpf) (Absent)
[2020-05-29 02:22] LABS: Urine Squamous Epithelial Cell Present (Absent)
[2020-05-29 06:46] LABS: INR 1.49 (0.82-1.09)
[2020-05-29 06:55] LABS: BUN/Creatinine Ratio 12.5 (8-20); EGFR Non-African American 42.1 (>60)
[2020-05-29 07:40] LABS: Troponin I 0.02 ng/mL (<0.03)
[2020-05-29] MEDS ORDERED: cefTRIAXone 1 gm/50 mL NS BAG 1 GM/50 ML BAG IVPB SCH (08:00)
[2020-05-29] MEDS ORDERED: Lactated Ringers 1000 ml BAG 1,000 ML IV SCH (08:00)
[2020-05-29 08:09] LABS: ABS Basophils 0.1 10^3/ul (0-0.2); ABS Eosinophils 1.4 10^3/ul (0-0.6); ABS Lymphocytes 1.2 10^3/ul (1.0-4.8); ABS Monocytes 0.8 10^3/ul (0-0.8); ABS Neutrophils 4.8 10^3/ul (1.5-7.7); ABS Nucleated RBC 0.2 10^3/ul; Eosinophil % 16.9 %; Hematocrit 24 % (35-47); Hemoglobin 7.9 g/dL (12.0-16.0); Lymphocyte % 14.7 %; Mean Corpuscular HGB Conc 34 g/dL (31-36); Mean Corpuscular Hemoglobin 27 pg (27-31); Mean Corpuscular Volume 82 fL (80-97); Mean Platelet Volume 8.3 fL (7.4-10.4); Nucleated Red Blood Cells % 2.5; Platelet Count 160 10^3/uL (150-450); Red Blood Count 2.88 10^6 /uL (3.70-4.87); Red Cell Distribution Width 20 % (10-15); White Blood Count 8.2 10^3/uL (3.5-10.8)
[2020-05-29] MEDS: Venlafaxine XR 75 mg PO SCH (08:49)
[2020-05-29] MEDS: CMC:Lovastatin 10 mg TAB (NF) PO SCH (08:50)
[2020-05-29] MEDS: Pantoprazole 80 mg in NS BAG 80 MG/250 ML BAG IV SCH ×2 (08:51→12:47)
[2020-05-29] MEDS: cefTRIAXone 1 gm/50 mL NS BAG 1 GM/50 ML BAG IVPB SCH ×3 (08:57→22:54)
[2020-05-29] MEDS: FLUTICASONE/UMECLIDIN/VILANTER 1 PUFF MDI INH SCH (09:32)
[2020-05-29] MEDS: Morphine 2 MG/ML SYRINGE IV PRN (12:45)
[2020-05-29] MEDS ORDERED: Ondansetron 4 mg VIAL 2 MG/ML 2 ml VIAL ONE (13:44)
[2020-05-29] MEDS ORDERED: Ondansetron 4 mg VIAL 2 MG/ML 2 ml VIAL IV PRN (13:46)
[2020-05-29] MEDS ORDERED: D5W 1/2 NS 1000 ml BAG 1,000 ML IV SCH (14:00)
[2020-05-29] MEDS ORDERED: PEG 3000 GI LAVAGE 1 GALLON PO ONE (17:04)
[2020-05-29] MEDS: Pantoprazole VIAL 40 MG VIAL IV SCH ×2 (20:53→22:55)
[2020-05-30] MEDS ORDERED: Venlafaxine XR 75 mg PO SCH (09:00)
[2020-05-30] MEDS: FLUTICASONE/UMECLIDIN/VILANTER 1 PUFF MDI INH SCH (09:31)
[2020-05-30] MEDS: cefTRIAXone 1 gm/50 mL NS BAG 1 GM/50 ML BAG IVPB SCH ×2 (09:35→19:46)
[2020-05-30] MEDS: Pantoprazole VIAL 40 MG VIAL IV SCH ×2 (09:35→19:46)
[2020-05-30] MEDS: Venlafaxine XR 75 mg PO SCH (09:36)
[2020-05-30] MEDS: CMC:Lovastatin 10 mg TAB (NF) PO SCH (10:25)
[2020-05-30] MEDS ORDERED: Magnesium CITRATE LIQ 300 ML BTL PO ONE ×2 (11:30→14:30)
[2020-05-30] MEDS ORDERED: Furosemide 40 mg/4 ml IV VIAL IV ONE (14:50)
[2020-05-30] MEDS: Morphine 2 MG/ML SYRINGE IV PRN (19:57)
[2020-05-31 07:08] LABS: ABS Eosinophils 1.1 10^3/ul (0-0.6); ABS Monocytes 0.6 10^3/ul (0-0.8); Eosinophil % 16.2 %; Hematocrit 24 % (35-47); Hemoglobin 7.9 g/dL (12.0-16.0); Lymphocyte % 14.6 %; Mean Corpuscular HGB Conc 33 g/dL (31-36); Mean Corpuscular Hemoglobin 27 pg (27-31); Mean Corpuscular Volume 82 fL (80-97); Mean Platelet Volume 7.8 fL (7.4-10.4); Nucleated Red Blood Cells % 0.5; Platelet Count 141 10^3/uL (150-450); Red Blood Count 2.93 10^6 /uL (3.70-4.87); Red Cell Distribution Width 20 % (10-15); White Blood Count 6.7 10^3/uL (3.5-10.8)
[2020-05-31 07:26] LABS: BUN/Creatinine Ratio 7.8 (8-20); Calcium 7.2 mg/dL (8.6-10.3); EGFR African American 66.2 (>60); EGFR Non-African American 54.7 (>60); Potassium 3.8 mmol/L (3.5-5.0)
[2020-05-31] MEDS: Venlafaxine XR 75 mg PO SCH (08:59)
[2020-05-31] MEDS: cefTRIAXone 1 gm/50 mL NS BAG 1 GM/50 ML BAG IVPB SCH ×2 (09:01→21:52)
[2020-05-31] MEDS: Pantoprazole VIAL 40 MG VIAL IV SCH ×2 (09:01→21:51)
[2020-05-31] MEDS: CMC:Lovastatin 10 mg TAB (NF) PO SCH (09:02)
[2020-05-31] MEDS ORDERED: fentaNYL 100 mcg/2 ml 50 MCG/ML VIAL ONE (12:00)
[2020-05-31] MEDS ORDERED: Midazolam 10 mg/10 ml VIAL 1 mg/ml 10 ml VIAL (10 mg) ONE (12:00)
[2020-05-31] MEDS: FLUTICASONE/UMECLIDIN/VILANTER 1 PUFF MDI INH SCH (12:12)
[2020-05-31] MEDS ORDERED: NS 0.9% 500 ml BAG 500 ML IV ONE (21:36)
[2020-06-01 07:07] LABS: ABS Basophils 0.1 10^3/ul (0-0.2); ABS Eosinophils 0.8 10^3/ul (0-0.6); ABS Lymphocytes 0.9 10^3/ul (1.0-4.8); ABS Monocytes 0.6 10^3/ul (0-0.8); Eosinophil % 10.9 %; Hematocrit 24 % (35-47); Lymphocyte % 11.7 %; Mean Corpuscular HGB Conc 33 g/dL (31-36); Mean Corpuscular Hemoglobin 28 pg (27-31); Mean Corpuscular Volume 83 fL (80-97); Mean Platelet Volume 7.9 fL (7.4-10.4); Nucleated Red Blood Cells % 0.2; Platelet Count 135 10^3/uL (150-450); Red Blood Count 2.91 10^6 /uL (3.70-4.87); Red Cell Distribution Width 21 % (10-15); White Blood Count 7.3 10^3/uL (3.5-10.8)
[2020-06-01 07:24] LABS: BUN/Creatinine Ratio 7.8 (8-20); Calcium 7.1 mg/dL (8.6-10.3); EGFR African American 45.6 (>60); EGFR Non-African American 37.7 (>60); Potassium 4.4 mmol/L (3.5-5.0)
[2020-06-01] MEDS: Venlafaxine XR 75 mg PO SCH (07:24)
[2020-06-01] MEDS: Pantoprazole VIAL 40 MG VIAL IV SCH ×2 (07:24→22:10)
[2020-06-01] MEDS: CMC:Lovastatin 10 mg TAB (NF) PO SCH (07:26)
[2020-06-01] MEDS: FLUTICASONE/UMECLIDIN/VILANTER 1 PUFF MDI INH SCH (14:02)
[2020-06-01] MEDS: Morphine 2 MG/ML SYRINGE IV PRN ×2 (15:05→19:00)
[2020-06-02 06:00] LABS: Hematocrit 24 % (35-47); Hemoglobin 7.8 g/dL (12.0-16.0); Mean Corpuscular HGB Conc 33 g/dL (31-36); Mean Corpuscular Hemoglobin 28 pg (27-31); Mean Corpuscular Volume 84 fL (80-97); Platelet Count 128 10^3/uL (150-450); Red Blood Count 2.84 10^6 /uL (3.70-4.87); Red Cell Distribution Width 21 % (10-15); White Blood Count 8.6 10^3/uL (3.5-10.8)
[2020-06-02] MEDS: Venlafaxine XR 75 mg PO SCH (07:59)
[2020-06-02] MEDS: Pantoprazole VIAL 40 MG VIAL IV SCH ×2 (07:59→20:39)
[2020-06-02] MEDS: CMC:Lovastatin 10 mg TAB (NF) PO SCH (08:00)
[2020-06-02] MEDS: FLUTICASONE/UMECLIDIN/VILANTER 1 PUFF MDI INH SCH (09:18)
[2020-06-02] MEDS: Morphine 2 MG/ML SYRINGE IV PRN ×2 (10:57→18:21)
[2020-06-02] MEDS: Mometasone 220 MCG MDI INH SCH (15:28)
[2020-06-02] MEDS: SPIRIVA Respimat (tiotropium) 2.5 mcg/inh Inhaler INH SCH (15:28)
[2020-06-03 05:32] LABS: Hematocrit 22 % (35-47); Hemoglobin 7.3 g/dL (12.0-16.0)
[2020-06-03] MEDS: SPIRIVA Respimat (tiotropium) 2.5 mcg/inh Inhaler INH SCH (07:23)
[2020-06-03] MEDS: Venlafaxine XR 75 mg PO SCH (08:47)
[2020-06-03] MEDS: CMC:Lovastatin 10 mg TAB (NF) PO SCH (08:48)
[2020-06-03] MEDS: Pantoprazole VIAL 40 MG VIAL IV SCH (08:49)
[2020-06-03] MEDS: Morphine 2 MG/ML SYRINGE IV PRN ×2 (14:13→20:08)
[2020-06-03 17:04] LABS: Urine Appearance Clear; Urine Bilirubin Negative (Negative); Urine Blood Negative (Negative); Urine Color Yellow; Urine Glucose 1+(50 mg/dL) (Negative); Urine Ketones Negative (Negative); Urine Nitrite Negative (Negative); Urine Protein Negative (Negative); Urine Specific Gravity 1.014 (1.010-1.030); Urine Urobilinogen Negative (Negative)
[2020-06-03] MEDS: Mometasone 220 MCG MDI INH SCH (19:25)
[2020-06-04 05:44] LABS: Hematocrit 24 % (35-47); Hemoglobin 8.1 g/dL (12.0-16.0); Mean Corpuscular HGB Conc 33 g/dL (31-36); Mean Corpuscular Hemoglobin 28 pg (27-31); Mean Corpuscular Volume 85 fL (80-97); Mean Platelet Volume 8.6 fL (7.4-10.4); Platelet Count 123 10^3/uL (150-450); Red Blood Count 2.89 10^6 /uL (3.70-4.87); Red Cell Distribution Width 22 % (10-15); White Blood Count 9.3 10^3/uL (3.5-10.8)
[2020-06-04] MEDS: SPIRIVA Respimat (tiotropium) 2.5 mcg/inh Inhaler INH SCH (07:54)
[2020-06-04] MEDS: Venlafaxine XR 75 mg PO SCH (08:19)
[2020-06-04] MEDS: CMC:Lovastatin 10 mg TAB (NF) PO SCH (08:20)
[2020-06-04] MEDS ORDERED: Permethrin 1% LOTION 59 ML BTL TOPICAL ONE (10:51)
[2020-06-04] MEDS: Morphine 2 MG/ML SYRINGE IV PRN ×2 (14:37→18:21)
[2020-06-04 17:09] LABS: Hematocrit 27 % (35-47); Hemoglobin 9.2 g/dL (12.0-16.0)
[2020-06-04] MEDS: Mometasone 220 MCG MDI INH SCH (19:06)
[2020-06-04] MEDS: Albuterol 2.5mg/3 ml (0.083%) NEB.SOLN INH PRN (19:10)
[2020-06-05] MEDS: SPIRIVA Respimat (tiotropium) 2.5 mcg/inh Inhaler INH SCH (07:18)
[2020-06-05] MEDS: Albuterol 2.5mg/3 ml (0.083%) NEB.SOLN INH PRN ×2 (09:34→12:03)
[2020-06-05] MEDS: CMC:Lovastatin 10 mg TAB (NF) PO SCH (09:37)
[2020-06-05] MEDS: Venlafaxine XR 75 mg PO SCH (09:37)
[2020-06-05] MEDS ORDERED: Morphine ER 15 mg TAB ** extended release PO PRN (13:52)
[2020-06-05] MEDS: Mometasone 220 MCG MDI INH SCH (19:34)
[2020-06-05] MEDS ORDERED: Lorazepam PYXIS KEY PRN (23:35)
[2020-06-05] MEDS ORDERED: Levalbuterol 1.25MG/0.5ML NEB.SOL INH ONE (23:36)
[2020-06-05] MEDS ORDERED: LORazepam 2 mg VIAL 1 ml IV PUSH ONE (23:36)
[2020-06-06] LABS: ABS Basophils 0.1 10^3/ul (0-0.2); ABS Lymphocytes 0.3 10^3/ul (1.0-4.8); ABS Monocytes 0.4 10^3/ul (0-0.8); ABS Neutrophils 12.6 10^3/ul (1.5-7.7); Eosinophil % 0.3 %; Hematocrit 29 % (35-47); Hemoglobin 9.1 g/dL (12.0-16.0); Mean Corpuscular HGB Conc 32 g/dL (31-36); Mean Corpuscular Hemoglobin 28 pg (27-31); Mean Corpuscular Volume 87 fL (80-97); Mean Platelet Volume 7.9 fL (7.4-10.4); Platelet Count 150 10^3/uL (150-450); Red Blood Count 3.32 10^6 /uL (3.70-4.87); White Blood Count 13.4 10^3/uL (3.5-10.8)
[2020-06-06 00:10] LABS: BUN/Creatinine Ratio 20.6 (8-20); Calcium 8.9 mg/dL (8.6-10.3); EGFR African American 62.7 (>60); EGFR Non-African American 51.8 (>60); Potassium 4.9 mmol/L (3.5-5.0)
[2020-06-06 01:38] LABS: Polychromasia 1+
[2020-06-06 01:40] LABS: Schistocytes 1+
[2020-06-06 01:41] LABS: Red Cell Distribution Width 23 % (10-15)
[2020-06-06] MEDS: NS 0.9% 1000 ml BAG 1,000 ML IV SCH ×3 (02:06→09:38)
[2020-06-06] MEDS: Cefepime 1 GM in Dextrose 1 GM/50 ML BAG IV SCH ×2 (02:40→13:12)
[2020-06-06] MEDS: metroNIDAZOLE IV 500 MG/100ML 500 MG/100 ML BAG IVPB SCH ×2 (02:45→15:35)
[2020-06-06] MEDS ORDERED: Iodixanol (CONTRAST) 320 MG/ML 100 ML SDV IV ONE ×2 (03:31→16:41)
[2020-06-06] MEDS: SPIRIVA Respimat (tiotropium) 2.5 mcg/inh Inhaler INH SCH (07:38)
[2020-06-06] MEDS ORDERED: NS 0.9% 1000 ML/HR X 1 BAG (TOTAL 1000 ML) IV ONE (09:15)
[2020-06-06] MEDS: CMC:Lovastatin 10 mg TAB (NF) PO SCH (09:40)
[2020-06-06] MEDS: Venlafaxine XR 75 mg PO SCH (09:41)
[2020-06-06 12:40] LABS: Urine Appearance Cloudy; Urine Bilirubin Negative (Negative); Urine Blood Negative (Negative); Urine Color Yellow; Urine Glucose Negative (Negative); Urine Ketones Negative (Negative); Urine Nitrite Negative (Negative); Urine Protein 2+(100 mg/dL) (Negative); Urine Specific Gravity 1.031 (1.010-1.030); Urine Urobilinogen Negative (Negative)
[2020-06-06 12:57] LABS: Urine Bacteria Absent (Absent); Urine Red Blood Cell 1+(3-5/hpf) (Absent); Urine Squamous Epithelial Cell Present (Absent); Urine White Blood Cell 1+(6-10/hpf) (Absent)
[2020-06-06] MEDS ORDERED: Vancomycin per Pharmacy 1 EA NOTE FOLLOW UP SCH (18:00)
[2020-06-06 18:30] LABS: ABS Lymphocytes 0.4 10^3/ul (1.0-4.8); ABS Monocytes 0.8 10^3/ul (0-0.8); ABS Neutrophils 6.8 10^3/ul (1.5-7.7); Eosinophil % 0.1 %; Hematocrit 22 % (35-47); Hemoglobin 7.3 g/dL (12.0-16.0); Lymphocyte % 4.9 %; Mean Corpuscular HGB Conc 33 g/dL (31-36); Mean Corpuscular Hemoglobin 28 pg (27-31); Mean Corpuscular Volume 86 fL (80-97); Mean Platelet Volume 8.2 fL (7.4-10.4); Platelet Count 122 10^3/uL (150-450); Red Cell Distribution Width 22 % (10-15)
[2020-06-06] MEDS ORDERED: Vancomycin 1,500 MG in NS 0.9% 250 ml 250 ML IVPB ONE (18:30)
[2020-06-06 18:46] LABS: ALT 20 U/L (7-52); AST 21 U/L (13-39); Albumin 2.5 g/dL (3.2-5.2); Albumin/Globulin Ratio 0.9 (1-3); Alkaline Phosphatase 66 U/L (34-104); Creatine Kinase 37 U/L (10-223); Globulin 2.8 g/dL (2-4); Indirect Bilirubin 0.4 mg/dL (0.3-1.0); Total Protein 5.3 g/dL (6.4-8.9)
[2020-06-06 18:50] LABS: Troponin I 0.07 ng/mL (<0.03)
[2020-06-06 18:51] LABS: Myoglobin 33.7 ng/mL (14.3-65.8)
[2020-06-06] MEDS: Nystatin TOP POWDER 15 GM BTL TOPICAL SCH (21:31)
[2020-06-06] MEDS: Vancomycin SOL ORALSYR 50 MG/ML ML PO SCH (21:31)
[2020-06-06] MEDS: Mometasone 220 MCG MDI INH SCH (22:11)
[2020-06-06] MEDS: Morphine 2 MG/ML SYRINGE IV PRN (22:23)
[2020-06-07] MEDS: Cefepime 1 GM in Dextrose 1 GM/50 ML BAG IV SCH (02:45)
[2020-06-07] MEDS: metroNIDAZOLE IV 500 MG/100ML 500 MG/100 ML BAG IVPB SCH ×2 (03:30→14:29)
[2020-06-07] MEDS ORDERED: Vancomycin 1,000 MG in NS 0.9% 250 ml 250 ML IV SCH (04:00)
[2020-06-07] MEDS: Morphine 2 MG/ML SYRINGE IV PRN ×2 (06:18→20:46)
[2020-06-07] MEDS: SPIRIVA Respimat (tiotropium) 2.5 mcg/inh Inhaler INH SCH (07:53)
[2020-06-07] MEDS ORDERED: cefTRIAXone 1 gm/50 mL NS BAG 1 GM/50 ML BAG IVPB SCH (10:00)
[2020-06-07] MEDS: Venlafaxine XR 75 mg PO SCH (10:13)
[2020-06-07] MEDS: CMC:Lovastatin 10 mg TAB (NF) PO SCH (10:14)
[2020-06-07] MEDS: Nystatin TOP POWDER 15 GM BTL TOPICAL SCH ×3 (10:14→20:46)
[2020-06-07] MEDS: Vancomycin SOL ORALSYR 50 MG/ML ML PO SCH ×4 (10:15→20:46)
[2020-06-07 10:29] LABS: ABS Eosinophils 0.2 10^3/ul (0-0.6); ABS Lymphocytes 0.5 10^3/ul (1.0-4.8); ABS Monocytes 0.6 10^3/ul (0-0.8); ABS Neutrophils 6.5 10^3/ul (1.5-7.7); Eosinophil % 2.6 %; Hematocrit 24 % (35-47); Hemoglobin 7.8 g/dL (12.0-16.0); Mean Corpuscular HGB Conc 32 g/dL (31-36); Mean Corpuscular Hemoglobin 28 pg (27-31); Mean Corpuscular Volume 86 fL (80-97); Mean Platelet Volume 8.6 fL (7.4-10.4); Nucleated Red Blood Cells % 0.1; Platelet Count 129 10^3/uL (150-450); Red Blood Count 2.82 10^6 /uL (3.70-4.87); Red Cell Distribution Width 21 % (10-15); White Blood Count 7.8 10^3/uL (3.5-10.8)
[2020-06-07 10:46] LABS: BUN/Creatinine Ratio 16.7 (8-20); Calcium 8.3 mg/dL (8.6-10.3); EGFR Non-African American 58.7 (>60); Potassium 3.5 mmol/L (3.5-5.0)
[2020-06-07 12:51] LABS: Magnesium 1.6 mg/dL (1.9-2.7)
[2020-06-07] MEDS ORDERED: Potassium Chlor 20 meq TAB.ER PO ONE (15:48)
[2020-06-07] MEDS ORDERED: Magnesium Sulfate 2 gm BAG 2 GM/50 ML BAG IVPB ONE (15:48)
[2020-06-07] MEDS: Mometasone 220 MCG MDI INH SCH (19:03)
[2020-06-07] MEDS ORDERED: Vancomycin Trough Check NOTE FOLLOW UP ONE (19:30)
[2020-06-08] MEDS: Morphine 2 MG/ML SYRINGE IV PRN ×2 (01:06→20:23)
[2020-06-08] MEDS: metroNIDAZOLE IV 500 MG/100ML 500 MG/100 ML BAG IVPB SCH (03:06)
[2020-06-08] MEDS: SPIRIVA Respimat (tiotropium) 2.5 mcg/inh Inhaler INH SCH (07:16)
[2020-06-08 07:31] LABS: Hematocrit 24 % (35-47); Hemoglobin 7.6 g/dL (12.0-16.0); Mean Corpuscular HGB Conc 33 g/dL (31-36); Mean Corpuscular Hemoglobin 28 pg (27-31); Mean Corpuscular Volume 86 fL (80-97); Mean Platelet Volume 8.8 fL (7.4-10.4); Platelet Count 144 10^3/uL (150-450); Red Blood Count 2.73 10^6 /uL (3.70-4.87); Red Cell Distribution Width 22 % (10-15); White Blood Count 7.3 10^3/uL (3.5-10.8)
[2020-06-08 07:47] LABS: BUN/Creatinine Ratio 15.3 (8-20); Calcium 8.2 mg/dL (8.6-10.3); EGFR African American 60.1 (>60); EGFR Non-African American 49.6 (>60); Magnesium 1.9 mg/dL (1.9-2.7); Phosphorus 1.5 mg/dL (2.5-5.0); Potassium 3.9 mmol/L (3.5-5.0)
[2020-06-08] MEDS: Venlafaxine XR 75 mg PO SCH (10:01)
[2020-06-08] MEDS: Nystatin TOP POWDER 15 GM BTL TOPICAL SCH ×3 (10:02→23:19)
[2020-06-08] MEDS: CMC:Lovastatin 10 mg TAB (NF) PO SCH (10:02)
[2020-06-08] MEDS: Vancomycin SOL ORALSYR 50 MG/ML ML PO SCH ×4 (10:22→23:10)
[2020-06-08] MEDS: Prochlorperazine 5 mg/ml 2 ml VIAL (10 mg) IV PRN ×2 (14:28→23:11)
[2020-06-08] MEDS: Mometasone 220 MCG MDI INH SCH (19:28)
[2020-06-09] MEDS: SPIRIVA Respimat (tiotropium) 2.5 mcg/inh Inhaler INH SCH (07:34)
[2020-06-09 07:48] LABS: ABS Eosinophils 0.6 10^3/ul (0-0.6); ABS Lymphocytes 0.7 10^3/ul (1.0-4.8); ABS Monocytes 0.6 10^3/ul (0-0.8); ABS Neutrophils 4.1 10^3/ul (1.5-7.7); Eosinophil % 9.9 %; Hematocrit 24 % (35-47); Hemoglobin 7.7 g/dL (12.0-16.0); Lymphocyte % 11.8 %; Mean Corpuscular HGB Conc 33 g/dL (31-36); Mean Corpuscular Hemoglobin 28 pg (27-31); Mean Corpuscular Volume 85 fL (80-97); Mean Platelet Volume 8.6 fL (7.4-10.4); Nucleated Red Blood Cells % 0.2; Platelet Count 167 10^3/uL (150-450); Red Blood Count 2.77 10^6 /uL (3.70-4.87); Red Cell Distribution Width 21 % (10-15); White Blood Count 6.1 10^3/uL (3.5-10.8)
[2020-06-09 07:57] LABS: BUN/Creatinine Ratio 12.6 (8-20); Calcium 8.3 mg/dL (8.6-10.3); EGFR African American 60.1 (>60); EGFR Non-African American 49.6 (>60); Potassium 4.2 mmol/L (3.5-5.0)
[2020-06-09] MEDS: Vancomycin SOL ORALSYR 50 MG/ML ML PO SCH ×4 (09:51→20:45)
[2020-06-09] MEDS: Venlafaxine XR 75 mg PO SCH (09:51)
[2020-06-09] MEDS: CMC:Lovastatin 10 mg TAB (NF) PO SCH (09:52)
[2020-06-09] MEDS: Nystatin TOP POWDER 15 GM BTL TOPICAL SCH ×3 (09:53→22:14)
[2020-06-09] MEDS ORDERED: Permethrin 1% LOTION 59 ML BTL TOPICAL ONE (11:49)
[2020-06-09] MEDS: Morphine 2 MG/ML SYRINGE IV PRN ×2 (15:12→20:45)
[2020-06-09] MEDS: Mometasone 220 MCG MDI INH SCH (19:06)
[2020-06-10 05:36] LABS: ABS Lymphocytes 1.1 10^3/ul (1.0-4.8); ABS Monocytes 0.7 10^3/ul (0-0.8); ABS Neutrophils 4.3 10^3/ul (1.5-7.7); Eosinophil % 13.8 %; Hematocrit 25 % (35-47); Hemoglobin 7.9 g/dL (12.0-16.0); Lymphocyte % 15.9 %; Mean Corpuscular HGB Conc 32 g/dL (31-36); Mean Corpuscular Hemoglobin 28 pg (27-31); Mean Corpuscular Volume 85 fL (80-97); Mean Platelet Volume 8.8 fL (7.4-10.4); Nucleated Red Blood Cells % 0.1; Platelet Count 220 10^3/uL (150-450); Red Blood Count 2.89 10^6 /uL (3.70-4.87); Red Cell Distribution Width 21 % (10-15); White Blood Count 7.2 10^3/uL (3.5-10.8)
[2020-06-10 05:54] LABS: BUN/Creatinine Ratio 11.9 (8-20); EGFR Non-African American 46.3 (>60); Potassium 4.5 mmol/L (3.5-5.0)
[2020-06-10] MEDS: SPIRIVA Respimat (tiotropium) 2.5 mcg/inh Inhaler INH SCH (07:49)
[2020-06-10] MEDS: CMC:Lovastatin 10 mg TAB (NF) PO SCH (08:22)
[2020-06-10] MEDS: Venlafaxine XR 75 mg PO SCH (08:22)
[2020-06-10] MEDS: Vancomycin SOL ORALSYR 50 MG/ML ML PO SCH ×4 (08:22→22:09)
[2020-06-10] MEDS: Nystatin TOP POWDER 15 GM BTL TOPICAL SCH ×3 (08:23→22:45)
[2020-06-10] MEDS: Morphine 2 MG/ML SYRINGE IV PRN ×2 (11:04→22:08)
[2020-06-10] MEDS: Prochlorperazine 5 mg/ml 2 ml VIAL (10 mg) IV PRN (11:05)
[2020-06-10] MEDS: Mometasone 220 MCG MDI INH SCH (19:29)
[2020-06-11] MEDS: Morphine 2 MG/ML SYRINGE IV PRN ×3 (02:19→20:39)
[2020-06-11] MEDS: SPIRIVA Respimat (tiotropium) 2.5 mcg/inh Inhaler INH SCH (07:48)
[2020-06-11] MEDS: Venlafaxine XR 75 mg PO SCH (08:02)
[2020-06-11] MEDS: Vancomycin SOL ORALSYR 50 MG/ML ML PO SCH ×4 (08:02→20:42)
[2020-06-11] MEDS: CMC:Lovastatin 10 mg TAB (NF) PO SCH (08:02)
[2020-06-11] MEDS: Nystatin TOP POWDER 15 GM BTL TOPICAL SCH ×3 (10:02→20:41)
[2020-06-11] MEDS: Prochlorperazine 5 mg/ml 2 ml VIAL (10 mg) IV PRN ×2 (12:00→20:39)
[2020-06-11] MEDS: Mometasone 220 MCG MDI INH SCH (20:02)
[2020-06-12] MEDS: Morphine 2 MG/ML SYRINGE IV PRN ×2 (06:22→11:34)
[2020-06-12] MEDS: SPIRIVA Respimat (tiotropium) 2.5 mcg/inh Inhaler INH SCH (08:17)
[2020-06-12] MEDS: Vancomycin SOL ORALSYR 50 MG/ML ML PO SCH ×2 (09:16→13:03)
[2020-06-12] MEDS: CMC:Lovastatin 10 mg TAB (NF) PO SCH (09:17)
[2020-06-12] MEDS: Venlafaxine XR 75 mg PO SCH (09:19)
[2020-06-12] MEDS: Nystatin TOP POWDER 15 GM BTL TOPICAL SCH ×3 (09:20→21:18)
[2020-06-12] MEDS: Mometasone 220 MCG MDI INH SCH (20:23)
[2020-06-12] MEDS: Morphine ER 15 mg TAB ** extended release PO PRN (20:57)
[2020-06-13 05:31] LABS: Hematocrit 26 % (35-47); Mean Corpuscular HGB Conc 32 g/dL (31-36); Mean Corpuscular Hemoglobin 27 pg (27-31); Mean Corpuscular Volume 86 fL (80-97); Mean Platelet Volume 8.3 fL (7.4-10.4); Platelet Count 312 10^3/uL (150-450); Red Blood Count 2.98 10^6 /uL (3.70-4.87); Red Cell Distribution Width 21 % (10-15); White Blood Count 8.2 10^3/uL (3.5-10.8)
[2020-06-13 05:49] LABS: BUN/Creatinine Ratio 14.4 (8-20); Calcium 8.4 mg/dL (8.6-10.3); EGFR African American 60.1 (>60); EGFR Non-African American 49.6 (>60)
[2020-06-13 06:09] LABS: Potassium 5.2 mmol/L (3.5-5.0)
[2020-06-13] MEDS: SPIRIVA Respimat (tiotropium) 2.5 mcg/inh Inhaler INH SCH (07:40)
[2020-06-13] MEDS: Nystatin TOP POWDER 15 GM BTL TOPICAL SCH ×2 (08:06→13:07)
[2020-06-13] MEDS: Venlafaxine XR 75 mg PO SCH (08:15)
[2020-06-13] MEDS: CMC:Lovastatin 10 mg TAB (NF) PO SCH (08:16)
[2020-06-13] MEDS: Morphine ER 15 mg TAB ** extended release PO PRN ×2 (08:25→16:31)
[2020-06-13 08:47] LABS: ABS Basophils 0.1 10^3/ul (0-0.2); ABS Eosinophils 0.8 10^3/ul (0-0.6); ABS Lymphocytes 1.1 10^3/ul (1.0-4.8); ABS Monocytes 0.7 10^3/ul (0-0.8); ABS Neutrophils 5.4 10^3/ul (1.5-7.7); Eosinophil % 10.2 %; Lymphocyte % 13.2 %; Nucleated Red Blood Cells % 0.1
[2020-06-13 08:50] LABS: Polychromasia 1+
[2020-06-13] MEDS ORDERED: Sodium Polystyrene ORAL.SUSP 15 GM/60 ML BTL PO ONE (09:00)
[2020-06-13] MEDS ORDERED: Iron Sucrose 20 MG/ML 5 ML VIAL IV PUSH SCH (15:00)
[2020-06-13] MEDS: Iron Sucrose 200 MG in NS 0.9% 100 ml BAG 100 ML IVPB SCH ×2 (16:28→17:40)
[2020-06-13] MEDS: Mometasone 220 MCG MDI INH SCH (19:58)
[2020-06-14] MEDS: Nystatin TOP POWDER 15 GM BTL TOPICAL SCH ×4 (01:28→21:29)
[2020-06-14 05:54] LABS: Calcium 7.9 mg/dL (8.6-10.3)
[2020-06-14 06:00] LABS: BUN/Creatinine Ratio 14.7 (8-20); EGFR African American 57.1 (>60); EGFR Non-African American 47.2 (>60)
[2020-06-14] MEDS: SPIRIVA Respimat (tiotropium) 2.5 mcg/inh Inhaler INH SCH (08:05)
[2020-06-14] MEDS: Venlafaxine XR 75 mg PO SCH (08:48)
[2020-06-14] MEDS: Morphine ER 15 mg TAB ** extended release PO PRN ×3 (08:49→21:24)
[2020-06-14] MEDS: CMC:Lovastatin 10 mg TAB (NF) PO SCH (08:50)
[2020-06-14 09:35] LABS: Ferritin 70.8 ng/mL (11-307)
[2020-06-14] MEDS: Mometasone 220 MCG MDI INH SCH (19:10)
[2020-06-15] MEDS: Morphine ER 15 mg TAB ** extended release PO PRN ×2 (05:58→21:44)
[2020-06-15] MEDS: CMC:Lovastatin 10 mg TAB (NF) PO SCH (08:05)
[2020-06-15] MEDS: Venlafaxine XR 75 mg PO SCH (08:08)
[2020-06-15] MEDS: Nystatin TOP POWDER 15 GM BTL TOPICAL SCH ×3 (08:11→21:45)
[2020-06-15] MEDS: SPIRIVA Respimat (tiotropium) 2.5 mcg/inh Inhaler INH SCH (08:53)
[2020-06-15] MEDS: Mometasone 220 MCG MDI INH SCH (20:01)
[2020-06-16] MEDS: Venlafaxine XR 75 mg PO SCH (08:20)
[2020-06-16] MEDS: Nystatin TOP POWDER 15 GM BTL TOPICAL SCH ×3 (08:21→22:33)
[2020-06-16] MEDS: CMC:Lovastatin 10 mg TAB (NF) PO SCH (08:21)
[2020-06-16] MEDS: SPIRIVA Respimat (tiotropium) 2.5 mcg/inh Inhaler INH SCH (09:02)
[2020-06-16] MEDS ORDERED: Permethrin 1% LOTION 59 ML BTL TOPICAL ONE (12:00)
[2020-06-16] MEDS: Mometasone 220 MCG MDI INH SCH (14:18)
[2020-06-16] MEDS: Morphine ER 15 mg TAB ** extended release PO PRN (18:30)
[2020-06-17] MEDS: Mometasone 220 MCG MDI INH SCH (07:25)
[2020-06-17] MEDS: SPIRIVA Respimat (tiotropium) 2.5 mcg/inh Inhaler INH SCH (07:26)
[2020-06-17] MEDS: Venlafaxine XR 75 mg PO SCH (09:22)
[2020-06-17] MEDS: CMC:Lovastatin 10 mg TAB (NF) PO SCH (09:22)
[2020-06-17] MEDS: Morphine ER 15 mg TAB ** extended release PO PRN (09:23)
[2020-06-17] MEDS: Nystatin TOP POWDER 15 GM BTL TOPICAL SCH ×2 (09:24→13:07)
[2020-06-17 12:00] VITALS: BP 128/75
== END 2020-06-17 16:40 | DRG 663 ==
LOC: ED 12:53 → ICU 16:55 → MED 05-29 15:51 → ICU 06-06 18:09 → MED 06-07 23:34
PROVIDERS: ADMIT Internal Medicine; ATTEND Internal Medicine

== ENCOUNTER 2021-04-29 11:58 | Inpatient (IN) ==
[2021-04-29] MEDS ORDERED: Naloxone 0.4 mg VIAL 0.4 mg/ml 1 ml VIAL ONE (12:18)
[2021-04-29] MEDS ORDERED: NS 0.9% 1000 ml BAG 1,000 ML IV ONE ×3 (12:20→21:24)
[2021-04-29] MEDS ORDERED: Naloxone 0.4 mg VIAL 0.4 mg/ml 1 ml VIAL IV PUSH ONE ×2 (12:21→15:29)
[2021-04-29 12:41] LABS: ABS Eosinophils 0.2 10^3/ul (0-0.6); ABS Lymphocytes 0.8 10^3/ul (1.0-4.8); ABS Monocytes 0.9 10^3/ul (0-0.8); ABS Neutrophils 10.6 10^3/ul (1.5-7.7); Eosinophil % 1.5 %; Hematocrit 40 % (35-47); Hemoglobin 12.9 g/dL (12.0-16.0); Mean Corpuscular HGB Conc 32 g/dL (31-36); Mean Corpuscular Hemoglobin 30 pg (27-31); Mean Corpuscular Volume 92 fL (80-97); Mean Platelet Volume 8.7 fL (7.4-10.4); Platelet Count 196 10^3/uL (150-450); Red Blood Count 4.39 10^6 /uL (3.70-4.87); Red Cell Distribution Width 16 % (10-15); White Blood Count 12.5 10^3/uL (3.5-10.8)
[2021-04-29 13:06] LABS: Acetaminophen < 15 mcg/mL; Alcohol, S < 10 mg/dL (<10); Salicylate < 2.50 mg/dL (<30)
[2021-04-29 13:08] LABS: ALT 25 U/L (7-52); AST 24 U/L (13-39); Albumin/Globulin Ratio 1.3 (1-3); Alkaline Phosphatase 155 U/L (35-149); Blood Urea Nitrogen 51 mg/dL (6-24); CO2 Carbon Dioxide 17 mmol/L (22-32); Calcium 9.3 mg/dL (8.6-10.3); Chloride 104 mmol/L (101-111); EGFR African American 18.6 (>60); EGFR Non-African American 15.4 (>60); Globulin 3.2 g/dL (2-4); Glucose 132 mg/dL (70-100); Sodium 133 mmol/L (135-145); Total Protein 7.2 g/dL (6.4-8.9)
[2021-04-29 13:09] LABS: Troponin I 0.01 ng/mL (<0.03)
[2021-04-29 13:10] LABS: Anion Gap 12 mmol/L (2-11); Potassium 5.7 mmol/L (3.5-5.0)
[2021-04-29 13:49] LABS: Creatine Kinase 560 U/L (10-223)
[2021-04-29] MEDS ORDERED: NS 0.9% 1000 ml BAG 1,000 ML IV SCH (16:00)
[2021-04-29] MEDS: Sodium Polystyrene ORAL.SUSP 15 GM/60 ML BTL PO SCH ×2 (19:52→23:21)
[2021-04-29] MEDS: Naloxone 0.4 mg VIAL 0.4 mg/ml 1 ml VIAL IV PUSH PRN ×2 (21:33→23:47)
[2021-04-30 00:39] LABS: Urine Benzodiazepine Screen None Detected (None Detect); Urine Cannabinoids Screen None Detected (None Detect); Urine Opiates Screen Presumptive Positive (None Detect)
[2021-04-30 01:28] LABS: Urine Appearance Cloudy; Urine Bilirubin Negative (Negative); Urine Blood 1+ (Negative); Urine Color Yellow; Urine Glucose Negative (Negative); Urine Ketones Trace (Negative); Urine Nitrite Negative (Negative); Urine Protein Negative (Negative); Urine Specific Gravity 1.014 (1.002-1.030); Urine Urobilinogen Negative (Negative)
[2021-04-30 01:34] LABS: Urine Bacteria Absent (Absent); Urine Red Blood Cell Trace(0-2/hpf) (Absent); Urine White Blood Cell 2+(11-20/hpf) (Absent)
[2021-04-30] MEDS: Naloxone 0.4 mg VIAL 0.4 mg/ml 1 ml VIAL IV PUSH PRN (01:46)
[2021-04-30] MEDS ORDERED: Naloxone 0.4 mg VIAL 2 MG in NS 0.9% 250 ml 245 ML IV SCH (02:00)
[2021-04-30] MEDS ORDERED: NS 0.9% 1000 ml BAG 1,000 ML IV SCH (02:06)
[2021-04-30 04:43] LABS: ABS Eosinophils 0.1 10^3/ul (0-0.6); ABS Lymphocytes 0.7 10^3/ul (1.0-4.8); ABS Monocytes 0.5 10^3/ul (0-0.8); ABS Neutrophils 5.4 10^3/ul (1.5-7.7); Eosinophil % 1.5 %; Hematocrit 30 % (35-47); Hemoglobin 9.7 g/dL (12.0-16.0); Lymphocyte % 10.1 %; Mean Corpuscular HGB Conc 32 g/dL (31-36); Mean Corpuscular Hemoglobin 30 pg (27-31); Mean Corpuscular Volume 93 fL (80-97); Mean Platelet Volume 8.4 fL (7.4-10.4); Nucleated Red Blood Cells % 0.1; Platelet Count 157 10^3/uL (150-450); Red Blood Count 3.27 10^6 /uL (3.70-4.87); Red Cell Distribution Width 16 % (10-15); White Blood Count 6.7 10^3/uL (3.5-10.8)
[2021-04-30 04:59] LABS: Calcium 7.9 mg/dL (8.6-10.3); EGFR African American 27.6 (>60); EGFR Non-African American 22.8 (>60); Magnesium 1.9 mg/dL (1.9-2.7)
[2021-04-30 05:04] LABS: Potassium 5.2 mmol/L (3.5-5.0)
[2021-04-30] MEDS: Sodium Polystyrene ORAL.SUSP 15 GM/60 ML BTL PO SCH (05:41)
[2021-04-30] MEDS: Tiotropium Brom/Olodaterol MDI INH SCH (07:17)
[2021-04-30] MEDS: Mometasone 220 MCG MDI INH SCH (07:18)
[2021-04-30] MEDS: Venlafaxine XR 75 mg PO SCH (08:13)
[2021-04-30] MEDS ORDERED: Venlafaxine XR 75 mg PO SCH (09:00)
[2021-04-30] MEDS ORDERED: Lactated Ringers 1000 ml BAG 1,000 ML IV ONE (10:13)
[2021-04-30 10:41] LABS: EGFR Non-African American 33.9 (>60); Potassium 3.6 mmol/L (3.5-5.0)
[2021-04-30 10:43] LABS: Calcium 6.4 mg/dL (8.6-10.3)
[2021-04-30 11:24] LABS: Magnesium 1.4 mg/dL (1.9-2.7)
[2021-04-30] MEDS: cefTRIAXone 1 gm/50 mL NS BAG 1 GM/50 ML BAG IVPB SCH (12:17)
[2021-04-30] MEDS ORDERED: Magnesium Sulf 4 GM/100 ML IV 4,000 MG/100 ML BAG IVPB ONE (12:26)
[2021-04-30 14:08] LABS: TSH Ultra Thyroid Stim Horm 0.82 mcIU/mL (0.34-5.60)
[2021-05-01] MEDS: Venlafaxine XR 75 mg PO SCH (07:55)
[2021-05-01 08:53] LABS: ABS Eosinophils 0.2 10^3/ul (0-0.6); ABS Lymphocytes 0.9 10^3/ul (1.0-4.8); ABS Monocytes 0.5 10^3/ul (0-0.8); ABS Neutrophils 5.8 10^3/ul (1.5-7.7); Eosinophil % 2.8 %; Hematocrit 31 % (35-47); Hemoglobin 10.3 g/dL (12.0-16.0); Lymphocyte % 11.8 %; Mean Corpuscular HGB Conc 33 g/dL (31-36); Mean Corpuscular Hemoglobin 30 pg (27-31); Mean Corpuscular Volume 91 fL (80-97); Mean Platelet Volume 8.2 fL (7.4-10.4); Platelet Count 168 10^3/uL (150-450); Red Blood Count 3.45 10^6 /uL (3.70-4.87); Red Cell Distribution Width 16 % (10-15); White Blood Count 7.4 10^3/uL (3.5-10.8)
[2021-05-01 09:10] LABS: Albumin 3.4 g/dL (3.2-5.2); Albumin/Globulin Ratio 1.1 (1-3); Calcium 8.5 mg/dL (8.6-10.3); EGFR African American 45.8 (>60); EGFR Non-African American 37.9 (>60); Magnesium 1.7 mg/dL (1.9-2.7); Total Bilirubin 0.3 mg/dL (0.2-1.0); Total Protein 6.4 g/dL (6.4-8.9)
[2021-05-01] MEDS: Tiotropium Brom/Olodaterol MDI INH SCH (09:27)
[2021-05-01] MEDS: Mometasone 220 MCG MDI INH SCH (09:28)
[2021-05-01] MEDS: cefTRIAXone 1 gm/50 mL NS BAG 1 GM/50 ML BAG IVPB SCH (11:46)
[2021-05-01] MEDS ORDERED: Magnesium Sulfate 2 gm BAG 2 GM/50 ML BAG IVPB ONE (14:59)
[2021-05-01] MEDS ORDERED: Lidocaine PATCH 5% PATCH TRANSDERM PRN (16:14)
[2021-05-01] MEDS ORDERED: Dextrose 50% Syringe 50 ml 25 GM/50 ML SYRINGE IV PUSH PRN (16:24)
[2021-05-01] MEDS ORDERED: Albuterol HFA INHALER 8 gm MDI INH PRN (16:26)
[2021-05-01] MEDS: Lidocaine Patch REMOVE PATCH PATCH OFF SCH (22:20)
[2021-05-02 06:03] LABS: Hematocrit 30 % (35-47); Hemoglobin 9.9 g/dL (12.0-16.0); Mean Corpuscular HGB Conc 33 g/dL (31-36); Mean Corpuscular Hemoglobin 30 pg (27-31); Mean Corpuscular Volume 91 fL (80-97); Mean Platelet Volume 8.3 fL (7.4-10.4); Platelet Count 158 10^3/uL (150-450); Red Blood Count 3.32 10^6 /uL (3.70-4.87); Red Cell Distribution Width 16 % (10-15); White Blood Count 9.6 10^3/uL (3.5-10.8)
[2021-05-02 06:23] LABS: Calcium 8.5 mg/dL (8.6-10.3); EGFR Non-African American 54.6 (>60); Magnesium 1.8 mg/dL (1.9-2.7); Potassium 3.9 mmol/L (3.5-5.0)
[2021-05-02] MEDS: Tiotropium Brom/Olodaterol MDI INH SCH (07:42)
[2021-05-02] MEDS: Mometasone 220 MCG MDI INH SCH (07:42)
[2021-05-02] MEDS ORDERED: Magnesium Sulfate 2 gm BAG 2 GM/50 ML BAG IVPB ONE (08:43)
[2021-05-02] MEDS: Venlafaxine XR 75 mg PO SCH (08:46)
[2021-05-02] MEDS: cefTRIAXone 1 gm/50 mL NS BAG 1 GM/50 ML BAG IVPB SCH (13:25)
[2021-05-02] MEDS: Lidocaine Patch REMOVE PATCH PATCH OFF SCH (22:23)
[2021-05-03 08:34] LABS: ABS Eosinophils 0.2 10^3/ul (0-0.6); ABS Lymphocytes 0.8 10^3/ul (1.0-4.8); ABS Monocytes 0.5 10^3/ul (0-0.8); ABS Neutrophils 6.8 10^3/ul (1.5-7.7); Eosinophil % 2.4 %; Hematocrit 31 % (35-47); Hemoglobin 9.9 g/dL (12.0-16.0); Lymphocyte % 9.6 %; Mean Corpuscular HGB Conc 32 g/dL (31-36); Mean Corpuscular Hemoglobin 29 pg (27-31); Mean Corpuscular Volume 91 fL (80-97); Mean Platelet Volume 8.9 fL (7.4-10.4); Platelet Count 166 10^3/uL (150-450); Red Blood Count 3.39 10^6 /uL (3.70-4.87); Red Cell Distribution Width 16 % (10-15); White Blood Count 8.4 10^3/uL (3.5-10.8)
[2021-05-03 08:50] LABS: Calcium 8.8 mg/dL (8.6-10.3); EGFR African American 61.8 (>60); EGFR Non-African American 51.1 (>60); Magnesium 1.9 mg/dL (1.9-2.7); Potassium 4.1 mmol/L (3.5-5.0)
[2021-05-03] MEDS: Venlafaxine XR 75 mg PO SCH (09:17)
[2021-05-03] MEDS: Tiotropium Brom/Olodaterol MDI INH SCH (09:45)
[2021-05-03] MEDS: Mometasone 220 MCG MDI INH SCH (09:46)
[2021-05-03] MEDS: cefTRIAXone 1 gm/50 mL NS BAG 1 GM/50 ML BAG IVPB SCH (12:34)
[2021-05-03] MEDS: Lidocaine Patch REMOVE PATCH PATCH OFF SCH (20:33)
[2021-05-03] MEDS: Sulfamethox/Trimethoprim DS TAB 800/160 mg PO SCH (23:37)
[2021-05-04] MEDS: Tiotropium Brom/Olodaterol MDI INH SCH (08:13)
[2021-05-04] MEDS: Mometasone 220 MCG MDI INH SCH (08:13)
[2021-05-04] MEDS: Venlafaxine XR 75 mg PO SCH (08:14)
[2021-05-04 08:16] LABS: ABS Basophils 0.1 10^3/ul (0-0.2); ABS Eosinophils 0.3 10^3/ul (0-0.6); ABS Lymphocytes 0.8 10^3/ul (1.0-4.8); ABS Monocytes 0.5 10^3/ul (0-0.8); ABS Neutrophils 6.1 10^3/ul (1.5-7.7); Eosinophil % 3.9 %; Hematocrit 30 % (35-47); Hemoglobin 9.9 g/dL (12.0-16.0); Lymphocyte % 10.9 %; Mean Corpuscular HGB Conc 33 g/dL (31-36); Mean Corpuscular Hemoglobin 30 pg (27-31); Mean Corpuscular Volume 91 fL (80-97); Mean Platelet Volume 8.5 fL (7.4-10.4); Nucleated Red Blood Cells % 0.4; Platelet Count 169 10^3/uL (150-450); Red Blood Count 3.31 10^6 /uL (3.70-4.87); Red Cell Distribution Width 16 % (10-15); White Blood Count 7.8 10^3/uL (3.5-10.8)
[2021-05-04] MEDS: Sulfamethox/Trimethoprim DS TAB 800/160 mg PO SCH (08:16)
[2021-05-04 08:30] LABS: Calcium 8.7 mg/dL (8.6-10.3); EGFR African American 59.9 (>60); EGFR Non-African American 49.5 (>60); Potassium 4.4 mmol/L (3.5-5.0)
[2021-05-04 12:53] VITALS: BP 117/75
== END 2021-05-04 15:20 | disposition home or self-care (01) | DRG 812 ==
LOC: ED 11:58 → MEDTELE 15:07 → ICU 04-30 02:21 → MEDTELE 04-30 14:39
PROVIDERS: ADMIT Internal Medicine; ATTEND Internal Medicine

== ENCOUNTER 2021-07-29 09:01 | Inpatient (IN) ==
[2021-07-29 09:59] LABS: ABS Basophils 0.1 10^3/ul (0-0.2); ABS Eosinophils 0.1 10^3/ul (0-0.6); ABS Lymphocytes 0.9 10^3/ul (1.0-4.8); ABS Monocytes 0.7 10^3/ul (0-0.8); ABS Neutrophils 11.1 10^3/ul (1.5-7.7); ABS Nucleated RBC 0.2 10^3/ul; Eosinophil % 0.8 %; Hematocrit 37 % (35-47); Hemoglobin 11.6 g/dL (12.0-16.0); Lymphocyte % 6.8 %; Mean Corpuscular HGB Conc 31 g/dL (31-36); Mean Corpuscular Hemoglobin 30 pg (27-31); Mean Corpuscular Volume 95 fL (80-97); Nucleated Red Blood Cells % 1.4; Red Blood Count 3.91 10^6 /uL (3.70-4.87); Red Cell Distribution Width 21 % (10-15); White Blood Count 12.8 10^3/uL (3.5-10.8)
[2021-07-29 10:36] LABS: Giant Platelets Present; Mean Platelet Volume 8.9 fL (7.4-10.4); Platelet Count 97 10^3/uL (150-450)
[2021-07-29 10:50] LABS: ALT 152 U/L (7-52); AST 140 U/L (13-39); Albumin 3.9 g/dL (3.2-5.2); Albumin/Globulin Ratio 1.4 (1-3); Alkaline Phosphatase 96 U/L (35-149); Blood Urea Nitrogen 28 mg/dL (6-24); CO2 Carbon Dioxide 15 mmol/L (22-32); Calcium 9.3 mg/dL (8.6-10.3); Chloride 105 mmol/L (101-111); EGFR African American 37.1 (>60); EGFR Non-African American 30.7 (>60); Globulin 2.8 g/dL (2-4); Glucose 106 mg/dL (70-100); Sodium 132 mmol/L (135-145); Total Protein 6.7 g/dL (6.4-8.9)
[2021-07-29 10:54] LABS: Anion Gap 12 mmol/L (2-11); Potassium 5.6 mmol/L (3.5-5.0); Troponin I 0.03 ng/mL (<0.03)
[2021-07-29 13:06] LABS: Acetaminophen < 15 mcg/mL
[2021-07-29] MEDS ORDERED: Dextrose 50% Syringe 50 ml 25 GM/50 ML SYRINGE IV PUSH PRN (14:05)
[2021-07-29] MEDS ORDERED: NS 0.9% 1000 ml BAG 1,000 ML IV SCH ×2 (14:30→15:11)
[2021-07-29 14:35] LABS: Magnesium 1.6 mg/dL (1.9-2.7)
[2021-07-29 14:51] LABS: Urine Appearance Cloudy; Urine Bilirubin Negative (Negative); Urine Blood 1+ (Negative); Urine Color Amber; Urine Glucose Negative (Negative); Urine Ketones Negative (Negative); Urine Nitrite Negative (Negative); Urine Protein 2+(100 mg/dL) (Negative); Urine Specific Gravity 1.026 (1.002-1.030); Urine Urobilinogen Negative (Negative)
[2021-07-29 14:55] LABS: Urine Bacteria 3+ (Absent); Urine Red Blood Cell 3+(>10/hpf) (Absent); Urine Squamous Epithelial Cell Present (Absent); Urine White Blood Cell 3+(>20/hpf) (Absent)
[2021-07-29 15:05] LABS: TSH Ultra Thyroid Stim Horm 4.97 mcIU/mL (0.34-5.60)
[2021-07-29] MEDS ORDERED: NS 0.9% 1000 ml BAG 1,000 ML IV ONE (15:08)
[2021-07-29] MEDS ORDERED: Magnesium Sulfate 2 gm BAG 2 GM/50 ML BAG IVPB ONE (15:08)
[2021-07-29 15:36] LABS: Troponin I 0.04 ng/mL (<0.03)
[2021-07-29] MEDS ORDERED: Perflutren Lipid Microsphere 3 ML VIAL ONE (15:55)
[2021-07-29] MEDS ORDERED: Furosemide 40 mg/4 ml IV VIAL IV ONE (17:50)
[2021-07-29 18:14] LABS: Rapid COVID-19 Molecular Undetected (Undetected)
[2021-07-29 18:46] LABS: C Reactive Protein 31.23 mg/L (<8.01)
[2021-07-29 21:34] LABS: Troponin I 0.04 ng/mL (<0.03)
[2021-07-29] MEDS: Morphine ORAL.SOLN 10 mg 2 mg/ml UDC 5 ml (10 mg) PO PRN (22:43)
[2021-07-29 23:55] LABS: Troponin I 0.06 ng/mL (<0.03)
[2021-07-30 00:57] LABS: Troponin I 0.06 ng/mL (<0.03)
[2021-07-30 08:22] LABS: ABS Basophils 0.1 10^3/ul (0-0.2); ABS Eosinophils 0.2 10^3/ul (0-0.6); ABS Lymphocytes 1.3 10^3/ul (1.0-4.8); ABS Monocytes 0.9 10^3/ul (0-0.8); ABS Neutrophils 9.1 10^3/ul (1.5-7.7); ABS Nucleated RBC 0.2 10^3/ul; Eosinophil % 1.3 %; Hematocrit 34 % (35-47); Lymphocyte % 11.1 %; Mean Corpuscular HGB Conc 32 g/dL (31-36); Mean Corpuscular Hemoglobin 30 pg (27-31); Mean Corpuscular Volume 95 fL (80-97); Mean Platelet Volume 9.2 fL (7.4-10.4); Nucleated Red Blood Cells % 1.5; Platelet Count 84 10^3/uL (150-450); Red Blood Count 3.63 10^6 /uL (3.70-4.87); Red Cell Distribution Width 21 % (10-15); White Blood Count 11.5 10^3/uL (3.5-10.8)
[2021-07-30] MEDS: CMCS:FLUTICAS/UMECLI/VILANT 100-62.5-25 MDI (NF) INH SCH (08:27)
[2021-07-30 08:35] LABS: ALT 222 U/L (7-52); AST 222 U/L (13-39); Albumin 3.4 g/dL (3.2-5.2); Albumin/Globulin Ratio 1.3 (1-3); Alkaline Phosphatase 87 U/L (35-149); Blood Urea Nitrogen 32 mg/dL (6-24); CO2 Carbon Dioxide 19 mmol/L (22-32); Chloride 107 mmol/L (101-111); EGFR African American 34.3 (>60); EGFR Non-African American 28.3 (>60); Globulin 2.6 g/dL (2-4); Glucose 99 mg/dL (70-100); Sodium 136 mmol/L (135-145)
[2021-07-30 08:37] LABS: Anion Gap 10 mmol/L (2-11); Potassium 5.2 mmol/L (3.5-5.0)
[2021-07-30] MEDS: Venlafaxine XR 75 mg PO SCH (08:48)
[2021-07-30] MEDS ORDERED: Flu vaccine *QUAD* 2021-22* 0.5 ML SYRINGE IM ONE (09:00)
[2021-07-30] MEDS ORDERED: Venlafaxine XR 75 mg PO SCH (09:00)
[2021-07-30 09:32] LABS: % Iron Saturation 15 % (15-55); Iron 56 ug/dL (50-212); Total Iron Binding Capacity 377 mcg/dL (250-450); Transferrin 269 mg/dL (203-362); Unsaturated Iron Binding < 362 ug/dL
[2021-07-30 09:52] LABS: Ferritin 99.7 ng/mL (11-307)
[2021-07-30] MEDS: cefTRIAXone 1 gm/50 mL NS BAG 1 GM/50 ML BAG IVPB SCH (15:56)
[2021-07-30 18:20] LABS: Influenza A Molecular Negative (Negative); Influenza B Molecular Negative (Negative)
[2021-07-31 07:34] LABS: ABS Basophils 0.1 10^3/ul (0-0.2); ABS Eosinophils 0.2 10^3/ul (0-0.6); ABS Lymphocytes 0.7 10^3/ul (1.0-4.8); ABS Monocytes 0.7 10^3/ul (0-0.8); ABS Neutrophils 8.9 10^3/ul (1.5-7.7); ABS Nucleated RBC 0.2 10^3/ul; Eosinophil % 1.8 %; Hematocrit 35 % (35-47); Hemoglobin 11.2 g/dL (12.0-16.0); Mean Corpuscular HGB Conc 32 g/dL (31-36); Mean Corpuscular Hemoglobin 30 pg (27-31); Mean Corpuscular Volume 94 fL (80-97); Nucleated Red Blood Cells % 1.4; Platelet Count 81 10^3/uL (150-450); Red Cell Distribution Width 21 % (10-15); White Blood Count 10.5 10^3/uL (3.5-10.8)
[2021-07-31 07:40] LABS: Albumin 3.3 g/dL (3.2-5.2); Albumin/Globulin Ratio 1.2 (1-3); Calcium 8.9 mg/dL (8.6-10.3); EGFR African American 34.1 (>60); EGFR Non-African American 28.1 (>60); Globulin 2.7 g/dL (2-4); Total Bilirubin 0.4 mg/dL (0.2-1.0)
[2021-07-31 07:41] LABS: Potassium 5.3 mmol/L (3.5-5.0)
[2021-07-31] MEDS: Venlafaxine XR 75 mg PO SCH (08:08)
[2021-07-31] MEDS: CMCS:FLUTICAS/UMECLI/VILANT 100-62.5-25 MDI (NF) INH SCH (09:26)
[2021-07-31] MEDS: cefTRIAXone 1 gm/50 mL NS BAG 1 GM/50 ML BAG IVPB SCH (15:16)
[2021-07-31] MEDS: Morphine ORAL.SOLN 10 mg 2 mg/ml UDC 5 ml (10 mg) PO PRN (15:23)
[2021-08-01 07:00] LABS: ABS Eosinophils 0.2 10^3/ul (0-0.6); ABS Lymphocytes 0.9 10^3/ul (1.0-4.8); ABS Monocytes 0.7 10^3/ul (0-0.8); ABS Neutrophils 6.8 10^3/ul (1.5-7.7); ABS Nucleated RBC 0.2 10^3/ul; Eosinophil % 2.4 %; Hematocrit 33 % (35-47); Hemoglobin 10.6 g/dL (12.0-16.0); Lymphocyte % 10.5 %; Mean Corpuscular HGB Conc 32 g/dL (31-36); Mean Corpuscular Hemoglobin 30 pg (27-31); Mean Corpuscular Volume 93 fL (80-97); Mean Platelet Volume 9.4 fL (7.4-10.4); Nucleated Red Blood Cells % 1.9; Platelet Count 72 10^3/uL (150-450); Red Blood Count 3.56 10^6 /uL (3.70-4.87); Red Cell Distribution Width 21 % (10-15); White Blood Count 8.7 10^3/uL (3.5-10.8)
[2021-08-01 07:15] LABS: ALT 256 U/L (7-52); AST 136 U/L (13-39); Albumin 3.2 g/dL (3.2-5.2); Albumin/Globulin Ratio 1.3 (1-3); Alkaline Phosphatase 93 U/L (35-149); Anion Gap 8 mmol/L (2-11); Blood Urea Nitrogen 42 mg/dL (6-24); CO2 Carbon Dioxide 20 mmol/L (22-32); Calcium 8.9 mg/dL (8.6-10.3); Chloride 105 mmol/L (101-111); EGFR African American 33.8 (>60); Globulin 2.5 g/dL (2-4); Glucose 136 mg/dL (70-100); Potassium 4.6 mmol/L (3.5-5.0); Sodium 133 mmol/L (135-145); Total Protein 5.7 g/dL (6.4-8.9)
[2021-08-01] MEDS: CMCS:FLUTICAS/UMECLI/VILANT 100-62.5-25 MDI (NF) INH SCH (07:24)
[2021-08-01 07:49] LABS: Hepatitis A Ab IgM Negative (Negative)
[2021-08-01 08:01] LABS: Hepatitis C Antibody Negative (Negative)
[2021-08-01] MEDS: Venlafaxine XR 75 mg PO SCH (08:32)
[2021-08-01] MEDS: cefTRIAXone 1 gm/50 mL NS BAG 1 GM/50 ML BAG IVPB SCH (16:04)
[2021-08-01 16:53] LABS: Hepatitis B Surface Antigen Nonreactive (Nonreactive)
[2021-08-01 16:59] LABS: Hepatitis B Core IgM Nonreactive (Nonreactive)
[2021-08-01 17:35] LABS: Troponin I 0.05 ng/mL (<0.03)
[2021-08-02] MEDS: CMCS:FLUTICAS/UMECLI/VILANT 100-62.5-25 MDI (NF) INH SCH (07:30)
[2021-08-02] MEDS: Venlafaxine XR 75 mg PO SCH (08:26)
[2021-08-02 08:55] LABS: ABS Eosinophils 0.2 10^3/ul (0-0.6); ABS Lymphocytes 0.7 10^3/ul (1.0-4.8); ABS Monocytes 0.6 10^3/ul (0-0.8); ABS Neutrophils 6.7 10^3/ul (1.5-7.7); ABS Nucleated RBC 0.2 10^3/ul; Eosinophil % 2.4 %; Hematocrit 34 % (35-47); Hemoglobin 10.8 g/dL (12.0-16.0); Lymphocyte % 8.2 %; Mean Corpuscular HGB Conc 32 g/dL (31-36); Mean Corpuscular Hemoglobin 30 pg (27-31); Mean Corpuscular Volume 94 fL (80-97); Mean Platelet Volume 9.2 fL (7.4-10.4); Nucleated Red Blood Cells % 2.2; Platelet Count 69 10^3/uL (150-450); Red Blood Count 3.64 10^6 /uL (3.70-4.87); Red Cell Distribution Width 21 % (10-15); White Blood Count 8.2 10^3/uL (3.5-10.8)
[2021-08-02 08:59] LABS: INR 2.62 (0.86-1.15)
[2021-08-02 09:05] LABS: ALT 195 U/L (7-52); AST 62 U/L (13-39); Albumin 3.4 g/dL (3.2-5.2); Albumin/Globulin Ratio 1.3 (1-3); Alkaline Phosphatase 105 U/L (35-149); Blood Urea Nitrogen 40 mg/dL (6-24); CO2 Carbon Dioxide 24 mmol/L (22-32); Chloride 104 mmol/L (101-111); Globulin 2.6 g/dL (2-4); Glucose 146 mg/dL (70-100); Sodium 134 mmol/L (135-145)
[2021-08-02 09:14] LABS: Anion Gap 6 mmol/L (2-11); Potassium 5.2 mmol/L (3.5-5.0)
[2021-08-02] MEDS ORDERED: Senna TAB 8.6 mg TAB PO PRN (11:23)
[2021-08-02] MEDS ORDERED: Polyethylene Glycol 3350 17 GM PACKET PO PRN (11:23)
[2021-08-02 12:46] LABS: Folate 7.74 ng/mL (5.90-24.80)
[2021-08-02 12:47] LABS: Vitamin B12 > 1450 pg/mL (180-914)
[2021-08-02 14:05] LABS: Rapid COVID-19 Molecular Undetected (Undetected)
[2021-08-03 05:14] LABS: INR 2.32 (0.86-1.15)
[2021-08-03 05:34] LABS: Albumin 3.3 g/dL (3.2-5.2); Albumin/Globulin Ratio 1.4 (1-3); Calcium 8.7 mg/dL (8.6-10.3); Globulin 2.3 g/dL (2-4); Potassium 4.7 mmol/L (3.5-5.0); Total Bilirubin 0.4 mg/dL (0.2-1.0); Total Protein 5.6 g/dL (6.4-8.9)
[2021-08-03 05:50] LABS: ABS Eosinophils 0.2 10^3/ul (0-0.6); ABS Lymphocytes 0.8 10^3/ul (1.0-4.8); ABS Monocytes 0.5 10^3/ul (0-0.8); ABS Nucleated RBC 0.1 10^3/ul; Eosinophil % 2.4 %; Hematocrit 33 % (35-47); Hemoglobin 10.4 g/dL (12.0-16.0); Lymphocyte % 12.1 %; Mean Corpuscular HGB Conc 32 g/dL (31-36); Mean Corpuscular Hemoglobin 30 pg (27-31); Mean Corpuscular Volume 94 fL (80-97); Nucleated Red Blood Cells % 1.7; Platelet Count 70 10^3/uL (150-450); Red Blood Count 3.48 10^6 /uL (3.70-4.87); Red Cell Distribution Width 22 % (10-15); White Blood Count 6.5 10^3/uL (3.5-10.8)
[2021-08-03] MEDS: Venlafaxine XR 75 mg PO SCH (08:12)
[2021-08-03] MEDS: CMCS:FLUTICAS/UMECLI/VILANT 100-62.5-25 MDI (NF) INH SCH (08:15)
[2021-08-03 08:33] VITALS: BP 109/72
== END 2021-08-03 09:15 | disposition short-term general hospital (02) | DRG 200 ==
LOC: ED 09:01 → MED 09:01 → SUATTDRO 07-30 12:32
PROVIDERS: ADMIT Hospitalist; ATTEND Internal Medicine

== ENCOUNTER 2021-08-26 13:09 | Inpatient (IN) ==
[2021-08-26 15:01] LABS: ABS Basophils 0.1 10^3/ul (0-0.2); ABS Eosinophils 0.1 10^3/ul (0-0.6); ABS Lymphocytes 0.6 10^3/ul (1.0-4.8); ABS Monocytes 1.1 10^3/ul (0-0.8); Eosinophil % 1.3 %; Hematocrit 32 % (35-47); Hemoglobin 10.6 g/dL (12.0-16.0); Lymphocyte % 5.1 %; Mean Corpuscular HGB Conc 33 g/dL (31-36); Mean Corpuscular Hemoglobin 30 pg (27-31); Mean Corpuscular Volume 92 fL (80-97); Mean Platelet Volume 8.5 fL (7.4-10.4); Nucleated Red Blood Cells % 0.1; Platelet Count 234 10^3/uL (150-450); Red Blood Count 3.54 10^6 /uL (3.70-4.87); Red Cell Distribution Width 18 % (10-15); White Blood Count 10.9 10^3/uL (3.5-10.8)
[2021-08-26 15:06] LABS: INR 2.16 (0.86-1.15)
[2021-08-26 15:14] LABS: Rapid COVID-19 Molecular Undetected (Undetected)
[2021-08-26 15:24] LABS: ALT 16 U/L (7-52); AST 20 U/L (13-39); Albumin 3.5 g/dL (3.2-5.2); Albumin/Globulin Ratio 1.1 (1-3); Alkaline Phosphatase 107 U/L (35-149); Anion Gap 8 mmol/L (2-11); Blood Urea Nitrogen 18 mg/dL (6-24); CO2 Carbon Dioxide 30 mmol/L (22-32); Calcium 9.3 mg/dL (8.6-10.3); Chloride 95 mmol/L (101-111); Globulin 3.3 g/dL (2-4); Glucose 85 mg/dL (70-100); Potassium 4.1 mmol/L (3.5-5.0); Sodium 133 mmol/L (135-145); Total Protein 6.8 g/dL (6.4-8.9)
[2021-08-26 15:28] LABS: Troponin I 0.18 ng/mL (<0.03)
[2021-08-26 18:06] LABS: % Iron Saturation 16 % (15-55); Iron 52 ug/dL (50-212); Total Iron Binding Capacity 319 mcg/dL (250-450); Transferrin 228 mg/dL (203-362); Unsaturated Iron Binding < 304 ug/dL
[2021-08-26 18:28] LABS: C Reactive Protein 84.69 mg/L (<8.01); Ferritin 429.1 ng/mL (11-307)
[2021-08-26 19:51] LABS: Erythrocyte Sed Rate 51 mm/Hr (0-29)
[2021-08-26] MEDS ORDERED: Albuterol HFA INHALER 8 gm MDI INH PRN (20:51)
[2021-08-26] MEDS ORDERED: NS 0.9% 1000 ml BAG 1,000 ML IV SCH (21:45)
[2021-08-26] MEDS ORDERED: Dextrose 50% Syringe 50 ml 25 GM/50 ML SYRINGE IV PUSH PRN (21:48)
[2021-08-27 03:33] LABS: ABS Basophils 0.1 10^3/ul (0-0.2); ABS Eosinophils 0.3 10^3/ul (0-0.6); ABS Lymphocytes 0.7 10^3/ul (1.0-4.8); ABS Monocytes 1.1 10^3/ul (0-0.8); ABS Neutrophils 6.4 10^3/ul (1.5-7.7); Hematocrit 28 % (35-47); Hemoglobin 9.4 g/dL (12.0-16.0); Lymphocyte % 8.8 %; Mean Corpuscular HGB Conc 33 g/dL (31-36); Mean Corpuscular Hemoglobin 31 pg (27-31); Mean Corpuscular Volume 92 fL (80-97); Mean Platelet Volume 8.3 fL (7.4-10.4); Platelet Count 186 10^3/uL (150-450); Red Blood Count 3.08 10^6 /uL (3.70-4.87); Red Cell Distribution Width 18 % (10-15); White Blood Count 8.6 10^3/uL (3.5-10.8)
[2021-08-27 03:48] LABS: Anion Gap 7 mmol/L (2-11); Blood Urea Nitrogen 18 mg/dL (6-24); CO2 Carbon Dioxide 30 mmol/L (22-32); Calcium 8.3 mg/dL (8.6-10.3); Chloride 97 mmol/L (101-111); Glucose 58 mg/dL (70-100); Potassium 3.7 mmol/L (3.5-5.0); Sodium 134 mmol/L (135-145)
[2021-08-27 03:54] LABS: Troponin I 0.17 ng/mL (<0.03)
[2021-08-27 05:29] LABS: Urine Appearance Cloudy; Urine Bilirubin Negative (Negative); Urine Blood Negative (Negative); Urine Color Yellow; Urine Glucose Negative (Negative); Urine Ketones Negative (Negative); Urine Nitrite Positive (Negative); Urine Protein Negative (Negative); Urine Specific Gravity 1.006 (1.002-1.030); Urine Urobilinogen Negative (Negative)
[2021-08-27 05:33] LABS: Urine Bacteria 1+ (Absent); Urine Red Blood Cell 2+(6-10/hpf) (Absent); Urine Squamous Epithelial Cell Present (Absent); Urine White Blood Cell 3+(>20/hpf) (Absent)
[2021-08-27] MEDS: FLUTICAS/UMECLI/VILANT 100-62.5-25 MDI (NF) INH SCH (07:24)
[2021-08-27] MEDS ORDERED: Perflutren Lipid Microsphere 3 ML VIAL ONE (09:16)
[2021-08-27] MEDS: Venlafaxine XR 75 mg PO SCH (09:17)
[2021-08-27] MEDS: Potassium Chlor 20 meq TAB.ER PO SCH ×2 (09:17→20:23)
[2021-08-27] MEDS ORDERED: Furosemide 20 mg/2 ml IV VIAL IV SLOW PU ONE (15:08)
[2021-08-27] MEDS: Warfarin DAILY REMINDER **NOTE FOLLOW UP SCH (20:02)
[2021-08-28] MEDS: FLUTICAS/UMECLI/VILANT 100-62.5-25 MDI (NF) INH SCH (08:03)
[2021-08-28 08:18] LABS: INR 3.65 (0.86-1.15)
[2021-08-28 08:31] LABS: Anion Gap 7 mmol/L (2-11); Blood Urea Nitrogen 18 mg/dL (6-24); CO2 Carbon Dioxide 29 mmol/L (22-32); Calcium 8.5 mg/dL (8.6-10.3); Chloride 98 mmol/L (101-111); Glucose 73 mg/dL (70-100); Magnesium 1.7 mg/dL (1.9-2.7); Potassium 4.5 mmol/L (3.5-5.0); Sodium 134 mmol/L (135-145)
[2021-08-28] MEDS: Venlafaxine XR 75 mg PO SCH (08:43)
[2021-08-28] MEDS: Potassium Chlor 20 meq TAB.ER PO SCH ×2 (08:44→22:57)
[2021-08-28] MEDS ORDERED: Furosemide 40 mg/4 ml IV VIAL IV ONE (09:56)
[2021-08-28 10:12] LABS: C Reactive Protein 50.42 mg/L (<8.01); Creatine Kinase 29 U/L (10-223)
[2021-08-28] MEDS ORDERED: Ondansetron 4 mg VIAL 2 MG/ML 2 ml VIAL IV PRN (10:30)
[2021-08-28 10:38] LABS: Troponin I 0.13 ng/mL (<0.03)
[2021-08-28] MEDS: Warfarin DAILY REMINDER **NOTE FOLLOW UP SCH (15:31)
[2021-08-28] MEDS: Warfarin per PHARMACY **NOTE FOLLOW UP SCH (15:32)
[2021-08-28] MEDS ORDERED: Warfarin - No Order Today **NOTE FOLLOW UP ONE (17:00)
[2021-08-28] MEDS ORDERED: Amoxicillin/Clavul 500/125 TAB (Augmentin 500 mg tab) PO SCH (21:00)
[2021-08-28] MEDS: Nitrofurantoin (monohydrate/macrocrystals) 100 mg CAP PO SCH (22:55)
[2021-08-29 06:29] LABS: Calcium 8.7 mg/dL (8.6-10.3)
[2021-08-29 06:31] LABS: Potassium 5.2 mmol/L (3.5-5.0)
[2021-08-29 06:46] LABS: INR 2.35 (0.86-1.15)
[2021-08-29 07:11] LABS: Hematocrit 38 % (35-47); Hemoglobin 11.6 g/dL (12.0-16.0); Mean Corpuscular HGB Conc 31 g/dL (31-36); Mean Corpuscular Hemoglobin 31 pg (27-31); Mean Corpuscular Volume 100 fL (80-97); Platelet Count 200 10^3/uL (150-450); Red Blood Count 3.76 10^6 /uL (3.70-4.87); Red Cell Distribution Width 19 % (10-15); White Blood Count 7.7 10^3/uL (3.5-10.8)
[2021-08-29] MEDS: FLUTICAS/UMECLI/VILANT 100-62.5-25 MDI (NF) INH SCH (07:23)
[2021-08-29] MEDS: Nitrofurantoin (monohydrate/macrocrystals) 100 mg CAP PO SCH ×2 (08:19→20:29)
[2021-08-29] MEDS: Venlafaxine XR 75 mg PO SCH (08:21)
[2021-08-29] MEDS: Potassium Chlor 20 meq TAB.ER PO SCH (08:22)
[2021-08-29 09:53] LABS: Magnesium 1.9 mg/dL (1.9-2.7)
[2021-08-29] MEDS ORDERED: Magnesium Sulfate IV 1GM/100ML 1 GM/100 ML BAG IV ONE (10:44)
[2021-08-29] MEDS ORDERED: Nitroglycerin 0.6 mg TAB SL PRN (10:44)
[2021-08-29 11:20] LABS: Troponin I 0.09 ng/mL (<0.03)
[2021-08-29] MEDS: Warfarin DAILY REMINDER **NOTE FOLLOW UP SCH (19:37)
[2021-08-29] MEDS: Warfarin per PHARMACY **NOTE FOLLOW UP SCH (19:37)
[2021-08-30 05:21] LABS: Hematocrit 32 % (35-47); Hemoglobin 10.8 g/dL (12.0-16.0); Mean Corpuscular HGB Conc 33 g/dL (31-36); Mean Corpuscular Hemoglobin 31 pg (27-31); Mean Corpuscular Volume 92 fL (80-97); Mean Platelet Volume 8.6 fL (7.4-10.4); Platelet Count 207 10^3/uL (150-450); Red Blood Count 3.54 10^6 /uL (3.70-4.87); Red Cell Distribution Width 18 % (10-15); White Blood Count 8.5 10^3/uL (3.5-10.8)
[2021-08-30 05:51] LABS: Potassium 4.9 mmol/L (3.5-5.0)
[2021-08-30 05:52] LABS: Calcium 8.9 mg/dL (8.6-10.3); INR 1.81 (0.86-1.15); Magnesium 1.7 mg/dL (1.9-2.7)
[2021-08-30] MEDS: FLUTICAS/UMECLI/VILANT 100-62.5-25 MDI (NF) INH SCH (07:26)
[2021-08-30] MEDS ORDERED: Magnesium Sulfate 2 gm BAG 2 GM/50 ML BAG IVPB ONE (07:51)
[2021-08-30] MEDS: Venlafaxine XR 75 mg PO SCH (08:43)
[2021-08-30] MEDS: Nitrofurantoin (monohydrate/macrocrystals) 100 mg CAP PO SCH ×2 (08:44→22:27)
[2021-08-30] MEDS: Warfarin DAILY REMINDER **NOTE FOLLOW UP SCH (16:46)
[2021-08-30] MEDS: Warfarin per PHARMACY **NOTE FOLLOW UP SCH (16:46)
[2021-08-31 05:38] LABS: INR 1.75 (0.86-1.15)
[2021-08-31 05:56] LABS: Calcium 9.1 mg/dL (8.6-10.3); Potassium 4.5 mmol/L (3.5-5.0)
[2021-08-31] MEDS: Venlafaxine XR 75 mg PO SCH (07:58)
[2021-08-31] MEDS: FLUTICAS/UMECLI/VILANT 100-62.5-25 MDI (NF) INH SCH (08:04)
[2021-08-31] MEDS: Nitrofurantoin (monohydrate/macrocrystals) 100 mg CAP PO SCH (10:35)
[2021-08-31 11:28] VITALS: BP 121/66
== END 2021-08-31 15:45 | disposition home or self-care (01) | DRG 194 ==
LOC: ED 13:09 → MED 22:17 → SUATTDRO 22:17 → MED 22:53
PROVIDERS: ADMIT Hospitalist; ATTEND Internal Medicine

== ENCOUNTER 2022-02-06 15:37 | Inpatient (IN) ==
[2022-02-06] MEDS ORDERED: NS 0.9% 1000 ml BAG 1,000 ML IV.FLUID IV ONE (16:02)
[2022-02-06] MEDS ORDERED: cefTRIAXone 2 GM ADDV.VIAL 2 GM in NS 0.9% 100 ml BAG 100 ML IVPB ONE (16:46)
[2022-02-06 17:00] LABS: ABS Lymphocytes 0.6 10^3/ul (1.0-4.8); ABS Monocytes 0.9 10^3/ul (0-0.8); Eosinophil % 0.1 %; Hematocrit 38 % (35-47); Hemoglobin 11.8 g/dL (12.0-16.0); Lymphocyte % 3.9 %; Mean Corpuscular HGB Conc 31 g/dL (31-36); Mean Corpuscular Hemoglobin 28 pg (27-31); Mean Corpuscular Volume 90 fL (80-97); Mean Platelet Volume 8.2 fL (7.4-10.4); Platelet Count 291 10^3/uL (150-450); Red Blood Count 4.22 10^6 /uL (3.70-4.87); Red Cell Distribution Width 23 % (10-15); White Blood Count 16.6 10^3/uL (3.5-10.8)
[2022-02-06 17:08] LABS: Activated Partial Thrombo Time 38.3 seconds (26.0-38.0); INR 2.92 (0.86-1.15)
[2022-02-06 17:20] LABS: ALT 42 U/L (7-52); Albumin 3.8 g/dL (3.2-5.2); Albumin/Globulin Ratio 1.2 (1-3); Alkaline Phosphatase 131 U/L (35-149); Blood Urea Nitrogen 50 mg/dL (6-24); C Reactive Protein 140.63 mg/L (<8.01); CO2 Carbon Dioxide 24 mmol/L (22-32); Calcium 9.5 mg/dL (8.6-10.3); Chloride 97 mmol/L (101-111); Globulin 3.3 g/dL (2-4); Glucose 128 mg/dL (70-100); Sodium 134 mmol/L (135-145); Total Protein 7.1 g/dL (6.4-8.9); eGFR CKD-EPI 28.9 (>60)
[2022-02-06 17:21] LABS: High Sens Troponin Baseline 51 pg/mL (<15)
[2022-02-06 17:25] LABS: Anion Gap 13 mmol/L (2-11)
[2022-02-06 17:46] LABS: Creatine Kinase 8900 U/L (10-223)
[2022-02-06] MEDS ORDERED: Furosemide 20 mg/2 ml IV VIAL IV SLOW PU ONE (18:21)
[2022-02-06] MEDS ORDERED: Ondansetron 4 mg VIAL 2 MG/ML 2 ml VIAL IV PRN (18:28)
[2022-02-06] MEDS ORDERED: DOXYcycline 100 MG in NS 0.9% 250 ml 250 ML IVPB ONE (18:28)
[2022-02-06 18:43] LABS: Urine Appearance Cloudy; Urine Bacteria 2+ (Absent); Urine Bilirubin Negative (Negative); Urine Blood 2+ (Negative); Urine Color Yellow; Urine Glucose Negative (Negative); Urine Ketones Trace (Negative); Urine Nitrite Positive (Negative); Urine Protein Negative (Negative); Urine Red Blood Cell Trace(0-2/hpf) (Absent); Urine Specific Gravity 1.012 (1.002-1.030); Urine Urobilinogen Negative (Negative); Urine White Blood Cell 3+(>20/hpf) (Absent)
[2022-02-06 18:44] LABS: High Sensitivity Troponin 1 Hr 46 pg/mL (<15)
[2022-02-06] MEDS ORDERED: Dextrose 50% Syringe 50 ml 25 GM/50 ML SYRINGE IV PUSH PRN ×2 (18:56)
[2022-02-06] MEDS ORDERED: Lactated Ringers 1000 ml BAG 1,000 ML IV SCH (19:00)
[2022-02-06 19:30] LABS: Potassium Redraw 5.7 mmol/L (3.5-5.0)
[2022-02-06] MEDS ORDERED: Sodium Bicarb 8.4% Vial 50 ML 150 MEQ in D5W 1000 ml BAG 850 ML IV SCH (21:00)
[2022-02-06 21:49] LABS: Phosphorus 2.8 mg/dL (2.5-5.0)
[2022-02-06] MEDS: Nystatin TOP POWDER 15 GM BTL TOPICAL SCH (22:30)
[2022-02-07 08:25] LABS: INR 4.01 (0.86-1.15)
[2022-02-07 08:30] LABS: ABS Basophils 0.1 10^3/ul (0-0.2); ABS Eosinophils 0.2 10^3/ul (0-0.6); ABS Lymphocytes 0.7 10^3/ul (1.0-4.8); ABS Monocytes 0.6 10^3/ul (0-0.8); ABS Neutrophils 7.5 10^3/ul (1.5-7.7); Eosinophil % 1.8 %; Hematocrit 34 % (35-47); Hemoglobin 10.7 g/dL (12.0-16.0); Lymphocyte % 7.5 %; Mean Corpuscular HGB Conc 32 g/dL (31-36); Mean Corpuscular Hemoglobin 29 pg (27-31); Mean Corpuscular Volume 90 fL (80-97); Mean Platelet Volume 7.8 fL (7.4-10.4); Platelet Count 205 10^3/uL (150-450); Red Blood Count 3.77 10^6 /uL (3.70-4.87); Red Cell Distribution Width 23 % (10-15)
[2022-02-07] MEDS ORDERED: Perflutren Lipid Microsphere 3 ML VIAL ONE (08:54)
[2022-02-07 09:22] LABS: Albumin 3.1 g/dL (3.2-5.2); Albumin/Globulin Ratio 1.3 (1-3); C Reactive Protein 104.16 mg/L (<8.01); Calcium 8.5 mg/dL (8.6-10.3); Globulin 2.4 g/dL (2-4); Magnesium 1.3 mg/dL (1.9-2.7); Phosphorus 2.3 mg/dL (2.5-5.0); Potassium 3.9 mmol/L (3.5-5.0); Total Bilirubin 0.5 mg/dL (0.2-1.0); Total Protein 5.5 g/dL (6.4-8.9); eGFR CKD-EPI 46.8 (>60)
[2022-02-07] MEDS: Venlafaxine XR 75 mg PO SCH (09:26)
[2022-02-07] MEDS: Nystatin TOP POWDER 15 GM BTL TOPICAL SCH ×3 (09:28→21:05)
[2022-02-07] MEDS: FLUTICAS/UMECLI/VILANT 100-62.5-25 MDI (NF) INH SCH (09:28)
[2022-02-07] MEDS: DOXYcycline 100 MG in NS 0.9% 250 ml 250 ML IVPB SCH ×2 (09:58→20:38)
[2022-02-07] MEDS ORDERED: Magnesium Sulf 4 GM/100 ML IV 4,000 MG/100 ML BAG IVPB ONE (10:00)
[2022-02-07] MEDS ORDERED: Furosemide 40 mg/4 ml IV VIAL IV SLOW PU ONE (11:00)
[2022-02-07] MEDS: cefTRIAXone 1 gm/50 mL D5W 1 GM/50 ML BAG IV SCH (18:24)
[2022-02-08 07:01] LABS: ABS Eosinophils 0.2 10^3/ul (0-0.6); ABS Lymphocytes 0.7 10^3/ul (1.0-4.8); ABS Monocytes 0.5 10^3/ul (0-0.8); ABS Neutrophils 4.8 10^3/ul (1.5-7.7); Eosinophil % 3.7 %; Hematocrit 33 % (35-47); Hemoglobin 10.6 g/dL (12.0-16.0); Lymphocyte % 11.5 %; Mean Corpuscular HGB Conc 32 g/dL (31-36); Mean Corpuscular Hemoglobin 29 pg (27-31); Mean Corpuscular Volume 89 fL (80-97); Mean Platelet Volume 8.2 fL (7.4-10.4); Nucleated Red Blood Cells % 0.1; Platelet Count 226 10^3/uL (150-450); Red Blood Count 3.72 10^6 /uL (3.70-4.87); Red Cell Distribution Width 23 % (10-15); White Blood Count 6.4 10^3/uL (3.5-10.8)
[2022-02-08 07:05] LABS: INR 4.1 (0.86-1.15)
[2022-02-08 07:26] LABS: Albumin 2.9 g/dL (3.2-5.2); Albumin/Globulin Ratio 1.3 (1-3); C Reactive Protein 55.25 mg/L (<8.01); Calcium 8.7 mg/dL (8.6-10.3); Globulin 2.3 g/dL (2-4); Magnesium 2.1 mg/dL (1.9-2.7); Potassium 3.6 mmol/L (3.5-5.0); Total Bilirubin 0.4 mg/dL (0.2-1.0); Total Protein 5.2 g/dL (6.4-8.9); eGFR CKD-EPI 63.7 (>60)
[2022-02-08] MEDS: FLUTICAS/UMECLI/VILANT 100-62.5-25 MDI (NF) INH SCH (09:00)
[2022-02-08] MEDS ORDERED: Potassium Chloride LIQUID 20 MEQ/15 ML LIQUID PO ONE (09:09)
[2022-02-08] MEDS: Venlafaxine XR 75 mg PO SCH (10:02)
[2022-02-08] MEDS: Nystatin TOP POWDER 15 GM BTL TOPICAL SCH ×3 (10:03→20:55)
[2022-02-08] MEDS: DOXYcycline 100 MG in NS 0.9% 250 ml 250 ML IVPB SCH (10:10)
[2022-02-08] MEDS: cefTRIAXone 1 gm/50 mL D5W 1 GM/50 ML BAG IV SCH (17:57)
[2022-02-09 06:06] LABS: ABS Eosinophils 0.2 10^3/ul (0-0.6); ABS Lymphocytes 0.8 10^3/ul (1.0-4.8); ABS Monocytes 0.6 10^3/ul (0-0.8); ABS Neutrophils 4.8 10^3/ul (1.5-7.7); Eosinophil % 2.8 %; Hematocrit 33 % (35-47); Hemoglobin 10.6 g/dL (12.0-16.0); Lymphocyte % 12.2 %; Mean Corpuscular HGB Conc 32 g/dL (31-36); Mean Corpuscular Hemoglobin 29 pg (27-31); Mean Corpuscular Volume 90 fL (80-97); Mean Platelet Volume 7.8 fL (7.4-10.4); Platelet Count 219 10^3/uL (150-450); Red Blood Count 3.67 10^6 /uL (3.70-4.87); Red Cell Distribution Width 23 % (10-15); White Blood Count 6.5 10^3/uL (3.5-10.8)
[2022-02-09 06:49] LABS: Calcium 8.7 mg/dL (8.6-10.3); Magnesium 1.8 mg/dL (1.9-2.7); Potassium 4.4 mmol/L (3.5-5.0); eGFR CKD-EPI 53.8 (>60)
[2022-02-09] MEDS ORDERED: Magnesium Sulfate IV 1GM/100ML 1 GM/100 ML BAG IV ONE (07:56)
[2022-02-09] MEDS: Venlafaxine XR 75 mg PO SCH (08:20)
[2022-02-09] MEDS: FLUTICAS/UMECLI/VILANT 100-62.5-25 MDI (NF) INH SCH (08:32)
[2022-02-09] MEDS: Nystatin TOP POWDER 15 GM BTL TOPICAL SCH ×3 (10:12→20:15)
[2022-02-09] MEDS ORDERED: CMC:FLUTICAS/UMECLI/VILANT 100-62.5-25 MDI (NF) INH SCH ×2 (12:00→12:30)
[2022-02-09] MEDS: CMC:FLUTICAS/UMECLI/VILANT 100-62.5-25 MDI (NF) INH SCH (12:24)
[2022-02-09 12:27] LABS: INR 1.62 (0.86-1.15)
[2022-02-09] MEDS: cefTRIAXone 1 gm/50 mL D5W 1 GM/50 ML BAG IV SCH (17:39)
[2022-02-10 06:24] LABS: ABS Eosinophils 0.2 10^3/ul (0-0.6); ABS Lymphocytes 0.7 10^3/ul (1.0-4.8); ABS Monocytes 0.7 10^3/ul (0-0.8); ABS Neutrophils 5.7 10^3/ul (1.5-7.7); Hematocrit 34 % (35-47); Hemoglobin 10.5 g/dL (12.0-16.0); INR 1.36 (0.86-1.15); Mean Corpuscular HGB Conc 31 g/dL (31-36); Mean Corpuscular Hemoglobin 28 pg (27-31); Mean Corpuscular Volume 90 fL (80-97); Mean Platelet Volume 8.4 fL (7.4-10.4); Platelet Count 219 10^3/uL (150-450); Red Blood Count 3.71 10^6 /uL (3.70-4.87); Red Cell Distribution Width 22 % (10-15); White Blood Count 7.4 10^3/uL (3.5-10.8)
[2022-02-10 06:55] LABS: Calcium 8.7 mg/dL (8.6-10.3); Magnesium 1.7 mg/dL (1.9-2.7); Potassium 4.6 mmol/L (3.5-5.0); eGFR CKD-EPI 48.1 (>60)
[2022-02-10] MEDS ORDERED: Magnesium Sulfate 2 gm BAG 2 GM/50 ML BAG IVPB ONE (08:16)
[2022-02-10] MEDS: Venlafaxine XR 75 mg PO SCH (08:40)
[2022-02-10] MEDS: Nystatin TOP POWDER 15 GM BTL TOPICAL SCH ×3 (08:46→21:53)
[2022-02-10] MEDS: CMC:FLUTICAS/UMECLI/VILANT 100-62.5-25 MDI (NF) INH SCH (08:57)
[2022-02-10] MEDS ORDERED: Warfarin DAILY REMINDER **NOTE FOLLOW UP SCH (17:00)
[2022-02-10] MEDS: cefTRIAXone 1 gm/50 mL D5W 1 GM/50 ML BAG IV SCH (18:33)
[2022-02-11] MEDS: CMC:FLUTICAS/UMECLI/VILANT 100-62.5-25 MDI (NF) INH SCH (08:08)
[2022-02-11] MEDS: Venlafaxine XR 75 mg PO SCH (09:44)
[2022-02-11] MEDS: Nystatin TOP POWDER 15 GM BTL TOPICAL SCH (09:46)
[2022-02-11 10:41] LABS: Rapid COVID-19 Molecular Undetected (Undetected)
[2022-02-11 11:01] VITALS: BP 106/60
== END 2022-02-11 13:00 | DRG 720 ==
LOC: ED 15:37 → SUATTDRO 18:28 → EDHOLD 18:28 → MEDTELE 02-07 03:03
PROVIDERS: ADMIT Internal Medicine; ATTEND Hospitalist

== ENCOUNTER 2022-03-20 10:37 | Inpatient (IN) ==
[2022-03-20] MEDS ORDERED: Lactated Ringers 1000 ml BAG 1,000 ML IV ONE ×2 (11:18→13:14)
[2022-03-20 12:30] LABS: ABS Lymphocytes 0.4 10^3/ul (1.0-4.8); ABS Monocytes 1.4 10^3/ul (0-0.8); ABS Neutrophils 9.6 10^3/ul (1.5-7.7); Hematocrit 41 % (35-47); Hemoglobin 12.9 g/dL (12.0-16.0); Lymphocyte % 3.9 %; Mean Corpuscular HGB Conc 31 g/dL (31-36); Mean Corpuscular Hemoglobin 28 pg (27-31); Mean Corpuscular Volume 90 fL (80-97); Mean Platelet Volume 8.1 fL (7.4-10.4); Platelet Count 271 10^3/uL (150-450); Red Blood Count 4.54 10^6 /uL (3.70-4.87); Red Cell Distribution Width 19 % (10-15); White Blood Count 11.5 10^3/uL (3.5-10.8)
[2022-03-20 12:51] LABS: Activated Partial Thrombo Time 31.6 seconds (26.0-38.0); INR 2.63 (0.86-1.15)
[2022-03-20 13:03] LABS: Urine Appearance Turbid; Urine Bilirubin Negative (Negative); Urine Blood 2+ (Negative); Urine Color Amber; Urine Glucose Negative (Negative); Urine Ketones Trace (Negative); Urine Nitrite Positive (Negative); Urine Protein 2+(100 mg/dL) (Negative); Urine Specific Gravity 1.017 (1.002-1.030); Urine Urobilinogen Negative (Negative)
[2022-03-20 13:06] LABS: Urine Bacteria 3+ (Absent); Urine Red Blood Cell 3+(>10/hpf) (Absent); Urine White Blood Cell 3+(>20/hpf) (Absent)
[2022-03-20 13:07] LABS: Albumin/Globulin Ratio 1.2 (1-3); C Reactive Protein 74.5 mg/L (<8.01); Calcium 10.2 mg/dL (8.6-10.3); Globulin 3.3 g/dL (2-4); Total Bilirubin 0.8 mg/dL (0.2-1.0); Total Protein 7.3 g/dL (6.4-8.9); eGFR CKD-EPI 31.3 (>60)
[2022-03-20] MEDS ORDERED: cefTRIAXone 2 gm/50 mL D5W 2 GM/50 ML BAG IV ONE (13:14)
[2022-03-20 14:26] LABS: High Sensitivity Troponin 1 Hr 64 pg/mL (<15)
[2022-03-20] MEDS ORDERED: Metoprolol Tartrate 5 mg VIAL 5 ml VIAL (1 mg/ml) IV ONE ×2 (14:50→15:40)
[2022-03-20 16:28] LABS: High Sensitivity Troponin 3 Hr 85 pg/mL (<15)
[2022-03-20 18:37] LABS: PCO2 Arterial 29 mmHg (35-45); PO2 Arterial 107 mmHg (80-100)
[2022-03-20 18:46] LABS: TSH Ultra Thyroid Stim Horm 1.47 mcIU/mL (0.34-5.60)
[2022-03-20] MEDS ORDERED: Warfarin per PHARMACY **NOTE FOLLOW UP SCH (19:00)
[2022-03-20] MEDS ORDERED: Lactated Ringers 1000 ml BAG 1,000 ML IV SCH (19:00)
[2022-03-20] MEDS ORDERED: cefTRIAXone 1 gm/50 mL D5W 1 GM/50 ML BAG IV ONE (19:30)
[2022-03-20] MEDS ORDERED: Albuterol HFA INHALER 8 gm MDI INH PRN (20:41)
[2022-03-21] MEDS: Heparin 5000 UNITS/ML 1 mL VIAL SUBCUT SCH ×4 (00:38→21:30)
[2022-03-21] MEDS: CMCS: FLUTICAS/UMECLI/VILANT 100-62.5-25 MDI (NF) INH SCH (07:59)
[2022-03-21] MEDS: Venlafaxine XR 75 mg PO SCH (09:54)
[2022-03-21 11:00] LABS: ABS Eosinophils 0.1 10^3/ul (0-0.6); ABS Lymphocytes 0.7 10^3/ul (1.0-4.8); ABS Monocytes 1.4 10^3/ul (0-0.8); ABS Neutrophils 6.2 10^3/ul (1.5-7.7); Eosinophil % 0.9 %; Hematocrit 38 % (35-47); Lymphocyte % 8.1 %; Mean Corpuscular HGB Conc 32 g/dL (31-36); Mean Corpuscular Hemoglobin 29 pg (27-31); Mean Corpuscular Volume 91 fL (80-97); Mean Platelet Volume 8.3 fL (7.4-10.4); Platelet Count 226 10^3/uL (150-450); Red Blood Count 4.15 10^6 /uL (3.70-4.87); Red Cell Distribution Width 19 % (10-15); White Blood Count 8.3 10^3/uL (3.5-10.8)
[2022-03-21 11:13] LABS: INR 2.22 (0.86-1.15)
[2022-03-21 11:52] LABS: Albumin 3.5 g/dL (3.2-5.2); Calcium 9.5 mg/dL (8.6-10.3); Potassium 4.2 mmol/L (3.5-5.0); Total Bilirubin 0.6 mg/dL (0.2-1.0)
[2022-03-21 11:58] LABS: Total Protein 6.3 g/dL (6.4-8.9); eGFR CKD-EPI 47.7 (>60)
[2022-03-21 11:59] LABS: Albumin/Globulin Ratio 1.3 (1-3); Globulin 2.8 g/dL (2-4); HDL Cholesterol 40.8 mg/dL
[2022-03-21] MEDS: cefTRIAXone 1 gm/50 mL D5W 1 GM/50 ML BAG IV SCH (14:25)
[2022-03-21] MEDS ORDERED: Lactated Ringers 500 ml BAG 500 ML IV ONE (18:28)
[2022-03-21] MEDS ORDERED: Dextrose 50% Syringe 50 ml 25 GM/50 ML SYRINGE IV PUSH PRN (18:31)
[2022-03-21] MEDS ORDERED: NS 0.45% 1000 ml BAG 1,000 ML IV SCH (19:00)
[2022-03-21 19:40] LABS: Calcium 8.7 mg/dL (8.6-10.3); Potassium 3.3 mmol/L (3.5-5.0); eGFR CKD-EPI 55.5 (>60)
[2022-03-21 22:41] LABS: Magnesium 1.9 mg/dL (1.9-2.7)
[2022-03-21] MEDS ORDERED: Magnesium Sulfate IV 1GM/100ML 1 GM/100 ML BAG IV ONE (22:42)
[2022-03-22] MEDS: KCL 20 MEQ/100 ML IVPREMIX 20 MEQ/100 ML BAG IV SCH ×2 (00:49→04:18)
[2022-03-22] MEDS: Heparin 5000 UNITS/ML 1 mL VIAL SUBCUT SCH ×2 (05:31→13:29)
[2022-03-22 06:18] LABS: Hematocrit 31 % (35-47); Hemoglobin 9.7 g/dL (12.0-16.0); Mean Corpuscular HGB Conc 31 g/dL (31-36); Mean Corpuscular Hemoglobin 28 pg (27-31); Mean Corpuscular Volume 90 fL (80-97); Mean Platelet Volume 8.3 fL (7.4-10.4); Platelet Count 189 10^3/uL (150-450); Red Blood Count 3.48 10^6 /uL (3.70-4.87); Red Cell Distribution Width 19 % (10-15); White Blood Count 6.3 10^3/uL (3.5-10.8)
[2022-03-22 06:23] LABS: INR 1.7 (0.86-1.15)
[2022-03-22 06:39] LABS: ABS Eosinophils 0.3 10^3/ul (0-0.6); ABS Monocytes 0.7 10^3/ul (0-0.8); ABS Neutrophils 4.3 10^3/ul (1.5-7.7); Eosinophil % 4.1 %; Lymphocyte % 16.3 %; Nucleated Red Blood Cells % 0.1
[2022-03-22 06:55] LABS: Albumin 2.8 g/dL (3.2-5.2); Albumin/Globulin Ratio 1.3 (1-3); Calcium 8.5 mg/dL (8.6-10.3); Globulin 2.2 g/dL (2-4); Potassium 3.8 mmol/L (3.5-5.0); Total Bilirubin 0.4 mg/dL (0.2-1.0); eGFR CKD-EPI 60.7 (>60)
[2022-03-22] MEDS: CMCS: FLUTICAS/UMECLI/VILANT 100-62.5-25 MDI (NF) INH SCH (08:30)
[2022-03-22] MEDS: Venlafaxine XR 75 mg PO SCH (09:06)
[2022-03-22] MEDS: cefTRIAXone 1 gm/50 mL D5W 1 GM/50 ML BAG IV SCH (13:34)
[2022-03-23 05:54] LABS: ABS Eosinophils 0.3 10^3/ul (0-0.6); ABS Monocytes 0.6 10^3/ul (0-0.8); ABS Neutrophils 4.7 10^3/ul (1.5-7.7); Eosinophil % 4.1 %; Hematocrit 34 % (35-47); Hemoglobin 10.8 g/dL (12.0-16.0); Lymphocyte % 14.8 %; Mean Corpuscular HGB Conc 32 g/dL (31-36); Mean Corpuscular Hemoglobin 29 pg (27-31); Mean Corpuscular Volume 90 fL (80-97); Mean Platelet Volume 7.7 fL (7.4-10.4); Nucleated Red Blood Cells % 0.1; Platelet Count 165 10^3/uL (150-450); Red Blood Count 3.78 10^6 /uL (3.70-4.87); Red Cell Distribution Width 19 % (10-15); White Blood Count 6.6 10^3/uL (3.5-10.8)
[2022-03-23 06:08] LABS: INR 1.64 (0.86-1.15)
[2022-03-23 06:38] LABS: Calcium 8.5 mg/dL (8.6-10.3); Potassium 3.9 mmol/L (3.5-5.0); eGFR CKD-EPI 72.4 (>60)
[2022-03-23] MEDS: CMCS: FLUTICAS/UMECLI/VILANT 100-62.5-25 MDI (NF) INH SCH (07:54)
[2022-03-23] MEDS: Venlafaxine XR 75 mg PO SCH (09:47)
[2022-03-23] MEDS: Morphine ORAL.SOLN 10 mg 2 mg/ml UDC 5 ml (10 mg) PO PRN (09:51)
[2022-03-23] MEDS: cefTRIAXone 1 gm/50 mL D5W 1 GM/50 ML BAG IV SCH (14:57)
[2022-03-23] MEDS: Warfarin DAILY REMINDER **NOTE FOLLOW UP SCH (17:19)
[2022-03-23 23:42] LABS: ABS Eosinophils 0.3 10^3/ul (0-0.6); ABS Lymphocytes 1.2 10^3/ul (1.0-4.8); ABS Monocytes 0.7 10^3/ul (0-0.8); ABS Neutrophils 5.2 10^3/ul (1.5-7.7); Eosinophil % 4.3 %; Hematocrit 32 % (35-47); Hemoglobin 10.2 g/dL (12.0-16.0); Lymphocyte % 16.3 %; Mean Corpuscular HGB Conc 31 g/dL (31-36); Mean Corpuscular Hemoglobin 28 pg (27-31); Mean Corpuscular Volume 89 fL (80-97); Mean Platelet Volume 8.1 fL (7.4-10.4); Nucleated Red Blood Cells % 0.1; Platelet Count 186 10^3/uL (150-450); Red Blood Count 3.63 10^6 /uL (3.70-4.87); Red Cell Distribution Width 19 % (10-15); White Blood Count 7.5 10^3/uL (3.5-10.8)
[2022-03-23 23:59] LABS: Calcium 8.1 mg/dL (8.6-10.3); Potassium 4.2 mmol/L (3.5-5.0); eGFR CKD-EPI 64.5 (>60)
[2022-03-24 06:19] LABS: INR 1.7 (0.86-1.15)
[2022-03-24] MEDS: CMCS: FLUTICAS/UMECLI/VILANT 100-62.5-25 MDI (NF) INH SCH (07:37)
[2022-03-24] MEDS: Venlafaxine XR 75 mg PO SCH (09:30)
[2022-03-24] MEDS: Morphine ORAL.SOLN 10 mg 2 mg/ml UDC 5 ml (10 mg) PO PRN (13:46)
[2022-03-24] MEDS: cefTRIAXone 1 gm/50 mL D5W 1 GM/50 ML BAG IV SCH (13:47)
[2022-03-24] MEDS: Warfarin DAILY REMINDER **NOTE FOLLOW UP SCH (17:20)
[2022-03-25 06:32] LABS: INR 1.9 (0.86-1.15)
[2022-03-25] MEDS: CMCS: FLUTICAS/UMECLI/VILANT 100-62.5-25 MDI (NF) INH SCH (07:41)
[2022-03-25] MEDS ORDERED: Enoxaparin 40 MG/0.4 ML SYR SUBCUT ONE (07:58)
[2022-03-25] MEDS: Morphine ORAL.SOLN 10 mg 2 mg/ml UDC 5 ml (10 mg) PO PRN ×2 (08:54→17:40)
[2022-03-25] MEDS: Venlafaxine XR 75 mg PO SCH (08:55)
[2022-03-25] MEDS: Warfarin DAILY REMINDER **NOTE FOLLOW UP SCH (17:40)
[2022-03-26 05:10] LABS: Hematocrit 31 % (35-47); Hemoglobin 9.8 g/dL (12.0-16.0); Mean Corpuscular HGB Conc 31 g/dL (31-36); Mean Corpuscular Hemoglobin 28 pg (27-31); Mean Corpuscular Volume 91 fL (80-97); Mean Platelet Volume 8.1 fL (7.4-10.4); Platelet Count 144 10^3/uL (150-450); Red Blood Count 3.44 10^6 /uL (3.70-4.87); Red Cell Distribution Width 19 % (10-15); White Blood Count 9.3 10^3/uL (3.5-10.8)
[2022-03-26 05:15] LABS: INR 2.23 (0.86-1.15)
[2022-03-26 05:17] LABS: ABS Eosinophils 0.3 10^3/ul (0-0.6); ABS Lymphocytes 1.1 10^3/ul (1.0-4.8); ABS Monocytes 0.9 10^3/ul (0-0.8); ABS Neutrophils 6.9 10^3/ul (1.5-7.7); Eosinophil % 3.3 %; Lymphocyte % 12.1 %
[2022-03-26 05:52] LABS: RBC Morphology Normal (Normal)
[2022-03-26 06:26] LABS: Calcium 8.5 mg/dL (8.6-10.3); Potassium 4.6 mmol/L (3.5-5.0); eGFR CKD-EPI 71.4 (>60)
[2022-03-26] MEDS: CMCS: FLUTICAS/UMECLI/VILANT 100-62.5-25 MDI (NF) INH SCH (08:56)
[2022-03-26] MEDS: Venlafaxine XR 75 mg PO SCH (09:13)
[2022-03-26] MEDS: Morphine ORAL.SOLN 10 mg 2 mg/ml UDC 5 ml (10 mg) PO PRN ×2 (12:55→20:42)
[2022-03-26] MEDS: Warfarin DAILY REMINDER **NOTE FOLLOW UP SCH (17:15)
[2022-03-27 05:02] LABS: INR 2.23 (0.86-1.15)
[2022-03-27] MEDS: CMCS: FLUTICAS/UMECLI/VILANT 100-62.5-25 MDI (NF) INH SCH (08:48)
[2022-03-27] MEDS: Venlafaxine XR 75 mg PO SCH (09:49)
[2022-03-27] MEDS: Warfarin DAILY REMINDER **NOTE FOLLOW UP SCH (17:36)
[2022-03-27] MEDS: Morphine ORAL.SOLN 10 mg 2 mg/ml UDC 5 ml (10 mg) PO PRN (21:16)
[2022-03-28] MEDS: Morphine ORAL.SOLN 10 mg 2 mg/ml UDC 5 ml (10 mg) PO PRN ×2 (05:46→18:33)
[2022-03-28 07:08] LABS: INR 2.38 (0.86-1.15)
[2022-03-28] MEDS: CMCS: FLUTICAS/UMECLI/VILANT 100-62.5-25 MDI (NF) INH SCH (08:00)
[2022-03-28] MEDS: Venlafaxine XR 75 mg PO SCH (09:32)
[2022-03-28] MEDS: Warfarin DAILY REMINDER **NOTE FOLLOW UP SCH (17:45)
[2022-03-29] MEDS: Morphine ORAL.SOLN 10 mg 2 mg/ml UDC 5 ml (10 mg) PO PRN ×2 (01:35→20:48)
[2022-03-29 06:56] LABS: INR 2.66 (0.86-1.15)
[2022-03-29] MEDS: CMCS: FLUTICAS/UMECLI/VILANT 100-62.5-25 MDI (NF) INH SCH (08:09)
[2022-03-29] MEDS: Venlafaxine XR 75 mg PO SCH (09:44)
[2022-03-29] MEDS: Warfarin DAILY REMINDER **NOTE FOLLOW UP SCH (16:26)
[2022-03-30 05:52] LABS: INR 2.5 (0.86-1.15)
[2022-03-30] MEDS: CMCS: FLUTICAS/UMECLI/VILANT 100-62.5-25 MDI (NF) INH SCH (07:11)
[2022-03-30] MEDS: Venlafaxine XR 75 mg PO SCH (09:48)
[2022-03-30 12:13] LABS: PCO2 Arterial 40 mmHg (35-45); PO2 Arterial 100 mmHg (80-100)
[2022-03-30] MEDS ORDERED: COVID-19 VACCINE, MRNA(MODERNA)/PF 100 MCG/0.5 ML IM ONE (15:00)
[2022-03-30] MEDS: Warfarin DAILY REMINDER **NOTE FOLLOW UP SCH (16:18)
[2022-03-30] MEDS: Morphine ORAL.SOLN 10 mg 2 mg/ml UDC 5 ml (10 mg) PO PRN ×2 (16:33→21:44)
[2022-03-31] MEDS: CMCS: FLUTICAS/UMECLI/VILANT 100-62.5-25 MDI (NF) INH SCH (07:19)
[2022-03-31] MEDS: Lidocaine PATCH 5% PATCH TRANSDERM PRN (08:10)
[2022-03-31] MEDS: Venlafaxine XR 75 mg PO SCH (08:12)
[2022-03-31] MEDS: Morphine ORAL.SOLN 10 mg 2 mg/ml UDC 5 ml (10 mg) PO PRN ×2 (08:12→20:42)
[2022-03-31] MEDS: Warfarin DAILY REMINDER **NOTE FOLLOW UP SCH (16:29)
[2022-04-01 07:04] LABS: Hematocrit 28 % (35-47); Hemoglobin 9.2 g/dL (12.0-16.0); Mean Platelet Volume 8.8 fL (7.4-10.4); Platelet Count 157 10^3/uL (150-450)
[2022-04-01 07:09] LABS: INR 1.84 (0.86-1.15)
[2022-04-01] MEDS: CMCS: FLUTICAS/UMECLI/VILANT 100-62.5-25 MDI (NF) INH SCH (08:10)
[2022-04-01] MEDS: Venlafaxine XR 75 mg PO SCH (08:51)
[2022-04-01] MEDS: Warfarin DAILY REMINDER **NOTE FOLLOW UP SCH (16:49)
[2022-04-01 17:17] LABS: Calcium 8.4 mg/dL (8.6-10.3); Magnesium 1.3 mg/dL (1.9-2.7); Potassium 5.6 mmol/L (3.5-5.0); eGFR CKD-EPI 36.6 (>60)
[2022-04-01] MEDS ORDERED: SODIUM ZIRCONIUM CYCLOSILICATE 10 GM PACKET PO ONE (17:56)
[2022-04-01] MEDS ORDERED: Magnesium Sulfate 2 gm BAG 2 GM/50 ML BAG IVPB ONE ×2 (17:56→21:00)
[2022-04-01] MEDS ORDERED: Lactated Ringers 500 ml BAG 500 ML IV SCH (18:00)
[2022-04-01] MEDS ORDERED: SODIUM ZIRCONIUM CYCLOSILICATE 5 GM PACKET PO ONE (19:00)
[2022-04-02 06:57] LABS: ABS Eosinophils 0.1 10^3/ul (0-0.6); ABS Lymphocytes 0.6 10^3/ul (1.0-4.8); ABS Monocytes 0.7 10^3/ul (0-0.8); ABS Neutrophils 5.5 10^3/ul (1.5-7.7); Eosinophil % 1.6 %; Hematocrit 28 % (35-47); Hemoglobin 8.9 g/dL (12.0-16.0); Lymphocyte % 8.3 %; Mean Corpuscular HGB Conc 32 g/dL (31-36); Mean Corpuscular Hemoglobin 29 pg (27-31); Mean Corpuscular Volume 91 fL (80-97); Mean Platelet Volume 8.6 fL (7.4-10.4); Platelet Count 154 10^3/uL (150-450); Red Blood Count 3.05 10^6 /uL (3.70-4.87); Red Cell Distribution Width 19 % (10-15)
[2022-04-02 07:13] LABS: INR 1.64 (0.86-1.15)
[2022-04-02 07:29] LABS: Calcium 8.6 mg/dL (8.6-10.3); Magnesium 2.5 mg/dL (1.9-2.7); eGFR CKD-EPI 38.7 (>60)
[2022-04-02 07:31] LABS: Potassium 5.2 mmol/L (3.5-5.0)
[2022-04-02] MEDS: CMCS: FLUTICAS/UMECLI/VILANT 100-62.5-25 MDI (NF) INH SCH (07:44)
[2022-04-02] MEDS: Morphine ORAL.SOLN 10 mg 2 mg/ml UDC 5 ml (10 mg) PO PRN ×2 (09:06→23:08)
[2022-04-02] MEDS: Venlafaxine XR 75 mg PO SCH (09:07)
[2022-04-02] MEDS ORDERED: SODIUM ZIRCONIUM CYCLOSILICATE 10 GM PACKET PO ONE (09:24)
[2022-04-02] MEDS: Warfarin DAILY REMINDER **NOTE FOLLOW UP SCH (17:17)
[2022-04-03 06:52] LABS: ABS Basophils 0.1 10^3/ul (0-0.2); ABS Eosinophils 0.1 10^3/ul (0-0.6); ABS Lymphocytes 0.6 10^3/ul (1.0-4.8); ABS Monocytes 0.6 10^3/ul (0-0.8); ABS Neutrophils 5.5 10^3/ul (1.5-7.7); Eosinophil % 1.4 %; Hematocrit 27 % (35-47); Hemoglobin 8.7 g/dL (12.0-16.0); Lymphocyte % 9.3 %; Mean Corpuscular HGB Conc 33 g/dL (31-36); Mean Corpuscular Hemoglobin 30 pg (27-31); Mean Corpuscular Volume 90 fL (80-97); Mean Platelet Volume 8.5 fL (7.4-10.4); Platelet Count 148 10^3/uL (150-450); Red Blood Count 2.93 10^6 /uL (3.70-4.87); Red Cell Distribution Width 19 % (10-15)
[2022-04-03 07:06] LABS: INR 1.61 (0.86-1.15)
[2022-04-03 07:44] LABS: Calcium 8.5 mg/dL (8.6-10.3); Potassium 4.7 mmol/L (3.5-5.0)
[2022-04-03] MEDS: Venlafaxine XR 75 mg PO SCH (08:30)
[2022-04-03] MEDS: CMCS: FLUTICAS/UMECLI/VILANT 100-62.5-25 MDI (NF) INH SCH (08:36)
[2022-04-03] MEDS: Nystatin SUSPENSION 100,000 UNITS/ML UDC SWISH SWAL SCH ×3 (13:39→20:46)
[2022-04-03] MEDS ORDERED: NS 0.9% 500 ml BAG 500 ML IV ONE (15:56)
[2022-04-03] MEDS: Hydrocortisone INJ 100 MG/2ML 2 ML VIAL IV SCH (17:32)
[2022-04-03] MEDS: Enoxaparin 100 MG/ML SYR SUBCUT SCH (17:33)
[2022-04-03] MEDS: Warfarin DAILY REMINDER **NOTE FOLLOW UP SCH (19:41)
[2022-04-03 20:48] LABS: Urine Appearance Cloudy; Urine Bilirubin Negative (Negative); Urine Blood 2+ (Negative); Urine Color Straw; Urine Glucose Negative (Negative); Urine Ketones Negative (Negative); Urine Nitrite Negative (Negative); Urine Protein Negative (Negative); Urine Specific Gravity 1.005 (1.002-1.030); Urine Urobilinogen Negative (Negative)
[2022-04-03 21:09] LABS: Urine Bacteria Absent (Absent); Urine Red Blood Cell Trace(0-2/hpf) (Absent); Urine Squamous Epithelial Cell Present (Absent); Urine White Blood Cell Trace(0-5/hpf) (Absent)
[2022-04-04] MEDS: Hydrocortisone INJ 100 MG/2ML 2 ML VIAL IV SCH ×3 (01:42→16:27)
[2022-04-04] MEDS: Enoxaparin 100 MG/ML SYR SUBCUT SCH ×2 (05:00→16:27)
[2022-04-04 05:10] LABS: ABS Lymphocytes 0.3 10^3/ul (1.0-4.8); ABS Monocytes 0.2 10^3/ul (0-0.8); ABS Neutrophils 6.7 10^3/ul (1.5-7.7); Hematocrit 29 % (35-47); Hemoglobin 9.2 g/dL (12.0-16.0); Lymphocyte % 4.1 %; Mean Corpuscular HGB Conc 32 g/dL (31-36); Mean Corpuscular Hemoglobin 29 pg (27-31); Mean Corpuscular Volume 90 fL (80-97); Mean Platelet Volume 8.8 fL (7.4-10.4); Platelet Count 152 10^3/uL (150-450); Red Blood Count 3.19 10^6 /uL (3.70-4.87); Red Cell Distribution Width 19 % (10-15); White Blood Count 7.1 10^3/uL (3.5-10.8)
[2022-04-04 05:35] LABS: Calcium 8.5 mg/dL (8.6-10.3); Magnesium 1.8 mg/dL (1.9-2.7); Potassium 4.8 mmol/L (3.5-5.0); eGFR CKD-EPI 47.7 (>60)
[2022-04-04] MEDS: CMCS: FLUTICAS/UMECLI/VILANT 100-62.5-25 MDI (NF) INH SCH (08:13)
[2022-04-04 08:27] LABS: INR 1.84 (0.86-1.15)
[2022-04-04] MEDS: Venlafaxine XR 75 mg PO SCH (08:51)
[2022-04-04] MEDS: Nystatin SUSPENSION 100,000 UNITS/ML UDC SWISH SWAL SCH ×4 (08:51→20:18)
[2022-04-04] MEDS: Warfarin DAILY REMINDER **NOTE FOLLOW UP SCH (16:28)
[2022-04-04] MEDS ORDERED: Morphine ORAL.SOLN 10 mg 2 mg/ml UDC 5 ml (10 mg) PO PRN ×2 (17:59→18:02)
[2022-04-05] MEDS: Hydrocortisone INJ 100 MG/2ML 2 ML VIAL IV SCH ×2 (05:08→16:29)
[2022-04-05] MEDS: Enoxaparin 100 MG/ML SYR SUBCUT SCH ×2 (05:09→16:29)
[2022-04-05 06:03] LABS: Calcium 8.8 mg/dL (8.6-10.3); Magnesium 1.7 mg/dL (1.9-2.7); Potassium 4.1 mmol/L (3.5-5.0); eGFR CKD-EPI 55.5 (>60)
[2022-04-05 06:54] LABS: ABS Lymphocytes 0.7 10^3/ul (1.0-4.8); ABS Monocytes 0.5 10^3/ul (0-0.8); ABS Neutrophils 6.6 10^3/ul (1.5-7.7); Hematocrit 30 % (35-47); Hemoglobin 9.8 g/dL (12.0-16.0); INR 2.14 (0.86-1.15); Lymphocyte % 8.9 %; Mean Corpuscular HGB Conc 33 g/dL (31-36); Mean Corpuscular Hemoglobin 30 pg (27-31); Mean Corpuscular Volume 91 fL (80-97); Mean Platelet Volume 8.7 fL (7.4-10.4); Platelet Count 177 10^3/uL (150-450); Red Blood Count 3.32 10^6 /uL (3.70-4.87); Red Cell Distribution Width 19 % (10-15); White Blood Count 7.8 10^3/uL (3.5-10.8)
[2022-04-05] MEDS: CMCS: FLUTICAS/UMECLI/VILANT 100-62.5-25 MDI (NF) INH SCH (08:03)
[2022-04-05] MEDS: Nystatin SUSPENSION 100,000 UNITS/ML UDC SWISH SWAL SCH ×4 (09:09→21:42)
[2022-04-05] MEDS: Venlafaxine XR 75 mg PO SCH (09:10)
[2022-04-05] MEDS: Lidocaine PATCH 5% PATCH TRANSDERM PRN (09:49)
[2022-04-05] MEDS: Warfarin DAILY REMINDER **NOTE FOLLOW UP SCH (16:30)
[2022-04-06 06:50] LABS: INR 2.34 (0.86-1.15)
[2022-04-06] MEDS: Venlafaxine XR 75 mg PO SCH (08:27)
[2022-04-06] MEDS: Nystatin SUSPENSION 100,000 UNITS/ML UDC SWISH SWAL SCH ×4 (08:27→20:47)
[2022-04-06] MEDS: CMCS: FLUTICAS/UMECLI/VILANT 100-62.5-25 MDI (NF) INH SCH (10:14)
[2022-04-06] MEDS: Warfarin DAILY REMINDER **NOTE FOLLOW UP SCH (18:21)
[2022-04-07 06:10] LABS: ABS Lymphocytes 0.5 10^3/ul (1.0-4.8); ABS Monocytes 0.6 10^3/ul (0-0.8); ABS Neutrophils 6.7 10^3/ul (1.5-7.7); Eosinophil % 0.1 %; Hematocrit 31 % (35-47); Hemoglobin 10.1 g/dL (12.0-16.0); INR 2.49 (0.86-1.15); Lymphocyte % 6.8 %; Mean Corpuscular HGB Conc 32 g/dL (31-36); Mean Corpuscular Hemoglobin 29 pg (27-31); Mean Corpuscular Volume 90 fL (80-97); Mean Platelet Volume 8.6 fL (7.4-10.4); Platelet Count 192 10^3/uL (150-450); Red Blood Count 3.49 10^6 /uL (3.70-4.87); Red Cell Distribution Width 19 % (10-15); White Blood Count 7.8 10^3/uL (3.5-10.8)
[2022-04-07 06:18] LABS: Calcium 8.7 mg/dL (8.6-10.3); Potassium 4.3 mmol/L (3.5-5.0); eGFR CKD-EPI 70.4 (>60)
[2022-04-07] MEDS: Venlafaxine XR 75 mg PO SCH (08:01)
[2022-04-07] MEDS: Nystatin SUSPENSION 100,000 UNITS/ML UDC SWISH SWAL SCH ×2 (08:02→12:42)
[2022-04-07] MEDS: CMCS: FLUTICAS/UMECLI/VILANT 100-62.5-25 MDI (NF) INH SCH (08:20)
[2022-04-07] MEDS: Warfarin DAILY REMINDER **NOTE FOLLOW UP SCH (17:21)
[2022-04-07] MEDS: Magic MouthWash2-BEN/MAAL/LIDO/NYST 240 ML BTL (alt formulation) SWISH SWAL SCH ×2 (19:25→21:21)
[2022-04-08 05:08] LABS: INR 2.63 (0.86-1.15)
[2022-04-08 07:29] VITALS: BP 137/75
[2022-04-08] MEDS: CMCS: FLUTICAS/UMECLI/VILANT 100-62.5-25 MDI (NF) INH SCH (07:36)
[2022-04-08] MEDS: Venlafaxine XR 75 mg PO SCH (07:59)
[2022-04-08] MEDS: Magic MouthWash2-BEN/MAAL/LIDO/NYST 240 ML BTL (alt formulation) SWISH SWAL SCH (08:00)
[2022-04-08] MEDS ORDERED: Nystatin SUSPENSION 100,000 UNITS/ML UDC SWISH SWAL SCH (09:00)
[2022-04-08] MEDS ORDERED: Psyllium PAK PO SCH (09:00)
== END 2022-04-08 09:35 | disposition home health service (06) | DRG 52 ==
LOC: ED 10:37 → SUATTDRO 17:58 → EDHOLD 17:58 → MED 20:41
PROVIDERS: ADMIT Hospitalist; ATTEND Hospitalist

== ENCOUNTER 2022-11-17 08:40 | Inpatient (IN) ==
[2022-11-17 11:13] LABS: ABS Basophils 0.1 10^3/ul (0-0.2); ABS Eosinophils 0.1 10^3/ul (0-0.6); ABS Lymphocytes 0.5 10^3/ul (1.0-4.8); ABS Monocytes 0.5 10^3/ul (0-0.8); Hematocrit 39 % (35-47); Hemoglobin 12.1 g/dL (12.0-16.0); Lymphocyte % 7.3 %; Mean Corpuscular HGB Conc 31 g/dL (31-36); Mean Corpuscular Hemoglobin 28 pg (27-31); Mean Corpuscular Volume 88 fL (80-97); Mean Platelet Volume 7.8 fL (7.4-10.4); Nucleated Red Blood Cells % 0.1; Platelet Count 182 10^3/uL (150-450); Red Blood Count 4.41 10^6 /uL (3.70-4.87); Red Cell Distribution Width 19 % (10-15); White Blood Count 7.2 10^3/uL (3.5-10.8)
[2022-11-17 11:36] LABS: High Sens Troponin Baseline 5 pg/mL (<15)
[2022-11-17 11:53] LABS: ALT 10 U/L (7-52); Albumin 3.6 g/dL (3.2-5.2); Albumin/Globulin Ratio 1.2 (1-3); Alkaline Phosphatase 183 U/L (35-149); Blood Urea Nitrogen 40 mg/dL (6-24); CO2 Carbon Dioxide 22 mmol/L (22-32); Calcium 8.8 mg/dL (8.6-10.3); Chloride 108 mmol/L (101-111); Creatinine, Serum 1.24 mg/dL (0.51-0.95); Globulin 2.9 g/dL (2-4); Glucose 156 mg/dL (70-100); Magnesium 1.9 mg/dL (1.9-2.7); Sodium 133 mmol/L (135-145); Total Protein 6.5 g/dL (6.4-8.9); eGFR CKD-EPI 48.3 (>60)
[2022-11-17 12:01] LABS: Urine Appearance Cloudy; Urine Bilirubin Negative (Negative); Urine Blood 1+ (Negative); Urine Color Yellow; Urine Glucose Negative (Negative); Urine Ketones Negative (Negative); Urine Nitrite Negative (Negative); Urine Protein 1+(30 mg/dL) (Negative); Urine Specific Gravity 1.015 (1.002-1.030); Urine Urobilinogen Negative (Negative)
[2022-11-17] MEDS ORDERED: NS 0.9% 500 ml BAG 500 ML IV ONE (12:02)
[2022-11-17 12:15] LABS: Urine Bacteria 3+ (Absent); Urine Red Blood Cell Trace(0-2/hpf) (Absent); Urine Squamous Epithelial Cell Present (Absent); Urine White Blood Cell 1+(6-10/hpf) (Absent)
[2022-11-17 12:37] LABS: AST 12 U/L (13-39); Hepatitis C Antibody Negative (Negative)
[2022-11-17 12:38] LABS: Anion Gap 3 mmol/L (2-11); Phosphorus 1.6 mg/dL (2.5-5.0)
[2022-11-17] MEDS ORDERED: Furosemide 40 mg/4 ml IV VIAL IV SLOW PU ONE (13:46)
[2022-11-17 13:54] LABS: Potassium Redraw 6.4 mmol/L (3.5-5.0)
[2022-11-17] MEDS ORDERED: Dextrose 50% Syringe 50 ml 25 GM/50 ML SYRINGE IV PUSH ONE (13:57)
[2022-11-17] MEDS ORDERED: CALCIUM GLUCONATE 1GM/50ML NS 1 GM/50 ML BAG IV ONE (13:57)
[2022-11-17] MEDS ORDERED: NS 0.9% 1000 ml BAG 1,000 ML IV ONE (13:58)
[2022-11-17] MEDS ORDERED: Polyethylene Glycol 3350 17 GM PACKET PO PRN (14:50)
[2022-11-17] MEDS ORDERED: Senna TAB 8.6 mg TAB PO PRN (14:50)
[2022-11-17] MEDS ORDERED: Ondansetron 4 mg VIAL 2 MG/ML 2 ml VIAL IV PRN (14:50)
[2022-11-17 15:39] LABS: Activated Partial Thrombo Time 65.9 seconds (26.0-38.0)
[2022-11-17 15:50] LABS: INR 8.53 (0.88-1.18)
[2022-11-17] MEDS ORDERED: Iodixanol (CONTRAST) 320 MG/ML 100 ML SDV IV ONE (16:06)
[2022-11-17] MEDS ORDERED: Albuterol HFA INHALER 8 gm MDI INH PRN (16:21)
[2022-11-17 19:03] LABS: Albumin 3.6 g/dL (3.2-5.2); Albumin/Globulin Ratio 1.2 (1-3); Creatinine, Serum 1.17 mg/dL (0.51-0.95); Direct Bilirubin 0.1 mg/dL (0.03-0.18); Globulin 2.9 g/dL (2-4); Indirect Bilirubin 0.4 mg/dL (0.3-1.0); Total Bilirubin 0.5 mg/dL (0.2-1.0); Total Protein 6.5 g/dL (6.4-8.9); eGFR CKD-EPI 51.8 (>60)
[2022-11-17 19:06] LABS: Potassium 5.7 mmol/L (3.5-5.0)
[2022-11-17] MEDS ORDERED: SODIUM ZIRCONIUM CYCLOSILICATE 10 GM PACKET PO ONE (19:10)
[2022-11-17] MEDS: Nystatin TOP POWDER 15 GM BTL TOPICAL SCH (21:32)
[2022-11-18 03:03] LABS: Calcium 8.7 mg/dL (8.6-10.3)
[2022-11-18 03:09] LABS: Creatinine, Serum 1.35 mg/dL (0.51-0.95); eGFR CKD-EPI 43.6 (>60)
[2022-11-18] MEDS ORDERED: SODIUM ZIRCONIUM CYCLOSILICATE 10 GM PACKET PO ONE ×2 (03:16→09:30)
[2022-11-18 08:04] LABS: ABS Basophils 0.1 10^3/ul (0-0.2); ABS Eosinophils 0.1 10^3/ul (0-0.6); ABS Lymphocytes 0.5 10^3/ul (1.0-4.8); ABS Monocytes 0.5 10^3/ul (0-0.8); ABS Neutrophils 5.8 10^3/ul (1.5-7.7); Eosinophil % 1.3 %; Hematocrit 38 % (35-47); Hemoglobin 11.7 g/dL (12.0-16.0); Lymphocyte % 7.8 %; Mean Corpuscular HGB Conc 31 g/dL (31-36); Mean Corpuscular Hemoglobin 28 pg (27-31); Mean Corpuscular Volume 88 fL (80-97); Mean Platelet Volume 7.9 fL (7.4-10.4); Nucleated Red Blood Cells % 0.1; Platelet Count 193 10^3/uL (150-450); Red Blood Count 4.25 10^6 /uL (3.70-4.87); Red Cell Distribution Width 19 % (10-15); White Blood Count 6.9 10^3/uL (3.5-10.8)
[2022-11-18] MEDS: FLUTICAS/UMECLI/VILANT 200-62.5-25 MDI (NF) INH SCH (08:06)
[2022-11-18 08:23] LABS: Calcium 8.9 mg/dL (8.6-10.3); Creatinine, Serum 1.3 mg/dL (0.51-0.95); eGFR CKD-EPI 45.6 (>60)
[2022-11-18] MEDS: Nystatin TOP POWDER 15 GM BTL TOPICAL SCH ×3 (08:53→19:27)
[2022-11-18] MEDS: Furosemide 40 mg/4 ml IV VIAL IV SCH ×2 (08:53→16:12)
[2022-11-18] MEDS: Venlafaxine XR 75 mg PO SCH (08:54)
[2022-11-18] MEDS ORDERED: Venlafaxine XR 75 mg PO SCH (09:00)
[2022-11-18 15:22] LABS: C Reactive Protein 26.52 mg/L (<8.01)
[2022-11-18 17:14] LABS: INR 3.85 (0.88-1.18)
[2022-11-18 17:37] LABS: Albumin 3.1 g/dL (3.2-5.2); Albumin/Globulin Ratio 1.3 (1-3); Calcium 8.5 mg/dL (8.6-10.3); Creatinine, Serum 1.38 mg/dL (0.51-0.95); Direct Bilirubin 0.1 mg/dL (0.03-0.18); Globulin 2.4 g/dL (2-4); Indirect Bilirubin 0.3 mg/dL (0.3-1.0); Total Bilirubin 0.4 mg/dL (0.2-1.0); Total Protein 5.5 g/dL (6.4-8.9); eGFR CKD-EPI 42.5 (>60)
[2022-11-18 17:39] LABS: Potassium 5.9 mmol/L (3.5-5.0)
[2022-11-19 06:11] LABS: ABS Basophils 0.1 10^3/ul (0-0.2); ABS Eosinophils 0.1 10^3/ul (0-0.6); ABS Lymphocytes 0.6 10^3/ul (1.0-4.8); ABS Monocytes 0.7 10^3/ul (0-0.8); ABS Neutrophils 5.9 10^3/ul (1.5-7.7); Eosinophil % 1.5 %; Hematocrit 35 % (35-47); Hemoglobin 10.9 g/dL (12.0-16.0); Lymphocyte % 8.3 %; Mean Corpuscular HGB Conc 31 g/dL (31-36); Mean Corpuscular Hemoglobin 27 pg (27-31); Mean Corpuscular Volume 88 fL (80-97); Mean Platelet Volume 7.9 fL (7.4-10.4); Nucleated Red Blood Cells % 0.1; Platelet Count 187 10^3/uL (150-450); Red Blood Count 4.03 10^6 /uL (3.70-4.87); Red Cell Distribution Width 19 % (10-15); White Blood Count 7.3 10^3/uL (3.5-10.8)
[2022-11-19 06:18] LABS: INR 2.09 (0.88-1.18)
[2022-11-19 06:49] LABS: Calcium 8.5 mg/dL (8.6-10.3); Creatinine, Serum 1.53 mg/dL (0.51-0.95); eGFR CKD-EPI 37.5 (>60)
[2022-11-19 06:57] LABS: Potassium 7.2 mmol/L (3.5-5.0)
[2022-11-19] MEDS: FLUTICAS/UMECLI/VILANT 200-62.5-25 MDI (NF) INH SCH (07:47)
[2022-11-19] MEDS: Venlafaxine XR 75 mg PO SCH (07:56)
[2022-11-19] MEDS: Nystatin TOP POWDER 15 GM BTL TOPICAL SCH ×3 (07:57→20:03)
[2022-11-19] MEDS ORDERED: Furosemide 40 mg/4 ml IV VIAL IV SCH (08:00)
[2022-11-19] MEDS ORDERED: Albuterol 2.5mg/3 ml (0.083%) NEB.SOLN INH ONE (08:50)
[2022-11-19] MEDS ORDERED: D5W 250 ml BAG 250 ML IV ONE (08:52)
[2022-11-19 08:55] LABS: Calcium 8.7 mg/dL (8.6-10.3); Creatinine, Serum 1.55 mg/dL (0.51-0.95)
[2022-11-19 08:57] LABS: Potassium 6.7 mmol/L (3.5-5.0)
[2022-11-19] MEDS ORDERED: SODIUM ZIRCONIUM CYCLOSILICATE 10 GM PACKET PO SCH (09:00)
[2022-11-19] MEDS ORDERED: Warfarin per PHARMACY **NOTE FOLLOW UP SCH (09:00)
[2022-11-19] MEDS ORDERED: Sodium Polystyrene ORAL.SUSP 15 GM/60 ML BTL PO ONE (09:04)
[2022-11-19] MEDS ORDERED: Calcium Gluconate 1 GM/10 ML VIAL (in Pyxis) IV PUSH ONE (09:15)
[2022-11-19] MEDS ORDERED: CALCIUM GLUCONATE 1GM/50ML NS BAG IV ONE (09:30)
[2022-11-19] MEDS: Furosemide 40 mg/4 ml IV VIAL IV SLOW PU SCH ×2 (09:39→17:12)
[2022-11-19 14:18] LABS: Creatinine, Serum 1.57 mg/dL (0.51-0.95); eGFR CKD-EPI 36.4 (>60)
[2022-11-19 14:19] LABS: Potassium 5.7 mmol/L (3.5-5.0)
[2022-11-19 14:41] LABS: Hematocrit 34 % (35-47); Hemoglobin 10.7 g/dL (12.0-16.0)
[2022-11-19 21:27] LABS: Hematocrit 34 % (35-47); Hemoglobin 10.4 g/dL (12.0-16.0)
[2022-11-20 02:02] LABS: Hematocrit 34 % (35-47); Hemoglobin 10.5 g/dL (12.0-16.0)
[2022-11-20 02:43] LABS: Calcium 8.4 mg/dL (8.6-10.3); Creatinine, Serum 1.54 mg/dL (0.51-0.95); eGFR CKD-EPI 37.2 (>60)
[2022-11-20 02:44] LABS: Potassium 5.3 mmol/L (3.5-5.0)
[2022-11-20 07:11] LABS: Hematocrit 35 % (35-47)
[2022-11-20 07:26] LABS: INR 1.57 (0.88-1.18)
[2022-11-20] MEDS: Venlafaxine XR 75 mg PO SCH (07:58)
[2022-11-20] MEDS: Furosemide 40 mg/4 ml IV VIAL IV SLOW PU SCH ×2 (08:00→17:45)
[2022-11-20] MEDS: Nystatin TOP POWDER 15 GM BTL TOPICAL SCH ×3 (08:00→20:07)
[2022-11-20] MEDS: Polyethylene Glycol 3350 17 GM PACKET PO SCH (08:00)
[2022-11-20] MEDS: FLUTICAS/UMECLI/VILANT 200-62.5-25 MDI (NF) INH SCH (08:06)
[2022-11-20 08:26] LABS: Magnesium 1.6 mg/dL (1.9-2.7)
[2022-11-20 11:10] LABS: Calcium 8.6 mg/dL (8.6-10.3); Creatinine, Serum 1.58 mg/dL (0.51-0.95); Magnesium 1.6 mg/dL (1.9-2.7); eGFR CKD-EPI 36.1 (>60)
[2022-11-20 11:12] LABS: Potassium 5.7 mmol/L (3.5-5.0)
[2022-11-20] MEDS ORDERED: Magnesium Sulfate 2 gm BAG 2 GM/50 ML BAG IVPB ONE (12:40)
[2022-11-20 16:02] LABS: Calcium 8.5 mg/dL (8.6-10.3); Creatinine, Serum 1.5 mg/dL (0.51-0.95); Magnesium 2.2 mg/dL (1.9-2.7); eGFR CKD-EPI 38.4 (>60)
[2022-11-20 16:07] LABS: Potassium 5.7 mmol/L (3.5-5.0)
[2022-11-20] MEDS: Warfarin DAILY REMINDER **NOTE FOLLOW UP SCH (17:49)
[2022-11-21] MEDS ORDERED: Morphine 2 MG/ML SYRINGE IV ONE (02:33)
[2022-11-21] MEDS ORDERED: oxyCODONE/Acetamin 5/325 mg TAB PO ONE (03:28)
[2022-11-21 04:53] LABS: ABS Eosinophils 0.1 10^3/ul (0-0.6); ABS Lymphocytes 0.6 10^3/ul (1.0-4.8); ABS Monocytes 0.5 10^3/ul (0-0.8); ABS Neutrophils 4.4 10^3/ul (1.5-7.7); Eosinophil % 2.6 %; Hematocrit 35 % (35-47); Hemoglobin 10.7 g/dL (12.0-16.0); Lymphocyte % 10.6 %; Mean Corpuscular HGB Conc 31 g/dL (31-36); Mean Corpuscular Hemoglobin 27 pg (27-31); Mean Corpuscular Volume 88 fL (80-97); Mean Platelet Volume 7.8 fL (7.4-10.4); Nucleated Red Blood Cells % 0.1; Platelet Count 171 10^3/uL (150-450); Red Blood Count 3.96 10^6 /uL (3.70-4.87); Red Cell Distribution Width 19 % (10-15); White Blood Count 5.8 10^3/uL (3.5-10.8)
[2022-11-21 05:10] LABS: INR 1.57 (0.88-1.18)
[2022-11-21 05:31] LABS: Calcium 8.5 mg/dL (8.6-10.3); Creatinine, Serum 1.71 mg/dL (0.51-0.95); eGFR CKD-EPI 32.8 (>60)
[2022-11-21] MEDS: FLUTICAS/UMECLI/VILANT 200-62.5-25 MDI (NF) INH SCH (07:53)
[2022-11-21] MEDS: Venlafaxine XR 75 mg PO SCH (08:11)
[2022-11-21] MEDS: Polyethylene Glycol 3350 17 GM PACKET PO SCH (08:12)
[2022-11-21] MEDS: Nystatin TOP POWDER 15 GM BTL TOPICAL SCH ×3 (08:13→20:39)
[2022-11-21] MEDS: Furosemide 40 mg/4 ml IV VIAL IV SLOW PU SCH ×2 (10:43→17:41)
[2022-11-21] MEDS ORDERED: Polyethylene Glycol 3350 17 GM PACKET PO PRN (17:05)
[2022-11-21] MEDS: Warfarin DAILY REMINDER **NOTE FOLLOW UP SCH (17:42)
[2022-11-22 07:23] LABS: ABS Eosinophils 0.2 10^3/ul (0-0.6); ABS Lymphocytes 0.5 10^3/ul (1.0-4.8); ABS Monocytes 0.6 10^3/ul (0-0.8); ABS Neutrophils 4.9 10^3/ul (1.5-7.7); Eosinophil % 2.7 %; Hematocrit 35 % (35-47); Hemoglobin 11.3 g/dL (12.0-16.0); Lymphocyte % 8.5 %; Mean Corpuscular HGB Conc 32 g/dL (31-36); Mean Corpuscular Hemoglobin 28 pg (27-31); Mean Corpuscular Volume 87 fL (80-97); Mean Platelet Volume 7.8 fL (7.4-10.4); Nucleated Red Blood Cells % 0.1; Platelet Count 169 10^3/uL (150-450); Red Blood Count 4.04 10^6 /uL (3.70-4.87); Red Cell Distribution Width 18 % (10-15); White Blood Count 6.2 10^3/uL (3.5-10.8)
[2022-11-22 07:28] LABS: INR 1.71 (0.88-1.18)
[2022-11-22] MEDS: FLUTICAS/UMECLI/VILANT 200-62.5-25 MDI (NF) INH SCH (07:44)
[2022-11-22 07:51] LABS: Calcium 8.2 mg/dL (8.6-10.3); Creatinine, Serum 1.69 mg/dL (0.51-0.95); eGFR CKD-EPI 33.3 (>60)
[2022-11-22 07:59] LABS: Potassium 5.5 mmol/L (3.5-5.0)
[2022-11-22] MEDS: Venlafaxine XR 75 mg PO SCH (08:39)
[2022-11-22] MEDS: Furosemide 40 mg/4 ml IV VIAL IV SLOW PU SCH ×3 (08:39→20:09)
[2022-11-22] MEDS: Nystatin TOP POWDER 15 GM BTL TOPICAL SCH ×3 (08:41→20:09)
[2022-11-22] MEDS ORDERED: Sodium Polystyrene ORAL.SUSP 15 GM/60 ML BTL PO ONE (11:46)
[2022-11-22] MEDS: Warfarin DAILY REMINDER **NOTE FOLLOW UP SCH (17:25)
[2022-11-22 19:33] LABS: Creatinine, Serum 1.62 mg/dL (0.51-0.95); Magnesium 1.8 mg/dL (1.9-2.7); Potassium 4.5 mmol/L (3.5-5.0)
[2022-11-23 05:54] LABS: INR 1.64 (0.88-1.18)
[2022-11-23 06:11] LABS: Calcium 7.9 mg/dL (8.6-10.3); Creatinine, Serum 1.65 mg/dL (0.51-0.95); Potassium 4.1 mmol/L (3.5-5.0); eGFR CKD-EPI 34.3 (>60)
[2022-11-23] MEDS: FLUTICAS/UMECLI/VILANT 200-62.5-25 MDI (NF) INH SCH (11:09)
[2022-11-23] MEDS: Venlafaxine XR 75 mg PO SCH (11:15)
[2022-11-23] MEDS: Nystatin TOP POWDER 15 GM BTL TOPICAL SCH ×3 (11:16→20:47)
[2022-11-23] MEDS: Furosemide 40 mg/4 ml IV VIAL IV SLOW PU SCH ×3 (11:16→21:51)
[2022-11-23] MEDS: Warfarin DAILY REMINDER **NOTE FOLLOW UP SCH (17:37)
[2022-11-24 06:09] LABS: INR 1.58 (0.88-1.18)
[2022-11-24 06:26] LABS: Calcium 7.9 mg/dL (8.6-10.3); Creatinine, Serum 1.74 mg/dL (0.51-0.95); Potassium 4.2 mmol/L (3.5-5.0); eGFR CKD-EPI 32.2 (>60)
[2022-11-24] MEDS: FLUTICAS/UMECLI/VILANT 200-62.5-25 MDI (NF) INH SCH (08:24)
[2022-11-24] MEDS ORDERED: Sulfur Hexaflouride MICROSPHR 25 MG VIAL ONE (09:10)
[2022-11-24] MEDS: Venlafaxine XR 75 mg PO SCH (10:19)
[2022-11-24] MEDS: Nystatin TOP POWDER 15 GM BTL TOPICAL SCH ×3 (10:25→20:36)
[2022-11-24] MEDS: Furosemide 40 mg/4 ml IV VIAL IV SLOW PU SCH ×3 (11:06→20:37)
[2022-11-24] MEDS: Enoxaparin 100 MG/ML SYR SUBCUT SCH (16:01)
[2022-11-24] MEDS: Warfarin DAILY REMINDER **NOTE FOLLOW UP SCH (17:18)
[2022-11-25] MEDS: Enoxaparin 100 MG/ML SYR SUBCUT SCH ×2 (06:09→17:08)
[2022-11-25 06:18] LABS: INR 1.69 (0.88-1.18)
[2022-11-25 06:32] LABS: Calcium 8.7 mg/dL (8.6-10.3); Creatinine, Serum 1.76 mg/dL (0.51-0.95); Potassium 4.2 mmol/L (3.5-5.0); eGFR CKD-EPI 31.7 (>60)
[2022-11-25] MEDS: FLUTICAS/UMECLI/VILANT 200-62.5-25 MDI (NF) INH SCH (07:24)
[2022-11-25] MEDS: Furosemide 40 mg/4 ml IV VIAL IV SLOW PU SCH (08:59)
[2022-11-25] MEDS: Venlafaxine XR 75 mg PO SCH (08:59)
[2022-11-25 09:58] LABS: Magnesium 1.9 mg/dL (1.9-2.7)
[2022-11-25] MEDS: Nystatin TOP POWDER 15 GM BTL TOPICAL SCH ×2 (14:36→20:45)
[2022-11-25] MEDS: Warfarin DAILY REMINDER **NOTE FOLLOW UP SCH (17:09)
[2022-11-26] MEDS: Enoxaparin 100 MG/ML SYR SUBCUT SCH (05:19)
[2022-11-26 06:22] LABS: INR 2.13 (0.88-1.18)
[2022-11-26 06:43] LABS: Creatinine, Serum 1.89 mg/dL (0.51-0.95); Potassium 4.5 mmol/L (3.5-5.0); eGFR CKD-EPI 29.1 (>60)
[2022-11-26] MEDS: FLUTICAS/UMECLI/VILANT 200-62.5-25 MDI (NF) INH SCH (07:05)
[2022-11-26] MEDS: Venlafaxine XR 75 mg PO SCH (09:04)
[2022-11-26] MEDS: Nystatin TOP POWDER 15 GM BTL TOPICAL SCH ×3 (12:47→21:55)
[2022-11-26 13:18] LABS: Urine Appearance Cloudy; Urine Bilirubin Negative (Negative); Urine Blood Negative (Negative); Urine Color Straw; Urine Glucose Negative (Negative); Urine Ketones Negative (Negative); Urine Nitrite Negative (Negative); Urine Protein Negative (Negative); Urine Specific Gravity 1.008 (1.002-1.030); Urine Urobilinogen Negative (Negative)
[2022-11-26 13:23] LABS: Urine Bacteria 1+ (Absent); Urine Red Blood Cell 2+(6-10/hpf) (Absent); Urine Squamous Epithelial Cell Present (Absent); Urine White Blood Cell 3+(>20/hpf) (Absent); Urine Yeast Present (Absent)
[2022-11-26] MEDS: Warfarin DAILY REMINDER **NOTE FOLLOW UP SCH (19:10)
[2022-11-27 05:38] LABS: ABS Eosinophils 0.2 10^3/ul (0-0.6); ABS Lymphocytes 0.8 10^3/ul (1.0-4.8); ABS Monocytes 0.8 10^3/ul (0-0.8); Eosinophil % 2.4 %; Hematocrit 39 % (35-47); Hemoglobin 12.1 g/dL (12.0-16.0); Lymphocyte % 11.8 %; Mean Corpuscular HGB Conc 31 g/dL (31-36); Mean Corpuscular Hemoglobin 28 pg (27-31); Mean Corpuscular Volume 88 fL (80-97); Mean Platelet Volume 8.1 fL (7.4-10.4); Nucleated Red Blood Cells % 0.1; Platelet Count 189 10^3/uL (150-450); Red Blood Count 4.37 10^6 /uL (3.70-4.87); Red Cell Distribution Width 18 % (10-15); White Blood Count 6.9 10^3/uL (3.5-10.8)
[2022-11-27 05:41] LABS: INR 2.17 (0.88-1.18)
[2022-11-27 05:56] LABS: Calcium 9.1 mg/dL (8.6-10.3); Creatinine, Serum 1.77 mg/dL (0.51-0.95); eGFR CKD-EPI 31.5 (>60)
[2022-11-27 06:00] LABS: Potassium 5.1 mmol/L (3.5-5.0)
[2022-11-27] MEDS: FLUTICAS/UMECLI/VILANT 200-62.5-25 MDI (NF) INH SCH (07:20)
[2022-11-27] MEDS: Venlafaxine XR 75 mg PO SCH (07:57)
[2022-11-27] MEDS: Nystatin TOP POWDER 15 GM BTL TOPICAL SCH ×3 (08:01→19:58)
[2022-11-27] MEDS ORDERED: Sodium Polystyrene ORAL.SUSP 15 GM/60 ML BTL PO ONE (08:30)
[2022-11-27] MEDS ORDERED: Albumin Human 5% 12.5 GM/250 ML BTL IV ONE (10:00)
[2022-11-27] MEDS: Lidocaine PATCH 5% PATCH TRANSDERM SCH (11:17)
[2022-11-27] MEDS: Warfarin DAILY REMINDER **NOTE FOLLOW UP SCH (18:05)
[2022-11-28 06:33] LABS: INR 2.16 (0.88-1.18)
[2022-11-28 06:42] LABS: Creatinine, Serum 1.6 mg/dL (0.51-0.95); Potassium 4.6 mmol/L (3.5-5.0); eGFR CKD-EPI 35.6 (>60)
[2022-11-28] MEDS: FLUTICAS/UMECLI/VILANT 200-62.5-25 MDI (NF) INH SCH (07:12)
[2022-11-28] MEDS: Venlafaxine XR 75 mg PO SCH (10:44)
[2022-11-28] MEDS: Nystatin TOP POWDER 15 GM BTL TOPICAL SCH (10:48)
[2022-11-28] MEDS: Lidocaine PATCH 5% PATCH TRANSDERM SCH (10:48)
[2022-11-28 11:58] VITALS: BP 113/61
== END 2022-11-28 13:13 | disposition home or self-care (01) | DRG 194 ==
LOC: ED 08:40 → EDHOLD 08:40 → SUATTDRO 14:25 → MEDTELE 15:12 → SUATTDRO 11-20 11:37 → MEDTELE 11-22 19:48
PROVIDERS: ADMIT Student in an Organized Health Care Education/Training Program; ATTEND Internal Medicine

== ENCOUNTER 2023-08-10 18:49 | Inpatient (IN) ==
[2023-08-10] MEDS ORDERED: NS 0.9% 1000 ml BAG 2,000 ML IV ONE (19:12)
[2023-08-10 19:51] LABS: ABS Basophils 0.1 10^3/uL (0.0-0.1); ABS Eosinophils 0.1 10^3/uL (0.0-0.5); ABS Lymphocytes 0.7 10^3/uL (1.0-4.8); ABS Monocytes 0.9 10^3/uL (0.0-0.9); ABS Neutrophils 9.8 10^3/uL (1.5-7.6); ABS Nucleated RBC 0.02 10^3/ul; Eosinophil % 1.1 %; Hematocrit 39.6 % (35-45); Hemoglobin 12.8 g/dL (11.5-14.3); Lymphocyte % 6.4 %; Mean Corpuscular Hemoglobin 29.9 pg (27-33); Mean Corpuscular Hgb Conc 32.4 g/dL (31-36); Mean Corpuscular Volume 92.2 fL (80-97); Mean Platelet Volume 8.4 fL (7.5-11.2); Nucleated Red Blood Cells % 0.2 %/100WBC (0.0-0.8); Platelet Count 151 10^3/uL (150-450); Red Cell Distribution Width 20.7 % (12-17); White Blood Count 11.6 10^3/uL (3.8-11.8)
[2023-08-10 20:02] LABS: High Sens Troponin Baseline 8 pg/mL (<15)
[2023-08-10 20:16] LABS: Urine Appearance Cloudy; Urine Bilirubin Negative (Negative); Urine Blood Negative (Negative); Urine Color Amber; Urine Glucose Negative (Negative); Urine Ketones Negative (Negative); Urine Nitrite Negative (Negative); Urine Protein 1+(30 mg/dL) (Negative); Urine Specific Gravity 1.018 (1.002-1.030); Urine Urobilinogen Positive (Negative)
[2023-08-10 20:28] LABS: ALT 4 U/L (7-52); Albumin/Globulin Ratio 1.1 (1-3); Alkaline Phosphatase 115 U/L (35-149); Anion Gap 9 mmol/L (2-16); Blood Urea Nitrogen 31 mg/dL (6-24); CO2 Carbon Dioxide 20 mmol/L (22-32); Calcium 8.8 mg/dL (8.6-10.3); Chloride 102 mmol/L (101-111); Creatinine, Serum 1.32 mg/dL (0.51-0.95); Globulin 3.5 g/dL (2-4); Glucose 152 mg/dL (70-100); Sodium 131 mmol/L (135-145); Total Protein 7.5 g/dL (6.4-8.9); eGFR CKD-EPI 44.5 (>60)
[2023-08-10 20:30] LABS: Urine Bacteria 3+ (Absent); Urine Red Blood Cell Trace(0-2/hpf) (Absent); Urine Squamous Epithelial Cell Present (Absent); Urine White Blood Cell 1+(6-10/hpf) (Absent)
[2023-08-10 20:59] LABS: Potassium Redraw 3.6 mmol/L (3.5-5.0)
[2023-08-10 21:12] LABS: High Sensitivity Troponin 1 Hr 8 pg/mL (<15)
[2023-08-10] MEDS ORDERED: cefTRIAXone 1 gm/50 mL D5W 1 GM/50 ML BAG IV ONE (21:14)
[2023-08-10 23:35] LABS: Calcium 7.6 mg/dL (8.6-10.3); Potassium 3.6 mmol/L (3.5-5.0)
[2023-08-10 23:40] LABS: Creatinine, Serum 1.13 mg/dL (0.51-0.95); eGFR CKD-EPI 53.7 (>60)
[2023-08-11] MEDS ORDERED: Albuterol HFA INHALER 8 gm MDI INH PRN (00:10)
[2023-08-11 00:23] LABS: INR 4.93 (0.83-1.13)
[2023-08-11 01:02] LABS: TSH Ultra Thyroid Stim Horm 10.85 mcIU/mL (0.34-5.60)
[2023-08-11] MEDS: Nystatin TOP POWDER 15 GM BTL TOPICAL SCH ×3 (02:27→21:24)
[2023-08-11] MEDS ORDERED: Furosemide 40 mg/4 ml IV VIAL IV ONE (04:36)
[2023-08-11 04:43] LABS: ABS Basophils 0.1 10^3/uL (0.0-0.1); ABS Eosinophils 0.1 10^3/uL (0.0-0.5); ABS Lymphocytes 0.6 10^3/uL (1.0-4.8); ABS Monocytes 0.6 10^3/uL (0.0-0.9); ABS Neutrophils 7.5 10^3/uL (1.5-7.6); ABS Nucleated RBC 0.01 10^3/ul; Eosinophil % 1.4 %; Hematocrit 38.8 % (35-45); Hemoglobin 12.6 g/dL (11.5-14.3); Lymphocyte % 6.6 %; Mean Corpuscular Hemoglobin 29.7 pg (27-33); Mean Corpuscular Hgb Conc 32.4 g/dL (31-36); Mean Corpuscular Volume 91.9 fL (80-97); Mean Platelet Volume 8.6 fL (7.5-11.2); Nucleated Red Blood Cells % 0.1 %/100WBC (0.0-0.8); Platelet Count 133 10^3/uL (150-450); Red Blood Count 4.22 10^6/uL (3.63-4.92); Red Cell Distribution Width 20.1 % (12-17); White Blood Count 8.9 10^3/uL (3.8-11.8)
[2023-08-11 04:48] LABS: INR 4.55 (0.83-1.13)
[2023-08-11 04:59] LABS: Calcium 8.5 mg/dL (8.6-10.3); Creatinine, Serum 1.29 mg/dL (0.51-0.95); eGFR CKD-EPI 45.8 (>60)
[2023-08-11 07:09] LABS: Folate 18.84 ng/mL (5.90-24.80)
[2023-08-11] MEDS: CMCS: FLUTICAS/UMECLI/VILANT 200-62.5-25 MDI (NF) INH SCH (07:54)
[2023-08-11] MEDS: Venlafaxine XR 75 mg PO SCH (07:55)
[2023-08-11] MEDS ORDERED: Enoxaparin 40 MG/0.4 ML SYR SUBCUT SCH (09:00)
[2023-08-11] MEDS ORDERED: Venlafaxine XR 75 mg PO SCH (09:00)
[2023-08-11] MEDS ORDERED: Sulfur Hexaflouride MICROSPHR 25 MG VIAL ONE (09:58)
[2023-08-11] MEDS ORDERED: Lidocaine 4% TOPICAL 50 ML TOP.SOLN TOPICAL SCH (12:00)
[2023-08-11] MEDS: Lidocaine PATCH 5% PATCH TRANSDERM SCH (14:14)
[2023-08-11] MEDS: cefTRIAXone 1 gm/50 mL D5W 1 GM/50 ML BAG IV SCH (21:13)
[2023-08-12] MEDS: CMCS: FLUTICAS/UMECLI/VILANT 200-62.5-25 MDI (NF) INH SCH (07:52)
[2023-08-12 09:27] LABS: ABS Basophils 0.1 10^3/uL (0.0-0.1); ABS Eosinophils 0.1 10^3/uL (0.0-0.5); ABS Lymphocytes 0.6 10^3/uL (1.0-4.8); ABS Monocytes 0.8 10^3/uL (0.0-0.9); ABS Neutrophils 6.2 10^3/uL (1.5-7.6); ABS Nucleated RBC 0.03 10^3/ul; Eosinophil % 1.5 %; Hematocrit 36.8 % (35-45); Lymphocyte % 8.1 %; Mean Corpuscular Hemoglobin 29.8 pg (27-33); Mean Corpuscular Hgb Conc 32.5 g/dL (31-36); Mean Corpuscular Volume 91.5 fL (80-97); Mean Platelet Volume 8.6 fL (7.5-11.2); Nucleated Red Blood Cells % 0.4 %/100WBC (0.0-0.8); Platelet Count 142 10^3/uL (150-450); Red Blood Count 4.02 10^6/uL (3.63-4.92); Red Cell Distribution Width 20.7 % (12-17); White Blood Count 7.8 10^3/uL (3.8-11.8)
[2023-08-12] MEDS: Venlafaxine XR 75 mg PO SCH (09:37)
[2023-08-12] MEDS: Lidocaine PATCH 5% PATCH TRANSDERM SCH (09:38)
[2023-08-12] MEDS: Nystatin TOP POWDER 15 GM BTL TOPICAL SCH ×2 (09:38→21:10)
[2023-08-12 09:47] LABS: Calcium 8.4 mg/dL (8.6-10.3); Creatinine, Serum 1.44 mg/dL (0.51-0.95); Magnesium 1.1 mg/dL (1.9-2.7); Potassium 4.4 mmol/L (3.5-5.0); eGFR CKD-EPI 40.1 (>60)
[2023-08-12] MEDS ORDERED: Magnesium Sulfate IV 3 GM in NS 0.9% 100 ml BAG 100 ML IVPB ONE (09:50)
[2023-08-12] MEDS: cefTRIAXone 1 gm/50 mL D5W 1 GM/50 ML BAG IV SCH (21:13)
[2023-08-13] MEDS ORDERED: Magnesium Sulf 4 GM/100 ML IV 4,000 MG/100 ML BAG IVPB ONE (07:31)
[2023-08-13] MEDS: CMCS: FLUTICAS/UMECLI/VILANT 200-62.5-25 MDI (NF) INH SCH (07:40)
[2023-08-13 08:05] LABS: ABS Basophils 0.1 10^3/uL (0.0-0.1); ABS Eosinophils 0.2 10^3/uL (0.0-0.5); ABS Lymphocytes 0.6 10^3/uL (1.0-4.8); ABS Monocytes 0.6 10^3/uL (0.0-0.9); ABS Neutrophils 6.1 10^3/uL (1.5-7.6); ABS Nucleated RBC 0.01 10^3/ul; Eosinophil % 2.2 %; Hematocrit 37.1 % (35-45); Hemoglobin 12.2 g/dL (11.5-14.3); Lymphocyte % 7.4 %; Mean Corpuscular Hemoglobin 29.9 pg (27-33); Mean Corpuscular Hgb Conc 32.9 g/dL (31-36); Mean Corpuscular Volume 90.8 fL (80-97); Nucleated Red Blood Cells % 0.2 %/100WBC (0.0-0.8); Platelet Count 129 10^3/uL (150-450); Red Blood Count 4.09 10^6/uL (3.63-4.92); Red Cell Distribution Width 20.4 % (12-17); White Blood Count 7.6 10^3/uL (3.8-11.8)
[2023-08-13 08:21] LABS: Calcium 8.6 mg/dL (8.6-10.3); Creatinine, Serum 1.36 mg/dL (0.51-0.95); Magnesium 1.6 mg/dL (1.9-2.7); Potassium 4.4 mmol/L (3.5-5.0)
[2023-08-13] MEDS: Nystatin TOP POWDER 15 GM BTL TOPICAL SCH ×2 (08:36→20:52)
[2023-08-13] MEDS: Lidocaine PATCH 5% PATCH TRANSDERM SCH (08:36)
[2023-08-13] MEDS: Venlafaxine XR 75 mg PO SCH (08:42)
[2023-08-13 14:49] LABS: INR 2.64 (0.83-1.13)
[2023-08-13] MEDS ORDERED: Warfarin per PHARMACY **NOTE FOLLOW UP SCH (18:00)
[2023-08-13] MEDS: cefTRIAXone 1 gm/50 mL D5W 1 GM/50 ML BAG IV SCH (20:51)
[2023-08-14] MEDS: CMCS: FLUTICAS/UMECLI/VILANT 200-62.5-25 MDI (NF) INH SCH (07:29)
[2023-08-14] MEDS: Lidocaine PATCH 5% PATCH TRANSDERM SCH (07:57)
[2023-08-14] MEDS: Venlafaxine XR 75 mg PO SCH (07:58)
[2023-08-14] MEDS: Nystatin TOP POWDER 15 GM BTL TOPICAL SCH (07:58)
[2023-08-14 08:26] LABS: INR 2.31 (0.83-1.13)
[2023-08-14] MEDS ORDERED: Influenza vaccine *QUAD* *2023-24* 0.5 ML SYRINGE IM ONE (08:47)
[2023-08-14 11:33] VITALS: BP 132/75
[2023-08-14] MEDS ORDERED: Warfarin DAILY REMINDER **NOTE FOLLOW UP SCH (17:00)
== END 2023-08-14 13:17 | disposition home or self-care (01) | DRG 463 ==
LOC: EDHOLD 18:49 → ED 18:49 → SUATTDRO 21:37 → MEDTELE 21:37
PROVIDERS: ADMIT Hospitalist; ATTEND Internal Medicine